=== PATIENT | male | born 1960 | race African-American/Black ===

== ENCOUNTER 2019-05-25 10:09 | Inpatient (IN) | payer OTHER ==
[2019-05-25 11:00] VITALS: BMI 27.5
--- NOTE | 2019-05-25 12:45 | HP ---
CIWA Score Nausea/Vomitin-No Nausea/No Vomiting Muscle Tremors: 3 Anxiety: 4-Mod. Anxious/Guarded Agitation: 4-Moderately Restless Paroxysmal Sweats: No Perspiration Orientation: 0-Oriented Tacttile Disturbances: 1-Very Mild Itch/Numbness (fingers) Auditory Disturbances: 0-None Visual Disturbances: 0-None Headache: 0-None Present CIWA-Ar Total Score: 12 - Admission Criteria OASAS Guidelines: Admission for Medically Managed Detox: Requires at least one of the followin. CIWA greater than 12 2. Seizures within the past 24 hours 3. Delirium tremens within the past 24 hours 4. Hallucinations within the past 24 hours 5. Acute intervention needed for co occurring medical disorder 6. Acute intervention needed for co occurring psychiatric disorder 7. Severe withdrawal that cannot be handled at a lower level of care (continued vomiting, continued diarrhea, abnormal vital signs) requiring intravenous medication and/or fluids 8. Admitting History and Physical - Admission Chief Complaint: alcohol detox History of Present Illness: Pt is a 58 y/o male with a hx of alcohol and cocaine dependence here for detox from alcohol. History Source: Patient Limitations to Obtaining History: No Limitations - Past Medical History [employer]: Yes: Peripheral Neuropathy Psych: Yes: Addictions, Depression Musculoskeletal: Yes: Chronic low back pain (and left shoulder blade sometimes) Endocrine: Yes: Diabetes Mellitus Dermatology: Yes: Other (dry,cracked base of left great toe. Thickened nails.) - Smoking History Smoking history: Current every day smoker Have you smoked in the past 12 months: Yes Aproximately how many cigarettes per day: 20 - Alcohol/Substance Use Hx Alcohol Use: Yes Number of Drinks Daily: 3 History of Substance Use: reports: Cocaine Date of Last Use: 05/25/19 - Social History Usual Living Arrangement: Yes: Other (Homeless) Do you think of yourself as: Straight/Heterosexual ADL: Independent History of Recent Travel: No Other Social History: Unemployed and on Disability Admission ROS [facility] - HPI Chief Complaint: "I came here because I don't want to go back to [facility] and I don't want to . I'm tired of living like this. I have more fun being clean" Allergies/Adverse Reactions: Allergies Allergy/AdvReac Type Severity Reaction Status Date / Time aspirin Allergy Swelling Verified 05/25/19 10:41 Pork/Porcine Containing Allergy Hives Verified 05/25/19 10:41 Products History of Present Illness: Pt is a 58 y/o male with a hx of alcohol and cocaine dependence seeking detox tx. Pt reports first comanche in this facility. Pt reports last previous treatment 10 yrs ago at [facility]. Pt reports PMHx of DM(on meds), Neuropathy(on med) . 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 Pt reports homelessness in [place], [place]. Exam Limitations: No Limitations - Ebola screening Have you traveled outside of the country in the last 21 days: No Have you had contact with anyone from an Ebola affected area: No Do you have a fever: No - Review of Systems Constitutional: Chills, Loss of Appetite, Changes in sleep EENT: reports: Cataracts ("i was told it's starting"), Blurred Vision (wears glasses-in place), Tearing, Nose Congestion, Dental Problems (three missing teeth at bottom jaw and all missing in upper jaw.) Respiratory: reports: Cough Cardiac: reports: Chest Pain ("when I'm using drugs- both alcohol and crack/ cocaine"), Lightheadedness GI: reports: Poor Appetite, Poor Fluid Intake : reports: No Symptoms Reported Musculoskeletal: reports: Other (Hx Neuropathy) Integumentary: reports: No Symptoms Reported Neuro: reports: Headache, Numbness, Paresthesia, Tremors, Dizziness Endocrine: reports: Intolerance to Cold, Unexplained Weight Loss Hematology: reports: No Symptoms Reported Psychiatric: reports: Orientated x3, Depressed Other Systems: Reviewed and Negative Patient History - Patient Medical History Hx Anemia: No Hx Asthma: No Hx Chronic Obstructive Pulmonary Disease (COPD): No Hx Cancer: No Hx Cardiac Disorders: No Hx Congestive Heart Failure: No Hx Hypertension: No Hx Hypercholesterolemia: No Hx Pacemaker: No HX Cerebrovascular Accident: No Hx Seizures: No Hx Dementia: No Hx Diabetes: Yes (on Metformin and Basaglar) Hx Gastrointestinal Disorders: No Hx Liver Disease: No Hx Genitourinary Disorders: No Hx Sexually Transmitted Disorders: No Hx Renal Disease (ESRD): No Hx Thyroid Disease: No Hx Human Immunodeficiency Virus (HIV): No (Negative Hx) Hx Hepatitis C: No Hx Depression: Yes (on meds) Hx Suicide Attempt: No (denies s/h/i) Hx Bipolar Disorder: No Hx Schizophrenia: No Other Medical History: Hx of Insomnia - Patient Surgical History Past Surgical History: No Anesthesia Reaction: No - PPD History Previous Implant?: Yes (10/2018 in [facility], [place], [place]) Documented Results: Negative w/o proof Implanted On Prior R Admission?: No PPD to be Administered?: Yes - Reproductive History Patient is a Female of Child Bearing Age (11 -55 yrs old): No (Male) - Smoking Cessation Smoking history: Current every day smoker Have you smoked in the past 12 months: Yes Aproximately how many cigarettes per day: 20 Hx Chewing Tobacco Use: No Initiated information on smoking cessation: Yes 'Breaking Loose' booklet given: 05/25/19 - Substance & Tx. History Hx Alcohol Use: Yes (Beer/Malt Liquor) Hx Substance Use: Yes (cocaine) Substance Use Type: Alcohol, Cocaine Hx Substance Use Treatment: Yes (Last was 10 yrs ago [facility]) - Substances abused Alcohol Substance route: Oral Frequency: Daily Amount used: 6 pack and haf of 24 ounce of beer. Age of first use: 7 Date of last use: 05/25/19 Cocaine Substance route: Smoking Frequency: Daily Amount used: 200 hundred Age of first use: 11 Date of last use: 05/25/19 Admission Physical Exam S - Vital Signs Vital Signs: Vital Signs - 24 hr 05/25/19 10:40 Temperature 97.7 F Pulse Rate 75 Respiratory 16 Rate Blood Pressure 109/63 - Physical General Appearance: Yes: Nourished, Mild Distress, Anxious HEENTM: Yes: EOMI, Normocephalic, BRISSA, Pharynx Normal Respiratory: Yes: Chest Non-Tender, Lungs Clear, Normal Breath Sounds, No Respiratory Distress Neck: Yes: Supple, Trachea in good position Breast: Yes: Breast Exam Deferred Cardiology: Yes: Regular Rhythm, Regular Rate, S1, S2 Abdominal: Yes: Normal Bowel Sounds, Non Tender, Soft, Protuberent Genitourinary: Yes: Other (N?C) Back: Yes: Within Normal Limits Musculoskeletal: Yes: full range of Motion, Gait Steady Extremities: Yes: Normal Range of Motion, Non-Tender Neurological: Yes: lead oxide mill tender II-XII NML intact, Fully Oriented, Alert, Motor Strength 5/5 Integumentary: Yes: Normal Color, Dry, Warm Lymphatic: Yes: Within Normal Limits - Diagnostic (1) Alcohol dependence with uncomplicated withdrawal Current Visit: Yes Status: Acute (2) Cocaine dependence, uncomplicated Current Visit: Yes Status: Acute (3) Type 2 diabetes mellitus Current Visit: Yes Status: Chronic (4) History of depression Current Visit: Yes Status: Chronic (5) Hx of peripheral neuropathy Current Visit: Yes Status: Chronic Cleared for Admission [facility] - Detox or Rehab [facility] Level of Care: Medically Managed Detox Regimen/Protocol: Librium Breathalyzer - Breathalyzer Breathalyzer: 0 Urine Drug Screen - Test Device Lot number: [id number] Expiration date: 01/19/21 - Control Is test valid?: Yes - Results Drug screen NEGATIVE: No Urine drug screen results: THC-Marijuana, PEREZ-Cocaine, BZO-Benzodiazepines Inpatient Rehab Admission - Rehab Decision to Admit Inpatient rehab admission?: No
[2019-05-25] MEDS ORDERED: MAG HYDROX/AL HYDROX/SIMETH 30 ML UNIT-DOSE CUP PO PRN (13:10)
[2019-05-25] MEDS ORDERED: BISMUTH SUBSALICYLATE 524 MG/30 ML UD PO PRN (13:10)
[2019-05-25] MEDS ORDERED: MAGNESIUM HYDROX 2400MG/30ML ORAL SUSPENSION 30 ML CUP PO PRN (13:10)
[2019-05-25] MEDS ORDERED: IBUPROFEN 400 MG TABLET (FP) PO PRN (13:10)
[2019-05-25] MEDS ORDERED: METHOCARBAMOL 500 MG TABLET PO PRN (13:10)
[2019-05-25] MEDS ORDERED: NICOTINE POLACRILEX 4 MG GUM BUC PRN (13:10)
[2019-05-25] MEDS ORDERED: hydrOXYzine PAMOATE 25 MG CAPSULE (FP) PO PRN (13:10)
[2019-05-25] MEDS ORDERED: MAGNESIUM CITRATE 300 ML BOTTLE PO PRN (13:10)
[2019-05-25] MEDS ORDERED: MENTHOL/PHENOL 1 EACH UD MM PRN (13:10)
[2019-05-25] MEDS ORDERED: ACETAMINOPHEN 325 MG TABLET (FP) PO PRN ×2 (13:10)
[2019-05-25] MEDS ORDERED: MELATONIN 5 MG TABLETS PO PRN (13:10)
[2019-05-25] MEDS ORDERED: chlordiazePOXIDE HCL 10 MG CAPSULE PO PRN (13:10)
[2019-05-25] MEDS: chlordiazePOXIDE HCL 25 MG CAPSULE PO SCH ×2 (15:04→21:01)
[2019-05-25 16:45] LABS: HEMATOCRIT 44.8 % (35.4-49); HEMOGLOBIN 14.9 GM/dL (11.7-16.9); MCH 29.3 pg (25.7-33.7); MCHC 33.2 g/dl (32.0-35.9); MEAN CELL VOLUME 88.4 fl (80-96); MEAN PLT VOLUME 7.5 fl (7.5-11.1); PLATELET COUNT 233 K/MM3 (134-434); RBC 5.07 M/mm3 (4.00-5.60); RDW 13.2 % (11.9-15.9); WHITE BLOOD COUNT 5.6 K/mm3 (4.0-10.0)
[2019-05-25 16:53] LABS: ALBUMIN 3.8 g/dl (3.4-5.0); BILIRUBIN,TOTAL 0.4 mg/dL (0.2-1); BLOOD UREA NITROGEN 15.4 mg/dL (7-18); CALCIUM 8.9 mg/dL (8.5-10.1); CREATININE 1.1 mg/dL (0.55-1.3); POTASSIUM 4.1 mmol/L (3.5-5.1); TOT PROT 6.8 g/dl (6.4-8.2)
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
[2019-05-25] MEDS: INSULIN SLIDING SCALE (NOVOLOG) 1 VIAL SQ SCH (17:16)
[2019-05-25] MEDS: metFORMIN HCL 500 MG TABLET (FP) PO SCH (17:21)
[2019-05-25] MEDS: INSULIN (LEVEMIR) 100 UNITS/ML UNITS SQ SCH (21:04)
[2019-05-25] MEDS: THIAMINE HCL 100 MG TABLET (FP) PO SCH (21:04)
[2019-05-25] MEDS ORDERED: metFORMIN HCL 500 MG TABLET (FP) PO SCH (22:00)
[2019-05-26] MEDS: chlordiazePOXIDE HCL 25 MG CAPSULE PO SCH ×3 (06:33→22:35)
[2019-05-26] MEDS: metFORMIN HCL 500 MG TABLET (FP) PO SCH ×2 (06:40→14:27)
[2019-05-26] MEDS: INSULIN SLIDING SCALE (NOVOLOG) 1 VIAL SQ SCH ×2 (06:41→16:11)
[2019-05-26] MEDS: PRENATAL VITAMINS W/ FOLIC ACID TABLET (FP) PO SCH (10:44)
--- NOTE | 2019-05-26 13:48 | PN ---
S CIWA - CIWA Score Nausea/Vomitin-No Nausea/No Vomiting Muscle Tremors: None Anxiety: 2 Agitation: 0-Normal Activity Paroxysmal Sweats: 2 Orientation: 0-Oriented Tacttile Disturbances: 0-None Auditory Disturbances: 0-None Visual Disturbances: 0-None Headache: 0-None Present CIWA-Ar Total Score: 4 BHS Progress Note (SOAP) Subjective: c/o mild anxiety and sweats. Objective: 05/26/19 13:45 Vital Signs 05/26/19 05/26/19 06:00 09:47 Temperature 98.1 F 97.9 F Pulse Rate 81 74 Respiratory 18 18 Rate Blood Pressure 128/64 137/67 Lab Results WBC 5.6 K/mm3 (4.0-10.0) 05/25/19 12:55 RBC 5.07 M/mm3 (4.00-5.60) 05/25/19 12:55 Hgb 14.9 GM/dL (11.7-16.9) 05/25/19 12:55 Hct 44.8 % (35.4-49) 05/25/19 12:55 MCV 88.4 fl (80-96) 05/25/19 12:55 MCHC 33.2 g/dl (32.0-35.9) 05/25/19 12:55 RDW 13.2 % (11.9-15.9) 05/25/19 12:55 Plt Count 233 K/MM3 (134-434) 05/25/19 12:55 Sodium 140 mmol/L (136-145) 05/25/19 12:55 Potassium 4.1 mmol/L (3.5-5.1) 05/25/19 12:55 Chloride 106 mmol/L (98-107) 05/25/19 12:55 Carbon Dioxide 30 mmol/L (21-32) 05/25/19 12:55 Anion Gap 5 MMOL/L (8-16) L 05/25/19 12:55 BUN 15.4 mg/dL (7-18) 05/25/19 12:55 Creatinine 1.1 mg/dL (0.55-1.3) 05/25/19 12:55 Random Glucose 207 mg/dL (74-106) H 05/25/19 12:55 Calcium 8.9 mg/dL (8.5-10.1) 05/25/19 12:55 Labs noted. Assessment: 05/26/19 13:45 AOX3, in no acute respiratory distress. Full ROM, ambulating in the unit. Pt expresses the interest to go to rehab. spoke to the counselor about pt's request, will be discharge to rehab when bed becomes available tomorrow. No bed availability today. pt with c/o mild withdrawal symptoms. Plan: continue detox.
[2019-05-26] MEDS: THIAMINE HCL 100 MG TABLET (FP) PO SCH (22:36)
[2019-05-26] MEDS: INSULIN (LEVEMIR) 100 UNITS/ML UNITS SQ SCH ×2 (22:38→23:02)
[2019-05-27] MEDS: chlordiazePOXIDE 5 MG CAPSULE PO SCH ×3 (05:56→21:17)
[2019-05-27] MEDS: metFORMIN HCL 500 MG TABLET (FP) PO SCH ×2 (06:00→15:40)
[2019-05-27] MEDS: PRENATAL VITAMINS W/ FOLIC ACID TABLET (FP) PO SCH (10:23)
[2019-05-27] MEDS: INSULIN SLIDING SCALE (NOVOLOG) 1 VIAL SQ SCH (16:58)
--- NOTE | 2019-05-27 17:03 | PN ---
[facility] CIWA - CIWA Score Nausea/Vomitin-No Nausea/No Vomiting Muscle Tremors: 2 Anxiety: 1-Mildly Anxious Agitation: 0-Normal Activity Paroxysmal Sweats: 2 Orientation: 0-Oriented Tacttile Disturbances: 0-None Auditory Disturbances: 0-None Visual Disturbances: 0-None Headache: 0-None Present CIWA-Ar Total Score: 5 BHS Progress Note (SOAP) Subjective: no complaint offered Objective: 05/27/19 17:02 a & ox 3 no distress noted Vital Signs Temperature 96 F L 05/27/19 16:42 Pulse Rate 79 05/27/19 16:42 Respiratory Rate 18 05/27/19 16:42 Blood Pressure 139/76 05/27/19 16:42 O2 Sat by Pulse Oximetry (%) Plan: continue detox
[2019-05-27] MEDS: INSULIN (LEVEMIR) 100 UNITS/ML UNITS SQ SCH (21:17)
[2019-05-27] MEDS: THIAMINE HCL 100 MG TABLET (FP) PO SCH (21:17)
[2019-05-28] MEDS ORDERED: chlordiazePOXIDE HCL 10 MG CAPSULE PO PRN
[2019-05-28] MEDS: chlordiazePOXIDE HCL 10 MG CAPSULE PO SCH ×2 (05:20→12:52)
[2019-05-28] MEDS: metFORMIN HCL 500 MG TABLET (FP) PO SCH ×2 (06:56→17:04)
[2019-05-28] MEDS: INSULIN SLIDING SCALE (NOVOLOG) 1 VIAL SQ SCH ×2 (08:11→23:10)
--- NOTE | 2019-05-28 09:56 | PN ---
S CIWA - CIWA Score Nausea/Vomitin-No Nausea/No Vomiting Muscle Tremors: None Anxiety: 1-Mildly Anxious Agitation: 1-Slight > Activity Paroxysmal Sweats: No Perspiration Orientation: 0-Oriented Tacttile Disturbances: 0-None Auditory Disturbances: 0-None Visual Disturbances: 0-None Headache: 0-None Present CIWA-Ar Total Score: 2 BHS Progress Note (SOAP) Subjective: feeling better mild shakes I need less librium Objective: 05/28/19 09:55 Vital Signs Temperature 98.4 F 05/28/19 09:13 Pulse Rate 81 05/28/19 09:13 Respiratory Rate 18 05/28/19 09:13 Blood Pressure 133/63 05/28/19 09:13 O2 Sat by Pulse Oximetry (%) aaox3 ambulating no acute distress Assessment: 05/28/19 09:56 mild withdrawals Plan: continue detox with reduced dose d/c in am
[2019-05-28] MEDS: PRENATAL VITAMINS W/ FOLIC ACID TABLET (FP) PO SCH (10:37)
[2019-05-28] MEDS: INSULIN (LEVEMIR) 100 UNITS/ML UNITS SQ SCH ×2 (22:51→23:16)
[2019-05-28] MEDS: THIAMINE HCL 100 MG TABLET (FP) PO SCH (23:10)
[2019-05-29] MEDS ORDERED: chlordiazePOXIDE HCL 10 MG CAPSULE PO ONE (05:00)
[2019-05-29] MEDS ORDERED: INSULIN (LEVEMIR) 100 UNITS/ML UNITS SQ ONE (06:21)
[2019-05-29] MEDS: INSULIN SLIDING SCALE (NOVOLOG) 1 VIAL SQ SCH (07:18)
[2019-05-29] MEDS: metFORMIN HCL 500 MG TABLET (FP) PO SCH (07:19)
--- NOTE | 2019-05-29 09:18 | DS ---
[facility] Detox Discharge Summary Admission Date: 05/25/19 Discharge Date: 05/29/19 - History Present History: Alcohol Dependence, Cocaine Dependence - Physical Exam Results Vital Signs: Vital Signs Temperature 98.1 F 05/29/19 08:59 Pulse Rate 84 05/29/19 08:59 Respiratory Rate 18 05/29/19 08:59 Blood Pressure 126/82 05/29/19 08:59 O2 Sat by Pulse Oximetry (%) Pertinent Admission Physical Exam Findings: pt arrived in withdrawals Laboratory Tests 05/25/19 05/25/19 05/25/19 12:55 12:55 12:55 WBC 5.6 RBC 5.07 Hgb 14.9 Hct 44.8 MCV 88.4 MCH 29.3 MCHC 33.2 RDW 13.2 Plt Count 233 MPV 7.5 Sickle Cell Screen Sodium 140 Potassium 4.1 Chloride 106 Carbon Dioxide 30 Anion Gap 5 L BUN 15.4 Creatinine 1.1 Est GFR (CKD-EPI)AfAm 84.12 Est GFR (CKD-EPI)NonAf 72.58 POC Glucometer Random Glucose 207 H Calcium 8.9 Total Bilirubin 0.4 AST 20 ALT 26 Alkaline Phosphatase 84 Total Protein 6.8 Albumin 3.8 RPR Titer Nonreactive HIV 1&2 Antibody Screen HIV P24 Antigen 05/25/19 05/25/19 05/25/19 12:55 13:24 16:44 WBC RBC Hgb Hct MCV MCH MCHC RDW Plt Count MPV Sickle Cell Screen Negative Sodium Potassium Chloride Carbon Dioxide Anion Gap BUN Creatinine Est GFR (CKD-EPI)AfAm Est GFR (CKD-EPI)NonAf POC Glucometer 212 235 Random Glucose Calcium Total Bilirubin AST ALT Alkaline Phosphatase Total Protein Albumin RPR Titer HIV 1&2 Antibody Screen HIV P24 Antigen 05/25/19 05/26/19 05/26/19 19:37 05:47 11:06 WBC RBC Hgb Hct MCV MCH MCHC RDW Plt Count MPV Sickle Cell Screen Sodium Potassium Chloride Carbon Dioxide Anion Gap BUN Creatinine Est GFR (CKD-EPI)AfAm Est GFR (CKD-EPI)NonAf POC Glucometer 259 207 Random Glucose Calcium Total Bilirubin AST ALT Alkaline Phosphatase Total Protein Albumin RPR Titer HIV 1&2 Antibody Screen Negative HIV P24 Antigen Negative 05/26/19 05/26/19 05/27/19 16:05 22:34 05:55 WBC RBC Hgb Hct MCV MCH MCHC RDW Plt Count MPV Sickle Cell Screen Sodium Potassium Chloride Carbon Dioxide Anion Gap BUN Creatinine Est GFR (CKD-EPI)AfAm Est GFR (CKD-EPI)NonAf POC Glucometer [phone] Random Glucose Calcium Total Bilirubin AST ALT Alkaline Phosphatase Total Protein Albumin RPR Titer HIV 1&2 Antibody Screen HIV P24 Antigen 05/27/19 05/27/19 05/28/19 16:38 21:14 05:18 WBC RBC Hgb Hct MCV MCH MCHC RDW Plt Count MPV Sickle Cell Screen Sodium Potassium Chloride Carbon Dioxide Anion Gap BUN Creatinine Est GFR (CKD-EPI)AfAm Est GFR (CKD-EPI)NonAf POC Glucometer [phone] Random Glucose Calcium Total Bilirubin AST ALT Alkaline Phosphatase Total Protein Albumin RPR Titer HIV 1&2 Antibody Screen HIV P24 Antigen 05/28/19 05/28/19 05/29/19 11:50 22:46 05:48 WBC RBC Hgb Hct MCV MCH MCHC RDW Plt Count MPV Sickle Cell Screen Sodium Potassium Chloride Carbon Dioxide Anion Gap BUN Creatinine Est GFR (CKD-EPI)AfAm Est GFR (CKD-EPI)NonAf POC Glucometer [phone] Random Glucose Calcium Total Bilirubin AST ALT Alkaline Phosphatase Total Protein Albumin RPR Titer HIV 1&2 Antibody Screen HIV P24 Antigen today pt is aaox3 ambulating no acute distress no s/s of withdrawals - Treatment Hospital Course: Detox Protocol Followed, Detoxed Safely, Responded well, Discharged Condition Good, Rehab Referral Accepted Patient has Accepted a Rehab Referral to: pt referred to [facility] inpatient rehab - Medication Discharge Medications: Ambulatory Orders Bupropion HCl [Wellbutrin Xl] 1 mg PO DAILY 05/25/19 Gabapentin 1 cap PO TID 05/25/19 Insulin Glargine,Hum.rec.anlog [Basaglar Kwikpen U-100] 20 units SCJ DAILY 05/25 Metformin HCl [Glucophage] 1 tablet PO BID 05/25/19 - Diagnosis (1) Alcohol dependence with uncomplicated withdrawal Current Visit: Yes Status: Chronic (2) Cocaine dependence, uncomplicated Current Visit: Yes Status: Chronic (3) History of depression Current Visit: Yes Status: Chronic (4) Hx of peripheral neuropathy Current Visit: Yes Status: Chronic (5) Type 2 diabetes mellitus Current Visit: Yes Status: Chronic Qualifiers: Diabetes mellitus fci insulin use: unspecified fci insulin use status Diabetes mellitus complication status: without complication Qualified Code(s): E11.9 - Type 2 diabetes mellitus without complications (6) Antisocial personality disorder Current Visit: No Status: Chronic - AMA Did Patient Leave Against Medical Advice: No
[2019-05-29] MEDS: PRENATAL VITAMINS W/ FOLIC ACID TABLET (FP) PO SCH (10:08)
[2019-05-29 13:38] VITALS: BP 138/77; PULSE 69; TEMP 97.2
== END 2019-05-29 14:55 | disposition other institution (70) | DRG 774 ==
LOC: YASAS 10:09 → Y6N 13:38
PROVIDERS: ADMIT Allergy & Immunology; ATTEND Allergy & Immunology
PROC: HZ2ZZZZ Detoxification Services for Substance Abuse Treatment (ICD-10-PCS; principal; 2019-05-25)
DX: F10.230 Alcohol dependence with withdrawal, uncomplicated (principal); F14.20 Cocaine dependence, uncomplicated; F17.210 Nicotine dependence, cigarettes, uncomplicated; F60.2 Antisocial personality disorder; F32.9 Major depressive disorder, single episode, unspecified; E11.9 Type 2 diabetes mellitus without complications; G62.9 Polyneuropathy, unspecified; M54.5 Low back pain; G89.29 Other chronic pain; Z79.84 Long term (current) use of oral hypoglycemic drugs; Z79.4 Long term (current) use of insulin; Z88.6 Allergy status to analgesic agent; Z91.018 Allergy to other foods; Z59.0 Homelessness
CPT/HCPCS: 36415; 80053; 82962; 85027; 85660; 86593; 87389

== ENCOUNTER 2019-05-29 15:03 | Inpatient (IN) | payer OTHER ==
--- NOTE | 2019-05-29 14:47 | HP ---
[facility] Rehab Assess/Revision - Admission History Ad[facility] to Rehab from[facility] - Findings Detox History & Physical reviewed: Yes Concur with findings: Yes Inpatient Rehab Admission - Rehab Decision to Admit Inpatient rehab admission?: Yes - Initial Determination Are CD services needed?: Yes Free of communicable disease: Yes Not in need of hospitalization: Yes - Rehab Admission Criteria Previous failed treatment: Yes Poor recovery environment: Yes Comorbidities: Yes Lacks judgement: Yes Patient is meeting Inpatient Rehab admission criteria:: Yes
[~2019-05-29 15:03] MED LIST: ACETAMINOPHEN 325 MG TABLET (FP) PO PRN; IBUPROFEN 400 MG TABLET (FP) PO PRN; LOPERAMIDE HCL 2 MG CAPSULE PO PRN; MAG HYDROX/AL HYDROX/SIMETH 30 ML UNIT-DOSE CUP PO PRN; MAGNESIUM CITRATE 300 ML BOTTLE PO PRN; MAGNESIUM HYDROX 2400MG/30ML ORAL SUSPENSION 30 ML CUP PO PRN; MENTHOL/PHENOL 1 EACH UD MM PRN; NICOTINE POLACRILEX 4 MG GUM BUC PRN; P-EPHED 60MG/TRIPROLIDI 2.5MG TABLET PO PRN; guaiFENesin 200 MG/10 ML 10 ML UNIT-DOSE CUPS PO PRN; hydrOXYzine PAMOATE 50 MG CAPSULE (FP) PO PRN
[2019-05-29] MEDS ORDERED: INSULIN (NOVOLOG) ASPART 100 UNITS/ML 10ML VIAL ONE (16:38)
[2019-05-29] MEDS: INSULIN SLIDING SCALE (NOVOLOG) 1 VIAL SQ SCH (16:39)
[2019-05-29] MEDS: metFORMIN HCL 500 MG TABLET (FP) PO SCH (16:39)
[2019-05-29] MEDS: THIAMINE HCL 100 MG TABLET (FP) PO SCH (21:06)
[2019-05-29] MEDS ORDERED: INSULIN (LEVEMIR) 100 UNITS/ML UNITS SQ SCH (22:00)
[2019-05-30] MEDS: metFORMIN HCL 500 MG TABLET (FP) PO SCH ×2 (08:22→17:17)
[2019-05-30] MEDS: INSULIN SLIDING SCALE (NOVOLOG) 1 VIAL SQ SCH ×2 (08:40→17:17)
[2019-05-30] MEDS: PRENATAL VITAMINS W/ FOLIC ACID TABLET (FP) PO SCH (10:20)
[2019-05-30] MEDS: NICOTINE 21 MG/24 HOURS TOPICAL PATCH TD SCH (10:21)
[2019-05-30] MEDS ORDERED: INSULIN (NOVOLOG) ASPART 100 UNITS/ML 10ML VIAL ONE (11:15)
[2019-05-30] MEDS: THIAMINE HCL 100 MG TABLET (FP) PO SCH (21:29)
[2019-05-30] MEDS: MELATONIN 5 MG TABLETS PO PRN (21:33)
[2019-05-31] MEDS ORDERED: PT OWN MED DRAWER 7, Y5N ONE (03:50)
[2019-05-31] MEDS: metFORMIN HCL 500 MG TABLET (FP) PO SCH ×2 (06:44→16:31)
[2019-05-31] MEDS: INSULIN (LEVEMIR) 100 UNITS/ML UNITS SQ SCH (06:47)
[2019-05-31] MEDS ORDERED: INSULIN (NOVOLOG) ASPART 100 UNITS/ML 10ML VIAL ONE ×2 (06:51→16:31)
[2019-05-31] MEDS: INSULIN SLIDING SCALE (NOVOLOG) 1 VIAL SQ SCH ×3 (07:48→16:35)
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
[2019-05-31] MEDS: NICOTINE 21 MG/24 HOURS TOPICAL PATCH TD SCH (09:38)
[2019-05-31] MEDS: PRENATAL VITAMINS W/ FOLIC ACID TABLET (FP) PO SCH (09:38)
[2019-05-31] MEDS: THIAMINE HCL 100 MG TABLET (FP) PO SCH (21:43)
[2019-06-01] MEDS: INSULIN (LEVEMIR) 100 UNITS/ML UNITS SQ SCH (06:38)
[2019-06-01] MEDS: metFORMIN HCL 500 MG TABLET (FP) PO SCH ×2 (07:35→16:37)
[2019-06-01] MEDS: INSULIN SLIDING SCALE (NOVOLOG) 1 VIAL SQ SCH ×4 (07:36→21:48)
[2019-06-01] MEDS ORDERED: INSULIN (NOVOLOG) ASPART 100 UNITS/ML 10ML VIAL ONE ×2 (07:36→11:55)
[2019-06-01] MEDS: NICOTINE 21 MG/24 HOURS TOPICAL PATCH TD SCH (10:16)
[2019-06-01] MEDS: PRENATAL VITAMINS W/ FOLIC ACID TABLET (FP) PO SCH (10:16)
[2019-06-01] MEDS ORDERED: BUPROPION HCL PO SCH (12:15)
[2019-06-01] MEDS: GABAPENTIN 400 MG CAPSULE (FP) PO SCH ×2 (13:32→21:45)
[2019-06-01] MEDS ORDERED: PT OWN MED DRAWER 7, Y5N ONE (15:34)
[2019-06-01] MEDS: THIAMINE HCL 100 MG TABLET (FP) PO SCH (21:45)
[2019-06-02] MEDS: GABAPENTIN 400 MG CAPSULE (FP) PO SCH ×3 (06:49→21:42)
[2019-06-02] MEDS: INSULIN (LEVEMIR) 100 UNITS/ML UNITS SQ SCH (08:10)
[2019-06-02] MEDS: metFORMIN HCL 500 MG TABLET (FP) PO SCH ×2 (08:10→17:01)
[2019-06-02] MEDS: INSULIN SLIDING SCALE (NOVOLOG) 1 VIAL SQ SCH ×4 (08:10→21:43)
[2019-06-02] MEDS: PRENATAL VITAMINS W/ FOLIC ACID TABLET (FP) PO SCH (10:35)
[2019-06-02] MEDS: NICOTINE 21 MG/24 HOURS TOPICAL PATCH TD SCH (10:35)
[2019-06-02] MEDS ORDERED: INSULIN (NOVOLOG) ASPART 100 UNITS/ML 10ML VIAL ONE ×3 (11:51→21:43)
[2019-06-02] MEDS: THIAMINE HCL 100 MG TABLET (FP) PO SCH (21:42)
[2019-06-03] MEDS: metFORMIN HCL 500 MG TABLET (FP) PO SCH ×2 (06:19→17:07)
[2019-06-03] MEDS: GABAPENTIN 400 MG CAPSULE (FP) PO SCH ×3 (06:19→21:45)
[2019-06-03] MEDS: INSULIN (LEVEMIR) 100 UNITS/ML UNITS SQ SCH (06:36)
[2019-06-03] MEDS: INSULIN SLIDING SCALE (NOVOLOG) 1 VIAL SQ SCH ×4 (06:36→21:46)
[2019-06-03] MEDS: NICOTINE 21 MG/24 HOURS TOPICAL PATCH TD SCH (09:40)
[2019-06-03] MEDS: PRENATAL VITAMINS W/ FOLIC ACID TABLET (FP) PO SCH (09:40)
[2019-06-03] MEDS ORDERED: INSULIN (NOVOLOG) ASPART 100 UNITS/ML 10ML VIAL ONE ×2 (11:52→17:16)
[2019-06-03] MEDS: MELATONIN 5 MG TABLETS PO PRN (21:45)
[2019-06-03] MEDS: THIAMINE HCL 100 MG TABLET (FP) PO SCH (21:45)
[2019-06-04] MEDS: GABAPENTIN 400 MG CAPSULE (FP) PO SCH (06:12)
[2019-06-04] MEDS: metFORMIN HCL 500 MG TABLET (FP) PO SCH (06:12)
[2019-06-04] MEDS: INSULIN (LEVEMIR) 100 UNITS/ML UNITS SQ SCH (06:14)
[2019-06-04] MEDS: INSULIN SLIDING SCALE (NOVOLOG) 1 VIAL SQ SCH (06:14)
[2019-06-04] MEDS ORDERED: INSULIN (NOVOLOG) ASPART 100 UNITS/ML 10ML VIAL ONE (06:41)
[2019-06-04 07:14] VITALS: BP 131/72; PULSE 81; TEMP 97.9
[2019-06-04] MEDS: PRENATAL VITAMINS W/ FOLIC ACID TABLET (FP) PO SCH (09:33)
[2019-06-04] MEDS: NICOTINE 21 MG/24 HOURS TOPICAL PATCH TD SCH (09:33)
[2019-06-04] MEDS ORDERED: PT OWN MED DRAWER 7, Y5N ONE (10:35)
--- NOTE | 2019-06-04 14:59 | DS ---
[facility] Rehab Discharge Summary - [facility] Rehab Discharge Summary Admission Date: 05/29/19 Discharge Date: 06/04/19 - History Present History: Alcohol dependence, Cocaine dependence - Discharge Physical Exam Vital Signs: Vital Signs Temperature 97.9 F 06/04/19 06:00 Pulse Rate 81 06/04/19 06:00 Respiratory Rate 18 06/04/19 06:00 Blood Pressure 131/72 06/04/19 06:00 O2 Sat by Pulse Oximetry (%) Pertinent Admission Physical Exam Findings: ROS: denies etoh cravings, chest pain, sob and dizziness. PE: alert and oriented x 3 skin warm and dry +perrla, eoms intact bl neck supple, no jvd car s1s2, no murmurs or gallops resp cta bl no rales, no wheezing ext no visible tremors, amb ad john - Treatment Discharge Condition: Discharge condition good Hospital Course: Patient completed rehab today and reports accomplishing rehab goals. Patient is motivated to maintain sobriety and aftercare arranged for [facility]. Patient is able to identify triggers and positive coping mechanisms. He is medically stable at time of discharge and denies SI/HI. [facility]. Encouraged by fiction and nonfiction prose writer to complete [facility] treatment to prevent relapse and maintain sobriety. - Medication Discharge Medications: Ambulatory Orders Bupropion HCl [Wellbutrin Xl] 1 mg PO DAILY 05/25/19 Gabapentin 1 cap PO TID 05/25/19 Insulin Glargine,Hum.rec.anlog [Basaglar Kwikpen U-100] 20 units SQ DAILY Metformin HCl [Glucophage] 1 tablet PO BID 05/25/19 - Medication-Assisted Treatment (MAT) Medication-Assisted Treatment (MAT): No - Discharge Instructions Diet, activity, other medical instructions: Diet: JULIANA, NCS as tolerated Activity: as tolerated Other medical instructions: follow up with pcp as recommended - Follow-up Referral Minutes to complete discharge: 30 - AMA Did Patient Leave Against Medical Advice: No
== END 2019-06-04 10:40 | disposition home or self-care (01) | DRG 772 ==
LOC: YASAS 15:03 → Y3W 15:04
PROVIDERS: ADMIT Neuromusculoskeletal Medicine & OMM; ATTEND Neuromusculoskeletal Medicine & OMM
PROC: HZ42ZZZ Group Counseling for Substance Abuse Treatment, Cognitive-Behavioral (ICD-10-PCS; principal; 2019-05-29)
DX: F10.20 Alcohol dependence, uncomplicated (principal); F14.20 Cocaine dependence, uncomplicated; F60.2 Antisocial personality disorder; F32.9 Major depressive disorder, single episode, unspecified; E11.9 Type 2 diabetes mellitus without complications; Z79.4 Long term (current) use of insulin; Z88.6 Allergy status to analgesic agent; Z91.018 Allergy to other foods; Z59.0 Homelessness
CPT/HCPCS: 82962

== ENCOUNTER 2019-09-19 11:32 | Inpatient (IN) | payer OTHER ==
[2019-09-19 12:41] VITALS: BMI 27.6
--- NOTE | 2019-09-19 13:03 | HP ---
COWS - Scale Resting Pulse: 1= CA 81-100 Sweatin=Flushed/Facial Moisture Restless Observation: 1= Difficult to Sit Still Pupil Size: 1= Pupils >than Normal Bone or Joint Aches: 1= Mild Discomfort Runny Nose/ Eye Tearin= Nasal Congestion GI Upset > 30mins: 1= Stomach Cramp Tremor Observation: 1= Tremor [place], Not Seen Yawning Observation: 0= None Anxiety or Irritability: 1=Feels Anxious/Irritable Goose Flesh Skin: 3=Piloerection COWS Score: 13 CIWA Score Nausea/Vomitin Muscle Tremors: 3 Anxiety: 2 Agitation: 2 Paroxysmal Sweats: 4-Forehead w/Sweat Beads Orientation: 2-Disoriented Date<2 days Tacttile Disturbances: 3-Moderate Itch/Numb/Burn Auditory Disturbances: 0-None Visual Disturbances: 0-None Headache: 5-Severe CIWA-Ar Total Score: 23 - Admission Criteria OASAS Guidelines: Admission for Medically Managed Detox: Requires at least one of the followin. CIWA greater than 12 2. Seizures within the past 24 hours 3. Delirium tremens within the past 24 hours 4. Hallucinations within the past 24 hours 5. Acute intervention needed for co occurring medical disorder 6. Acute intervention needed for co occurring psychiatric disorder 7. Severe withdrawal that cannot be handled at a lower level of care (continued vomiting, continued diarrhea, abnormal vital signs) requiring intravenous medication and/or fluids 8. Admitting History and Physical - Admission Chief Complaint: " I got out of care home in february and I started using. I want a better way of life and [facility] [place] History of Present Illness: 59 year old with history of alcohl depependenc with withdrawals and heroin dependence with some withdrawals. He is snorting 5-6 bags intranasally daily. He uses street suboxone as well. HE is drinking 3-6 packs of beer daily, last drank yesterday. HE started drinking at the age of 89 years old. He denies seizures or blackouts. He smokes 1/2-1ppd since the age of [age] years old Period of abstinence with his last admission here in 2018 was only one month. He attempted rehab at [facility] but did not complete it. 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 Thickened nails.) - Smoking History Smoking history: Current every day smoker Have you smoked in the past 12 months: Yes Aproximately how many cigarettes per day: 20 - Alcohol/Substance Use Hx Alcohol Use: Yes (Beer/Malt Liquor) Number of Drinks Daily: 3 History of Substance Use: reports: Cocaine Date of Last Use: 05/25/19 - Social History ADL: Independent History of Recent Travel: No Admission [facility] Allergies/Adverse Reactions: Allergies Allergy/AdvReac Type Severity Reaction Status Date / Time aspirin Allergy Swelling Verified 09/19/19 12:20 Pork/Porcine Containing Allergy Hives Verified 09/19/19 12:20 Products Exam Limitations: No Limitations - Ebola screening Have you traveled outside of the country in the last 21 days: No Have you had contact with anyone from an Ebola affected area: No Have you been sick,other than usual withdrawal symptoms: No Do you have a fever: No - Review of Systems Constitutional: Chills EENT: reports: No Symptoms Reported Respiratory: reports: No Symptoms reported Cardiac: reports: No Symptoms Reported GI: reports: Nausea, Abdominal cramping : reports: No Symptoms Reported Musculoskeletal: reports: No Symptoms Reported Integumentary: reports: No Symptoms Reported Neuro: reports: No Symptoms reported Endocrine: reports: No Symptoms Reported Hematology: reports: No Symptoms Reported Psychiatric: reports: Judgement Intact, Orientated x3, Agitated, Anxious Other Systems: Reviewed and Negative Patient History - Patient Medical History Hx Anemia: No Hx Asthma: No Hx Chronic Obstructive Pulmonary Disease (COPD): No Hx Cancer: No Hx Cardiac Disorders: No Hx Congestive Heart Failure: No Hx Hypertension: Yes Hx Hypercholesterolemia: No Hx Pacemaker: No HX Cerebrovascular Accident: No Hx Seizures: No Hx Dementia: No Hx Diabetes: Yes Hx Gastrointestinal Disorders: No Hx Liver Disease: No Hx Genitourinary Disorders: No Hx Sexually Transmitted Disorders: No Hx Renal Disease (ESRD): No Hx Thyroid Disease: No Hx Human Immunodeficiency Virus (HIV): No (Negative Hx) Hx Hepatitis C: No Hx Depression: Yes Hx Suicide Attempt: No Hx Bipolar Disorder: No Hx Schizophrenia: No - Patient Surgical History Past Surgical History: No Hx Neurologic Surgery: No Hx Cataract Extraction: No Hx Cardiac Surgery: No Hx Lung Surgery: No Hx Breast Surgery: No Hx Breast Biopsy: No Hx Abdominal Surgery: No Hx Appendectomy: No Hx Cholecystectomy: No Hx Genitourinary Surgery: No Hx Section: No Hx Orthopedic Surgery: No Anesthesia Reaction: No - PPD History Previous Implant?: Yes Documented Results: Negative w/proof [facility] Yes Date: 05/27/19 Results: negative - Smoking Cessation Smoking history: Current every day smoker Have you smoked in the past 12 months: Yes Aproximately how many cigarettes per day: 20 Hx Chewing Tobacco Use: No Initiated information on smoking cessation: Yes 'Breaking Loose' booklet given: 09/19/19 - Substances abused Alcohol Substance route: Oral Frequency: Daily Amount used: 12 CANS OF BEER (24 oz), 1 pint of rum Age of first use: 7 Date of last use: 09/18/19 Cocaine Substance route: Smoking Frequency: Daily Amount used: 5-6 grams Age of first use: 24 Date of last use: 09/18/19 Admission Physical Exam BHS - Vital Signs Vital Signs: Vital Signs - 24 hr 09/19/19 12:37 Temperature 97.1 F L Pulse Rate 73 Respiratory 19 Rate Blood Pressure 129/75 - Physical General Appearance: Yes: No Apparent Distress, Nourished, Appropriately Dressed HEENTM: Yes: EOMI, Hearing grossly Normal, Normal ENT Inspection, Normocephalic , Normal Voice, BRISSA, Pharynx Normal, Tm's normal, Other (edentulous upper jaw) Respiratory: Yes: Chest Non-Tender, Lungs Clear, Normal Breath Sounds, No Respiratory Distress, No Accessory Muscle Use Neck: Yes: No masses,lesions,Nodules, Supple, Trachea in good position Breast: Yes: Within Normal Limits Cardiology: Yes: Regular Rhythm, Regular Rate, S1, S2 Abdominal: Yes: Normal Bowel Sounds, Non Tender, Flat, Soft Genitourinary: Yes: Within Normal Limits Back: Yes: Normal Inspection Musculoskeletal: Yes: full range of Motion, Gait Steady, Pelvis Stable Extremities: Yes: Normal Capillary Refill, Normal Inspection, Normal Range of Motion, Non-Tender 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, Fully Oriented, Alert, Motor Strength 5/5, Normal Mood/Affect, Normal Response Integumentary: Yes: Normal Color, Warm Lymphatic: Yes: Within Normal Limits - Diagnostic (1) Opiate dependence, continuous Current Visit: Yes Status: Acute (2) Alcohol dependence with uncomplicated withdrawal Current Visit: Yes Status: Chronic (3) Cocaine dependence, uncomplicated Current Visit: Yes Status: Chronic (4) Hx of peripheral neuropathy Current Visit: Yes Status: Chronic (5) Type 2 diabetes mellitus Current Visit: Yes Status: Chronic Qualifiers: Diabetes mellitus supervisor intermediates insulin use: unspecified halfway insulin use status Diabetes mellitus complication status: without complication Qualified Code(s): E11.9 - Type 2 diabetes mellitus without complications Cleared for Admission S - Detox or Rehab [facility] Level of Care: Medically Managed Screened but not Admitted - Documentation of Visit Screened but not Admitted: No Breathalyzer - Breathalyzer Breathalyzer: 0 (drank one day ago) Urine Drug Screen - Test Device Lot number: [id number] Expiration date: 03/20/21 - Control Is test valid?: Yes - Results Drug screen NEGATIVE: No Urine drug screen results: PEREZ-Cocaine Inpatient Rehab Admission - Rehab Decision to Admit Inpatient rehab admission?: No
[2019-09-19] MEDS ORDERED: MENTHOL/PHENOL 1 EACH UD MM PRN (13:10)
[2019-09-19] MEDS ORDERED: METHOCARBAMOL 500 MG TABLET PO PRN (13:10)
[2019-09-19] MEDS ORDERED: MAGNESIUM HYDROX 2400MG/30ML ORAL SUSPENSION 30 ML CUP PO PRN (13:10)
[2019-09-19] MEDS ORDERED: MAGNESIUM CITRATE 300 ML BOTTLE PO PRN (13:10)
[2019-09-19] MEDS ORDERED: cloNIDine HCL 0.1 MG TABLET PO PRN (13:10)
[2019-09-19] MEDS ORDERED: IBUPROFEN 400 MG TABLET (FP) PO PRN (13:10)
[2019-09-19] MEDS ORDERED: ACETAMINOPHEN 325 MG TABLET (FP) PO PRN ×2 (13:10)
[2019-09-19] MEDS ORDERED: MELATONIN 5 MG TABLETS PO PRN (13:10)
[2019-09-19] MEDS ORDERED: MAG HYDROX/AL HYDROX/SIMETH 30 ML UNIT-DOSE CUP PO PRN (13:10)
[2019-09-19] MEDS ORDERED: hydrOXYzine PAMOATE 25 MG CAPSULE (FP) PO PRN (13:10)
[2019-09-19] MEDS ORDERED: METHADONE HCL 10 MG TABLET (FOR DETOX USE ONLY) PO ONE (14:00)
[2019-09-19] MEDS: chlordiazePOXIDE HCL 25 MG CAPSULE PO PRN (14:33)
[2019-09-19] MEDS: NICOTINE 7 MG/24 HOURS TOPICAL PATCH TD SCH (14:35)
[2019-09-19 16:46] LABS: HEMATOCRIT 40.4 % (35.4-49); HEMOGLOBIN 13.3 GM/dL (11.7-16.9); MCH 28.9 pg (25.7-33.7); MCHC 32.9 g/dl (32.0-35.9); MEAN CELL VOLUME 87.9 fl (80-96); MEAN PLT VOLUME 7.4 fl (7.5-11.1); PLATELET COUNT 245 K/MM3 (134-434); RDW 13.3 % (11.9-15.9); WHITE BLOOD COUNT 5.4 K/mm3 (4.0-10.0)
[2019-09-19] MEDS: metFORMIN HCL 500 MG TABLET (FP) PO SCH (17:04)
[2019-09-19] MEDS: chlordiazePOXIDE HCL 25 MG CAPSULE PO SCH ×2 (17:04→22:25)
[2019-09-19 17:06] LABS: ALBUMIN 3.9 g/dl (3.4-5.0); BILIRUBIN,TOTAL 0.3 mg/dL (0.2-1); BLOOD UREA NITROGEN 10.6 mg/dL (7-18); CALCIUM 8.9 mg/dL (8.5-10.1); CREATININE 1.1 mg/dL (0.55-1.3); TOT PROT 6.8 g/dl (6.4-8.2)
[2019-09-19] MEDS: THIAMINE HCL 100 MG TABLET (FP) PO SCH (22:24)
[2019-09-20] MEDS: metFORMIN HCL 500 MG TABLET (FP) PO SCH ×2 (06:21→17:44)
[2019-09-20] MEDS: chlordiazePOXIDE HCL 25 MG CAPSULE PO SCH ×2 (06:25→10:13)
[2019-09-20] MEDS ORDERED: INSULIN SLIDING SCALE (NOVOLOG) 1 VIAL SQ ONE ×2 (06:31→16:55)
[2019-09-20] MEDS: chlordiazePOXIDE HCL 25 MG CAPSULE PO PRN (06:43)
[2019-09-20] MEDS ORDERED: INSULIN (NOVOLOG) ASPART 100 UNITS/ML 10ML VIAL SQ SCH (07:00)
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
[2019-09-20] MEDS ORDERED: INSULIN (LEVEMIR) 100 UNITS/ML UNITS SQ SCH (10:00)
[2019-09-20] MEDS ORDERED: METHADONE HCL 5 MG TABLET (FOR DETOX USE ONLY) PO ONE (10:00)
[2019-09-20] MEDS: PRENATAL VITAMINS W/ FOLIC ACID TABLET (FP) PO SCH (10:12)
[2019-09-20] MEDS: NICOTINE 7 MG/24 HOURS TOPICAL PATCH TD SCH (10:14)
[2019-09-20] MEDS ORDERED: diazePAM 5 MG TABLET PO PRN (12:07)
--- NOTE | 2019-09-20 12:12 | PN ---
S CIWA - CIWA Score Nausea/Vomitin-No Nausea/No Vomiting Muscle Tremors: 3 Anxiety: 2 Agitation: 2 Paroxysmal Sweats: 2 Orientation: 0-Oriented Tacttile Disturbances: 0-None Auditory Disturbances: 0-None Visual Disturbances: 0-None Headache: 0-None Present CIWA-Ar Total Score: 9 BHS Progress Note (SOAP) Subjective: sweats shakes I dont want the librium i prefer the valium taper my insulin coverage time gonzalez is wrong. I prefer to use my own insulin pen Objective: 09/20/19 12:11 Vital Signs Temperature 98.4 F 09/20/19 09:27 Pulse Rate 78 09/20/19 09:27 Respiratory Rate 17 09/20/19 09:27 Blood Pressure 146/64 09/20/19 09:27 O2 Sat by Pulse Oximetry (%) Laboratory Tests 09/19/19 09/19/19 09/19/19 12:49 13:00 13:00 WBC 5.4 RBC 4.60 Hgb 13.3 Hct 40.4 MCV 87.9 MCH 28.9 MCHC 32.9 RDW 13.3 Plt Count 245 MPV 7.4 L Sodium Potassium Chloride Carbon Dioxide Anion Gap BUN Creatinine Est GFR (CKD-EPI)AfAm Est GFR (CKD-EPI)NonAf POC Glucometer 192 Random Glucose Calcium Total Bilirubin AST ALT Alkaline Phosphatase Total Protein Albumin RPR Titer HIV 1&2 Antibody Screen Negative HIV P24 Antigen Negative 09/19/19 09/19/19 09/19/19 13:00 13:00 16:27 WBC RBC Hgb Hct MCV MCH MCHC RDW Plt Count MPV Sodium 140 Potassium 4.0 Chloride 107 Carbon Dioxide 26 Anion Gap 6 L BUN 10.6 Creatinine 1.1 Est GFR (CKD-EPI)AfAm 83.53 Est GFR (CKD-EPI)NonAf 72.07 POC Glucometer 214 Random Glucose 209 H Calcium 8.9 Total Bilirubin 0.3 AST 13 L ALT 25 Alkaline Phosphatase 91 Total Protein 6.8 Albumin 3.9 RPR Titer Nonreactive HIV 1&2 Antibody Screen HIV P24 Antigen 09/20/19 09/20/19 06:19 09:38 WBC RBC Hgb Hct MCV MCH MCHC RDW Plt Count MPV Sodium Potassium Chloride Carbon Dioxide Anion Gap BUN Creatinine Est GFR (CKD-EPI)AfAm Est GFR (CKD-EPI)NonAf POC Glucometer 268 208 Random Glucose Calcium Total Bilirubin AST ALT Alkaline Phosphatase Total Protein Albumin RPR Titer HIV 1&2 Antibody Screen HIV P24 Antigen aaox3 ambulating no acute distress Assessment: 09/20/19 12:11 withdrawals Plan: continue detox with revised regimen increase fluids pt may use his own insulin pen if approved.
[2019-09-20] MEDS: diazePAM 5 MG TABLET PO SCH ×2 (14:05→22:26)
--- NOTE | 2019-09-20 14:40 | PN ---
S Progress Note Note: pt brought his insulin pens however, no label, no name, no box indication dose or his name. pt will be placed on his levemir sq q7am, BGM tidac, and on sliding scale for coverage.
[2019-09-20] MEDS: INSULIN (NOVOLOG) ASPART 100 UNITS/ML 10ML VIAL SQ SCH (17:51)
[2019-09-20] MEDS: THIAMINE HCL 100 MG TABLET (FP) PO SCH (22:26)
[2019-09-21] MEDS ORDERED: chlordiazePOXIDE HCL 25 MG CAPSULE PO SCH (05:00)
[2019-09-21] MEDS: diazePAM 5 MG TABLET PO SCH ×2 (05:57→13:59)
[2019-09-21] MEDS: metFORMIN HCL 500 MG TABLET (FP) PO SCH ×2 (06:18→17:27)
[2019-09-21] MEDS: INSULIN (LEVEMIR) 100 UNITS/ML UNITS SQ SCH (06:19)
[2019-09-21] MEDS: INSULIN (NOVOLOG) ASPART 100 UNITS/ML 10ML VIAL SQ SCH ×3 (07:07→17:56)
[2019-09-21] MEDS ORDERED: AMMONIUM LACTATE 12% LOTION 225 GM BOTTLE TP PRN (09:43)
[2019-09-21] MEDS ORDERED: METHADONE HCL 10 MG TABLET (FOR DETOX USE ONLY) PO ONE (10:00)
[2019-09-21] MEDS: PRENATAL VITAMINS W/ FOLIC ACID TABLET (FP) PO SCH (10:43)
[2019-09-21] MEDS: NICOTINE 7 MG/24 HOURS TOPICAL PATCH TD SCH (10:44)
--- NOTE | 2019-09-21 11:39 | PN ---
[facility] CIWA - CIWA Score Nausea/Vomitin-No Nausea/No Vomiting Muscle Tremors: 3 Anxiety: 2 Agitation: 2 Paroxysmal Sweats: 2 Orientation: 0-Oriented Tacttile Disturbances: 0-None Auditory Disturbances: 0-None Visual Disturbances: 0-None Headache: 0-None Present CIWA-Ar Total Score: 9 BHS Progress Note (SOAP) Subjective: restless agitation body aches Objective: 09/21/19 11:37 Vital Signs Temperature 97.7 F 09/21/19 09:52 Pulse Rate 74 09/21/19 09:52 Respiratory Rate 16 09/21/19 09:52 Blood Pressure 121/74 09/21/19 09:52 O2 Sat by Pulse Oximetry (%) Laboratory Tests 09/19/19 09/19/19 09/19/19 12:49 13:00 13:00 WBC 5.4 RBC 4.60 Hgb 13.3 Hct 40.4 MCV 87.9 MCH 28.9 MCHC 32.9 RDW 13.3 Plt Count 245 MPV 7.4 L Sodium Potassium Chloride Carbon Dioxide Anion Gap BUN Creatinine Est GFR (CKD-EPI)AfAm Est GFR (CKD-EPI)NonAf POC Glucometer 192 Random Glucose Calcium Total Bilirubin AST ALT Alkaline Phosphatase Total Protein Albumin RPR Titer HIV 1&2 Antibody Screen Negative HIV P24 Antigen Negative 09/19/19 09/19/19 09/19/19 13:00 13:00 16:27 WBC RBC Hgb Hct MCV MCH MCHC RDW Plt Count MPV Sodium 140 Potassium 4.0 Chloride 107 Carbon Dioxide 26 Anion Gap 6 L BUN 10.6 Creatinine 1.1 Est GFR (CKD-EPI)AfAm 83.53 Est GFR (CKD-EPI)NonAf 72.07 POC Glucometer 214 Random Glucose 209 H Calcium 8.9 Total Bilirubin 0.3 AST 13 L ALT 25 Alkaline Phosphatase 91 Total Protein 6.8 Albumin 3.9 RPR Titer Nonreactive HIV 1&2 Antibody Screen HIV P24 Antigen 09/20/19 09/20/19 09/20/19 06:19 09:38 16:41 WBC RBC Hgb Hct MCV MCH MCHC RDW Plt Count MPV Sodium Potassium Chloride Carbon Dioxide Anion Gap BUN Creatinine Est GFR (CKD-EPI)AfAm Est GFR (CKD-EPI)NonAf POC Glucometer 268 208 206 Random Glucose Calcium Total Bilirubin AST ALT Alkaline Phosphatase Total Protein Albumin RPR Titer HIV 1&2 Antibody Screen HIV P24 Antigen 09/21/19 05:55 WBC RBC Hgb Hct MCV MCH MCHC RDW Plt Count MPV Sodium Potassium Chloride Carbon Dioxide Anion Gap BUN Creatinine Est GFR (CKD-EPI)AfAm Est GFR (CKD-EPI)NonAf POC Glucometer 206 Random Glucose Calcium Total Bilirubin AST ALT Alkaline Phosphatase Total Protein Albumin RPR Titer HIV 1&2 Antibody Screen HIV P24 Antigen aaox3 ambulating no acute distress Assessment: 09/21/19 11:37 withdrawals Plan: continue detox increase fluids pt was encouraged to take his detox medication as ordered and be compliant with the regimen. pt in agreement. pt will also be d/c on Tuesday he has a p/u to go to care home rehab and a bed will be waiting for him on Tuesday. it has been confirmed by his counselor.
[2019-09-21] MEDS ORDERED: INSULIN SLIDING SCALE (NOVOLOG) 1 VIAL SQ ONE ×2 (11:52→16:57)
[2019-09-21] MEDS: THIAMINE HCL 100 MG TABLET (FP) PO SCH (22:34)
[2019-09-22] MEDS ORDERED: chlordiazePOXIDE HCL 10 MG CAPSULE PO PRN
[2019-09-22] MEDS ORDERED: chlordiazePOXIDE HCL 10 MG CAPSULE PO SCH (05:00)
[2019-09-22] MEDS: diazePAM 5 MG TABLET PO SCH ×2 (05:38→17:43)
[2019-09-22] MEDS ORDERED: METHADONE HCL 5 MG TABLET (FOR DETOX USE ONLY) PO ONE (06:00)
[2019-09-22] MEDS: metFORMIN HCL 500 MG TABLET (FP) PO SCH ×2 (06:10→16:56)
[2019-09-22] MEDS: INSULIN (LEVEMIR) 100 UNITS/ML UNITS SQ SCH (06:10)
[2019-09-22] MEDS: INSULIN (NOVOLOG) ASPART 100 UNITS/ML 10ML VIAL SQ SCH ×3 (08:02→16:50)
[2019-09-22] MEDS ORDERED: COLLOIDAL OATMEAL 1 BAR EACH TP PRN (11:08)
[2019-09-22] MEDS: NICOTINE 7 MG/24 HOURS TOPICAL PATCH TD SCH (11:08)
[2019-09-22] MEDS: PRENATAL VITAMINS W/ FOLIC ACID TABLET (FP) PO SCH (11:09)
[2019-09-22] MEDS ORDERED: INSULIN (NOVOLOG MIX 70/30) 100 UNITS/ML MDV SQ ONE (11:15)
--- NOTE | 2019-09-22 13:22 | PN ---
S CIWA - CIWA Score Nausea/Vomitin-No Nausea/No Vomiting Muscle Tremors: 2 Anxiety: 1-Mildly Anxious Agitation: 3 Paroxysmal Sweats: 1-Minimal Palms Moist Orientation: 0-Oriented Tacttile Disturbances: 0-None Auditory Disturbances: 0-None Visual Disturbances: 0-None Headache: 0-None Present CIWA-Ar Total Score: 7 BHS Progress Note (SOAP) Subjective: Pt reports detox proceeding well. Mild anxiety. decreased tremors.Reports dry skin but denies itching. Requesting Aveeno soap. On Am Lact lotion. Objective: 09/22/19 13:21 Vital Signs - 24 hr 09/21/19 09/21/19 09/21/19 14:01 17:37 21:34 Temperature 98.1 F 98.2 F 97.2 F L Pulse Rate 82 68 82 Respiratory 18 18 19 Rate Blood Pressure 133/73 135/97 133/74 09/22/19 09/22/19 09/22/19 00:30 03:21 07:03 Temperature 98.1 F Pulse Rate 85 Respiratory 18 18 18 Rate Blood Pressure 137/81 09/22/19 11:26 Temperature 97.1 F L Pulse Rate 82 Respiratory 18 Rate Blood Pressure 130/77 Laboratory Tests 09/19/19 09/19/19 09/19/19 12:49 13:00 13:00 WBC 5.4 RBC 4.60 Hgb 13.3 Hct 40.4 MCV 87.9 MCH 28.9 MCHC 32.9 RDW 13.3 Plt Count 245 MPV 7.4 L Sodium Potassium Chloride Carbon Dioxide Anion Gap BUN Creatinine Est GFR (CKD-EPI)AfAm Est GFR (CKD-EPI)NonAf POC Glucometer 192 Random Glucose Calcium Total Bilirubin AST ALT Alkaline Phosphatase Total Protein Albumin RPR Titer HIV 1&2 Antibody Screen Negative HIV P24 Antigen Negative 09/19/19 09/19/19 09/19/19 13:00 13:00 16:27 WBC RBC Hgb Hct MCV MCH MCHC RDW Plt Count MPV Sodium 140 Potassium 4.0 Chloride 107 Carbon Dioxide 26 Anion Gap 6 L BUN 10.6 Creatinine 1.1 Est GFR (CKD-EPI)AfAm 83.53 Est GFR (CKD-EPI)NonAf 72.07 POC Glucometer 214 Random Glucose 209 H Calcium 8.9 Total Bilirubin 0.3 AST 13 L ALT 25 Alkaline Phosphatase 91 Total Protein 6.8 Albumin 3.9 RPR Titer Nonreactive HIV 1&2 Antibody Screen HIV P24 Antigen 09/20/19 09/20/19 09/20/19 06:19 09:38 16:41 WBC RBC Hgb Hct MCV MCH MCHC RDW Plt Count MPV Sodium Potassium Chloride Carbon Dioxide Anion Gap BUN Creatinine Est GFR (CKD-EPI)AfAm Est GFR (CKD-EPI)NonAf POC Glucometer 268 208 206 Random Glucose Calcium Total Bilirubin AST ALT Alkaline Phosphatase Total Protein Albumin RPR Titer HIV 1&2 Antibody Screen HIV P24 Antigen 09/21/19 09/21/19 09/21/19 05:55 11:42 16:28 WBC RBC Hgb Hct MCV MCH MCHC RDW Plt Count MPV Sodium Potassium Chloride Carbon Dioxide Anion Gap BUN Creatinine Est GFR (CKD-EPI)AfAm Est GFR (CKD-EPI)NonAf POC Glucometer 206 263 187 Random Glucose Calcium Total Bilirubin AST ALT Alkaline Phosphatase Total Protein Albumin RPR Titer HIV 1&2 Antibody Screen HIV P24 Antigen 09/22/19 09/22/19 05:36 11:11 WBC RBC Hgb Hct MCV MCH MCHC RDW Plt Count MPV Sodium Potassium Chloride Carbon Dioxide Anion Gap BUN Creatinine Est GFR (CKD-EPI)AfAm Est GFR (CKD-EPI)NonAf POC Glucometer 279 204 Random Glucose Calcium Total Bilirubin AST ALT Alkaline Phosphatase Total Protein Albumin RPR Titer HIV 1&2 Antibody Screen HIV P24 Antigen Alert o x 3,denies s/h/i nad oob ambulating with steady gait. Assessment: 09/22/19 13:23 YASMEEN w/s Plan: cont detox encourage fluid intake as tolerated Aveeno Soap as directed.
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
[2019-09-22] MEDS: AMMONIUM LACTATE 12% LOTION 225 GM BOTTLE TP SCH (14:12)
[2019-09-22] MEDS ORDERED: INSULIN SLIDING SCALE (NOVOLOG) 1 VIAL SQ ONE (16:53)
[2019-09-22] MEDS: THIAMINE HCL 100 MG TABLET (FP) PO SCH (22:08)
[2019-09-23] MEDS ORDERED: chlordiazePOXIDE HCL 10 MG CAPSULE PO SCH (05:00)
[2019-09-23] MEDS ORDERED: diazePAM 5 MG TABLET PO ONE (06:00)
[2019-09-23] MEDS: INSULIN (LEVEMIR) 100 UNITS/ML UNITS SQ SCH (06:09)
[2019-09-23] MEDS: metFORMIN HCL 500 MG TABLET (FP) PO SCH ×2 (06:09→18:12)
[2019-09-23] MEDS: INSULIN (NOVOLOG) ASPART 100 UNITS/ML 10ML VIAL SQ SCH ×3 (07:53→18:12)
[2019-09-23] MEDS: NICOTINE 7 MG/24 HOURS TOPICAL PATCH TD SCH (11:29)
[2019-09-23] MEDS: PRENATAL VITAMINS W/ FOLIC ACID TABLET (FP) PO SCH (11:29)
[2019-09-23] MEDS: AMMONIUM LACTATE 12% LOTION 225 GM BOTTLE TP SCH (11:29)
[2019-09-23] MEDS ORDERED: INSULIN (NOVOLOG) ASPART 100 UNITS/ML 10ML VIAL ONE (11:48)
[2019-09-23] MEDS: GABAPENTIN 100 MG CAPSULE PO SCH (11:54)
--- NOTE | 2019-09-23 12:59 | PN ---
[facility] CIWA - CIWA Score Nausea/Vomitin-No Nausea/No Vomiting Muscle Tremors: 1-None Visible, but [place] Anxiety: 0-No Anxiety, at Ease Agitation: 1-Slight > Activity Paroxysmal Sweats: No Perspiration Orientation: 0-Oriented Tacttile Disturbances: 3-Moderate Itch/Numb/Burn Auditory Disturbances: 0-None Visual Disturbances: 0-None Headache: 0-None Present CIWA-Ar Total Score: 5 [facility] Progress Note (SOAP) Subjective: Patient admitted for detox for alcohol dependence. Due to transfer for [facility]hab to [facility] tomorrow morning. He is slightly active, pacing in hallway and c/o numbness/tingling to hands and feet. Has hx of DM. Objective: 09/23/19 12:59 Laboratory Tests 09/19/19 09/19/19 09/19/19 12:49 13:00 13:00 WBC 5.4 RBC 4.60 Hgb 13.3 Hct 40.4 MCV 87.9 MCH 28.9 MCHC 32.9 RDW 13.3 Plt Count 245 MPV 7.4 L Sodium Potassium Chloride Carbon Dioxide Anion Gap BUN Creatinine Est GFR (CKD-EPI)AfAm Est GFR (CKD-EPI)NonAf POC Glucometer 192 Random Glucose Calcium Total Bilirubin AST ALT Alkaline Phosphatase Total Protein Albumin RPR Titer HIV 1&2 Antibody Screen Negative HIV P24 Antigen Negative 09/19/19 09/19/19 09/19/19 13:00 13:00 16:27 WBC RBC Hgb Hct MCV MCH MCHC RDW Plt Count MPV Sodium 140 Potassium 4.0 Chloride 107 Carbon Dioxide 26 Anion Gap 6 L BUN 10.6 Creatinine 1.1 Est GFR (CKD-EPI)AfAm 83.53 Est GFR (CKD-EPI)NonAf 72.07 POC Glucometer 214 Random Glucose 209 H Calcium 8.9 Total Bilirubin 0.3 AST 13 L ALT 25 Alkaline Phosphatase 91 Total Protein 6.8 Albumin 3.9 RPR Titer Nonreactive HIV 1&2 Antibody Screen HIV P24 Antigen 09/20/19 09/20/19 09/20/19 06:19 09:38 16:41 WBC RBC Hgb Hct MCV MCH MCHC RDW Plt Count MPV Sodium Potassium Chloride Carbon Dioxide Anion Gap BUN Creatinine Est GFR (CKD-EPI)AfAm Est GFR (CKD-EPI)NonAf POC Glucometer 268 208 206 Random Glucose Calcium Total Bilirubin AST ALT Alkaline Phosphatase Total Protein Albumin RPR Titer HIV 1&2 Antibody Screen HIV P24 Antigen 09/21/19 09/21/19 09/21/19 05:55 11:42 16:28 WBC RBC Hgb Hct MCV MCH MCHC RDW Plt Count MPV Sodium Potassium Chloride Carbon Dioxide Anion Gap BUN Creatinine Est GFR (CKD-EPI)AfAm Est GFR (CKD-EPI)NonAf POC Glucometer 206 263 187 Random Glucose Calcium Total Bilirubin AST ALT Alkaline Phosphatase Total Protein Albumin RPR Titer HIV 1&2 Antibody Screen HIV P24 Antigen 09/22/19 09/22/19 09/22/19 05:36 11:11 16:40 WBC RBC Hgb Hct MCV MCH MCHC RDW Plt Count MPV Sodium Potassium Chloride Carbon Dioxide Anion Gap BUN Creatinine Est GFR (CKD-EPI)AfAm Est GFR (CKD-EPI)NonAf POC Glucometer 279 204 319 Random Glucose Calcium Total Bilirubin AST ALT Alkaline Phosphatase Total Protein Albumin RPR Titer HIV 1&2 Antibody Screen HIV P24 Antigen 09/23/19 09/23/19 05:43 11:32 WBC RBC Hgb Hct MCV MCH MCHC RDW Plt Count MPV Sodium Potassium Chloride Carbon Dioxide Anion Gap BUN Creatinine Est GFR (CKD-EPI)AfAm Est GFR (CKD-EPI)NonAf POC Glucometer 332 220 Random Glucose Calcium Total Bilirubin AST ALT Alkaline Phosphatase Total Protein Albumin RPR Titer HIV 1&2 Antibody Screen HIV P24 Antigen Vital Signs Period Temp Pulse Resp BP Sys/Farr Pulse Ox Last 24 Hr 90.9 F-98.9 F 76-90 14-18 126-151/65-90 PE alert and oriented x 3 skin warm and dry +perrla, eoms intact car s1s2 resp cta bl ext full rom, mild tremors amb ad john mildly restless Assessment: 09/23/19 13:02 ETOH dependence DM diabetic neuropathy Plan: Patient reports being treated with gabapetin by PCP. [facility] reported as preferred pharmacy and called by radio news writer. Pharmacy closed. Will order gabapentin 100mg daily. continue current medications as ordered oral fluids encouraged continue to monitor clinically
[2019-09-23] MEDS ORDERED: INSULIN SLIDING SCALE (NOVOLOG) 1 VIAL SQ ONE (17:38)
[2019-09-23] MEDS: THIAMINE HCL 100 MG TABLET (FP) PO SCH (22:28)
[2019-09-24] MEDS ORDERED: chlordiazePOXIDE HCL 10 MG CAPSULE PO ONE (05:00)
[2019-09-24] MEDS: INSULIN (LEVEMIR) 100 UNITS/ML UNITS SQ SCH (06:07)
[2019-09-24 06:27] VITALS: BP 128/66; PULSE 76; TEMP 96.1
[2019-09-24] MEDS: metFORMIN HCL 500 MG TABLET (FP) PO SCH (07:30)
[2019-09-24] MEDS: INSULIN (NOVOLOG) ASPART 100 UNITS/ML 10ML VIAL SQ SCH (08:02)
--- NOTE | 2019-09-24 08:49 | DS ---
[facility] Detox Discharge Summary Admission Date: 09/19/19 Discharge Date: 09/24/19 - History Present History: Alcohol Dependence, Opioid Dependence - Physical Exam Results Vital Signs: Vital Signs Temperature 96.1 F L 09/24/19 06:26 Pulse Rate 76 09/24/19 06:26 Respiratory Rate 18 09/24/19 06:26 Blood Pressure 128/66 09/24/19 06:26 O2 Sat by Pulse Oximetry (%) Pertinent Admission Physical Exam Findings: Vital Signs Temperature 96.1 F L 09/24/19 06:26 Pulse Rate 76 09/24/19 06:26 Respiratory Rate 18 09/24/19 06:26 Blood Pressure 128/66 09/24/19 06:26 O2 Sat by Pulse Oximetry (%) Laboratory Tests 09/19/19 09/19/19 09/19/19 12:49 13:00 13:00 WBC 5.4 RBC 4.60 Hgb 13.3 Hct 40.4 MCV 87.9 MCH 28.9 MCHC 32.9 RDW 13.3 Plt Count 245 MPV 7.4 L Sodium Potassium Chloride Carbon Dioxide Anion Gap BUN Creatinine Est GFR (CKD-EPI)AfAm Est GFR (CKD-EPI)NonAf POC Glucometer 192 Random Glucose Calcium Total Bilirubin AST ALT Alkaline Phosphatase Total Protein Albumin RPR Titer HIV 1&2 Antibody Screen Negative HIV P24 Antigen Negative 09/19/19 09/19/19 09/19/19 13:00 13:00 16:27 WBC RBC Hgb Hct MCV MCH MCHC RDW Plt Count MPV Sodium 140 Potassium 4.0 Chloride 107 Carbon Dioxide 26 Anion Gap 6 L BUN 10.6 Creatinine 1.1 Est GFR (CKD-EPI)AfAm 83.53 Est GFR (CKD-EPI)NonAf 72.07 POC Glucometer 214 Random Glucose 209 H Calcium 8.9 Total Bilirubin 0.3 AST 13 L ALT 25 Alkaline Phosphatase 91 Total Protein 6.8 Albumin 3.9 RPR Titer Nonreactive HIV 1&2 Antibody Screen HIV P24 Antigen 09/20/19 09/20/19 09/20/19 06:19 09:38 16:41 WBC RBC Hgb Hct MCV MCH MCHC RDW Plt Count MPV Sodium Potassium Chloride Carbon Dioxide Anion Gap BUN Creatinine Est GFR (CKD-EPI)AfAm Est GFR (CKD-EPI)NonAf POC Glucometer 268 208 206 Random Glucose Calcium Total Bilirubin AST ALT Alkaline Phosphatase Total Protein Albumin RPR Titer HIV 1&2 Antibody Screen HIV P24 Antigen 09/21/19 09/21/19 09/21/19 05:55 11:42 16:28 WBC RBC Hgb Hct MCV MCH MCHC RDW Plt Count MPV Sodium Potassium Chloride Carbon Dioxide Anion Gap BUN Creatinine Est GFR (CKD-EPI)AfAm Est GFR (CKD-EPI)NonAf POC Glucometer 206 263 187 Random Glucose Calcium Total Bilirubin AST ALT Alkaline Phosphatase Total Protein Albumin RPR Titer HIV 1&2 Antibody Screen HIV P24 Antigen 09/22/19 09/22/19 09/22/19 05:36 11:11 16:40 WBC RBC Hgb Hct MCV MCH MCHC RDW Plt Count MPV Sodium Potassium Chloride Carbon Dioxide Anion Gap BUN Creatinine Est GFR (CKD-EPI)AfAm Est GFR (CKD-EPI)NonAf POC Glucometer 279 204 319 Random Glucose Calcium Total Bilirubin AST ALT Alkaline Phosphatase Total Protein Albumin RPR Titer HIV 1&2 Antibody Screen HIV P24 Antigen 09/23/19 09/23/19 09/23/19 05:43 11:32 16:32 WBC RBC Hgb Hct MCV MCH MCHC RDW Plt Count MPV Sodium Potassium Chloride Carbon Dioxide Anion Gap BUN Creatinine Est GFR (CKD-EPI)AfAm Est GFR (CKD-EPI)NonAf POC Glucometer 332 220 267 Random Glucose Calcium Total Bilirubin AST ALT Alkaline Phosphatase Total Protein Albumin RPR Titer HIV 1&2 Antibody Screen HIV P24 Antigen 09/24/19 06:03 WBC RBC Hgb Hct MCV MCH MCHC RDW Plt Count MPV Sodium Potassium Chloride Carbon Dioxide Anion Gap BUN Creatinine Est GFR (CKD-EPI)AfAm Est GFR (CKD-EPI)NonAf POC Glucometer 210 Random Glucose Calcium Total Bilirubin AST ALT Alkaline Phosphatase Total Protein Albumin RPR Titer HIV 1&2 Antibody Screen HIV P24 Antigen aaox3 ambulating no acute distress - Treatment Hospital Course: Detox Protocol Followed, Detoxed Safely, Responded well, Discharged Condition Good, Rehab Referral Accepted Patient has Accepted a Rehab Referral to: [facility] inpatient rehab - Medication Discharge Medications: Ambulatory Orders Bupropion HCl [Wellbutrin Xl] 150 mg PO DAILY 05/25/19 Gabapentin 600 cap PO TID 05/25/19 Insulin Glargine,Hum.rec.anlog [Basaglar Kwikpen U-100] 28 units SQ DAILY Metformin HCl [Glucophage] 2 tablet PO BID 05/25/19 Insulin Lispro [Humalog] 0 unit SQ TID 09/19/19 Insulin Lispro [Humalog] 8 unit SQ AM 09/19/19 Lisinopril [Zestril] 2.5 mg PO DAILY 09/19/19 Prednisone 40 mg PO DAILY 09/19/19 - Diagnosis (1) Alcohol dependence with uncomplicated withdrawal Current Visit: Yes Status: Chronic (2) Opiate dependence, continuous Current Visit: Yes Status: Chronic (3) Cocaine dependence, uncomplicated Current Visit: Yes Status: Chronic (4) History of depression Current Visit: Yes Status: Chronic (5) Hx of peripheral neuropathy Current Visit: Yes Status: Chronic (6) Nicotine dependence Current Visit: Yes Status: Chronic Qualifiers: Nicotine product type: cigarettes Substance use status: uncomplicated Qualified Code(s): F17.210 - Nicotine dependence, cigarettes, uncomplicated (7) Type 2 diabetes mellitus Current Visit: Yes Status: Chronic Qualifiers: Diabetes mellitus rn long term care insulin use: unspecified fpc insulin use status Diabetes mellitus complication status: without complication Qualified Code(s): E11.9 - Type 2 diabetes mellitus without complications (8) Antisocial personality disorder Current Visit: No Status: Chronic - AMA Did Patient Leave Against Medical Advice: No
[2019-09-24] MEDS: GABAPENTIN 100 MG CAPSULE PO SCH (10:54)
[2019-09-24] MEDS: AMMONIUM LACTATE 12% LOTION 225 GM BOTTLE TP SCH (10:54)
[2019-09-24] MEDS: NICOTINE 7 MG/24 HOURS TOPICAL PATCH TD SCH (10:54)
[2019-09-24] MEDS: PRENATAL VITAMINS W/ FOLIC ACID TABLET (FP) PO SCH (10:55)
== END 2019-09-24 08:55 | disposition home or self-care (01) | DRG 773 ==
LOC: YASAS 11:32 → Y6N 12:59
PROVIDERS: ADMIT Allergy & Immunology; ATTEND Allergy & Immunology
PROC: HZ2ZZZZ Detoxification Services for Substance Abuse Treatment (ICD-10-PCS; principal; 2019-09-19)
DX: F10.230 Alcohol dependence with withdrawal, uncomplicated (principal); F11.23 Opioid dependence with withdrawal; F14.20 Cocaine dependence, uncomplicated; F17.210 Nicotine dependence, cigarettes, uncomplicated; F60.2 Antisocial personality disorder; F32.9 Major depressive disorder, single episode, unspecified; E11.42 Type 2 diabetes mellitus with diabetic polyneuropathy; Z79.4 Long term (current) use of insulin; I10 Essential (primary) hypertension; E78.5 Hyperlipidemia, unspecified; Z86.69 Personal history of other diseases of the nervous system and sense organs; Z62.810 Personal history of physical and sexual abuse in childhood; Z91.410 Personal history of adult physical and sexual abuse; Z91.018 Allergy to other foods; Z88.6 Allergy status to analgesic agent; Z59.0 Homelessness
CPT/HCPCS: 36415; 80053; 82962; 85027; 86593; 87389; J0735

== ENCOUNTER 2020-06-28 11:54 | Inpatient (IN) | payer OTHER ==
--- OUTSIDE RECORDS SUMMARY | 2020-06-28 12:04 | XMS ---
:1960 Author Organization [facility] Support Name Relationship Address Phone [facility] Unavailable NA """" [facility] Unavailable Unavailable Unavai lable AFFAIRS NA Unavailable Unavailable Unavailable PASTOR [place] [address] NNEKA NAYLOR ORTHOTICS PROSTHETICS ASSISTANT-R OTHER RELATIONSHIP [address] [facility] [phone] [employer] [address] [place] [address] DIS Unavailable Unavailable Unavailable ANSA OTH [address] [facility] [place] [address] ALESSANDRA OTH [address] [facility] [place] [address] REFUSED OTHER RELATIONSHIP [address] [facility] [phone] ATT[place] [address] UE Unavailable Unavailable Unavailable ANYAR OTHER RELATIONSHIP [address] [facility] [place] [address] UNEM Unavailable Unavailable Unavailable UNKN UNKNOWN [address] [facility] [phone] [place] [address] CRYSTAL Unavailable Unavailable x Unavailable [address] [facility] [place] [address] NAYLOR Other [address] [place] [address] Care Team Providers Name Role Phone Jose D Unavailable Unavailable Jose D Unavailable Unavailable FLOYD MONGE MD Unavailable Unavailable Michelle OCEAN EXPORT COORDINATOR Unavailable Unavailable [facility] Unavailable Unavailable MD DENNIS Unavailable Unavailable Pao NINA Unavailable Unavailable Pao NINA Unavailable Unavailable Pao NINA Unavailable Unavailable Pao NINA Unavailable Unavailable Pao NINA Unavailable Unavailable Pao NINA Unavailable Unavailable Pao NINA Unavailable Unavailable Pao NINA Unavailable Unavailable NINA, J PA Unavailable Unavailable NINA, J PA Unavailable Unavailable DOCTOR Unavailable Unavailable Lamont Unavailable [phone] Lamont Unavailable [phone] [place] Unavailable Unavailable Ringstad Unavailable Unavailable Ringstad Unavailable Unavailable Ringstad Unavailable Unavailable Ringstad Unavailable Unavailable Ringstad Unavailable Unavailable Ringstad Unavailable Unavailable Ringstad Unavailable Unavailable Ringstad Unavailable Unavailable Ringstad Unavailable Unavailable [place] Unavailable Unavailable ED STAFF PHYSICIAN Unavailable Unavailable Aisf GRIFFITH MD, MD Unavailable Unavailable Specialist/PCP, no Unavailable Unavailable OSORIO BENZ Unavailable Unavailable JOSHUA MONGE MD Unavailable Unavailable Amarga Unavailable Unavailable Amarga Unavailable Unavailable MARY ANASTACIA Unavailable Unavailable STROUD ESCOBAR-DIVINE R Unavailable Unavailable Aszalos, Yodit Unavailable Unavailable Aszalos, Yodit Unavailable Unavailable Aszalos, Yodit Unavailable Unavailable Aszalos, Yodit Unavailable Unavailable Aszalos, Yodit Unavailable Unavailable Aszalos, Yodit Unavailable Unavailable Aszalos, Yodit Unavailable Unavailable Aszalos, Yodit Unavailable Unavailable Aszalos, Yodit Unavailable Unavailable [place] Unavailable [phone] [place] Unavailable [phone] Nlam Unavailable [phone] Nlam Unavailable [phone] ELEUTERIO MONGE MD Unavailable Unavailable ED STAFF PHYSICIAN Unavailable Unavailable Cathy Unavailable [phone] [place] Unavailable [phone] [place] Unavailable [phone] ONIEL MONGE MD Unavailable Unavailable MEMBOUP PA, PA Unavailable Unavailable Haroldo Unavailable [phone] Landers Unavailable Unavailable Landers Unavailable Unavailable Landers Unavailable Unavailable Landers Unavailable Unavailable Landers Unavailable Unavailable Landers Unavailable Unavailable Landers Unavailable Unavailable Landers Unavailable Unavailable Landers Unavailable Unavailable Landers Unavailable Unavailable Porfirio Unavailable [phone] ER Unavailable Unavailable ABUBAKER Unavailable Unavailable ABUBAKER Unavailable Unavailable ABUBAKER Unavailable Unavailable ABUBAKER Unavailable Unavailable ABUBAKER Unavailable Unavailable ABUBAKER Unavailable Unavailable ABUBAKER Unavailable Unavailable ABUBAKER Unavailable Unavailable ED STAFF PHYSICIAN Unavailable Unavailable Lyla MONGE, O. Unavailable Unavailable MD Irasema, MPH Unavailable Unavailable MD Irasema, MPH Unavailable Unavailable MD Irasema, MPH Unavailable Unavailable MD Irasema, MPH Unavailable Unavailable MD Irasema, MPH Unavailable Unavailable Aszalos, Yodit Unavailable Unavailable Aszalos, Yodit Unavailable Unavailable Aszalos, Yodit Unavailable Unavailable Aszalos, Yodit Unavailable Unavailable Aszalos, Yodit Unavailable Unavailable Aszalos, Yodit Unavailable Unavailable Aszalos, Yodit Unavailable Unavailable Aszalos, Yodit Unavailable Unavailable Aszalos, Yodit Unavailable Unavailable Kareem OLIVAREZ MD, MD Unavailable Unavailable BIRGIT, Unavailable Unavailable MD LAURA Unavailable Unavailable STEPHANIE JUNE Unavailable Unavailable Hill Unavailable [phone] [place] Unavailable [phone] Podziewski, A SUPERVISING APPRAISER Unavailable Unavailable Podziewski, A SUPERVISING APPRAISER Unavailable Unavailable Podziewski, A SUPERVISING APPRAISER Unavailable Unavailable Podziewski, A SUPERVISING APPRAISER Unavailable Unavailable Podziewski, A SUPERVISING APPRAISER Unavailable Unavailable Podziewski, A SUPERVISING APPRAISER Unavailable Unavailable Podziewski, A SUPERVISING APPRAISER Unavailable Unavailable Podziewski, A SUPERVISING APPRAISER Unavailable Unavailable Podziewski, A SUPERVISING APPRAISER Unavailable Unavailable Podziewski, A SUPERVISING APPRAISER Unavailable Unavailable Podziewski, A SUPERVISING APPRAISER Unavailable Unavailable Podziewski, A SUPERVISING APPRAISER Unavailable Unavailable Podziewski, A SUPERVISING APPRAISER Unavailable Unavailable [facility] Unavailable Unavailable Gerard, J MD Unavailable Unavailable Gerard, J MD Unavailable Unavailable Gerard, Pao MD Unavailable Unavailable Gerard, Pao MD Unavailable Unavailable Gerard, Pao MD Unavailable Unavailable GerardPao MD Unavailable Unavailable Gerard, J MD Unavailable Unavailable Gerard, J MD Unavailable Unavailable Gerard, Pao MD Unavailable Unavailable Gerard, J MD Unavailable Unavailable Gerard, J MD Unavailable Unavailable GerardPao MD Unavailable Unavailable Gerard, Pao MD Unavailable Unavailable Gerard, J MD Unavailable Unavailable Gerard, J MD Unavailable Unavailable Gerard, J MD Unavailable Unavailable Gerard, J MD Unavailable Unavailable Gerard J MD Unavailable Unavailable Gerard, J MD Unavailable Unavailable Gerard, J MD Unavailable Unavailable Gerard, Pao MD Unavailable Unavailable GerardPao MD Unavailable Unavailable [facility] Unavailable Unavailable [facility] Unavailable [phone] [facility] Unavailable + ED STAFF PHYSICIAN Unavailable Unavailable MD KIMBERLY Unavailable Unavailable MD JUSTIN Unavailable Unavailable Re-disclosure Warning The records that you are about to access may contain information from federally- assisted alcohol or drug abuse programs. If such information is present, then the following federally mandated warning applies: This information has been disclosed to you from records protected by federal confidentiality rules (42 CFR part 2). The federal rules prohibit you from making any further disclosure of this information unless further disclosure is expressly permitted by the written consent of the person to whom it pertains or as otherwise permitted by 42 CFR part 2. A general authorization for the release of medical or other information is NOT sufficient for this purpose. The Federal rules restrict any use of the information to criminally investigate or prosecute any alcohol or drug abuse patient.The records that you are about to access may contain highly sensitive health information, the redisclosure of which is protected by Article 27-F of the [facility] Public Health law. If you continue you may haveaccess to information: Regarding HIV / AIDS; Provided by facilities licensed or operated by the [facility] Office of Mental Health; or Provided by the [facility] Office for People With Developmental Disabilities. If such information is present, then the following [facility] mandated warning applies: This information has been disclosed to you from confidential records which are protected by state law. State law prohibits you from making any further disclosure of this information without the specific written consent of the person to whom it pertains, or as otherwise permitted by law. Any unauthorized further disclosure in violation of state law may result in a fine or intermediate sentence or both. A general authorization for the release of medical or other information is NOT sufficient authorization for further disclosure. Allergies and Adverse Reactions Type Description Substance Reaction Status Data Source(s ) SYSTEMIC NO ALLERGIES ON NO ALLERGIES ON [facility] FILE FILE [facility] Drug allergy aspirin Aspirin Active NEXTGEN ([facility]) Drug allergy Moderate ASA Vomiting Active [facility]ricity Moderate ([facility]) Moderate Drug allergy aspirin aspirin VOMITING U [facility] Drug allergy No Known Drug No Known Drug [facility] Allergies Allergies [facility] Drug allergy No Known Allergies No Known Allergies [facility] Drug allergy aspirin aspirin [facility] Drug allergy aspirin aspirin Hives U [facility] Encounters Encounter Providers Location Date Indications Data Source(s ) Attender: [facility] 04/02/2020 NEXTGEN ([facility] 09:51:00 AM Melissa Medic al EDT - Center) 04/02/2020 09:51:00 AM EDT Attender: [facility] 02/21/2020 NEXTGE N ([facility] 10:59:00 AM Melissa Medic al EDT - Center) 02/21/2020 10:59:00 AM EDT Attender: [facility] 01/18/2020 NEXTG EN ([facility] 08:53:00 AM Melissa Medic al EDT - Center) 01/18/2020 08:53:00 AM EDT Outpatient Attender: [id number] 01/16/2020 Centricity [facility] 02:43:01 PM ([facility]) Attender: [facility] 01/07/2020 NEXTGE N ([facility] 04:22:00 PM Melissa Medic al EDT - Center) 01/07/2020 04:22:00 PM EDT Attender: [facility] 01/01/2020 NEX TGEN ([facility] 09:56:00 AM Melissa Medic al EDT - Center) 01/01/2020 09:56:00 AM EDT Attender: [facility] 12/31/2019 NEX TGEN ([facility] 11:46:00 AM Melissa Medic al EDT - Center) 12/31/2019 11:46:00 AM EDT Attender: [facility] 12/28/2019 NEX TGEN ([facility] 08:56:00 AM Melissa Medic al EDT - Center) 12/28/2019 08:56:00 AM EDT Attender: [facility] 12/21/2019 NEXTGE N ([facility] 10:24:00 AM Melissa Medi francisco EDT - Center) 12/21/2019 10:24:00 AM EDT Inpatient Attender: H-HAL2 12/15/2019 Satinkareem STROUD 05:20:00 AM [facility] NANCY EDT - RAttender: TUYET 12/26/2019 OSORIO 01:25:00 PM TUYETAttender: EDT STAFF ED STAFF PHYSICIANAdmitter: NANCY CRUZ RReferrer: NANCY CRUZ R Patient discharged. Outpatient Attender: Nona Gaspar 12/10/2019 [facility] VelezAdmitter: Nona 10:51:00 AM EDT [facility] VelezReferrer: Nona Landers OutpatientOFFICE/ [facility] 10:51:00 AM EDT [facility] 12/10/2019 [place]) 10:51:00 AM EDT Outpatient 12/10/2019 [facility] 10:47:00 AM EDT Medical C enter Outpatient 12/10/2019 [facility] 12:00:00 AM EDT Medical C enter Outpatient Attender: Nona Gaspar 12/07/2019 [facility] VelezAdmitter: Nona 10:22:00 AM EDT [facility] VelezReferrer: Nona Landers Attender: [facility] 12/07/2019 NEXTGE N ([facility] 10:22:00 AM EDT [facility] 12/07/2019 [place]) 10:22:00 AM EDT Outpatient 12/07/2019 [facility] 10:19:00 AM EDT Medical C enter Outpatient 12/07/2019 [facility] 12:00:00 AM EDT Medical C enter Attender: [facility] 12/06/2019 NEX TGEN ([facility] 04:48:00 PM EDT [facility] 12/06/2019 [place]) 04:48:00 PM EDT [facility] 12/06/[facility] NEXTG EN ([facility] 09:12:00 AM EDT [facility] 12/06/2019 [place]) 09:12:00 AM EDT [facility] 12/[facility]EX TGEN ([facility] 11:06:00 AM EDT [facility] 12/05/2019 [place]) 11:06:00 AM EDT Inpatient Attender: ALFREDO MOMIN-1D 11/29/2019 [facility] MARKANDRAdmitter: 04:48:00 PM EDT - [facility] 12/07/2019 10:40:00 PM EDT Patient discharged. Outpatient STV 11/29/2019 03:11:00 PM EDT - [address] [place] [id number] 05:13:00 PM EDT Patient discharged. Outpatient Attender: Nneka Gaspar 11/28/2019 [facility] MarazaSudhirdmitter: Nneka 11:25:00 AM EDT Medical AszalosReferrer: Nneka Babin OutpatientOFFICE/O Attender: [facility] 11/28/2019 NEXTGEN UTPATIENT VISIT, Center 11:25:00 AM EDT ( int EST - 11/28/2019 [facility] 11:25:00 AM EDT Medical Center) Outpatient Attender: Nneka Gaspar 11/27/2019 [facility] MarazaSudhirdmitter: Nneka 03:41:00 PM EDT Medical AszalosReferrer: Nneka Babin OutpatientOFFICE/O Attender: [facility] 11/27/2019 NEXTGEN UTPATIENT VISIT, Center 03:41:00 PM EDT ( int EST - 11/27/2019 [facility] 03:41:00 PM EDT Medical Center) Attender: [facility] 02:45[facility]00 PM EDT ([facility] 11/27/2019 [facility] 02:45:00 PM EDT Medical Center) Psychiatric Attender: [facility] 11/27/2019 [facility] GEN Diagnostic [facility] 02:12:00 PM EDT ([facility] (45+ - 11/27/2019 [facility] Min) 02:12:00 PM EDT Medical Center) Outpatient Attender: Nona Gaspar 11/27/2019 [facility] VelezAdmitter: Nona 02:12:00 PM EDT Medical VelezReferrer: Nona Landers Attender: [facility] 11/27/2019 NEXTG EN [facility] 02:04:00 PM EDT ([facility] 11/27/2019 [facility] 02:04:00 PM EDT Medical Center) Outpatient 11/27/2019 [facility] 01:54:00 PM EDT Medical Center Outpatient 11/27/2019 [facility] 12:00:00 AM EDT Medical Center Outpatient Attender: Nona Gaspar 11/26/2019 [facility] VelezAdmitter: Nona 03:17:00 PM EDT Medical VelezReferrer: Nona Landers OutpatientOFFICE/O Attender: Noe [facility] 11/26/2019 [facility] UTPATIENT VISIT, , MPH [place] 03:17:00 PM EDT ([facility] EST - 11/26/2019 [facility] 03:17:00 PM EDT Medical Center) Outpatient 11/26/2019 [facility] 03:12:00 PM EDT Medical Center Outpatient 11/26/2019 [facility] 12:00:00 AM EDT Medical Center Emergency Attender: ED STAFF H 11/24/2019 [facility] PHYSICIANAttender: ED 08:50:00 AM EDT Medical STAFF - 11/24/2019 [place] PHYSICIANAttender: 11:45:00 AM EDT STAFF ED STAFF PHYSICIANAdmitter: ED STAFF PHYSICIANReferrer: STAFF ED STAFF PHYSICIAN Patient discharged. Outpatient Attender: Nona Gaspar 11/19/2019 [facility] VelezAdmitter: Nona 10:22:00 AM EDT Medical Center VelezReferrer: Nona Landers OutpatientOFFICE/ Attender: [facility] 11/19/2019 [facility] 10:22:00 AM EDT - [facility] 11/19/2019 [place]) 10:22:00 AM EDT Outpatient 11/19/2019 [facility] 10:17:00 AM EDT Medical C enter Outpatient 11/19/2019 [facility] 09:51:00 AM EDT Medical C enter Outpatient 11/19/2019 [facility] 12:00:00 AM EDT Medical C enter Inpatient Attender: ALFREDO MOMIN-1D 11/13/2019 [facility] SURBNSHANYANAdmitter: 07:40:00 PM EDT - [facility] 11/17/2019 10:58:00 PM EDT Patient discharged. Outpatient [facility] 11/13/2019 03:30:00 PM EDT - [address] [place] [address] 10:58:00 PM EDT Patient discharged. Attender: [facility] 11/12/2019 07:38:00 NEXTGEN ([facility] EDT - 11/12/2019 [facility] 07:38:00 PM EDT Center) Emergency Attender: MELITON ED H 11/09/2019 08:40:00 [facility] STAFF AM EDT - 11/09/2019 Medic al Center PHYSICIANAttender: 06:09:00 PM EDT STAFF ED STAFF PHYSICIANAdmitter: MELITON ED STAFF PHYSICIAN Patient discharged. Outpatient Attender: Nona Gaspar 11/08/2019 [facility] VelezAdmitter: Nona 05:12:00 PM EDT Medical [place] VelezReferrer: Nona Landers OutpatientOFFICE/ Attender: [facility] 11/08/2019 [facility] OUTPATIENT VISIT, [facility] 05:12:00 PM EDT [facility] Medical EST - 11/08/2019 Center) 05:12:00 PM EDT Outpatient 11/08/2019 [facility] 03:50:00 PM EDT Medical C enter Outpatient 11/08/2019 [facility] 03:25:00 PM EDT Medical C enter Attender: [facility] 11/08/2019 NEX TGEN ([facility] 03:21:00 PM EDT [facility] edical - 11/08/2019 Center) 03:21:00 PM EDT Outpatient 11/08/2019 [facility] 12:00:00 AM EDT Medical C enter Outpatient Attender: Nona Gaspar 11/06/2019 [facility] VelezAdmitter: Nona 05:42:00 PM EDT [facility] VelezReferrer: Nona Landers OutpatientOFFICE/ Attender: [facility] 11/06/2019 [facility] ([facility] OUTPATIENT VISIT, [facility] 05:42:00 PM EDT [facility] Medical EST - 11/06/2019 Center) 05:42:00 PM EDT Outpatient 11/06/2019 [facility] 05:39:00 PM EDT Medical C enter Outpatient 11/06/2019 [facility] 12:00:00 AM EDT Medical C enter Outpatient Attender: ANASTACIA 11/03/2019 [facility] MARY MINTIBURCIOdmitter: 09:04:00 AM EDT Medical Center ANASTACIA HERNANDEZ MINALReferrer: ANASTACIA GALAVIZ OutpatientOFFICE/ Attender: [facility] 11/03/2019 [facility] OUTPATIENT VISIT, [place] [facility] 09:04:00 AM EDT [facility] EST - 11/03/2019 Center) 09:04:00 AM EDT Outpatient 11/03/2019 [facility] 09:02:00 AM EDT Medical C enter Outpatient 11/03/2019 [facility] 12:00:00 AM EDT Medical C enter Outpatient Attender: KARMEN [id number] 11/02/2019 [facility] 08:01:59 PM EDT ([facility]) Outpatient Attender: Andi Gaspar 10/31/2019 [facility] Gerard MDAdmitter: 12:46:00 PM EDT Med ical Center Hirendra Gee MDReferrer: Andi Gee MD OutpatientOFFICE/ Attender[facility] 10/31/2019 [facility] ([facility] V[facility]IT, Center 12:46:00 PM EDT [facility] NEW - 10/31/2019 Center) 12:46:00 PM EDT Outpatient 10/31/2019 [facility] 12:17:00 PM EDT Medical C enter Outpatient 10/31/2019 [facility] 12:00:00 AM EDT Medical C enter Outpatient Attender: ANASTACIA H 10/30/2019 [facility] MARY MINALAdmitter: 04:37:00 PM EDT Medical Center ANASTACIA HERNANDEZ MINALReferrer: ANASTACIA GALAVIZ Attender: [facility] 10/30/2019 NEX TGEN ([facility] 04:37:00 PM EDT [facility] edical - 10/30/2019 Center) 04:37:00 PM EDT Outpatient 10/30/2019 [facility] 04:32:00 PM EDT Medical C enter Outpatient 10/30/2019 [facility] 04:07:00 PM EDT Medical C enter Outpatient 10/30/2019 [facility] 12:00:00 AM EDT Medical C enter Outpatient Attender: MHAD9 10/09/2019 [facility] ([place] [facility] 01:24:34 PM EST [facility]) Patient admitted. Outpatient Attender: KARMEN [id number] 09/28/2019 08:01:39 [facility] PM EST ([facility]) Emergency Attender: STAFF ED H 09/26/2019 12:43:00 [facility] Medical STAFF PHYSICIAN AM EST - 09/26/2019 Center 08:39:00 AM EST Patient discharged. Outpatient Attender: 09/21/2019 Gilma PERAZA [facility] 08:11:38 PM EST [facility] Outpatient 09/21/2019 NEXTGEN ([facility] 09:42:00 AM EST [facility] Outpatient 09/20/2019 NEXTGEN ([facility] 09:50:00 AM EST [facility]) Outpatient Attender: 09/17/2019 Иванty KARMEN [facility] 10:47:01 AM EST [facility] Out[facility] Attender: 09/13/2019 Иванty KARMEN [facility] 03:17:00 PM EST ([facility] Outpatient Attender: 09/11/2019 Gilma PERAZA [facility] 03:02:00 PM EST [facility] Outpatient Attender: 09/11/2019 Иванty KARMEN [facility] 03:01:05 PM EST ([facility] Outpatient Attender: 09/07/2019 [facility] KARMNE [facility] 10:57:01 AM EST ([facility] Outpatient Attender: 2019 Иванty KARMEN [facility] 11:20:01 AM EST ([facility]) Outpatient Attender: 09/03/2019 [employer] KARMEN [facility] 05:41:00 PM EST ([facility] Outpatient Attender: 09/03/2019 Иванty KARMEN [facility] 10:18:01 AM EST ([facility]) Outpatient Attender: 08/30/2019 [employer] KARMEN [facility] 09:32:01 AM EST ([facility] Outpatient Attender: 08/29/2019 Иванty AKRMEN [facility] 11:30:00 AM EST ([facility]) Outpatient Attender: [facility] 08/29/2019 [facility] KARMEN [facility] 11:09:01 AM EST ([facility]) Med Spec: Reva 08/29/2019 [employer] clarissa Reid SUPERVISING APPRAISER 10:03:31 AM EST - ([facility] 08/29/2019 [facility]) 10:03:31 AM EST Outpatient Attender: [facility] 08/29/2019 [facility] KARMEN [facility] 09:41:02 AM EST ([facility]) Outpatient Attender: [facility] 08/29/2019 [employer] KARMEN [facility] 09:39:00 AM EST ([facility]) Outpatient Attender: [facility] 08/29/2019 [facility] KARMEN [facility] 12:05:01 AM EST ([facility]) Outpatient Attender: [facility] 08/27/2019 [employer] KARMEN [facility] 09:01:52 PM EST ([facility]) Outpatient Attender: [facility] 08/27/2019 [facility] KARMNE [facility] 05:34:00 PM EST ([facility]) Outpatient Attender: [facility] 08/27/2019 [facility] KARMEN [facility] 12:24:00 PM EST ([facility]) Outpatient 290[facility] 08/27/2019 [facility] 12:22:01 PM EST ([facility]) Outpatient [id number] 08/27/2019 [facility] 12:21:02 PM EST ([facility]) Emergency Attender: MARV 08/25/[address] [facility] BIRGIT THOMASeferrer: 01:58:00 AM EST - [facility] Patient- 08/25/2019 Specialist/PCPConsu 07:55:00 AM EST ltant: [facility] CHEST PAIN Patient discharged. P 08/25/2019 01:44:00 AM EST CHEST [place] [facility] [place] CHEST PAIN P 08/25/2019 01:44:00 AM EST CHEST [place] [facility] [place] CHEST PAIN P 08/25/2019 01:43:00 AM EST CHEST [place] [facility] [place] CHEST PAIN P 08/25/2019 01:28:00 AM EST CHEST [place] [facility] [place] CHEST PAIN P 08/25/2019 01:27:00 AM EST CHEST [place] [facility] [place] CHEST PAIN Emergency Attender: MICHAEL MCCLELLAN 08/07/2019 03:31:00 AM DE TOX [facility] Regional MDConsultant: ELDENE EST - 08/07/2019 [facility] JOSHUA MONGE 09:00:00 AM EST DETOX Patient discharged. Inpatient Attender: CORRIE 08/04/2019 CHEST PAIN PEREZ SONY [facility] KELLE PAAttender: 04:31:00 AM EST ABUSE,ALCOHOL IC, IDDM [facility] MDAdmitter: - 08/05/2019 [facility] MDReferrer: 05:12:00 PM EST Gary NO DOCTORConsultant: Patient- Specialist/PCP CHEST PAIN COCAINE ABUSE,ALCOHOLIC, IDDM Patient discharged. Emergency Attender: JONATHAN 08/04/2019 CHEST [facility] HERACLIOKERReferrer: NO 12:30:00 AM PAIN/LIGHTHEAD ED/DIABETIC Rayne DOCTORConsultant: [facility]P CHEST PAIN/LIGHTHEADED/DIABETIC P 08/04/2019 12:24:00 AM CHEST PAIN/LI GHTHEADED/DIABETIC [facility] CHEST PAIN/LIGHTHEADED/DIABETIC P 08/04/2019 12:24:00 AM CHEST PAIN/LI GHTHEADED/DIABETIC [facility] CHEST PAIN/LIGHTHEADED/DIABETIC P 08/03/2019 11:27:00 PM CHEST PAIN/LI GHTHEADED/DIABETIC [facility] CHEST PAIN/LIGHTHEADED/DIABETIC P 08/03/2019 11:27:00 PM CHEST PAIN/LI GHTHEADED/DIABETIC [facility] CHEST PAIN/LIGHTHEADED/DIABETIC P 08/03/2019 11:26:00 PM CHEST PAIN/LI GHTHEADED/DIABETIC [facility] CHEST PAIN/LIGHTHEADED/DIABETIC P 08/03/2019 11:26:00 PM CHEST PAIN/LI GHTHEADED/DIABETIC [facility] CHEST PAIN/LIGHTHEADED/DIABETIC P 08/03/2019 11:07:00 PM CHEST PAIN/LI GHTHEADED/DIABETIC [facility] CHEST PAIN/LIGHTHEADED/DIABETIC P 08/03/2019 11:05:00 PM CHEST PAIN/LI GHTHEADED/DIABETIC [facility] CHEST PAIN/LIGHTHEADED/DIABETIC [facility] 07/31/2019 eCW3 ([facility] A28 12:00:00 AM [facility] 07/31/2019 Care) 12:00:00 AM EST [facility] 07/17/2019 eCW 3 ([facility] A28 12:00:00 AM [facility] 07/17/2019 Care) 12:00:00 AM EST [facility] 07/16/2019 eCW3 ([facility] A28 12:00:00 AM [facility] 07/16/2019 Care) 12:00:00 AM EST Emergency Attender: Priyank 06/24/2019 [facility] 01:21:00 AM EST - - Denise bassett MDAjorgeender: 06/24/2019 [facility] ERAdmitter: 07:07:00 AM [facility] Center Priyank Arita MD Patient discharged. Inpatient Attender: NIC 06/21/2019 ALCOHOL DEPENDENCE, Damon LEWIS MDAdmitter: 12:55:00 PM EDT - UNCOMPLICAT ED Counts Include [facility] NIC LEWIS MD 06/21/2019 [facility] 04:00:00 PM EDT ALCOHOL DEPENDENCE, UNCOMPLICATED Patient discharged. Inpatient Attender: NIC 06/19/2019 ALCOHOL DEPENDENCEDamon MDAttender: 12:03:00 PM EDT - UNCOMPLICAT ED Counts Include [facility] JOSE [facility] 06/21/2019 [facility] MDAttender: DELORES 12:30:00 PM EDT GLADIS MDAdmitter: NIC LEWIS MDConsultant: JULIANN NORRIS PAConsultant: JEFFERY BROWN ALCOHOL DEPENDENCE, UNCOMPLICATED Patient discharged. [facility] 06/18/2019 12:00:00 e CW3 ([facility] A28 AM EDT - 06/18/2019 Health Care) 12:00:00 AM EDT S Attender: Adelia 06/13/2019 11:06:00 [facility] Michelle NPAdmitter: AM EDT Marcelle Mak Adelia Martinez OCEAN EXPORT COORDINATOR Medical Ce nter Outpatient Attender: [id number] 06/13/2019 09:45:02 [facility] ([facility] EDT Care [facility] ) Patient admitted. [facility] 06/13/2019 eCW3 ([facility] A28 12:00:00 AM EDT - [facility] 06/13/2019 Care) 12:00:00 AM EDT Emergency Attender: 05/25/2019 DETOX [facility] NHI BARRIENTOS 12:37:00 AM EDT - [facility] 05/25/2019 of [facility] 05:50:00 AM EDT DETOX Patient discharged. Outpatient 05/09/2019 01:26:20 PM EDT GSI ([facility]) Patient admitted. Emergency Attender: LEXII 05/05/2019 12:41:00 NEEDS MEDS F OR [facility] Thalia ENGLE MD PM EDT - 05/05/2019 DIABETES [facility] of [facility] 02:05:00 PM EDT NEEDS MEDS FOR DIABETES Patient discharged. Outpatient [facility] 05/05/2019 12:00:00 AM eCW3 ([facility] A28 EDT - 05/05/2019 12:00:00 Health Care) AM EDT Immunizations Vaccine Date Status Description Data Source(s) pneumococcal 06/14/2019 completed eCW3 (Antunez Ri jason polysaccharide PPV23 11:19:00 AM EDT [facility]) pneumococcal 06/14/2019 completed eCW3 (Antunez Ri jason polysaccharide PPV23 11:19:00 AM EDT [facility]) pneumococcal 06/14/2019 completed eCW3 (Antunez Ri jason polysaccharide PPV23 11:19:00 AM EDT [facility]) pneumococcal 06/14/2019 completed eCW3 (Antunez Ri jason polysaccharide PPV23 11:19:00 AM EDT [facility]) pneumococcal 06/14/2019 completed eCW3 (Tulio Gracia jason polysaccharide PPV23 [facility]19[facility] Medications Medication Brand Start Product Dose Route Administrative [facility] Indications Reaction Description Data Name Date Form Instructions Instructions Source(s) 3 ML Humalo 12/31/ SUBCUT active 3 ML insulin NEXTGEN Insulin 2019 ANEOUS lispro 200 (Carlo nt Lispro 200 KwikPe 12:00: UNT/ML Pen Melissa UNT/ML Pen n 00 AM Injector Medi francisco Injector U-200 EDT [Humalog] Cente r) [Humalog] Insuli Humalog n 200 KwikPen unit/m U-200 L (3 Insulin 200 mL) unit/mL (3 subcut mL) aneous subcutaneou s Accu-Chek blood active use as NEX TGEN Birgit Plus sugar 2020 directed (Carlo nt test strips diagno 12:00: [address] EDT [place]) Lancets,Ult lancet active as dire cted NEXTGEN ra Thin 26 s 2020 BID ([facility] gauge 12:00: [address] EDT [place]) Accu-Chek blood use as NE XTGEN Birgit Plus sugar 2020 ed directed (Carlo nt test strips diagno 12:00: [address] EDT [place]) Medication administered onsite Lancets,Ultra lancets 01/01/2020 completed as directed NEXTGEN Thin 26 gauge 12:00:00 AM BID ([facility]) Medication administered onsite Basaglar 3 ML 01/01/2020 completed 3 ML Insulin NEXTGEN KwikPen U-100 Insulin 12:00:00 AM G largine 100 ([facility] Insulin 100 Glargine EDT UNT/ML Pe n Melissa unit/mL (3 mL) 100 UNT/ML Inje ctor Medical subcutaneous Pen [Basaglar] C enter) Injector Medication administered onsite Basaglar 3 ML 01/01/2020 active 3 ML NEX TGEN KwikPen U-100 Insulin 12:00:00 AM i nsulin ([facility] Insulin 100 Glargine EDT glargine Melissa unit/mL (3 mL) 100 UNT/ML 100 UNT/ML Medical subcutaneous Pen Pen Center) Injector Injector [Basaglar] Basaglar 3 ML 01/01/2020 SUBCUTANEOUS completed 3 ML NEXTGEN KwikPen U-100 Insulin 12:00:00 AM I nsulin ([facility] Insulin 100 Glargine EDT Glargine Melissa unit/mL (3 mL) 100 UNT/ML 100 UNT/ML Medical subcutaneous Pen Pen Center) Injector Injector [Basaglar] Medication administered onsite gabapentin gabapentin 01/01/2020 3 {capsule} ORAL active take 3 NEXTGEN 300 mg 300 MG Oral 12:00:00 AM caps ule ([facility] capsule Capsule EDT by oral Jose s route 3 Medical times Center) every day gabapentin gabapentin 01/01/2020 3 {capsule} ORAL completed take 3 NEXTGEN 300 MG Oral 300 mg 12:00:00 AM caps ule ([facility] Capsule capsule EDT by oral Jose s gabapentin route 3 Medica l 300 mg times Center) capsule every day Medication administered onsite Basaglar 3 ML 12/31/2019 SUBCUTANEOUS completed 3 ML Insulin NEXTGEN KwikPen U-100 Insulin 12:00:00 AM G largine 100 ([facility] Insulin 100 Glargine EDT UNT/ML Pe n Melissa unit/mL (3 mL) 100 UNT/ML Inje ctor Medical subcutaneous Pen [Basaglar] C enter) Injector 3 ML Insulin Humalog 12/31/2019 SUBCUTANEOUS completed 3 ML Insulin NEXTGEN Lispro 200 KwikPen 12:00:00 AM Lisp ro 200 (Saint UNT/ML Pen U-200 EDT UNT/ML Pen Carley sephs Injector Insulin Injector Medi francisco [Humalog] 200 [Humalog] Cente r) Humalog unit/mL (3 KwikPen U-200 mL) Insulin 200 subcutaneo unit/mL (3 mL) us subcutaneous gabapentin 600 Gabapentin 12/07/2019 1 ORAL completed Gabapentin - Saint MG Oral Tablet - 600 MG 12:00:00 AM Ta 600 MG ORAL [facility] OR[facility] EDT bl Tablet Hospital Tablet et Insulin Lantus - 12/07/2019 20 SUBCUTANEOUS completed Lantus - 100 [facility] Glargine 100 100 12:00:00 AM Un UNITS /1 ML [facility] UNT/ML UNITS/1 ML EDT it SUBCUTANEOUS Hospital Injectable SUBCUTANEO Solution Solution US [Lantus] Solution Metformin metFORMIN 12/07/2019 1 ORAL completed metFORMIN [facility] hydrochloride HCl - 500 12:00:00 AM Ta HCl - 500 MG [facility] 500 MG Oral MG ORAL EDT bl ORAL Table t Hospital Tablet Tablet et Lisinopril 2.5 Lisinopril 12/07/2019 1 ORAL completed Lisinopril - Saint MG Oral Tablet - 2.5 MG 12:00:00 AM Ta 2.5 MG ORAL [facility] ORAL EDT bl Tablet Hospital Tablet et meloxicam 15 Meloxicam 12/07/2019 1 ORAL completed Meloxicam - Saint MG Oral Tablet - 15 MG 12:00:00 AM Ta 15 MG ORAL [facility] ORAL EDT bl Tablet Hospital Tablet et Insulin Lantus - 12/06/2019 20 SUBCUTANEOUS completed Lantus - 100 [facility] Glargine 100 100 12:00:00 AM Un UNITS /1 ML [facility] UNT/ML UNITS/1 ML EDT it SUBCUTANEOUS Hospital Injectable SUBCUTANEO Solution Solution US [Lantus] Solution Lisinopril 2.5 Lisinopril 12/06/2019 1 ORAL completed Lisinopril - [facility] MG Oral Tablet - 2.5 MG 12:00:00 AM Ta 2.5 MG ORAL [facility] ORAL EDT bl Tablet Hospital Tablet et gabapentin 600 Gabapentin 12/06/2019 1 ORAL completed Gabapentin - [facility] MG Oral Tablet - 600 MG 12:00:00 AM Ta 600 MG ORAL [facility] ORAL EDT bl Tablet Hospital Tablet et meloxicam 15 Meloxicam 12/06/2019 1 ORAL completed Meloxicam - Saint MG Oral Tablet - 15 MG 12:00:00 AM Ta 15 MG ORAL [facility] ORAL EDT bl Tablet Hospital Tablet et 24 HR Wellbutrin 12/06/2019 1 ORAL completed We llbutrin [facility] Bupropion XL - 300 12:00:00 AM Ta XL - 300 MG [facility] Hydrochloride MG ORAL EDT bl ORAL Tab let, Hospital 300 MG Tablet, et Extended Extended Extended Release, 24 Release Oral Release, HR Tablet 24 HR [Wellbutrin] Metformin metFORMIN 12/06/2019 1 ORAL completed metFORMIN [facility] hydrochloride HCl - 500 12:00:00 AM Ta HCl - 500 MG [facility] 500 MG Oral MG ORAL EDT bl ORAL Table t Hospital Tablet Tablet et Buprenorphine buprenorph 11/27/[address] 1 NEXTGEN 8 MG / ine 8 12:00:00 AM {t tablet by ([facility] Naloxone 2 MG mg-naloxon EDT ab Subli ngual Melissa Sublingual e 2 mg le route every Medical Tablet sublingual t} day allow to Center) buprenorphine tablet dissolve 8 mg-naloxone slowly in 2 mg mouth sublingual without tablet chewing or swallowing Etodolac 400 etodolac 11/27/2019 1. ORAL active take 1 NEXTGEN MG Oral Tablet 400 mg 12:00:00 AM 00 t ablet by ([facility] etodolac 400 tablet EDT {t oral route 2 Melissa mg tablet ab times every Med ical le day with [place]) t} food Accu-Chek blood 11/27/2019 completed use as NEXTGEN Birgit Plus sugar 12:00:00 AM direct ed ([facility] test strips diagnostic EDT [facility]) blood-glucose blood-gluc 11/27/2019 active take blood NEXTGEN meter kit ose meter 12:00:00 AM glu cose ([facility] three times [facility]) Diazepam 10 MG diazepam 11/27/2019 1. ORAL active take 1 NEXTGEN Oral Tablet 10 mg 12:00:00 AM 00 table t by ([facility] diazepam 10 mg tablet EDT {t oral rou te 3 Melissa tablet ab times every Medica l le day Center) t} blood-glucose blood-gluc 11/26/2019 completed take blood NEXTGEN meter kit ose meter 12:00:00 AM glu cose ([facility] three times [facility]) Accu-Chek blood 11/26/2019 completed use as NEXTGEN Birgit Plus sugar 12:00:00 AM direct ed ([facility] test strips diagnostic EDT [facility]) Etodolac 400 etodolac 11/26/2019 1. ORAL completed take 1 NEXTGEN MG Oral Tablet 400 mg 12:00:00 AM 00 t ablet by ([facility] etodolac 400 tablet EDT {t oral route 2 Melissa mg tablet bl times every Med ical } day with Center) food gabapentin 300 gabapentin 11/19/2019 3 ORAL completed take 3 NEXTGEN MG Oral 300 mg 12:00:00 AM {c capsule by ([facility] Capsule capsule EDT ap oral route 3 J osephs gabapentin 300 [place] times ever y Medical mg capsule le day Center) } meloxicam 7.5 meloxicam 11/19/2019 1. ORAL active take 1 NEXTGEN MG Oral Tablet 7.5 mg 12:00:00 AM 00 t ablet by ([facility] meloxicam 7.5 tablet EDT {t oral rout e Melissa mg tablet ab every day Medic al le Center) t} Acetaminophen acetaminop 11/19/2019 1 ORAL active take 1 NEXTGEN 500 MG Oral hen 500 mg 12:00:00 AM {t tablet by ([facility] Tablet tablet EDT ab oral route Michael hs acetaminophen le every 4 - 6 Medical 500 mg tablet t} hours as Ce nter) needed not to exceed 8 tablets per 24hrs Lidocaine Aspercreme 11/19/2019 active a pply to NEXTGEN Hydrochloride (lidocaine 12:00:00 AM knee once a ([facility] 40 MG/ML ) 4 % EDT day Melissa Topical Cream [facility] (l[facility]aine) 4 % topical Nicotine 2 MG Nicorette 11/19/2019 1. ORAL active nicotine 2 NEXTGEN Chewing Gum 2 mg gum 12:00:00 AM 00 MG Chewing (Saint [Nicorette] EDT {p Gum Melissa Nicorette 2 mg ie [Nicorette ] Medical gum [facility]) 'o f' gu m} Acetaminophen Tylophen 11/08/2019 2. ORAL completed take 2 NEXTGEN 500 MG Oral 500 mg 12:00:00 AM 00 caps ule by ([facility] Capsule capsule EDT {c oral route Alex ephs Tylophen 500 ap every 6 Medi francisco mg capsule [place] hours as Cente r) le needed } Diclofenac diclofenac 11/06/2019 active apply (2G) NEXTGEN Sodium 0.01 1 % 12:00:00 AM by top ical ([facility] MG/MG Topical topical EDT route 4 Melissa Gel diclofenac gel times ever y Medical 1 % topical day to the Ce nter) gel affected area(s) Diclofenac diclofenac 11/06/2019 2 TOPICAL completed apply (2G) NEXTGEN Sodium 0.01 1 % 12:00:00 AM G by top ical ([facility] MG/MG Topical topical EDT route 4 Melissa Gel diclofenac gel times ever y Medical 1 % topical day to the Ce nter) gel affected area(s) Medication administered onsite gabapentin gabapentin 11/06/2019 3 {capsule} ORAL completed take 3 NEXTGEN 300 MG Oral 300 mg 12:00:00 AM caps ule ([facility] Capsule capsule EDT by oral Jose s gabapentin route 3 Medica l 300 mg times [place]) capsule every day gabapentin gabapentin 11/06/2019 3 {capsule} ORAL completed take 3 NEXTGEN 300 MG Oral 300 mg 12:00:00 AM caps ule ( Capsule capsule EDT by oral [facility] gabapentin route 3 Medica l 300 mg times [place]) capsule every day Medication administered onsite Lidocaine Aspercreme 11/03/2019 completed apply twice NEXTGEN Hydrochloride 40 (lidocaine) 4 12:00:00 AM daily for ([facility] MG/ML Topical % topical EDT pain J osephs Cream Aspercreme Med ical (lidocaine) 4 % Cent er) topical Glucerna oral nut.tx.gluc.i 11/03/2019 active drink 1 NEXTGEN liquid ntoler,lac-fr 12:00:00 AM niels ttle/can ([facility] ,soy EDT (240 ml) [facility] twice a day Medical with [place]) breakfast and lunch ICD 10: E56.9 & E13.4 24 HR Wellbutrin 10/31/2019 1.00 ORAL active 24 HR NEXTGEN Bupropion XL 300 mg 24 12:00:00 AM {tablet} bupropion ( Hydrochloride hr tablet, EDT hydro chloride [facility] 300 MG extended 300 MG Medical Extended release Extended Cent er) Release Oral Release Oral Tablet Tablet [Wellbutrin] [Wellbutrin] Wellbutrin XL 300 mg 24 hr tablet, extended release Accu-Chek blood sugar 10/31/2019 complet use as NEXTGEN Birgit Plus diagnostic 12:00:00 AM ed d irected ([facility] test strips [facility]) 3 ML Insulin Humalog 10/31/2019 SUBCU complet 3 ML Insulin NEXTGEN Lispro 200 KwikPen 12:00:00 AM TANEO ed Lis pro 200 ([facility] UNT/ML Pen U-200 EDT US UNT/ML Pen Carley seph Injector Insulin 200 Injector Medical [Humalog] unit/mL (3 [Humalog] Center) Humalog mL) KwikPen U-200 subcutaneous Insulin 200 unit/mL (3 mL) subcutaneous gabapentin 300 gabapentin 10/31/2019 3 ORAL complet take 3 capsule NEXTGEN MG Oral 300 mg 12:00:00 AM {capsule} ed by oral route ( Capsule capsule EDT 3 times every [facility] gabapentin 300 day Medic al mg capsule [place]) Glucerna oral nut.tx.gluc. 10/31/2019 complet drink 1 NEXTGEN liquid intoler,lac- 12:00:00 AM ed bot tle/can (Saint fr,soy EDT (240 ml) Melissa twice a day Medical with breakfast Cente r) and lunch ICD 10: E56.9 & E13.4 Metformin METFORMIN 08/29/2019 Tablets 2 ORAL completed METFORMIN Centricity hydrochloride HCL 12:00:00 AM {Tablet} HCL 500 MG ([facility] 500 MG Oral EST TABS [facility]) METFORMIN HCL Lisinopril 2.5 LISINOPRIL 08/29/2019 Tablets 1 ORAL completed LISINOPRIL [facility] MG Oral Tablet 12:00:00 AM {Tablet} 2.5 MG ([facility] LISINOPRIL EST TABS [facility]) Insulin Lispro INSULIN 08/29/2019 Pre-fill SC completed HUMALOG [facility] INSULIN LISPRO LISPRO 12:00:00 AM ed Pen VINCENZO ([facility] EST Syringe KWIKPEN [address]) UNIT/ML SOPN gabapentin 600 GABAPENTIN 08/29/2019 Tablets 1 ORAL completed GABAPENTIN [facility] MG Oral Tablet 12:00:00 AM {Tablet} 600 MG ([facility] GABAPENTIN EST TABS [facility]) GLUCOSE BLOOD [id number] 08/29/2019 Strip INVIT completed BLOOD [facility] 6100 12:00:00 AM R GLUCOSE ([place] [facility] EST TEST STRP [facility]) BLOOD GLUCOSE [id number] 08/29/2019 Kit completed BLOOD [facility] MONITORING 6410 12:00:00 AM GLUCOSE ([facility] SUPPL EST MONITOR [facility]) w/Device KIT ALCOHOL SWABS [id number] 08/29/2019 Pad completed ALCOHOL [facility] 4300 12:00:00 AM PREP 70 % ([facility] EST PADS [facility]) 24 HR BUPROPION 08/29/2019 Sustaine ORAL completed WELLBUTRIN [facility] Bupropion HCL 12:00:00 AM d 24 XL 150 M G ([facility] Hydrochloride EST Hour [id number] F amily 150 MG Release Healthcare ) Extended Tablet Release Oral Tablet [Wellbutrin] BUPROPION HCL Insulin INSULIN 08/29/2019 Pre-fill SC completed BASAGLAR [facility] Glargine GLARGINE 12:00:00 AM ed Pen KWI KPEN ([facility] INSULIN EST Syringe 100 Family GLARGINE UNIT/ML [facility]) SOPN Azithromycin AZITHROMYC 08/25/2019 TABLET [address] [facility] 250 MG Oral IN 12:00:00 AM for C [facility] Tablet (ZITHROMAX EST Bron[facility]itis [facility]ital - [Zithromax] ) 250 MG [facility] AZITHROMYCIN TABLET (ZITHROMAX) 250 MG TABLET Prednisone 20 Prednisone 08/25/2019 TABLET [address] [facility] MG Oral Tablet 20 Mg 12:00:00 AM Reji Prednisone 20 Tablet EST Hosp ital - Mg Tablet Tablet, 40 [facility] Tablet, 40 Mg Mg Oral Oral Azithromycin Azithromyc 08/25/2019 TABLET [address] [facility] 250 MG Oral in 12:00:00 AM for C [facility] Tablet (Zithromax EST Bronchitis [facility]sp[facility] - [Zithromax] ) 250 Mg [facility] Azithromycin Tablet (Zithromax) Tablet, 250 Mg Tablet 250 Mg Tablet, 250 Mg Oral Oral 200 ACTUAT Albuterol 08/25/2019 2 completed EVERY [address] [facility] Albuterol 0.09 Sulfate 12:00:00 AM as needed Rayne MG/ACTUAT (Proventil EST for SOB H ospital - Metered Dose Hfa) 6.7 [place] Inhaler Gm [Proventil] Hfa.aer.ad Albuterol Hfa.aer.ad Sulfate , 2 Puff (Proventil Inhalation Hfa) 6.7 Gm Hfa.aer.ad Hfa.aer.ad, 2 Puff Inhalation 200 ACTUAT Albuterol 08/25/2019 2 completed EVERY [address] [facility] Albuterol 0.09 Sulfate 12:00:00 AM as needed Rayne MG/ACTUAT (Proventil EST for SOB H ospital - Metered Dose Hfa) 6.7 [place] Inhaler GM [Proventil] HFA.AER.AD Albuterol Sulfate (Proventil Hfa) 6.7 GM HFA.AER.AD Prednisone 20 Prednisone 08/25/2019 TABLET [address] [facility] MG Oral Tablet 20 MG 12:00:00 AM Reji Prednisone 20 TABLET EST Hosp ital - MG TABLET Gary Folic Acid 1 FOLIC ACID 08/05/2019 TABLET [address] [facility] MG Oral Tablet 1 MG 12:00:00 AM Rayne FOLIC ACID 1 TABLET EST [facility]pi [facility] - MG TABLET Gary Folic Acid 1 FOLIC ACID 08/05/2019 TABLET [address] [facility] MG Oral Tablet 1 MG 12:00:00 AM Reji FOLIC ACID 1 TABLET EST [facility]pi [facility] - MG TABLET Gary Thiamine 100 THIAMINE 08/05/2019 TABLET [address] [facility] MG Oral Tablet MONONITRAT 12:00:00 AM Reji THIAMINE E (VIT B1) EST [facility]pi [facility] - MONONITRATE (VITAMIN [facility] (VIT B1) B-1) 100 (VITAMIN B-1) MG TABLET 100 MG TABLET MULTIVITAMIN 08/05/2019 TABLET [address] [facility] (MULTI-VITAMIN 12:00:00 AM Rayne DAILY) 1 EACH EST Hospit al - TABLET Gary Thiamine 100 THIAMINE 08/05/2019 TABLET [address] [facility] MG Oral Tablet MONONITRAT 12:00:00 AM Rayne THIAMINE E (VIT B1) EST [facility]pi [facility] - MONONITRATE (VITAMIN [facility] (VIT B1) B-1) 100 (VITAMIN B-1) MG TABLET 100 MG TABLET MULTIVITAMIN 08/05/2019 TABLET [address] [facility] (MULTI-VITAMIN 12:00:00 AM Reji DAILY) 1 EACH EST Hospit al - TABLET Gary Nicotine 2 MG Nicorette 07/31/2019 active Nicorette eCW3 (Antunez Chewing Gum Starter 12:00:[address] [facility] [Nicorette] Kit 2 MG EST Kit 2 MG Care) Nicorette Starter Kit 2 MG Nicotine 2 MG Nicorette 07/31/2019 active Nicorette eCW3 (Antunez Chewing Gum Starter 12:00:[address] [facility] [Nicorette] Kit 2 MG EST Kit 2 MG Care) Nicorette Starter Kit 2 MG Nicotine 2 MG Nicorette 07/31/2019 active Nicorette eCW3 (Antunez Chewing Gum Starter 12:00:[address] [facility] [Nicorette] Kit 2 MG EST Kit 2 MG Care) Nicorette Starter Kit 2 MG Nicotine 2 MG Nicorette 07/31/2019 active Nicorette eCW3 (Antunez Chewing Gum Starter 12:00:[address] [facility] [Nicorette] Kit 2 MG EST Kit 2 MG Care) Nicorette Starter Kit 2 MG Nicotine 2 MG Nicorette 07/31/2019 active Nicorette eCW3 (Antunez Chewing Gum Starter 12:00:[address] [facility] [Nicorette] Kit 2 MG EST Kit 2 MG Care) Nicorette Starter Kit 2 MG Nicotine 2 MG Nicorette 07/31/2019 active Nicorette eCW3 (Antunez Chewing Gum Starter 12:00:[address] [facility] [Nicorette] Kit 2 MG EST Kit 2 MG Care) Nicorette Starter Kit 2 MG Nicotine 2 MG Nicorette 07/31/2019 active Nicorette eCW3 (Antunez Chewing Gum Starter 12:00:[address] [facility] [Nicorette] Kit 2 MG EST Kit 2 MG Care) Nicorette Starter Kit 2 MG Lisinopril 2.5 Lisinopril 07/16/2019 1.0 active Lisinopril eCW3 ([facility] MG Oral Tablet 2.5 MG 12:00:00 AM {tablet} 2.5 MG [facility] EST Care) Lisinopril 2.5 Lisinopril 07/16/2019 1.0 active Lisinopril eCW3 ([facility] MG Oral Tablet 2.5 MG 12:00:00 AM {tablet} 2.5 MG [facility] EST Care) Lisinopril 2.5 Lisinopril 07/16/2019 1.0 active Lisinopril eCW3 ([facility] MG Oral Tablet 2.5 MG 12:00:00 AM {tablet} 2.5 MG [facility] EST Care) Lisinopril 2.5 Lisinopril 07/16/2019 1.0 active Lisinopril eCW3 (Ant[facility] MG Oral Tablet 2.5 MG 12:00:00 AM {tablet} 2.5 MG [facility] EST Care) Lisinopril 2.5 Lisinopril 07/16/2019 1.0 active Lisinopril eCW3 ([facility]z MG Oral Tablet 2.5 MG 12:00:00 AM {tablet} 2.5 MG [facility] EST Care) Lisinopril 2.5 Lisinopril 07/16/2019 1.0 active Lisinopril eCW3 (Antunez MG Oral Tablet 2.5 MG 12:00:00 AM {tablet} 2.5 MG [facility] EST Care) Lisinopril 2.5 Lisinopril 07/16/2019 1.0 active Lisinopril eCW3 (Antunez MG Oral Tablet 2.5 MG 12:00:00 AM {tablet} 2.5 MG [facility] EST Care) 24 HR Nicotine Nicoderm 06/26/2019 1.0 active Nicoderm eCW3 (Antunez 0.875 MG/HR CQ 21 12:00:00 AM {patch_to CQ 21 [facility] Transdermal MG/24HR EST _skin} MG/24HR Care) Patch [Nicoderm C-Q] Nicoderm CQ 21 MG/24HR 24 HR Nicotine Nicoderm 06/26/2019 1.0 active Nicoderm eCW3 (Antunez 0.875 MG/HR CQ 21 12:00:00 AM {patch_to CQ 21 [facility] Trans[facility] MG/24HR EST _skin} MG/24HR Care) Patch [Nicoderm C-Q] Nicoderm CQ 21 MG/24HR 24 HR Nicotine Nicoderm 06/26/2019 1.0 active Nicoderm eCW3 ([place] 0.875 MG/HR CQ 21 12:00:00 AM {patch_to CQ 21 [facility] Trans[facility] MG/24HR EST _skin} MG/24HR Care) Patch [Nicoderm C-Q] Nicoderm CQ 21 MG/24HR 24 HR Nicotine Nicoderm 06/26/2019 1.0 active Nicoderm eCW3 ([place] 0.875 MG/HR CQ 21 12:00:00 AM {patch_to CQ 21 [facility] MG/24HR EST _skin} MG/24HR Care) Patch [Nicoderm C-Q] Nicoderm CQ 21 MG/24HR 24 HR Nicotine Nicoderm 06/26/2019 1.0 active Nicoderm eCW3 ([place] 0.875 MG/HR CQ 21 12:00:00 AM {patch_to CQ 21 [facility] MG/24HR EST _skin} MG/24HR Care) Patch [Nicoderm C-Q] Nicoderm CQ 21 MG/24HR 24 HR Nicotine Nicoderm 06/26/2019 1.0 active Nicoderm eCW3 ([place] 0.875 MG/HR CQ 21 12:00:00 AM {patch_to CQ 21 [facility] Trans[facility] MG/24HR EST _skin} MG/24HR Care) Patch [Nicoderm C-Q] Nicoderm CQ 21 MG/24HR 24 HR Nicotine Nicoderm 06/26/2019 1.0 active Nicoderm eCW3 ([place] 0.875 MG/HR CQ 21 12:00:00 AM {patch_to CQ 21 [facility] MG/24HR EST _skin} MG/24HR Care) Patch [Nicoderm C-Q] Nicoderm CQ 21 MG/24HR Pen [place] Pen 06/18/2019 active Pen eCW3 ([place] 5/16" 31G X 8 [place] 12:00:00 AM N [facility] MM 5/16" 31G EDT 5/16" 31G Care) X 8 MM X 8 MM Pen [place] Pen 06/18/2019 active Pen eCW3 ([place] 5/16" 31G X 8 [place] 12:00:00 AM N [facility] MM 5/16" 31G EDT 5/16" 31G Care) X 8 MM X 8 MM Pen [place] Pen 06/18/2019 active Pen eCW3 ([place] 5/16" 31G X 8 [place] 12:00:00 AM N [facility] MM 5/16" 31G EDT 5/16" 31G Care) X 8 MM X 8 MM Pen [place] Pen 06/18/2019 active Pen eCW3 ([place] 5/16" 31G X 8 [place] 12:00:00 AM N [facility] MM 5/16" 31G EDT 5/16" 31G Care) X 8 MM X 8 MM Pen [place] Pen 06/18/2019 active Pen eCW3 ([place] 5/16" 31G X 8 [place] 12:00:00 AM N [facility] MM 5/16" 31G EDT 5/16" 31G Care) X 8 MM X 8 MM Pen [place] Pen 06/18/2019 active Pen eCW3 ([place] 5/16" 31G X 8 [place] 12:00:00 AM N [facility] MM 5/16" 31G EDT 5/16" 31G Care) X 8 MM X 8 MM Pen [place] Pen 06/18/2019 active Pen eCW3 ([place] 5/16" 31G X 8 [place] 12:00:00 AM N [facility] MM 5/16" 31G EDT 01/04" 31G Care) X 8 MM X 8 MM atorvastatin Atorvastat 06/13/2019 1.0 active Atorvastat eCW3 ([place] 20 MG Oral in Calcium 12:00:00 AM {tablet} in Calcium [facility] Tablet 20 MG EDT 20 MG Care) Atorvastatin Calcium 20 MG atorvastatin Atorvastat 06/13/2019 1.0 active Atorvastat eCW3 ([place]z 20 MG Oral in Calcium 12:00:00 AM {tablet} in Calcium [facility] Tablet 20 MG EDT 20 MG Care) Atorvastatin Calcium 20 MG atorvastatin Atorvastat 06/13/2019 1.0 active Atorvastat eCW3 ([place] 20 MG Oral in Calcium 12:00:00 AM {tablet} in Calcium [facility] Tablet 20 MG EDT 20 MG Care) Atorvastatin Calcium 20 MG atorvastatin Atorvastat 06/13/2019 1.0 active Atorvastat eCW3 ([place] 20 MG Oral in Calcium 12:00:00 AM {tablet} in Calcium [facility] Tablet 20 MG EDT 20 MG Care) Atorvastatin Calcium 20 MG atorvastatin Atorvastat 06/13/2019 1.0 active Atorvastat eCW3 ([place] 20 MG Oral in Calcium 12:00:00 AM {tablet} in Calcium [facility] Tablet 20 MG EDT 20 MG Care) Atorvastatin Calcium 20 MG atorvastatin Atorvastat 06/13/2019 1.0 active Atorvastat eCW3 ([place] 20 MG Oral in Calcium 12:00:00 AM {tablet} in Calcium [facility] Tablet 20 MG EDT 20 MG Care) Atorvastatin Calcium 20 MG atorvastatin Atorvastat 06/13/2019 1.0 active Atorvastat eCW3 ([place] 20 MG Oral in Calcium 12:00:00 AM {tablet} in Calcium [facility] Tablet 20 MG EDT 20 MG Care) Atorvastatin Calcium 20 MG 24 HR Bupropion 05/05/2019 TABLET, 300 MG BY active [facility] Bupropion Hcl 01:20:00 PM EXTENDED MOUTH [facility] 300 MG [facility] Extended Release Oral Tablet Bupropion Hcl 24 HR Bupropion 05/05/2019 TABLET, 300 MG BY active [facility] Bupropion Hcl 01:20:00 PM EXTENDED MOUTH [facility] Hydro[facility]ide EDT RE[facility] 300 MG [facility] Extended Release Oral Tablet Bupropion Hcl 24 HR Bupropion 05/05/2019 TABLET, 300 MG BY active [facility] Bupropion Hcl 01:20:00 PM EXTENDED MOUTH [facility] Hydrochloride EDT RELEASE [facility] 300 MG [facility] Extended Release Oral Tablet Bupropion Hcl 24 HR Bupropion 05/05/2019 TABLET, 300 MG BY active [facility] Bupropion Hcl 01:20:00 PM EXTENDED MOUTH [facility] Hydrochloride EDT RELEASE [facility] 300 MG [facility] Extended Release Oral Tablet Bupropion Hcl 24 HR Bupropion 05/05/2019 TABLET, 300 MG BY active [facility] Bupropion Hcl 01:20:00 PM EXTENDED MOUTH [facility] Hydrochloride EDT RE[facility] 300 MG [facility] Extended Release Oral Tablet Bupropion Hcl 24 HR Bupropion 05/05/2019 TABLET, 300 MG BY active [facility] Bupropion Hcl 01:20:00 PM EXTENDED MOUTH [facility] Hydrochloride EDT RE[facility] 300 MG [facility] Extended Release Oral Tablet Bupropion Hcl 24 HR Bupropion 05/05/2019 TABLET, 300 MG BY active [facility] Bupropion Hcl 01:20:00 PM EXTENDED MOUTH [facility] Hydrochloride EDT RELEASE [facility] 300 MG [facility] Extended Release Oral Tablet Bupropion Hcl 24 HR Bupropion 05/05/2019 TABLET, 300 MG BY active [facility] Bupropion Hcl 01:20:00 PM EXTENDED MOUTH [facility] Hydrochloride EDT RELEASE [facility] 300 MG [facility] Extended Release Oral Tablet Bupropion Hcl 24 HR Bupropion 05/05/2019 TABLET, 300 MG BY active [facility] Bupropion Hcl 01:20:00 PM EXTENDED MOUTH [facility] Hydrochloride EDT RE[facility] 300 MG [facility] Extended Release Oral Tablet Bupropion Hcl 24 HR Bupropion 05/05/2019 TABLET, 300 MG BY active [facility] Bupropion Hcl 01:20:00 PM EXTENDED MOUTH [facility] Hydro[facility]ide EDT RE[facility] 300 MG [facility] Extended Release Oral Tablet Bupropion Hcl 24 HR Bupropion 05/05/2019 TABLET, 300 MG BY active [facility] Bupropion Hcl 01:20:00 PM EXTENDED MOUTH [facility] Hydro[facility]ide EDT RE[facility] MG [facility] Extended Release Oral Tablet Bupropion Hcl 24 HR Bupropion 05/05/2019 TABLET, 300 MG BY active [facility] Bupropion Hcl 01:20:00 PM EXTENDED MOUTH [facility] Hydro[facility] EDT RE[facility] 300 MG [facility] Extended Release Oral Tablet Bupropion Hcl Metformin Metformin 05/05/2019 TABLET 500 MG BY active [facility] hydrochloride Hcl 01:18:00 PM MOUTH [facility] 500 MG Oral EDT [facility] Tablet [facility] Metformin Hcl gabapentin 400 Gabapentin 05/05/2019 CAPSULE 400 MG BY active [facility] MG Oral 01:18:00 PM MOUTH [facility] onal Capsule EDT [facility] gabapentin 400 Gabapentin 05/05/2019 CAPSULE 400 MG BY active [facility] MG Oral 01:18:00 PM MOUTH [facility] onal Capsule EDT [facility] gabapentin 400 Gabapentin 05/05/2019 CAPSULE 400 MG BY active [facility] MG Oral 01:18:00 PM MOUTH [facility] onal Capsule EDT [facility] Metformin Metformin 05/05/2019 TABLET 500 MG BY active [facility] hydrochloride Hcl 01:18:00 PM MOUTH [facility] 500 MG Oral EDT [facility] Metformin Hcl gabapentin 400 Gabapentin 05/05/2019 CAPSULE 400 MG BY active [facility] MG Oral 01:18:00 PM MOUTH [facility] onal Capsule EDT [facility] Metformin Metformin 05/05/2019 TABLET 500 MG BY active [facility] hydrochloride Hcl 01:18:00 PM MOUTH [facility] 500 MG Oral EDT [facility] Metformin Hcl gabapentin 400 Gabapentin 05/05/2019 CAPSULE 400 MG BY active [facility] MG Oral 01:18:00 PM MOUTH [facility] onal Capsule EDT [facility] gabapentin 400 Gabapentin 05/05/2019 CAPSULE 400 MG BY active [facility] MG Oral 01:18:00 PM MOUTH [facility] onal Capsule EDT [facility] Metformin Metformin 05/05/2019 TABLET 500 MG BY active [facility] hydrochloride Hcl 01:18:00 PM MOUTH [facility] 500 MG Oral EDT [facility] Metformin Hcl Metformin Metformin 05/05/2019 TABLET 500 MG BY active [facility] hydrochloride Hcl 01:18:00 PM MOUTH [facility] 500 MG Oral EDT [facility] Metformin Hcl Metformin Metformin 05/05/2019 TABLET 500 MG BY active [facility] hydrochloride Hcl 01:18:00 PM MOUTH [facility] 500 MG Oral EDT [facility] Metformin Hcl Metformin Metformin 05/05/2019 TABLET 500 MG BY active [facility] hydrochloride Hcl 01:18:00 PM MOUTH [facility] 500 MG Oral EDT [facility] Metformin Hcl gabapentin 400 Gabapentin 05/05/2019 CAPSULE 400 MG BY active [facility] MG Oral 01:18:00 PM MOUTH [facility]is onal Capsule EDT [facility] Metformin Metformin 05/05/2019 TABLET 500 MG BY active [facility] hydrochloride Hcl 01:18:00 PM MOUTH [facility] 500 MG Oral EDT [facility] Metformin Hcl gabapentin 400 Gabapentin 05/05/2019 CAPSULE 400 MG BY active [facility] MG Oral 01:18:00 PM MOUTH [facility]is onal Capsule EDT [facility] gabapentin 400 Gabapentin 05/05/2019 CAPSULE 400 MG BY active [facility] MG Oral 01:18:00 PM MOUTH [facility] onal Capsule EDT [facility] Metformin Metformin 05/05/2019 TABLET 500 MG BY active [facility] hydrochloride Hcl 01:18:00 PM MOUTH [facility] 500 MG Oral EDT [facility] Metformin Hcl gabapentin 400 Gabapentin 05/05/2019 CAPSULE 400 MG BY active [facility] MG Oral 01:18:00 PM MOUTH Alanis onal Capsule EDT [facility] gabapentin 400 Gabapentin 05/05/2019 CAPSULE 400 MG BY active [facility] MG Oral 01:18:00 PM MOUTH [facility] onal Capsule EDT [facility] Metformin Metformin 05/05/2019 TABLET 500 MG BY active [facility] hydrochloride Hcl 01:18:00 PM MOUTH [facility] 500 MG Oral EDT [facility] Metformin Hcl Metformin Metformin 05/05/2019 TABLET 500 MG BY active [facility] hydrochloride Hcl 01:18:00 PM MOUTH [facility] 500 MG Oral EDT [facility] Metformin Hcl gabapentin 400 Gabapentin 05/05/2019 CAPSULE 400 MG BY active [facility] MG Oral 01:18:00 PM MOUTH Alanis onal Capsule EDT [facility] Metformin Metformin 05/05/2019 TABLET 500 MG BY active [facility] hydrochloride Hcl 01:18:00 PM MOUTH [facility] 500 MG Oral EDT [facility] Metformin Hcl BECKYAGLNBA DUNN 05/01/2019 active JOSÉ ANTONIO GLAR eCW3 ([place] KWIKPEN 100 KWIKPEN 12:00:00 AM [facility] unit/ml 100 EDT 100 Care) unit/ml unit/ml SHAUN DUNN 05/01/2019 active BASA GLAR eCW3 ([place] KWIKPEN 100 KWIKPEN 12:00:00 AM [facility] unit/ml 100 EDT 100 Care) unit/ml unit/ml SHAUN DUNN 05/01/2019 active BASA GLAR eCW3 ([place] KWIKPEN 100 KWIKPEN 12:00:00 AM [facility] unit/ml 100 EDT 100 Care) unit/ml unit/ml SHAUN DUNN 05/01/2019 active BASA GLAR eCW3 ([place] KWIKPEN 100 KWIKPEN 12:00:00 AM [facility] unit/ml 100 EDT 100 Care) unit/ml unit/ml SHAUN DUNN 05/01/2019 active BASA GLAR eCW3 ([place] KWIKPEN 100 KWIKPEN 12:00:00 AM [facility] unit/ml 100 EDT 100 Care) unit/ml unit/ml SHAUN DUNN 05/01/2019 active BASA GLAR eCW3 ([place] KWIKPEN 100 KWIKPEN 12:00:00 AM I [facility] unit/ml 100 EDT 100 Care) unit/ml unit/ml SHAUN DUNN 05/01/2019 active BASA GLAR eCW3 ([place] KWIKPEN 100 KWIKPEN 12:00:00 AM I [facility] unit/ml 100 EDT 100 Care) unit/ml unit/ml Bisacodyl 5 MG bisacodyl 2.00 ORAL completed take 2 NEXTGEN Delayed 5 mg {tbl} tablet by ([facility] Release Oral tablet,del oral r oute Melissa Tablet ayed every day Medical bisacodyl 5 mg release Ce nter) tablet,delayed release Acetaminophen acetaminop 2.00 ORAL completed take 2 NEXTGEN 500 MG Oral hen 500 mg {tbl} tablet by ([facility] Tablet tablet oral route Michael hs acetaminophen every 4 - Medical 500 mg tablet 6 hours as Center) needed not to exceed 8 tablets per 24hrs Cephalexin 500 Cephalexin CAPSULE [address] [facility] MG Oral (Keflex) HOURS Corn[facility] l Capsule 500 Mg Hospital - [Keflex] Capsule Gary Cephalexin Capsule, (Keflex) 500 500 Mg Mg Capsule Oral Capsule, 500 Mg Oral Insulin completed [facility],Hum.r Cornw all [facility] - (Basaglar Gary Kwikpen U-100) 100 Unit/1 Ml Insuln.pen Insuln.pen, Insulin completed [facility] Gl[facility],Hum.r Cornw all ec[facility] - (Basaglar Gary Kwikpen U-100) 100 Unit/1 Ml Insuln.pen Insuln.pen, Basaglar 3 ML SUBCU completed 3 ML NEXTG EN KwikPen U-100 Insulin TANEO Insulin ([facility] Insulin 100 Glargine US Glargine Melissa unit/mL (3 mL) 100 UNT/ML 100 UNT/ML Medical subcutaneous [facility]) Injector Injector [Basaglar] Cephalexin 500 Cephalexin CAPSULE [address] [facility] MG Oral (Keflex) HOURS Corn[facility] l Capsule 500 Mg Hospital - [Keflex] Capsule Gary Cephalexin Capsule, (Keflex) 500 500 Mg Mg Capsule Oral Capsule, 500 Mg Oral Insurance Providers Payer name Policy type Policy ID Covered Covered republican's Policy P donovan / Coverage republican ID relationship to Desir Inf ormation type desir MEDICAID [id number] SP [id number] [facility] MEDICAID [id number] SP [id number] [facility] MEDICAID [id number] SP [id number] [facility] [id number] self [id number] MEDICAID [id number] SP [id number] 01 [id number] [facility] PSYCH IP O [id number] O [facility] O [id number] SELF PAY 000 Self 000 MEDICAID INP [id number] Self [id number] [facility] [id number] Self [id number] HEALTHPLAN SELF PAY 0000 Self 0000 MEDICAID INP [id number] Self [id number] [facility] [id number] Self [id number] HEALTHPLAN W [id number] MEDICAID [id number] SP [id number] MEDICAID [id number] SP [id number] MEDICAID [id number] SP [id number] MEDICAID [id number] SP [id number] MEDICAID [id number] SP [id number] OLAF [id number] MEDICAID [id number] Patient [id number] SELF PAY UNAVAILABLE Patient UNAVAILA BLE MEDICAID HEA [id number] S [id number] Problems, Conditions, and Diagnoses Code Display Name Description Problem Type Effective Data Dates Source(s) 650024788 Heroin dependence Heroin dependence Complaint 11/29/2019 [facility] (disorder) 12:00:00 PM [facility] [id number] Cocaine dependence Cocaine dependence Complaint 0 [facility] with current use with current use 12:00:00 PM [facility] [id number] Alcohol dependence Alcohol dependence Complaint 0 [facility] (disorder) 12:00:00 PM [facility] [id number] Heroin dependence Heroin dependence Complaint 11/29/2019 [facility] (disorder) 12:00:00 PM [facility] [id number] Cocaine dependence Cocaine dependence Complaint 0 [facility] with current use with current use 12:00:00 PM [facility] [id number] Alcohol dependence Alcohol dependence Complaint 0 [facility] (disorder) 12:00:00 [facility] [id number] Anxiety disorder Anxiety disorder Complaint 11/13/2019 [facility] (disorder) 12:00:00 [facility] [id number] Depressive disorder Depressive disorder Complaint 020 [facility] (disorder) 12:00:00 [facility] [id number] Tobacco user Tobacco user Complaint 11/13/2019 [facility] (finding) 12:00:00 PM [facility] [id number] Cannabis abuse Cannabis abuse Complaint 11/13/2019 [facility] (disorder) 12:00:00 PM [facility] [id number] Cocaine abuse Cocaine abuse Complaint 11/13/2019 [facility] (disorder) 12:00:00 PM [facility] [id number] Severe alcohol Severe alcohol Complaint 11/13/2019 [facility] dependence dependence 12:00:00 PM [facility] (disorder) [facility] [id number] Anxiety disorder Anxiety disorder Complaint 11/13/2019 [facility] (disorder) 12:00:00 PM [facility] [id number] Depressive disorder Depressive disorder Complaint 020 [facility] (disorder) 12:00:00 PM [facility] [id number] Tobacco user Tobacco user Complaint 11/13/2019 [facility] (finding) 12:00:00 PM [facility] [id number] Cannabis abuse Cannabis abuse Complaint 11/13/2019 [facility] (disorder) 12:00:00 PM [facility] [id number] Cocaine abuse Cocaine abuse Complaint 11/13/2019 [facility] (disorder) 12:00:00 PM [facility] [id number] Severe alcohol Severe alcohol Complaint 11/13/2019 [facility] dependence dependence 12:00:00 PM [facility] (disorder) [facility] [id number] Anxiety disorder Anxiety disorder Complaint 11/13/2019 [facility] (disorder) 12:00:00 PM [facility] [id number] Depressive disorder Depressive disorder Complaint 020 [facility] (disorder) 12:00:00 [facility] [id number] Tobacco user Tobacco user Complaint 11/13/2019 [facility] (finding) 12:00:00 [facility] [id number] Cannabis abuse Cannabis abuse Complaint 11/13/2019 [facility] (disorder) 12:00:00 [facility] [id number] Cocaine abuse Cocaine abuse Complaint 11/13/2019 [facility] (disorder) 12:00:00 [facility] [id number] Severe alcohol Severe alcohol Complaint 11/13/2019 [facility] dependence dependence 12:00:00 [facility] (disorder) [facility] [id number] Anxiety disorder Anxiety disorder Complaint 11/13/2019 [facility] (disorder) 12:00:00 [facility] [id number] Depressive disorder Depressive disorder Complaint 020 [facility] (disorder) 12:00:00 [facility] [id number] Tobacco user Tobacco user Complaint 11/13/2019 [facility] (finding) 12:00:00 PM [facility] [id number] Cannabis abuse Cannabis abuse Complaint 11/13/2019 [facility] (disorder) 12:00:00 PM [facility] [id number] Cocaine abuse Cocaine abuse Complaint 11/13/2019 [facility] (disorder) 12:00:00 PM [facility] [id number] Severe alcohol Severe alcohol Complaint 11/13/2019 [facility] dependence dependence 12:00:00 [facility] (disorder) [facility] [id number] Anxiety disorder Anxiety disorder Complaint 11/13/2019 [facility] (disorder) 12:00:00 PM [facility] [id number] Depressive disorder Depressive disorder Complaint 020 [facility] (disorder) 12:00:00 PM [facility] [id number] Tobacco user Tobacco user Complaint 11/13/2019 [facility] (finding) 12:00:00 PM [facility] [id number] Cannabis abuse Cannabis abuse Complaint 11/13/2019 [facility] (disorder) 12:00:00 PM [facility] [id number] Cocaine abuse Cocaine abuse Complaint 11/13/2019 [facility] (disorder) 12:00:00 PM [facility] [id number] Severe alcohol Severe alcohol Complaint 11/13/2019 [facility] dependence dependence 12:00:00 PM [facility] (disorder) [facility] Z68.28 Body mass index Body mass index Diagnosis 08/30/2019 [facility] (BMI) 28.0-28.9 (BMI) 28.0-28.9 12:00:00 AM ([facility] 08/31/2019 Healthcare) 12:00:00 AM EST F17.210 Nicotine Nicotine Diagnosis 08/30/2019 [facility] dependence, dependence, 12:00:00 AM ([facility] e cigarettes, cigarettes, [facility] uncomplicated uncomplicated [facility]) Z71.6 Tobacco abuse Tobacco abuse Diagnosis 08/30/2019 [facility] ty counseling counseling 12:00:00 AM ([facility]) Z68.28 Body mass index Body mass index Diagnosis 08/29/2019 [facility] r[facility] (BMI) 28.0-28.9 (BMI) 28.0-28.9 12:00:00 [facility] 12:00:00 AM EST F34.1 Chronic depression Chronic depression Diagnosis 0 [facility] 12:00:00 AM ([facility]) E50.8 Xeroderma Xeroderma Diagnosis 08/29/2019 [facility] 12:00:00 AM ([facility]) B35.1 Onychomycosis Onychomycosis Diagnosis 08/29/2019 [facility] ty 12:00:00 AM ([facility]) L84 Hard corn Hard corn Diagnosis 08/29/2019 [facility] 12:00:00 AM ([facility]) E11.21 Type 2 diabetes Type 2 diabetes Diagnosis 08/29/2019 Cent ricity mellitus with mellitus with 12:00:00 AM ([facility] stone diabetic diabetic EST Family nephropathy nephropathy Healthcare) E78.5 Hyperlipidemia, Hyperlipidemia, Diagnosis 08/29/2019 Cent ricity unspecified unspecified 12:00:00 AM ([facility]) F14.10 Cocaine abuse, Cocaine abuse, Diagnosis 08/29/2019 [facility] uncomplicated uncomplicated 12:00:00 AM ([facility]) Z87.891 Personal history of Personal history of Diagnosis 020 [facility] nicotine dependence nicotine dependence 12:00:0 0 AM ([facility]) Z11.1 Tuberculosis Tuberculosis Diagnosis 08/29/2019 [facility] screening screening 12:00:00 AM ([facility]) E55.9 Vitamin D Vitamin D Diagnosis [facility], 12:00[facility]00 AM ([facility] unspecified unspecified [facility]) Z59.0 Homeless single Homeless single Diagnosis 08/29/2019 Cent ricity person person 12:00:00 AM ([facility]) 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 Diagnosis 08/29/2019 [facility] 12:00:00 AM ([facility]) F10.10 Alcohol abuse, Alcohol abuse, Diagnosis 08/29/2019 [facility] uncomplicated uncomplicated 12:00:00 AM ([facility]) H53.002 Amblyopia ex Amblyopia ex Problem 07/17/2019 eCW3 ([place] anopsia of left eye anopsia of left eye 12:00:0 0 AM [facility] EST Care) H52.13 Myopia, bilateral Myopia, bilateral Problem 07/17/2019 eCW3 ([place] 12:00:00 AM [facility] EST Care) H52.4 Presbyopia Presbyopia Problem 07/17/2019 eCW3 ([place] 12:00:00 AM [facility] EST Care) G56.02 Carpal tunnel Carpal tunnel Problem 07/16/2019 eCW3 (Hu dson syndrome, left syndrome, left 12:00:00 AM [facility] EST Care) F10.10 ETOH abuse ETOH abuse Problem 06/22/2019 eCW3 ([facility] 12:00:00 AM [facility] EDT Care) E11.69 Type 2 diabetes Type 2 diabetes Problem 06/19/2019 eCW3 ([place] mellitus with other mellitus with other 12:00:0 0 AM [facility] specified specified EDT Care) complication, complication, unspecified whether unspecified whether halfway insulin halfway insulin use use E11.65 Uncontrolled type 2 Uncontrolled type 2 Problem 019 eCW3 (Tulio diabetes mellitus diabetes mellitus 12:00:00 AM [facility] with hyperglycemia with hyperglycemia EDT Care) F14.10 Cocaine abuse Cocaine abuse Problem 05/31/2019 eCW3 (Alvin dson 12:00:00 AM [facility] EDT Care) F11.10 Opioid abuse, OPIOID ABUSE, Diagnosis 12/26/2019 [facility] Carley connelly uncomplicated UNCOMPLICATED 01:25:00 PM Medical EDT Center F14.10 Cocaine abuse, COCAINE ABUSE, Diagnosis 12/26/2019 [facility] uncomplicated UNCOMPLICATED 01:25:00 PM Medical EDT Center E11.40 Type 2 diabetes TYPE 2 DIABETES Diagnosis 12/26/2019 Carl Torres mellitus with MELLITUS WITH 01:25:00 PM Medical diabetic DIABETIC EDT Center neuropathy, NEUROPATHY, UNSP unspecified F17.200 Nicotine NICOTINE Diagnosis 12/26/2019 [facility] dependence, DEPENDENCE, 01:25:00 PM Medical unspecified, UNSPECIFIED, EDT Center uncomplicated UNCOMPLICATED 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 12/26/2019 [facility] stress disorder, STRESS DISORDER, 01:25:00 PM M edical unspecified UNSPECIFIED EDT Center Z59.0 Homelessness HOMELESSNESS Diagnosis 12/26/2019 [facility] Mondragon phs 01:25:00 PM Medical EDT Center F32.9 Major depressive MAJOR DEPRESSIVE Diagnosis 12/15/2019 Sa ervin Torres disorder, single DISORDER, SINGLE 05:20:00 AM M edical episode, EPISODE, EDT Center unspecified UNSPECIFIED R76.11 Nonspecific NONSPECIFIC Diagnosis 12/10/2019 [facility] Jose serna reaction to REACTION TO SKIN 10:51:00 AM Medica l tuberculin skin TEST W/O ACTIVE EDT Cent er test without active TUBERCULOSIS tuberculosis Z71.41 Alcohol abuse ALCOHOL ABUSE Diagnosis 11/28/2019 Carley morenos counseling and COUNSELING AND 11:25:00 AM Medic al surveillance of SURVEILLANCE OF EDT Cent er alcoholic ALCOHOLIC Z71.9 Counseling, COUNSELING, Diagnosis 11/28/2019 [facility] serna unspecified UNSPECIFIED 11:25:00 AM Medical EDT Center Z71.6 Tobacco abuse TOBACCO ABUSE Diagnosis 11/28/2019 Carley morenos counseling COUNSELING 11:25:00 AM Medical EDT Center E11.9 Type 2 diabetes TYPE 2 DIABETES Diagnosis 11/28/2019 Carl kim Melissa mellitus without MELLITUS WITHOUT 11:25:00 AM M edical complications COMPLICATIONS EDT Center F10.20 Alcohol dependence, ALCOHOL DEPENDENCE, Diagnosis 020 [facility] uncomplicated UNCOMPLICATED 11:25:00 AM Medical EDT Center F11.20 Opioid dependence, OPIOID DEPENDENCE, Diagnosis 0 [facility] uncomplicated UNCOMPLICATED 11:25:00 AM Medical EDT Center F14.20 Cocaine dependence, COCAINE DEPENDENCE, Diagnosis 020 [facility] Garcias uncomplicated UNCOMPLICATED 11:25:00 AM Medical EDT Center Z71.51 Drug abuse DRUG ABUSE Diagnosis 11/27/2019 [facility] counseling and COUNSELING AND 03:41:00 PM Medic al surveillance of SURVEILLANCE OF EDT Cent er drug abuser DRUG ABUSER F10.230 Alcohol dependence ALCOHOL DEPENDENCE Diagnosis 0 [facility] with withdrawal, WITH WITHDRAWAL, 03:41:00 PM M edical uncomplicated UNCOMPLICATED EDT Center M25.562 Pain in left knee PAIN IN LEFT KNEE Diagnosis 11/26/2019 [facility] 03:17:00 PM Medical EDT Center F17.210 Nicotine NICOTINE Diagnosis 11/24/2019 [facility] dependence, DEPENDENCE, 08:50:00 AM Medical cigarettes, CIGARETTES, EDT Center uncomplicated UNCOMPLICATED I10 Essential (primary) ESSENTIAL (PRIMARY) Diagnosis 020 [facility] hypertension HYPERTENSION 08:50:00 AM Medical EDT Center Z76.5 Malingerer MALINGERER Diagnosis 11/24/2019 [facility] [conscious (CONSCIOUS 08:50:00 AM Medical simulation] SIMULATION) EDT Center M17.12 Unilateral primary UNILATERAL PRIMARY Diagnosis 0 [facility] osteoarthritis, OSTEOARTHRITIS, 08:50:00 AM Med ical left knee LEFT KNEE EDT Center Z71.89 Other specified OTHER SPECIFIED Diagnosis 11/19/2019 Carl Torres counseling COUNSELING 10:22:00 AM Medical EDT Center Z72.0 Tobacco use TOBACCO USE Diagnosis 11/19/2019 [facility] Garcia s 10:22:00 AM Medical EDT Center Z12.11 Encounter for ENCOUNTER FOR Diagnosis 11/19/2019 [facility] godwin screening for SCREENING FOR 10:22:00 AM Medical malignant neoplasm MALIGNANT NEOPLASM EDT Center of colon OF COLON M25.569 Pain in unspecified PAIN IN UNSPECIFIED Diagnosis [facility] knee KNEE 08:40:00 AM Medical EDT Center Z68.27 Body mass index BODY MASS INDEX Diagnosis 11/06/2019 Carl Torres (BMI) 27.0-27.9, (BMI) 27.0-27.9, 05:42:[address] 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 (current) drug (CURRENT) DRUG 01:58:00 AM Cornw all therapy THERAPY [facility] E11.9 Type 2 diabetes TYPE 2 DIABETES Diagnosis 08/25/2019 [facility] mellitus without MELLITUS WITHOUT 01:58:00 AM C ornwall complications COMPLICATIONS [facility] R06.2 Wheezing WHEEZING Diagnosis 08/25/2019 [facility] 01:58:00 AM [facility] R07.9 Chest pain, CHEST PAIN, Diagnosis 08/25/2019 [facility] unspecified UNSPECIFIED 01:58:00 AM [facility] R05 Cough COUGH Diagnosis 08/25/2019 [facility] 01:58:00 AM [facility] J40 Bronchitis, not BRONCHITIS, NOT Diagnosis 08/25/2019 [facility] specified as acute SPECIFIED ACUTE 01:58:00 AM Rayne or chronic OR CHRONIC [facility] Y90.2 Blood alcohol level BLOOD ALCOHOL LEVEL Diagnosis [place] of 40-59 mg/100 ml OF 40-59 MG/100 ML 03:31:00 AM [facility] F10.10 Alcohol abuse, ALCOHOL ABUSE, Diagnosis 08/07/2019 [place] uncomplicated UNCOMPLICATED 03:31:00 AM [facility] Z79.4 prison (current) [facility] (CURRENT) Diagnosis [facility] use of insulin USE OF INSULIN 04:31:00 AM [facility] Z87.891 Personal history of PERSONAL HISTORY OF Diagnosis [facility] nicotine dependence NICOTINE DEPENDENCE 04:31:0 0 AM [facility] F14.10 Cocaine abuse, COCAINE ABUSE, Diagnosis 08/04/2019 [facility] es uncomplicated UNCOMPLICATED 04:31:00 AM [facility] F10.20 Alcohol dependence, ALCOHOL DEPENDENCE, Diagnosis [facility] uncomplicated UNCOMPLICATED 04:31:00 AM [facility] E78.5 Hyperlipidemia, HYPERLIPIDEMIA, Diagnosis 08/04/2019 [facility] unspecified UNSPECIFIED 04:31:00 AM [facility] I10 Essential (primary) ESSENTIAL (PRIMARY) Diagnosis [facility] hypertension HYPERTENSION 04:31:00 AM [facility] T40.5X1A Poisoning by POISONING BY Diagnosis 08/04/2019 [facility] cocaine, accidental COCAINE, ACCIDENTAL 04:31:0 0 AM Rayne (unintentional), (UNINTENTIONAL), EST Ho spital - initial encounter [place] [facility] Y90.9 Presence of alcohol PRESENCE OF ALCOHOL Diagnosis [place] in blood, level not IN BLOOD, LEVEL NOT 12:55:0 0 PM Regional specified SPECIFIED EDT Hospital [facility] Z59.0 Homelessness HOMELESSNESS Diagnosis 06/21/2019 [place] 12:55:00 PM Counts Include [facility] EDT [facility] F32.89 Other specified OTHER SPECIFIED Diagnosis 06/21/2019 [facility] depressive episodes DEPRESSIVE EPISODES 12:55:0 0 PM Counts Include [facility] EDT [facility] E11.9 Type 2 diabetes TYPE 2 DIABETES Diagnosis 06/21/2019 [facility] mellitus without MELLITUS WITHOUT 12:55:00 PM R egional complications COMPLICATIONS EDT [facility] G62.89 Other specified OTHER SPECIFIED Diagnosis 06/21/2019 [facility] polyneuropathies [facility]YNEUROPATHIES [facility]:55[facility] K21.9 Gastro-esophageal GASTRO-ESOPHAGEAL [facility] REFLUX DISEASE 12:55:00 PM Regio nal without esophagitis WITHOUT ESOPHAGITIS EDT [facility] E78.49 OTHER OTHER Diagnosis 06/21/2019 [facility] HYPERLIPIDEMIA HYPERLIPIDEMIA 12:55:00 PM Regio nal EDT [facility] I10 Essential (primary) ESSENTIAL (PRIMARY) Diagnosis [facility] hypertension HYPERTENSION 12:55:00 [facility] EDT [facility] F10.288 Alcohol dependence ALCOHOL DEPENDENCE Diagnosis [place] with other WITH OTHER 12:55:00 PM Counts Include [facility] alcohol-induced ALCOHOL-INDUCED EDT Hosp ital of disorder DISORDER [facility] F10.20 Alcohol dependence, ALCOHOL DEPENDENCE, Diagnosis [place] uncomplicated UNCOMPLICATED 12:55:[facility] Z79.899 Other halfway OTHER [facility] Diagnosis 06/19/2019 [facility] (current) drug (CURRENT) DRUG 02:22:00 PM Regio nal therapy THERAPY EDT [facility] Z79.84 buttermaker continuous churn (current) [facility] (CURRENT) Diagnosis [facility] use of oral USE OF ORAL 02:22:00 [facility] hypoglycemic drugs HYPOGLYCEMIC DRUGS EDT [facility] Z88.6 Allergy status to ALLERGY STATUS TO Diagnosis 06/19/2019 [place] analgesic agent ANALGESIC AGENT 02:22:00 PM Reg ional status STATUS EDT Hospital of [facility] F13.10 Sedative, hypnotic SEDATIVE, HYPNOTIC Diagnosis 9 [place] or anxiolytic OR ANXIOLYTIC 02:22:00 [facility], ED[facility] Hospital of uncomplicated UNCOMPLICATED [facility] F17.210 Nicotine NICOTINE Diagnosis 06/19/2019 [place] dependence, DEPENDENCE, 02:22:00 PM Counts Include [facility] cigarettes, CIGARETTES, EDT Hospital of uncomplicated UNCOMPLICATED [facility] F14.288 Cocaine dependence COCAINE DEPENDENCE Diagnosis 9 [place] with other WITH OTHER 02:22:00 PM Counts Include [facility] cocaine-induced COCAINE-INDUCED EDT Hosp ital of disorder DISORDER [facility] Y90.0 Blood alcohol level BLOOD ALCOHOL LEVEL Diagnosis 019 [place] of less than 20 OF LESS THAN 20 02:22:00 PM Reg ional mg/100 ml MG/100 ML EDT Hospital of [facility] F10.239 Alcohol dependence ALCOHOL DEPENDENCE Diagnosis 9 [place] with withdrawal, WITH WITHDRAWAL, 02:22:00 PM R egional unspecified UNSPECIFIED EDT Hospital of [facility] Z79.4 prison (current) [facility] (CURRENT) Diagnosis [place] use of insulin USE OF INSULIN 12:37:00 AM Regio nal EDT Hospital of [facility] F17.200 Nicotine NICOTINE Diagnosis 05/25/2019 [place] dependence, DEPENDENCE, 12:37:00 AM Counts Include [facility] unspecified, UNSPECIFIED, EDT Hospital o f uncomplicated UNCOMPLICATED [facility] R07.89 Other chest pain OTHER CHEST PAIN Diagnosis 05/25/2019 [place] 12:37:00 AM Counts Include [facility] EDT Hospital of [facility] F14.10 Cocaine abuse, COCAINE ABUSE, Diagnosis 05/25/2019 [place] uncomplicated UNCOMPLICATED 12:37:00 [facility] E78.5 Hyperlipidemia, HYPERLIPIDEMIA, Diagnosis 05/05/2019 [place] unspecified UNSPECIFIED 12:41:00 PM Counts Include [facility] EDT [facility] Z76.0 Encounter for issue ENCOUNTER FOR ISSUE Diagnosis [place] of repeat OF REPEAT 12:41:00 PM Counts Include [facility] prescription PRESCRIPTION EDT Hospital o f [facility] Surgeries/Procedures Procedure Description Date Indications Data Source(s) OFFICE/OUTPATIENT VISIT, EST 12/10/2019 [facility] [facility] 12/10/2019 12:00:00 AM EDT OFFICE/OUTPATIENT VISIT, EST 11/28/2019 NEXTGEN ([facility] 12:00:00 AM [facility]) 11/28/2019 12:00:00 AM EDT Psychiatric Diagnostic 11/27/2019 NEXTG EN ([facility] Interview (45+ Min) 12:00:00 AM [facility]) 11/27/2019 12:00:00 AM EDT OFFICE/OUTPATIENT VISIT, EST 11/27/2019 NEXTGEN ([facility] 12:00:00 AM [facility]) 11/27/2019 12:00:00 AM EDT OFFICE/OUTPATIENT VISIT, EST 11/26/2019 NEXTGEN ([facility] 12:00:00 AM [facility]) 11/26/2019 12:00:00 AM EDT OFFICE/OUTPATIENT VISIT, EST 11/26/2019 NEXTGEN ([facility] 11/26/2019 12:00:00 AM EDT OFFICE/OUTPATIENT VISIT, EST 11/19/2019 NEXTGEN ([facility] 12:00:00 AM [facility]) 11/19/2019 12:00:00 AM EDT OFFICE/OUTPATIENT VISIT, EST 11/08/2019 NEXTGEN ([facility] 12:00:00 AM [facility]) 11/08/2019 12:00:00 AM EDT OFFICE/OUTPATIENT VISIT, EST 11/06/2019 NEXTGEN ([facility] 11/06/2019 12:00:00 AM EDT OFFICE/OUTPATIENT VISIT, EST 11/03/2019 NEXTGEN ([facility] [facility] 11/03/2019 12:00:00 AM EDT OFFICE/OUTPATIENT VISIT, NEW 10/31/2019 NEXTGEN ([facility] [facility]) 10/31/2019 12:00:00 AM EDT Oral medication 06/13/2019 [email or web address] ([facility], direct 12:00:00 AM [facility] observation EDT Electrocardiographic procedure 05/25/2019 [facility] (procedure) 12:00:00 AM Hospital [facility] EDT Electrocardiographic procedure 05/25/2019 [facility] (procedure) 12:00:00 AM Hospital [facility] EDT Electrocardiographic procedure 05/25/2019 [facility] (procedure) 12:00:00 AM Hospital [facility] EDT Electrocardiographic procedure 05/25/2019 [facility] (procedure) 12:00:00 AM Hospital [facility] EDT Electrocardiographic procedure 05/25/2019 [facility] (procedure) 12:00:00 AM Hospital [facility] EDT Results ID Date Data Source [id number] 01/04/2020 05:45:00 PM EDT [facility] Name Value Range Interpretation Description Data Sup porting Code Source(s) Document(s ) SARS [facility] CORONAVIRUS 2 RNA This lab was ordered by [facility] Ac ct Bill Inter and reported by [facility]. ID Date Data Source CHMROUTINECCDA.[id number] 12/25/2019 07:35:00 AM EDT [facility] -0400 Name Value Range Interpretation Code Description Data Madalyn rce(s) Supporting Document(s ) UNK 4.2-5.8 Above high normal <content Satin s styleCode="Bold" Medical Cente r >Hemoglobin A1C </content>7.7 % H<content styleCode="Itali cs"> (4.2-5.8 %)</content> UNK 74-106 Above high normal <content Satin s styleCode="Bold" Medical Cente r >Glucose, Plasma </content>173 MG/DL H<content styleCode="Itali cs"> (74-106 MG/DL)</content> ID Date Data Source Hormones.[id number] 12/17/2019 06:20:00 AM EDT [facility] Name Value Range Interpretation Description Data Sup porting Code Source(s) Document(s ) Thyrotropin 0.465-4. <content Saint [Units/volume] 68 styleCode="Tosin Melissa in Serum or d">Thyroid Medical Plasma by Stimulating Center Detection Hormone limit <= 0.05 </content>0.97 mIU/L 2 MIU/L<content styleCode="Alyssa lics"> (0.465-4.68 MIU/L)</conten t> ID Date Data Source CHMROUTINECCDA.[id number] 12/17/2019 06:20:00 AM EDT [facility] -0400 Name Value Range Interpretation Code Description Data Madalyn rce(s) Supporting Document(s ) UNK 4.2-5.8 Above high normal <content [facility] styleCode="Bold" Medical Cente r >Hemoglobin A1C </content>7.4 % H<content styleCode="Itali cs"> (4.2-5.8 %)</content> ID Date Data Source Urinalysis.[id number] 12/15/2019 05:46:00 AM EDT [facility] 0 Name Value Range Interpretation Description Data Sup porting Code Source(s) Document(s ) UNK CLEAR <content Saint styleCode="Tosin Melissa d">Urine Medical Clarity Center </content>FREDY R <content styleCode="Alyssa lics"> (CLEAR )</content> Glucose NEGATIVE <content [facility] [Mass/volume] styleCode="Tosin Torres in Urine by d">Urine Medical Test strip Glucose Center </content>NEGA TIVE MG/DL<content styleCode="Alyssa lics"> (NEGATIVE MG/DL)</conten t> Color of Urine YELLOW <content Saint styleCode="Tosin Melissa d">Color, Medical Urine Center </content>YELL OW <content styleCode="Alyssa lics"> (YELLOW )</content> pH of Urine by 4.5-8.0 <content Saint Test strip styleCode="Tosin Melissa d">Urine pH Medical </content>6.0 Center <content styleCode="Alyssa lics"> (4.5-8.0 )</content> Hemoglobin NEGATIVE <content Saint [Presence] in styleCode="Tosin Garcias Urine by Test d">Urine Blood Medical strip </content>NEGA Center TIVE <content styleCode="Alyssa lics"> (NEGATIVE )</content> UNK NEGATIVE <content Saint styleCode="Tosin Melissa d">Urine Medical Bilirubin Center </content>NEGA TIVE <content styleCode="Alyssa lics"> (NEGATIVE )</content> Ketones NEGATIVE <content Saint [Mass/volume] styleCode="Tosin Melissa in Urine by d">Urine Medical Test strip Ketone Center </content>NEGA TIVE MG/DL<content styleCode="Alyssa lics"> (NEGATIVE MG/DL)</conten t> Specific 1.015-1.02 Above high <content Saint gravity of 5 normal styleCode="Tosin Melissa Urine by Test d">Urine Medical strip Specific Center [place] </content>>= 1.030 H<content styleCode="Alyssa lics"> (1.015-1.025 )</content> Protein NEGATIVE <content Saint [Mass/volume] styleCode="Tosin Melissa in Urine by d">Urine Medical Test strip Protein Center </content>NEGA TIVE MG/DL<content styleCode="Alyssa lics"> (NEGATIVE MG/DL)</conten t> Leukocyte NEGATIVE <content [facility] esterase styleCode="Tosin Melissa [Presence] in d">Urine Medical Urine by Test Leukocyte Center strip </content>NEGA TIVE <content styleCode="Alyssa lics"> (NEGATIVE )</content> Urobilinogen 0.2-1.0 <content [facility] [Units/volume] styleCode="Tosin Melissa in Urine by d">Urine Medical Test strip Urobilinogen Center </content>0.2 MG/DL<content styleCode="Alyssa lics"> (0.2-1.0 MG/DL)</conten t> Nitrite NEGATIVE <content [facility] [Presence] in styleCode="Tosin Melissa Urine by Test d">Urine Medical strip Nitrite Center </content>NEGA TIVE <content styleCode="Alyssa lics"> (NEGATIVE )</content> ID Date Data Source Liver 12/15/2019 05:46:00 AM EDT [facility] Profile.[id number] Name Value Range Interpretation Description Data Sup porting Code Source(s) Document(s ) Alkaline 38-126 <content [facility] phosphatase styleCode="Bold"> Melissa [Enzymatic Alkaline Medical activity/volume] Phosphatase (ALP) Cente r in Serum or Plasma </content>68 IU/L<content styleCode="Italic s"> (38-126 IU/L)</content> Bilirubin.total 0.2-1.3 <content Saint [Mass/volume] in styleCode="Bold"> Michael hs Serum or Plasma Bilirubin Total Medical </content>0.3 Center MG/DL<content styleCode="Italic s"> (0.2-1.3 MG/DL)</content> Aspartate 17-59 <content Saint aminotransferase styleCode="Bold"> Michael hs [Enzymatic Aspartate Medical activity/volume] Aminotransferase Center in Serum or Plasma (AST) </content>25 IU/L<content styleCode="Italic s"> (17-59 IU/L)</content> Alanine 7-50 <content [facility] aminotransferase styleCode="Bold"> Michael hs [Enzymatic Alanine Medical activity/volume] Aminotransferase Center in Serum or Plasma (ALT) </content>18 IU/L<content styleCode="Italic s"> (7-50 IU/L)</content> UNK 0.0-0.3 <content Saint styleCode="Bold"> Melissa Bilirubin, Direct Medical </content>< 0.2 Center MG/DL<content styleCode="Italic s"> (0.0-0.3 MG/DL)</content> Albumin 3.5-5.0 <content Saint [Mass/volume] in styleCode="Bold"> Michael hs Serum or Plasma Albumin Medical </content>4.7 Center G/DL<content styleCode="Italic s"> (3.5-5.0 G/DL)</content> ID Date Data Source LIPID.[id number] 12/15/2019 05:46:00 AM EDT [facility] Name Value Range Interpretation Description Data Sup porting Code Source(s) Document(s ) UNK > 60 Below low normal <content Saint styleCode="Tosin Melissa d">HDL- Medical Cholesterol Center </content>60 MG/DL L<content styleCode="Alyssa lics"> (> 60 MG/DL)</conten t> UNK < 100 Above high normal <content Saint styleCode="[facility] d">LDL-Cholest Medical fab Center </content>141 MG/DL H<content styleCode="Alyssa lics"> (< 100 MG/DL)</conten t> Cholesterol -<200 Above high normal <content Saint [Mass/volume] in styleCode="[facility] Serum or Plasma d">Cholesterol Medical </content>215 Center MG/DL H<content styleCode="Alyssa lics"> (-<200 MG/DL)</conten t> Triglyceride < 150 <content Saint [Mass/volume] in styleCode="[facility] Serum or Plasma d">Triglycerid [facility] Center </content>68 MG/DL<content styleCode="Alyssa lics"> (< 150 MG/DL)</conten t> ID Date Data Source HematologyRou.[id number] 12/15/2019 05:46:00 AM EDT [facility] 0400 Name Value Range Interpretation Description Data Sup porting Code Source(s) Document(s ) Erythrocytes 4.4-5.9 <content Saint [#/volume] in styleCode="Bold Melissa Blood by ">Red Blood Medical Automated count Cell Count Center </content>5.02 MCUMM<content styleCode="Ital ics"> (4.4-5.9 MCUMM)</content > Hematocrit 41.0-53. <content Saint [Volume 0 styleCode="Bold Melissa Fraction] of ">Hematocrit Medical Blood by </content>44.0 Center Automated count %<content styleCode="Ital ics"> (41.0-53.0 %)</content> Hemoglobin 13.5-17. <content Saint [Mass/volume] in 5 styleCode="Bold Melissa Blood ">Hemoglobin Medical </content>14.4 Center G/DL<content styleCode="Ital ics"> (13.5-17.5 G/DL)</content> Leukocytes 4.4-11.0 <content Saint [#/volume] in styleCode="Bold Melissa Blood by ">White Blood Medical Automated count Cell Count Center </content>6.76 KCUMM<content styleCode="Ital ics"> (4.4-11.0 KCUMM)</content > Erythrocyte 11.5-14. <content Saint distribution 5 styleCode="Bold Melissa width [Ratio] by ">Red Cell Medical Automated count Distribution Center Width </content>12.8 %<content styleCode="Ital ics"> (11.5-14.5 %)</content> Erythrocyte mean 32.0-37. <content Saint corpuscular 0 styleCode="Bold Melissa hemoglobin ">Mean Corpus. Medical concentration Hgb Center [Mass/volume] by Concentration Automated count (MCHC) </content>32.7 G/DL<content styleCode="Ital ics"> (32.0-37.0 G/DL)</content> Erythrocyte mean 80.0-100 <content Saint corpuscular .0 styleCode="Bold Melissa volume [Entitic ">Mean Medical volume] by Corpuscular Center Automated count Volume </content>87.6 FL<content styleCode="Ital ics"> (80.0-100.0 FL)</content> Platelets 130-400 <content Saint [#/volume] in styleCode="Bold Melissa Blood by ">Platelet Medical Automated count Count Center </content>275 KCUMM<content styleCode="Ital ics"> (130-400 KCUMM)</content > Erythrocyte mean 26.0-34. <content Saint corpuscular 0 styleCode="Bold Melissa hemoglobin ">Mean Medical [Entitic mass] Corposcular Center by Automated Hemoglobin count </content>28.7 PG<content styleCode="Ital ics"> (26.0-34.0 PG)</content> UNK 0.0 <content Saint styleCode="Bold Melissa ">Nucleated Red Medical Blood Cell Center Count </content>0.00 KCUMM<content styleCode="Ital ics"> (0.0 KCUMM)</content > UNK 0 <content Saint styleCode="Bold Melissa ">Nucleated Red Medical Blood Cell Center </content>0.0 /100<content styleCode="Ital ics"> (0 /100)</content> Platelet mean 8.0-11.0 <content Saint volume [Entitic styleCode="Bold Melissa volume] in Blood ">Mean Platelet Medical by Automated Volume Center count </content>9.0 FL<content styleCode="Ital ics"> (8.0-11.0 FL)</content> ID Date Data Source GFR(Creatinine).[id number] 12/15/2019 05:46:00 AM EDT [facility] 0-0400 Name Value Range Interpretation Code Description Data Madalyn rce(s) Supporting Document(s ) UNK > 60 <content [facility] styleCode="Bold"> Medical Cent er EGFR </content>98 GFR<content styleCode="Italic s"> (> 60 GFR)</content> ID Date Data Source MROUTINECCDA.[id number] 12/15/2019 05:46:00 AM EDT [facility] -0400 Name Value Range Interpretation Description Data Sup porting Code Source(s) Document(s ) Cannabinoids <content Saint [Presence] in styleCode="Tosin [facility] Urine by Screen d">Cannabinoid Medical method >50 ng/mL s Center </content>NEGA TIVE NG/ML (Reference Range: not available)<br/ > ID Date Data Source [facility].[id number] 12/15/2019 05:46:00 AM EDT [facility] Name Value Range Interpretation Description Data Sup porting Code Source(s) Document(s ) Chloride 98-107 <content [facility] [Moles/volume] in styleCode="Bold"> Giancarlo phs Serum or Plasma Chloride Medical </content>103 Center MEQ/L<content styleCode="Italic s"> (98-107 MEQ/L)</content> Potassium 3.5-5.3 <content [facility] [Moles/volume] in styleCode="Bold"> Giancarlo phs Serum or Plasma Potassium Medical </content>4.4 Center MEQ/L<content styleCode="Italic s"> (3.5-5.3 MEQ/L)</content> UNK 9-20 <content Saint styleCode="Bold"> Melissa BUN </content>18 Medical MG/DL<content Center styleCode="Italic s"> (9-20 MG/DL)</content> Sodium 137-145 <content [facility] [Moles/volume] in styleCode="Bold"> Giancarlo phs Serum or Plasma Sodium Medical </content>141 Center MEQ/L<content styleCode="Italic s"> (137-145 MEQ/L)</content> Carbon dioxide, 22-30 <content Saint total styleCode="Bold"> Melissa [Moles/volume] in Carbon Dioxide Medical Serum or Plasma </content>29 Center MEQ/L<content styleCode="Italic s"> (22-30 MEQ/L)</content> Glucose 74-106 Above high <content Saint [Mass/volume] in normal styleCode="Bold"> Michael hs Serum or Plasma Glucose Medical </content>126 Center MG/DL H<content styleCode="Italic s"> (74-106 MG/DL)</content> UNK > 60 <content Saint styleCode="Bold"> Melissa EGFR </content>98 Medical GFR<content Center styleCode="Italic s"> (> 60 GFR)</content> Creatinine 0.5-1.3 <content Saint [Mass/volume] in styleCode="Bold"> Michael hs Serum or Plasma Creatinine Medical </content>1.0 Center MG/DL<content styleCode="Italic s"> (0.5-1.3 MG/DL)</content> Aspartate 17-59 <content [facility] aminotransferase styleCode="Bold"> Michael hs [Enzymatic Aspartate Medical activity/volume] Aminotransferase Center in Serum or Plasma (AST) </content>25 IU/L<content styleCode="Italic s"> (17-59 IU/L)</content> Calcium 8.4-10. <content Saint [Mass/volume] in 2 styleCode="Bold"> Michael hs Serum or Plasma Calcium Medical </content>9.6 Center MG/DL<content styleCode="Italic s"> (8.4-10.2 MG/DL)</content> Albumin 3.5-5.0 <content [facility] [Mass/volume] in styleCode="Bold"> Michael hs Serum or Plasma Albumin Medical </content>4.7 Center G/DL<content styleCode="Italic s"> (3.5-5.0 G/DL)</content> Bilirubin.total 0.2-1.3 <content [facility] [Mass/volume] in styleCode="Bold"> Michael hs Serum or Plasma Bilirubin Total Medical </content>0.3 Center MG/DL<content styleCode="Italic s"> (0.2-1.3 MG/DL)</content> Alkaline 38-126 <content [facility] phosphatase styleCode="Bold"> Melissa [Enzymatic Alkaline Medical activity/volume] Phosphatase (ALP) Cente r in Serum or Plasma </content>68 IU/L<content styleCode="Italic s"> (38-126 IU/L)</content> Alanine 7-50 <content [facility] aminotransferase styleCode="Bold"> Michael hs [Enzymatic Alanine Medical activity/volume] Aminotransferase Center in Serum or Plasma (ALT) </content>18 IU/L<content styleCode="Italic s"> (7-50 IU/L)</content> ID Date Data Source [id number] 12/15/2019 12:00:00 AM EDT [facility] Name Value Range Interpretation Code Description Data [facility] rce(s) Supporting Document(s ) 2018-nCoV [facility] RNA XXX BUTCH+probe- Imp This lab was ordered by [facility] and reported by [email or web address] ID Date Data Source CHMROUTINECCDA.[id number] 12/10/2019 12:45:00 PM EDT [facility] -0400 Name Value Range Interpretation Description Data Sup porting Code Source(s) Document(s ) Cannabinoids <content Saint [Presence] in styleCode="[facility] Urine by Screen d">Cannabinoid Medical method >50 ng/mL s Center </content>PRES UMPTIVE POSITIVE NG/ML (Reference Range: not available)<br/ > ID Date Data Source HematologyRou.[id number] 11/28/2019 12:22:00 PM EDT [facility] 0400 Name Value Range Interpretation Description Data Sup porting Code Source(s) Document(s ) Erythrocytes 4.4-5.9 <content Saint [#/volume] in styleCode="Bold Melissa Blood by ">Red Blood Medical Automated count Cell Count Center </content>4.85 MCUMM<content styleCode="Ital ics"> (4.4-5.9 MCUMM)</content > Leukocytes 4.4-11.0 <content Saint [#/volume] in styleCode="Bold [facility] Blood by ">White Blood Medical Automated count Cell Count Center </content>4.99 KCUMM<content styleCode="Ital ics"> (4.4-11.0 KCUMM)</content > Hemoglobin 13.5-17. <content Saint [Mass/volume] in 5 styleCode="Bold Melissa Blood ">Hemoglobin Medical </content>13.8 Center G/DL<content styleCode="Ital ics"> (13.5-17.5 G/DL)</content> Hematocrit 41.0-53. <content Saint [Volume 0 styleCode="Bold [facility] Fraction] of ">Hematocrit Medical Blood by </content>43.5 Center Automated count %<content styleCode="Ital ics"> (41.0-53.0 %)</content> Erythrocyte mean 26.0-34. <content Saint corpuscular 0 styleCode="Bold Melissa hemoglobin ">Mean Medical [Entitic mass] Corposcular Center by Automated Hemoglobin count </content>28.5 PG<content styleCode="Ital ics"> (26.0-34.0 PG)</content> Erythrocyte mean 32.0-37. Below low normal <content Saint corpuscular 0 styleCode="Bold Melissa hemoglobin ">Mean Corpus. Medical concentration Hgb Center [Mass/volume] by Concentration Automated count (MCHC) </content>31.7 G/DL L<content styleCode="Ital ics"> (32.0-37.0 G/DL)</content> Erythrocyte mean 80.0-100 <content Saint corpuscular .0 styleCode="Bold Melissa volume [Entitic ">Mean Medical volume] by Corpuscular Center Automated count Volume </content>89.7 FL<content styleCode="Ital ics"> (80.0-100.0 FL)</content> Platelets 130-400 <content Saint [#/volume] in styleCode="Bold Melissa Blood by ">Platelet Medical Automated count Count Center </content>281 KCUMM<content styleCode="Ital ics"> (130-400 KCUMM)</content > Neutrophils 36-66 <content Saint [#/volume] in styleCode="Bold Melissa Blood by ">Neutrophil Medical Automated count </content>44.9 Center %<content styleCode="Ital ics"> (36-66 %)</content> Platelet mean 8.0-11.0 <content Saint volume [Entitic styleCode="Bold Melissa volume] in Blood ">Mean Platelet Medical by Automated Volume Center count </content>9.1 FL<content styleCode="Ital ics"> (8.0-11.0 FL)</content> UNK 1.6-7.3 <content Saint styleCode="Bold Melissa ">Neutrophil Medical Count Center </content>2.24 KCUMM<content styleCode="Ital ics"> (1.6-7.3 KCUMM)</content > Erythrocyte 11.5-14. <content Saint distribution 5 styleCode="Bold Melissa width [Ratio] by ">Red Cell Medical Automated count Distribution Center Width </content>12.8 %<content styleCode="Ital ics"> (11.5-14.5 %)</content> UNK 0.2-0.9 <content Saint styleCode="Bold Melissa ">Monocyte Medical Count Center </content>0.51 KCUMM<content styleCode="Ital ics"> (0.2-0.9 KCUMM)</content > UNK 1.0-4.8 <content Saint styleCode="Bold Melissa ">Lymphocyte Medical Count Center </content>2.04 KCUMM<content styleCode="Ital ics"> (1.0-4.8 KCUMM)</content > Monocytes 3.0-10.0 Above high <content Saint [#/volume] in normal styleCode="Bold Melissa Blood by ">Monocyte Medical Automated count </content>10.2 Center % H<content styleCode="Ital ics"> (3.0-10.0 %)</content> Lymphocytes 24.0-44. <content Saint [#/volume] in 0 styleCode="Bold Melissa Blood by ">Lymphocyte Medical Automated count </content>40.9 Center %<content styleCode="Ital ics"> (24.0-44.0 %)</content> Eosinophils 0-5.0 <content Saint [#/volume] in styleCode="Bold Melissa Blood by ">Eosinophil Medical Automated count </content>3.0 Center %<content styleCode="Ital ics"> (0-5.0 %)</content> Basophils 0.0-1.0 <content Saint [#/volume] in styleCode="Bold Melissa Blood by ">Basophil Medical Automated count </content>0.8 Center %<content styleCode="Ital ics"> (0.0-1.0 %)</content> UNK 0.0-0.6 <content Saint styleCode="Bold Melissa ">Eosinophil Medical Count Center </content>0.15 KCUMM<content styleCode="Ital ics"> (0.0-0.6 KCUMM)</content > UNK 0 <content Saint styleCode="Bold Melissa ">Nucleated Red Medical Blood Cell Center </content>0.0 /100<content styleCode="Ital ics"> (0 /100)</content> UNK 0.0-0.3 <content Saint styleCode="Bold Melissa ">Basophil Medical Count Center </content>0.04 KCUMM<content styleCode="Ital ics"> (0.0-0.3 KCUMM)</content > UNK 0.0 <content Saint styleCode="Bold Melissa ">Nucleated Red Medical Blood Cell Center Count </content>0.00 KCUMM<content styleCode="Ital ics"> (0.0 KCUMM)</content > UNK 0-0.1 <content Saint styleCode="Bold Melissa ">Immature Medical Granulocyte Center Count </content>0.01 KCUMM<content styleCode="Ital ics"> (0-0.1 KCUMM)</content > UNK < 1 <content Saint styleCode="Bold Melissa ">Immature Medical Granulocyte Center Ratio </content>0.2 %<content styleCode="Ital ics"> (< 1 %)</content> ID Date Data Source MROUTINECCDA.[id number] 11/28/2019 12:22:00 PM EDT [facility] -0400 Name Value Range Interpretation Description Data Sup porting Code Source(s) Document(s ) Cannabinoids <content Saint [Presence] in styleCode="[facility] Urine by Screen d">Cannabinoid Medical method >50 ng/mL s Center </content>NEGA TIVE NG/ML (Reference Range: not available)<br/ > ID Date Data Source Liver 11/27/2019 04:45:00 PM EDT [facility] Fibrosis.[id number] Name Value Range Interpretation Description Data Sup porting Code Source(s) Document(s ) Gamma glutamyl 15-73 <content Saint transferase styleCode="Tosin [facility] [Enzymatic d">GGT Medical activity/volume </content>29 Center ] in Serum or IU/L<content Plasma styleCode="Alyssa lics"> (15-73 IU/L)</content > ID Date Data Source Liver 11/27/2019 04:45:00 PM EDT [facility] Profile.[id number] Name Value Range Interpretation Description Data Sup porting Code Source(s) Document(s ) Aspartate 17-59 <content Saint aminotransferase styleCode="Bold"> Michael hs [Enzymatic Aspartate Medical activity/volume] Aminotransferase Center in Serum or Plasma (AST) </content>33 IU/L<content styleCode="Italic s"> (17-59 IU/L)</content> Alkaline 38-126 <content Saint phosphatase styleCode="Bold"> Melissa [Enzymatic Alkaline Medical activity/volume] Phosphatase (ALP) Cente r in Serum or Plasma </content>71 IU/L<content styleCode="Italic s"> (38-126 IU/L)</content> Alanine 7-50 <content [facility] aminotransferase styleCode="Bold"> Michael hs [Enzymatic Alanine Medical activity/volume] Aminotransferase Center in Serum or Plasma (ALT) </content>20 IU/L<content styleCode="Italic s"> (7-50 IU/L)</content> Albumin 3.5-5.0 <content Saint [Mass/volume] in styleCode="Bold"> Michael hs Serum or Plasma Albumin Medical </content>4.6 Center G/DL<content styleCode="Italic s"> (3.5-5.0 G/DL)</content> Bilirubin.total 0.2-1.3 <content Saint [Mass/volume] in styleCode="Bold"> Michael hs Serum or Plasma Bilirubin Total Medical </content>0.7 Center MG/DL<content styleCode="Italic s"> (0.2-1.3 MG/DL)</content> ID Date Data Source GFR(Creatinine).[id number] 11/27/2019 04:45:00 PM EDT [facility] 0-0400 Name Value Range Interpretation Code Description Data Madalyn rce(s) Supporting Document(s ) UNK > 60 <content Melissa styleCode="Bold"> Medical Cent er EGFR </content>88 GFR<content styleCode="Italic s"> (> 60 GFR)</content> ID Date Data Source CHMROUTINECCDA.[id number] 11/27/2019 04:45:00 PM EDT [facility] -0400 Name Value Range Interpretation Description Data Sup porting Code Source(s) Document(s ) UNK >= 1.0 <content Saint styleCode="Tosin Melissa d">AG Ratio Medical </content>1.6 Center <content styleCode="Alyssa lics"> (>= 1.0 )</content> Cannabinoids <content Saint [Presence] in styleCode="Tosin Torres Urine by Screen d">Cannabinoid Medical method >50 s Center ng/mL </content>NEGA TIVE NG/ML (Reference Range: not available)<br/ > UNK 2.3-3.5 <content Saint styleCode="Tosin Torres d">Globulin Medical </content>2.9 Center G/DL<content styleCode="Alyssa lics"> (2.3-3.5 G/DL)</content > Protein 6.3-8.2 <content Saint [Mass/volume] styleCode="Tosin Torres in Serum or d">Total Medical Plasma Protein Center </content>7.5 G/DL<content styleCode="Alyssa lics"> (6.3-8.2 G/DL)</content > Gamma glutamyl 15-73 <content Saint transferase styleCode="Tosin Torres [Enzymatic d">GGT Medical activity/volume </content>29 Center ] in Serum or IU/L<content Plasma styleCode="Alyssa lics"> (15-73 IU/L)</content > ID Date Data Source BMP.[id number] 11/27/2019 04:45:00 PM EDT [facility] Name Value Range Interpretation Description Data Sup porting Code Source(s) Document(s ) Sodium 137-145 <content Saint [Moles/volume] in styleCode="Bold"> [facility] Serum or Plasma Sodium Medical </content>142 Center MEQ/L<content styleCode="Italic s"> (137-145 MEQ/L)</content> Potassium 3.5-5.3 <content Saint [Moles/volume] in styleCode="Bold"> Giancarlo phs Serum or Plasma Potassium Medical </content>4.2 Center MEQ/L<content styleCode="Italic s"> (3.5-5.3 MEQ/L)</content> Glucose 74-106 <content Saint [Mass/volume] in styleCode="Bold"> Michael hs Serum or Plasma Glucose Medical </content>100 Center MG/DL<content styleCode="Italic s"> (74-106 MG/DL)</content> Carbon dioxide, 22-30 <content Saint total styleCode="Bold"> Melissa [Moles/volume] in Carbon Dioxide Medical Serum or Plasma </content>30 Center MEQ/L<content styleCode="Italic s"> (22-30 MEQ/L)</content> Chloride 98-107 <content Saint [Moles/volume] in styleCode="Bold"> Giancarlo phs Serum or Plasma Chloride Medical </content>104 Center MEQ/L<content styleCode="Italic s"> (98-107 MEQ/L)</content> Creatinine 0.5-1.3 <content Saint [Mass/volume] in styleCode="Bold"> Michael hs Serum or Plasma Creatinine Medical </content>1.1 Center MG/DL<content styleCode="Italic s"> (0.5-1.3 MG/DL)</content> UNK 9-20 <content Saint styleCode="Bold"> Melissa BUN </content>16 Medical MG/DL<content Center styleCode="Italic s"> (9-20 MG/DL)</content> Calcium 8.4-10. <content Saint [Mass/volume] in 2 styleCode="Bold"> Michael hs Serum or Plasma Calcium Medical </content>10.0 Center MG/DL<content styleCode="Italic s"> (8.4-10.2 MG/DL)</content> Aspartate 17-59 <content Saint aminotransferase styleCode="Bold"> Michael hs [Enzymatic Aspartate Medical activity/volume] Aminotransferase Center in Serum or Plasma (AST) </content>33 IU/L<content styleCode="Italic s"> (17-59 IU/L)</content> Alanine 7-50 <content Saint aminotransferase styleCode="Bold"> Michael hs [Enzymatic Alanine Medical activity/volume] Aminotransferase Center in Serum or Plasma (ALT) </content>20 IU/L<content styleCode="Italic s"> (7-50 IU/L)</content> UNK > 60 <content Saint styleCode="Bold"> Melissa EGFR </content>88 Medical GFR<content Center styleCode="Italic s"> (> 60 GFR)</content> Albumin 3.5-5.0 <content Saint [Mass/volume] in styleCode="Bold"> Michael hs Serum or Plasma Albumin Medical </content>4.6 Center G/DL<content styleCode="Italic s"> (3.5-5.0 G/DL)</content> Alkaline 38-126 <content Saint phosphatase styleCode="Bold"> Melissa [Enzymatic Alkaline Medical activity/volume] Phosphatase (ALP) Cente r in Serum or Plasma </content>71 IU/L<content styleCode="Italic s"> (38-126 IU/L)</content> Bilirubin.total 0.2-1.3 <content Saint [Mass/volume] in styleCode="Bold"> Michael hs Serum or Plasma Bilirubin Total Medical </content>0.7 Center MG/DL<content styleCode="Italic s"> (0.2-1.3 MG/DL)</content> ID Date Data Source CHMROUTINECCDA.[id number] 11/06/2019 07:21:00 PM EDT [facility] -0400 Name Value Range Interpretation Code Description Data Madalyn rce(s) Supporting Document(s ) UNK 4.2-5.8 Above high normal <content Satin s styleCode="Bold" Medical Cente r >Hemoglobin A1C </content>7.7 % H<content styleCode="Itali cs"> (4.2-5.8 %)</content> ID Date Data Source Urinalysis.[id number] 09/26/2019 01:44:00 AM EST [facility] 0 Name Value Range Interpretation Description Data Sup porting Code Source(s) Document(s ) UNK CLEAR <content Saint styleCode="Tosin Melissa d">Urine Medical Clarity Center </content>Sl CLOUDY <content styleCode="Alyssa lics"> (CLEAR )</content> UNK NEGATIVE <content Saint styleCode="Tosin Melissa d">Urine Medical Bilirubin Center </content>NEGA TIVE <content styleCode="Alyssa lics"> (NEGATIVE )</content> Glucose NEGATIVE <content Saint [Mass/volume] styleCode="Tosin Garcias in Urine by d">Urine Medical Test strip Glucose Center </content>NEGA TIVE MG/DL<content styleCode="Alyssa lics"> (NEGATIVE MG/DL)</conten t> Color of Urine YELLOW <content Saint styleCode="Tosin Melissa d">Color, Medical Urine Center </content>YELL OW <content styleCode="Alyssa lics"> (YELLOW )</content> Hemoglobin NEGATIVE <content Saint [Presence] in styleCode="Tosin Garcias Urine by Test d">Urine Blood Medical strip </content>NEGA Center TIVE <content styleCode="Alyssa lics"> (NEGATIVE )</content> pH of Urine by 4.5-8.0 <content Saint Test strip styleCode="Tosin Melissa d">Urine pH Medical </content>6.0 Center <content styleCode="Alyssa lics"> (4.5-8.0 )</content> Specific 1.015-1.02 Above high <content Saint gravity of 5 normal styleCode="Tosin Garcias Urine by Test d">Urine Medical strip Specific Center [place] </content>>= 1.030 H<content styleCode="Alyssa lics"> (1.015-1.025 )</content> Ketones NEGATIVE <content Saint [Mass/volume] styleCode="Tosin Garcias in Urine by d">Urine Medical Test strip Ketone Center </content>NEGA TIVE MG/DL<content styleCode="Alyssa lics"> (NEGATIVE MG/DL)</conten t> UNK 0-3 <content Saint styleCode="Tosin Melissa d">Urine Red Medical Blood Cell Center </content>0-3 HPF<content styleCode="Alyssa lics"> (0-3 HPF)</content> Protein NEGATIVE <content Saint [Mass/volume] styleCode="Tosin Melissa in Urine by d">Urine Medical Test strip Protein Center </content>NEGA TIVE MG/DL<content styleCode="Alyssa lics"> (NEGATIVE MG/DL)</conten t> Leukocyte NEGATIVE <content Saint esterase styleCode="Tosin Torres [Presence] in d">Urine Medical Urine by Test Leukocyte Center strip </content>NEGA TIVE <content styleCode="Alyssa lics"> (NEGATIVE )</content> Urobilinogen 0.2-1.0 <content Saint [Units/volume] styleCode="Tosin Garcias in Urine by d">Urine Medical Test strip Urobilinogen Center </content>0.2 MG/DL<content styleCode="Alyssa lics"> (0.2-1.0 MG/DL)</conten t> Nitrite NEGATIVE <content Saint [Presence] in styleCode="Tosin Torres Urine by Test d">Urine Medical strip Nitrite Center </content>NEGA TIVE <content styleCode="Alyssa lics"> (NEGATIVE )</content> UNK 0-3 <content Saint styleCode="Tosin Melissa d">Urine White Medical Blood Cell Center </content>0-3 HPF<content styleCode="Alyssa lics"> (0-3 HPF)</content> UNK NONE SEEN <content Saint styleCode="Tosin Garcias d">Urine Mucus Medical </content>MODE Center RATE HPF<content styleCode="Alyssa lics"> (NONE SEEN HPF)</content> UNK NONE SEEN <content Saint styleCode="Tosin Melissa d">Epithelial Medical Cell Center </content>0-2 HPF<content styleCode="Alyssa lics"> (NONE SEEN HPF)</content> ID Date Data Source HematologyRou.[id number] 09/26/2019 01:42:00 AM [facility] 0500 Name Value Range Interpretation Description Data Sup porting Code Source(s) Document(s ) Leukocytes 4.4-11.0 <content Saint [#/volume] in styleCode="Bold Melissa Blood by ">White Blood Medical Automated count Cell Count Center </content>6.66 KCUMM<content styleCode="Ital ics"> (4.4-11.0 KCUMM)</content > Erythrocytes 4.4-5.9 <content Saint [#/volume] in styleCode="Bold Melissa Blood by ">Red Blood Medical Automated count Cell Count Center </content>4.55 MCUMM<content styleCode="Ital ics"> (4.4-5.9 MCUMM)</content > Hemoglobin 13.5-17. Below low normal <content Saint [Mass/volume] in 5 styleCode="Bold Melissa Blood ">Hemoglobin Medical </content>13.1 Center G/DL L<content styleCode="Ital ics"> (13.5-17.5 G/DL)</content> Hematocrit 41.0-53. Below low normal <content Saint [Volume 0 styleCode="Bold Melissa Fraction] of ">Hematocrit Medical Blood by </content>39.8 Center Automated count % L<content styleCode="Ital ics"> (41.0-53.0 %)</content> Erythrocyte mean 80.0-100 <content Saint corpuscular .0 styleCode="Bold Melissa volume [Entitic ">Mean Medical volume] by Corpuscular Center Automated count Volume </content>87.5 FL<content styleCode="Ital ics"> (80.0-100.0 FL)</content> Erythrocyte 11.5-14. <content Saint distribution 5 styleCode="Bold Melissa width [Ratio] by ">Red Cell Medical Automated count Distribution Center Width </content>13.0 %<content styleCode="Ital ics"> (11.5-14.5 %)</content> Erythrocyte mean 32.0-37. <content Saint corpuscular 0 styleCode="Bold Melissa hemoglobin ">Mean Corpus. Medical concentration Hgb Center [Mass/volume] by Concentration Automated count (MCHC) </content>32.9 G/DL<content styleCode="Ital ics"> (32.0-37.0 G/DL)</content> Erythrocyte mean 26.0-34. <content Saint corpuscular 0 styleCode="Bold Melissa hemoglobin ">Mean Medical [Entitic mass] Corposcular Center by Automated Hemoglobin count </content>28.8 PG<content styleCode="Ital ics"> (26.0-34.0 PG)</content> Platelets 130-400 <content Saint [#/volume] in styleCode="Bold Melissa Blood by ">Platelet Medical Automated count Count Center </content>184 KCUMM<content styleCode="Ital ics"> (130-400 KCUMM)</content > Platelet mean 8.0-11.0 <content Saint volume [Entitic styleCode="Bold Melissa volume] in Blood ">Mean Platelet Medical by Automated Volume Center count </content>8.8 FL<content styleCode="Ital ics"> (8.0-11.0 FL)</content> UNK 0 <content Saint styleCode="Bold Melissa ">Nucleated Red Medical Blood Cell Center </content>0.0 /100<content styleCode="Ital ics"> (0 /100)</content> UNK 0.0 <content Saint styleCode="Bold Melissa ">Nucleated Red Medical Blood Cell Center Count </content>0.00 KCUMM<content styleCode="Ital ics"> (0.0 KCUMM)</content > ID Date Data Source GFR(Creatinine).[id number] 09/26/2019 01:42:00 AM [facility] 0-0500 Name Value Range Interpretation Code Description Data Madalyn rce(s) Supporting Document(s ) UNK > 60 <content [facility] Melissa styleCode="Bold"> Medical Cent er EGFR </content>98 GFR<content styleCode="Italic s"> (> 60 GFR)</content> ID Date Data Source [employer].[id number] 09/26/2019 01:42:00 AM [facility] -0500 Name Value Range Interpretation Description Data Sup porting Code Source(s) Document(s ) Troponin < 0.034 <content Saint I.cardiac styleCode="Bold Melissa [Mass/volume ">Troponin I Medical ] in Serum </content>< Center or Plasma 0.012 NG/ML<content styleCode="Ital ics"> (< 0.034 NG/ML)</content > ID Date Data Source BMP.[id number] 09/26/2019 01:42:00 AM EST [facility] Name Value Range Interpretation Description Data Sup porting Code Source(s) Document(s ) Chloride 98-107 <content Saint [Moles/volume] styleCode="Tosin Melissa in Serum or d">Chloride Medical Plasma </content>106 Center MEQ/L<content styleCode="Alyssa lics"> (98-107 MEQ/L)</conten t> Sodium 137-145 <content Saint [Moles/volume] styleCode="Tosin Melissa in Serum or d">Sodium Medical Plasma </content>141 Center MEQ/L<content styleCode="Alyssa lics"> (137-145 MEQ/L)</conten t> Carbon 22-30 <content Saint dioxide, total styleCode="Tosin Melissa [Moles/volume] d">Carbon Medical in Serum or Dioxide Center Plasma </content>27 MEQ/L<content styleCode="Alyssa lics"> (22-30 MEQ/L)</conten t> Potassium 3.5-5.3 <content Saint [Moles/volume] styleCode="Tosin Melissa in Serum or d">Potassium Medical Plasma </content>3.7 Center MEQ/L<content styleCode="Alyssa lics"> (3.5-5.3 MEQ/L)</conten t> Calcium 8.4-10.2 <content Saint [Mass/volume] styleCode="Tosin Melissa in Serum or d">Calcium Medical Plasma </content>9.1 Center MG/DL<content styleCode="Alyssa lics"> (8.4-10.2 MG/DL)</conten t> UNK 9-20 <content Saint styleCode="Tosin Melissa d">BUN Medical </content>20 Center MG/DL<content styleCode="Alyssa lics"> (9-20 MG/DL)</conten t> Glucose 74-106 Above high normal <content Saint [Mass/volume] styleCode="Tosin Melissa in Serum or d">Glucose Medical Plasma </content>188 Center MG/DL H<content styleCode="Alyssa lics"> (74-106 MG/DL)</conten t> UNK > 60 <content Saint styleCode="Tosin Melissa d">EGFR Medical </content>98 Center GFR<content styleCode="Alyssa lics"> (> 60 GFR)</content> Creatinine 0.5-1.3 <content Saint [Mass/volume] styleCode="Tosin Melissa in Serum or d">Creatinine Medical Plasma </content>1.0 Center MG/DL<content styleCode="Alyssa lics"> (0.5-1.3 MG/DL)</conten t> ID Date Data Source [id number] 08/29/2019 10:03:31 AM EST Centric ity ([facility] [id number]) Name Value Range Interpretation Description Data Sup porting Code Source(s) Document(s ) Adult 7 PHQ-9 SCORE Centricity depression ([facility] screening Family assessment [facility]) hepatitis C Hepatitis C HEPCSCRN Centricity screening done Test ([facility] offered, Family Patient [facility]) declined Tobacco smoking Current SMOK STATUS Centricity status NHIS every day ([facility] smoker Family [facility]) Documentation Done MEDS REVIEW Centricity of current ([facility] medications Family (procedure) Healthcare) ID Date Data Source [id number] 08/25/2019 12:25:00 PM EST [facility] DEPART MENT OF DIAGNOSTIC IMAGING Patient Name: ANNY HEBERT : 1960 Patient Addr.: [address] [facility], MR#: [id number] [place] [address] Patient Phone #: Dictate Date: 08/26/19 1710 Ordering M.Marco: KELLE MONGE,CORRIE MONGE ID: CHJON Trans Date: Copies to: ; CC ID: ; Patient Loc: Rhonda Healy413-02 Report #: [id number] Order Number(s): [id number] Site: [facility] Exam Date/Time: 1- Exam: EKG, Routine 12 Lead PROCEDURE: EKG, 12 LEAD ROUTINE COMPARISON: None. Ventricular Rate: 98.00 BPM [place] Interval: 168.00 ms Q RS Duration: 90.00 ms PRT [place]: 57 -16 55 QT/QTC 370/472 CONCLUSION : NORMAL SINUS RHYTHM ANTERIOR INFARCT , AGE UNDETERMINED ABNORMAL ECG Dictated by: Kamryn Bennett MD on 08/26/2019 at 5:10 PM Approved by : Kamryn Bennett MD on 08/26/2019 at 5:10 PM APPENDIX: Signed: 08/26/19 1710 KAMRYN BENNETT MD TRN: TBY Name Value Range Interpretation Code Description Data Madalyn rce(s) Supporting Document(s ) ID Date Data Source [id number] 08/25/2019 06:20:00 AM [facility] PATIENT: ANNY HEBERT STATUS: REG ERACCOUNT #: [id number] SERVICE UNIT #: [id number] LOCAT ION: L.ERSEX: M PCP PHYS: [facility], IN C.: [birth year] AGE: 58 General Medical HPI Current HistoryMeds taken at homeActive ScriptsFOLIC ACID 1 MG PO DAILY FOLIC ACID 1 MG PO DAILY #3 0 TABLET Prov: 08/05/19THIAMINE MONONITRATE (VIT B1) (VITAMIN B-1) 100 M G PO DAILY THIAMINE MONONITRATE (VIT B1) (VITAMIN B-1) 100 MG PO DAILY #30 T ABLET Prov: 08/05/19MULTIVITAMIN (MULTI-VITAMIN DAILY) 1 TABLET PO DAILY MULTIVITAMIN (MULTI-VITAMIN DAILY) 1 TABLET PO DAILY #30 TABLET Prov: 08/05/19 Reported MedicationsLISINOPRIL (ZESTRIL) 2.5 MG PO DAILY EMPAGLIFLOZIN (JARDIANCE) 25 MG PO ONCE DAILY Metformin HCl (Glucophage) 2 TAB PO BID Insulin G largine,Hum.rec.anlog (Basaglar Kwikpen U-100) 28 UNITS SQ ONCE DAILY NICOTINE POLACRILEX (NICORETTE) 2 MG PO Q1-2H PRN SMOKING CESSATION GABAPENTIN 600 MG PO T ID Bupropion HCl (Wellbutrin Sr) 300 MG PO ONCE DAILY ATORVASTATIN CALCIUM (LIPITO R) 20 MG PO DAILY Insulin Lispro (Humalog Vial) AllergiesCoded Allergies:No Known Drug Allergies (08/04/19)aspirin (VOMITING 08/04/19) GeneralChief Compla int CHEST PAIN (ANY)Date seen 08/25/19Time seen 0421History from patient Past Medic al/Family HistoryPrior Medical History DIABETES DRUG ABUSET ETOHSurg Hist/Past HospitalizationHERNIA REPAIR 1981Social history lives with family, REPORTS SMOKI NG AND DRINKING. OCCASSIONAL CRACK COCAINE USE LAST USE 2X DAY AGO History of Prese nt IllnessInitial Ivenstbx49 y/o male presents to the ED w/ c/o cough and ches t pain onset about a month ago, seen in this ED and discharged, with associated pain from the shoulder down to the elbow which started 2x day ago after using crack perez sony. Pt states that he was seen here 3 weeks ago for the cough and CP and followed up with his primary doctor who referred him to a [facility] which he did not see due to his insurance. Pt reports smoking, drinking and drug use of crack cocaine l ast use was2x days ago. He denies SOB, Diff breathing, back pain, fever, or any othe r complaints.Timing/Duration weekTime Course intermittent episodesSeverity/Quality mi ldRecent Trauma none/deniesSimilar Symptoms Previously yesRecently Seen by Doctor Brian s Portions of this section were scribed by HAMLET EUGENE on 08/25/19 at 0421 Revi ew of SystemsConstitutional Constitutional denies chills, denies feverCardiovascul ar Cardiovascular reports chest pain, denies palpitationsRespiratory Respira tory reports cough, denies wheezingMusculoskeletal Musculoskeleta l reports joint pain, denies joint swellingAll Other Systems pertinent revw 'd neg Portions of this section were scribed by HAMLET EUGENE on 08/25/19 a t 0421 Physical ExamNursing assessment reviewed YesVital SignsVital Signs Ricardo e Time Temp Pulse Resp B/P B/P Pulse O2 O2 Flow FiO2 Mean Ox Delivery Rate 08/25 0140 98.0 94 18 114/67 97 Physical ExamConstitutional alert, awake, non-tox ic appearing, well nourishedEENT Head and Face skin intact, no gross deformity, NC /AT Throat/Mouth mucosa pink/moist, no active bleeding, oropharynx WNL, anatomy symmetric, dentition non-acute, no exudates, uvula midline, tongue flatCardiovascular regular rhythm, rate within normal limits, normal heart soundsRespiratory Mild expi ratory wheezing with coarse lung sounds. GI Abdomen soft, non-tender, bowel sounds W NL, no abdominal splintingMusculoskeletal Chest non-traumatic, symmetrical Back normal inspection, atraumatic, no CVA tenderness Extremities normal appearin g, ROM normal for age, no edema, non tender, pulses intact meseret., good cap refill Ne ck normal inspection, supple, no midline tendernessSkin/Integumentary color rafa l, dry, good turgor, no lesions, no rashes, warmNeuro no gross motor deficit, no leonides ss sensory deficit, speech normal, CN 2-12 grossly intact, no gross ataxia, gait no rmalPsych normal affect, normal mood, oriented X3, answers questions approp. P ortions of this section were scribed by HAMLET EUGENE on 08/25/19 at 0421 Last lab resultsOther Imaging [place], [place] [address]Tel: CLICK HERE TO VIEW [facility]AM [facility]: [facility] : 1960Patient Address: [address] [place] [address] MR #: [id number] [place] [address] Phone#: Patient Location: L.ERORDERED BY: DAFNE VAUGHN EXAM DATE/TIME: 08/25/2019 / 2:40 AMCopies to: MARV GENAO CHEST, 2 VIEW S PA/LAT ROUTINE NPCOMPARISON: [facility], XR, CXRP, 08/04/2019, 0:31 AM.INDICATIONS: chest painVIEWS: 2FINDINGS:LUNGS: Normal. No s ignificant pulmonary parenchymal abnormalities.VASCULATURE: Normal. Unrem arkable pulmonary vasculature.CARDIAC: Normal. No cardiac silhouette abnormalit y or cardiomegaly.MEDIASTINUM: Normal. No visible mass or adenopathy. Calcified pl aque is seen in thoracic aorta.PLEURA: Normal. No effusion or pleural thickenin g.OTHER: Attenuation in the lung bases is attributed to pectoralis muscle attenuat ion, similar to priorstudyCONCLUSION: No acute infiltrates are identified. Dictat ed by: Forrest Rosado MD on 08/25/2019 at 3:12 AMApproved by: Daniel Mayorga on 08/25/2019 at 3:13 AMLab Results These Lab results have been reviewed and inter preted by me.Laboratory Tests 08/25 Range/Un its 0300 Chemistry Sodium 142 135 - 145 mmol/L Potassium 3.8 3.5 - 5.1 mmol/L Chloride 108 H 98 - 107 mmol/L Carbon Dioxide 30 21 - 32 m mol/L Anion Gap 4.0 L 8 - 20 mmol/L BUN 11 7 - 18 mg/dL Creatinine 0.981 0.700 - 1.300 mg/dL Est Cr Clr Drug Dosing 80.08 >=60.00 mL/min Est GFR (MDRD) Af Amer 93.98 >=60.0 mL/min Est GFR (MDRD) Non-Af 77.67 >=60.0 mL/min BUN/Creatin ine Ratio 11.2 6.0 - 20.0 Glucose 116 H 74 - 106 mg/dL Calculated Osmolality 283 273 - 304 mos/kg Calcium 8.8 8.5 - 10.1 mg/dL Total Bilirubin 0.5 0.2 - 1.0 mg/dL AST 20 15 - 37 U/L ALT 20 16 - 61 U/L Alkaline Phosphatase 65 45 - 117 U/L Troponin I < 0.015 0.015 - 0.045 ng/mL Emc-Z-Vlqrjivvkhs Pept 39 5 - 125 pg/mL Total Pr otein 6.8 6.4 - 8.2 g/dL Albumin 3.4 3.4 - 5.0 g/dL Globulin 3.4 2. 6 - 3.8 g/dL Albumin/Globulin Ratio 1.0 1.0 - 5.0 Amylase 31 25.0 - 115.0 U/L Lipase 49 L 73.0 - 393.0 U/L Hematology W BC 5.90 4.00 - 10.00 K/uL RBC 4.57 L 4.63 - 6.08 M/uL Hgb 13.0 L 13.7 - 17.5 g/dL Hct 40.2 40.1 - 51.0 % MCV 88.0 80.0 - 96.0 fL MCH 28.4 27.0 - 33.2 pg MCHC 32.3 32.2 - 35.5 g/dL RDW 12.5 11.6 - 14.4 % Plt Count 244 150 - 450 K/uL MPV 9.3 8.5 - 11.8 fL Immature Gran % (Auto) 0.3 0.1 - 0.3 % Immature Gran # ( Auto) 0.02 0.01 - 0.03 K/uL Neutrophils % 58.1 38.9 - 69.8 % Lymphocytes % 30.8 21.7 - 51.7 % Monocytes % 8.8 4.7 - 12.2 % Eosinophils % 1.5 0.8 - 7.0 % Basophils % 0.5 0.1 - 1.2 % Neutrophils # 3.42 1.46 - 7.12 K/uL Lymphocytes # 1.82 0.92 - 4.30 K/uL Monocytes # 0.52 0.24 - 0.86 K/uL Eosinophils # 0.09 0.04 - 0.54 K/uL Basophils # 0.03 0.01 - 0.08 K/uL Nucleated RBCs 0.0 0.0 - 0.2 /100WBC Portions of this section were scribed by HAMLET EUGENE on 08/25/19 at 0429 Disposition ED DispositionDecision made to Hospitalize NoHosp or Disch Decision Dt 08/25/19Hosp or [place] Decision [place]m 0617Disposition HOMECl inical ImpressionPrimary Impression: BronchitisCondition StableProcedures x-r ays, labsPatient Instructions DI for Acute BronchitisPrescriptionsCurrent Visit Scr iptsPrednisone 40 MG PO DAILY 4 Days #8 TABLET AZITHROMYCIN (ZITHROMAX) 250 MG PO DAILY AZITHROMYCIN (ZITHROMAX) 250 MG PO DAILY #4 TABLET Albuterol Sulfat e (Proventil Hfa) 2 PUFF INH Q4H PRN SOB Albuterol Sulfate (Proventil Hfa) 2 PUFF INH Q4H PRN SOB #8 [facility] ([facility] Counseled Pt Regarding alcohol cessation, smoking cessation, discussed with pt for3m, diagnosis, follow up treatments, lab results, follow up with MD, medication use, radiology resultsAdditional Instructions Number of days off work/school: none Continue your present medications Prescriptions provid ed- Refer to Medication Reconciliation Patient Discharge Summary Procedures Per formed: none Follow up with [facility] cardiology for further evalua tion. Take medications as prescribed. Stop smoking and drug use. Return if any wors ening of symptoms or any concerns. Portions of this section were scribed by HAMLET EUGENE on 08/25/19 at 0421 a t 0620 DAFNE VAUGHN NP Electronically Signed 08/25/19 062 0 Providers:RULA VAUGHN NP, DO, SCOTTReport Entered Date/Time: 0421Current Report Status: Signed Report #: [id number] PCP ID: [facility] ATTENDING ID: [id number] AUTHOR ID: SANAM Name Value Range Interpretation Code Description Data Madalyn rce(s) Supporting Document(s ) ID Date Data Source [id number] 08/25/2019 04:25:00 AM EST [facility] MENT OF DIAGNOSTIC IMAGING Patient Name: ANNY HEBERT : 1960 Patient Addr.: [address] [facility], MR#: [id number] [place] [address] Patient Phone #: Dictate Date: 08/25/19312 Ordering M.D.: DAFNE VAUGHN NP, MD ID: SANAM Ewing Date: Copies to: DAFNE VAUGHN NP; CC ID: ; Patient Loc: L.ER Report #: [id number] Order Number(s): [id number] Site: [facility] Exam Date/Time: 08/25 Exam: CHEST, 2 VIEWS PA/LAT ROUT OCEAN EXPORT COORDINATOR PROCEDURE: CHEST, 2 VIEWS PA/L AT ROUTINE OCEAN EXPORT COORDINATOR COMPARISON: [facility], XR, CXRP, 08/04/2019, 0:31 AM. INDICATIONS: chest pain VIEWS: 2 FIND INGS: LUNGS: Normal. No significant pulmonary parenchymal abnormalities. VASCULATURE: Normal. Unremarkable pulmonary vasculature. CARDIAC: No rmal. No cardiac silhouette abnormality or cardiomegaly. MEDIASTINUM: Normal. No visible mass or adenopathy. Calcified plaque is seen in thoracic aorta. PLEU RA: Normal. No effusion or pleural thickening. OTHER: Attenuation in the lung bases is attributed to pectoralis muscle attenuation, similar to prior lenny dy CONCLUSION: No acute infiltrates are identified. Dictated b y: Forrest Rosado MD on 08/25/2019 at 3:12 AM Approved by: Forrest shepard MD on 08/25/2019 at 3:13 AM Signed: 08/25/19 0313 FORREST ROSADO MD TRN: TBY Name Value Range Interpretation Code Description Data Madalyn rce(s) Supporting Document(s ) ID Date Data Source [id number] 08/25/2019 03:31:00 AM EST [facility] Name Value Range Interpretation Code Description Data Madalyn rce(s) Supporting Document(s ) GLUCOSE 116 mg/dL 74-106 Above high normal [facility] BUN 11 mg/dL 7-18 [facility] 0.981 EST.GLOMERULAR FILTRATION RATE 77.67 mL/min >=60.0 [facility] EST.GFR 93.98 mL/min >=60.0 [facility] PHARMACY COCKCROFT-GAULT CRCLR 80.08 mL/min >=60.00 [facility] 0.981 BUN/CREAT RATIO 11.2 6.0-20.0 [facility] SODIUM 142 mmol/L 135-145 [facility] POTASSIUM 3.8 mmol/L 3.5-5.1 [facility] CHLORIDE 108 mmol/L 98-[address] [facility] CO2 30 mmol/L 21-32 [facility] ANION GAP 4.0 mmol/L 8-20 Below low normal [facility] AST 20 U/L 15-37 [facility] ALK PHOS 65 U/L 45-117 [facility] TOTAL BILIRUBIN 0.5 mg/dL 0.2-1.0 [facility] TOTAL PROTEIN 6.8 g/dL 6.4-8.2 [facility] ALBUMIN 3.4 g/dL 3.4-5.0 [facility] GLOBULIN 3.4 g/dL 2.6-3.8 [facility] A/G RATIO CALCULATION 1.0 1.0-5.0 [facility] CALCIUM 8.8 mg/dL 8.5-10.1 [facility] ALTI 20 U/L 16-61 [facility] OSMOLALITY CALCULATION 283 mos/kg 273-304 [facility] ID Date Data Source [id number] 08/25/2019 03:31:00 AM EST [facility] Name Value Range Interpretation Description Data Sup porting Code Source(s) Document(s ) TROPONIN I < 0.015 0.015-0.0 [facility] ng/mL [address] [place] [address] RESULT RANGE INTERPRETATION:0.046 - 0.1 NG/ML = INTERMEDIATE RISK OF OR NON-FATALAMI0.11 - 0.59 NG/ML = HIGH RI SK OF OR NON-FATAL AMI>0.6 NG/ML = SUGGESTS AMI. [facility]. CRITERIAAMENDED 06-15-10 ID Date Data Source [id number] 08/25/2019 03:31:00 AM EST [facility] Name Value Range Interpretation Description Data Sup porting Code Source(s) Document(s ) NT-PRO B 39 pg/mL 5-125 [facility] Recommended medical decision thresholds, by age group, are:Patients < 75 years: 125 pg/mLPatients >= 75 years: 450 pg/ mL ID Date Data Source [id number] 08/25/2019 03:31:00 AM EST [facility] Name Value Range Interpretation Code Description Data Madalyn rce(s) Supporting Document(s ) AMYLASE 31 U/L 25.0-115.0 [facility] ID Date Data Source [id number] 08/25/2019 03:31:00 AM EST [facility] Name Value Range Interpretation Code Description Data Madalyn rce(s) Supporting Document(s ) LIPASE 49 U/L 73.0-393.0 Below low normal [facility] ID Date Data Source [id number] 08/25/2019 03:13:00 AM EST [facility] Name Value Range Interpretation Description Data Sup porting Code Source(s) Document(s ) WBC 5.90 K/uL 4.00-10.[address] RBC 4.57 M/uL 4.63-6.08 Below low normal [facility] HGB 13.0 g/dL 13.7-17.5 Below low normal [facility] HCT 40.2 % 40.1-51.0 [facility] MCV 88.0 fL 80.0-96.0 [facility] MCH 28.4 pg 27.0-33.2 [facility] MCHC 32.3 g/dL 32.2-35.5 [facility] RDW 12.5 % 11.6-14.4 [facility] PLT 244 K/uL 150-450 [facility] MPV 9.3 fL 8.5-11.8 [facility] WOODROW% 58.1 % 38.9-69.8 [facility] LYM% 30.8 % 21.7-51.7 [facility] MONO% 8.8 % 4.7-12.2 [facility] EOS% 1.5 % 0.8-7.0 [facility] BASO% 0.5 % 0.1-1.2 [facility] IMMATURE 0.3 % 0.1-0.3 [facility] GRANULOCYTE% [facility] The immature granulocyte count is an enu meration ofmetamyelocytes, myelocyte, and promyelocytes present in the[facility] blood sa mple. It does not include band neutrophilforms. ABSOLUTE NEUTROPHIL COUNT 3.42 K/uL 1.46-7.12 [facility] LYM# 1.82 K/uL 0.92-4.30 [facility] MONO# 0.52 K/uL 0.24-0.86 [facility] EOSIN# 0.09 K/uL 0.04-0.54 [facility] BASO# 0.03 K/uL 0.01-0.08 [facility] IMMATURE GRANULOCYTES# 0.02 K/uL 0.01-0.03 [facility] NRBC 0.0 /100WBC 0.0-0.2 [facility] ID Date Data Source [id number] 08/05/2019 05:17:00 PM EST [facility] PAT[facility]: ANNY HEBERT STATUS: DIS INACCOUNT #: [id number] ADM UNIT #: [id number] ROOM/BED: [place] [address]SEX: M ATTEND: CORRIE NINA MDDOB: [birth year] AGE: 58 AUTHOR: CORRIE NINA MD PCP: ADELIA JIMÉNEZ MD Service Date/Time: 08/05/19 1337 Discha rge Summary.Date of Admission: 08/04/19Date of Discharge: 08/05/19Disposition: frankie meCourse of Hospitalization: 58 year old M [PMH alcohol abuse, cocaine abuse, DM, s moking, HTN, HLD] presented initially with chest pain in the setting of ongoing alc ohol and cocaine use, possible bingeing behavior. Patient reports that he suspe cts the cocaine, which he snorted and smoked, was laced with other substances as he louis d never felt this badly after cocaine abuse previously. Patient also reported dyspn ea, dizziness, malaise. Patient's workup was reassuring with negative troponins, ECG/ telemetry. Chest pain resolved with supportive care. Patient was not noted to demonstrate withdrawal signs. However, he did manifest tics at all extremities as well as tardive dyskinesia type movements of the tongue and lower jaw. He states he has had these involuntary movements for some time, but was unaware of his tongue move ments. Patient was advised to follow up with his primary and psychiatric doctors with in 1-2 weeks. Patient was counseled at length and all questions answered. Subs tance abuse cessation counseling performed. Medications on discharge as below. Foll ow up arranged. Please refer to separate documentation for further clinical detai ls as needed. Patient medically stable for discharge 08/05/19. Risk of readmission Discharge MedicationsDischarge MedicationsActive ScriptsContinue taking these medications: Medication Dose/Rte/Freq Days Qty Refills Max Daily Dose LISINOPRIL (ZESTRIL) 2.5 MG 2.5 MG ORAL EVERY DAY None TABLET EMPAGLIFLOZIN (JARDI ANCE) 25 MG ORAL None 25 MG TABLET ONCE EVERY DAY Metformin HCl (Glucophage) 2 TAB ORAL None 500 MG TABLET TWICE A DAY Insulin Glargine ,Hum.rec.anlog 28 UNITS SUB-Q None (Basaglar Kwikpen U-100) ONCE EVERY DAY 100 UNIT/1 ML INSULN.PEN NICOTINE POLACRILEX 2 MG ORAL None (NICORETTE) 2 MG GUM EVERY 1 TO 2 HOURS as needed for SMOKING CESSATION GABAPENTIN (GABAPENTIN) 600 MG ORAL None 600 MG TABLET 3 TIMES A DAY Bupropion HCl (Wellbutrin Sr) 300 MG ORAL None 100 MG TABLET.ER ONCE EVERY DAY ATORVASTATIN CALCIUM 20 MG ORAL EVERY DAY None (LIPITOR) 20 MG TABLET Insulin Lispro (Humalog Vial) UNIT SUBCUTANEOUS None 100 UNIT/1 ML VIAL WITH MEALS as needed for HYPERGLYCEMIA S tart taking the following new medications: Medication Dose/Rt e/Freq Days Qty Refills Max Daily Dose FOLIC ACID (FOLIC ACID) 1 MG ORAL EVERY DAY 30 None 1 MG TA BLET THIAMINE MONONITRATE (VIT B1) 100 MG ORAL EVERY DAY 30 None ( VITAMIN B-1) 100 MG TABLET MULTIVITAMIN 1 TABLET ORAL 30 None (MULTI-VITAMIN DAILY) EVERY DAY 1 EACH TABLET Pr oblem, Assessment PlanPROBLEM, ASSESSMENT PLAN: 1. Chest pain ICD Code R07.9 - C hest pain, unspecified Qualifiers Chest pain type: unspecified Qualified Code: R 07.9 - Chest pain, unspecified 2. Cocaine abuse ICD Code F14.10 - Cocaine abuse, uncomplicated 3. Insulin dependent diabetes mellitus ICD Code E11.9 - Type 2 diabe farooq mellitus without complications; Z79.4 - buttermaker continuous churn (current) use of insulin 4. A lcoholic ICD Code F10.20 - Alcohol dependence, uncomplicated Assess Plan: On Sat 6:43a Aug 04, 2019 BRICE ANDERSON wrote - equipment monitor phototypesetting.- trend t roponin/CPK- patient refused aspirin- Nitro PRN for pain.- obtain Cardiology consult for morning - monitor for alcohol withdrawal-placed on Valium protocol- mo nitor chemistry -insulin sliding scale with hypoglycemic protocol Total admission t carlos: About 70 minutes. More than 50% of time was spent on history, physical exam , medical decision making. Remainder of time spent on counseling and coordination of care. Patient endorsed to me by ER team. My involvement in care for patient was for initial H P. Care to be resumed by daytime attending. Labs/TestsLatest ResultsLabo ratory Tests Test Result Date Time Chemistry Sodium (135 - 145 mmol/L) 141 12/15 0 603 Potassium (3.5 - 5.1 mmol/L) 4.0 08/05 0603 Chloride (98 - 107 mmol/L) 110 12/ 0603 Carbon Dioxide (21 - 32 mmol/L) 28 08/05 0603 Anion Gap (8 - 20 mmol/L) 3.0 08/05 0603 BUN (7 - 18 mg/dL) 12 08/05 603 Creatinine (0.700 - 1.300 mg/dL) 1.010 08/05 603 Est Cr Clr Drug Dosing (>=60.00 mL/min) 75.25 08/05 603 Est GFR (MDRD) Af Amer (>=60.0 mL/min) 90.89 08/05 603 Est GFR (MDRD) Non-Af (>=60.0 mL/min) 75.12 08/05 603 BUN/Creatini ne Ratio (6.0 - 20.0) 11.8 08/05 603 Glucose (74 - 106 mg/dL) 210 08/05 603 Calculated Osmolality (273 - 304 mos/kg ) 287 08/05 603 Calcium (8.5 - 10.1 mg/dL) 8.6 602 Phosphorus (2.5 - 4.9 mg/dL) 2.5 08/04 708 Magnesium (1.8 - 2.4 mg/dL) 2.3 08/04 708 Tota l Bilirubin (0.2 - 1.0 mg/dL) 0.4 08/04 708 Direct Bilirubin ( 0.00 - 0.20 mg/dL) 0.12 08/04 708 Indirect Bilirubin (0.2 - 0.8 mg /dL) 0.3 08/04 708 AST (15 - 37 U/L) 18 08/04 07 ALT (16 - 61 U/L) 26 08/04 0 708 Alkaline Phosphatase (45 - 117 U/L) 71 08/04 708 Total Creatine Kinase (39 - 308 U/L) 366 08/04 708 CK-MB (CK-2) (1.0 - 3.6 ng/mL) 3.1 08/04 708 Troponin I (0.015 - 0.045 ng/mL) < 0.015 08/04 1319 Total Protein (6.4 - 8.2 g/dL) 6.6 08/04 708 Albumin (3.4 - 5.0 g/dL) 3.5 707 Globulin (2.6 - 3.8 g/dL) 3.1 08/04 708 Albumin/Globulin Ratio (1.0 - 5.0) 1.1 08/04 708 Coronary Risk Interp (0.0 - 2.1 %) 0.8 08/04 0708 Lipase (73.0 - 393. 0 U/L) 68 08/04 07 Test Result Date Time Hematology WBC (4.00 - 10.00 K/uL) 6.17 08/04 07 Hgb (13.7 - 17.5 g/dL) 13 .5 08/04 07 Hct (40.1 - 51.0 %) 41.1 08/04 07 Plt Count (150 - 450 K/uL) 243 08/04 07 Core Measures Stroke/T IANew Onset STK/TIA? No Hospitalist CCCCCC: [] Time spent on discharge: [] >40 minut es Billing Inpatient CodesDischarge [id number] at 1716 CORRIE NINA MD Electronically S igned 08/05/19 1716 Providers:CORRIE NINA MD Report Entered Date/Time: 08/05/19 1337Current Report Status: Signed Report #: [id number] PCP ID: BONY Cruz ATTENDING ID: [id number] AUTHOR ID: JASBIR Name Value Range Interpretation Code Description Data Madalyn rce(s) Supporting Document(s ) ID Date Data Source [id number] 08/05/2019 07:18:00 AM EST [facility] PATIENT: ANNY HEBERT STATUS: ADM INACCOUNT #: [id number] ADM UNIT #: [id number] ROOM/BE D: [facility]-02SEX: M ATTEND: CORRIE NINA MDDOB: AGE: 58 AUTHOR: CORRIE NINA MD PCP: ADELIA JIMÉNEZ MD Service Date/Time: 08/05/19 0718 Soci al/Family HistorySocial History Cocaine abuse, alcoholic Problem, Assessment P lanPROBLEM, ASSESSMENT PLAN: 1. Chest pain ICD Code R07.9 - Chest pain, unspecifie d Qualifiers Chest pain type: unspecified Qualified Code: R07.9 - Chest pain, unsp ecified 2. Cocaine abuse ICD Code F14.10 - Cocaine abuse, uncomplicated 3. Insulin dependent diabetes mellitus ICD Code E11.9 - Type 2 diabetes mellitus without compl ications; Z79.4 - buttermaker continuous churn (current) use of insulin 4. Alcoholic ICD Code F10.20 - Alcohol dependence, uncomplicated Assess Plan:On Sat 6:43a Aug 04, 2019 CHRISTELLE ANDERSON wrote - equipment monitor phototypesetting.- trend troponin/CPK- patient refused aspirin- N itro PRN for pain.- obtain Cardiology consult for morning - monitor for alcohol withdr awal-placed on Valium protocol- monitor chemistry -insulin sliding scale with hy poglycemic protocol Total admission time: About 70 minutes. More than 50% of time was spent on history, physical exam, medical decision making. Remainder of time spen t on counseling and coordination of care. Patient endorsed to me by ER team. My i nvolvement in care for patient was for initial H P. Care to be resumed by tye carlos attending. Providers:CORRIE NINA MD Report Entered Date/Time: 08/05/19 0718Current Report Status: Draft Report #: [id number] PCP ID: TIBJ Nancy ATTENDING ID: [id number] AUTHOR ID: CHMARIO Name Value Range Interpretation Code Description Data Madalyn rce(s) Supporting Document(s ) ID Date Data Source [id number] 08/05/2019 06:57:00 AM EST [facility] Name Value Range Interpretation Code Description Data Madalyn rce(s) Supporting Document(s ) GLUCOSE 210 mg/dL 74-106 Above high normal [facility] BUN 12 mg/dL 7-18 [facility] 1.010 EST.GLOMERULAR FILTRATION RATE 75.12 mL/min >=60.0 [facility] EST.GFR 90.89 mL/min >=60.0 [facility] PHARMACY COCKCROFT-GAULT CRCLR 75.25 mL/min >=60.00 [facility] 1.010 BUN/CREAT RATIO 11.8 6.0-20.0 [facility] SODIUM 141 mmol/L 135-145 [facility] POTASSIUM 4.0 mmol/L 3.5-5.1 [facility] CHLORIDE 110 mmol/L 98-107 Above high normal [facility] CO2 28 mmol/L 21-32 [facility] ANION GAP 3.0 mmol/L 8-20 Below low normal [facility] CALCIUM 8.6 mg/dL 8.5-10.1 [facility] OSMOLALITY CALCULATION 287 mos/kg 273-304 [facility] es [facility] ID Date Data Source [id number] 08/04/2019 09:36:00 PM EST [facility] PATIENT: ANNY HEBERT STATUS: ADM INACCOUNT #: [id number] ADM UNIT #: [id number] ROOM/BED: [place] [address]SEX: M ATTEND: KINZA NINA [facility] H[facility]ITALDOB: [birth year] AGE: 58 AUTHOR: BRICE ANDERSON MD PCP: ADELIA JIMÉNEZ MD Service Date/Time: 08/04/19 0603 HPI .ADMITTED DATE:08/04/19 Chief Complaint:. [Chest pain] History of Present Illness: [58-year-old alcoholic, cocaine abuser, diabetic presents with complaints of char[address] st pain. He stopped taking all his medications for the past 1 week. Has be en using cocaine alcohol for the past 2 weeks. Presents complaining of sharp ch est pain, shortness of breath, dizziness. Refused to take aspirin in the ER. No c ardiac history. Does not see a crown buffer. Initial cardiac workup in ER is negativ e.] Past Medical History: DIABETES Past Surgical History: DENIES Medications: AllergiesCoded Allergies:No Known Drug Allergies (08/04/19)aspirin (VOMITING ) Social/Family HistorySocial History Cocaine abuse, alcoholic Objective.Heigh t: ft: 5 in: 8 cm: 172.7 Weight: lbs: 170 k.111 BMI: 25.854BMI Classification: Overweigh t Date: 08/03/19 Time: 2322Vital Signs Result Date Time Pulse Ox 100 08/04 300 B/P 127/89 08/04 300 Temp 98.4 08/04 0 300 Pulse 72 08/04 300 Resp 16 08/04 300 ROS: As per HPIPhysical exam:Constitutional: alert, interactive, in no acute distress, well-nourished and well developed. Head and Face: the head and face were normal in appearance. Eyes: the sclera and conjunc tiva were normal, pupils were equal in size, round, eyelids normal. ENT: the ears and nose were normal in appearance, tongue moist. Neck: the appearance was normal, neck was supple. Pulmonary: no respiratory distress, normal respiratory rhythm and effort and clearbilateral breath sounds. Heart: normal S1 and S2, heart rate and rhythm were normal, no gallops, no pericardial rubs.Abdominal: non tender, non distended. No appreciable hepatosplenomegaly. Bowel sounds normal. Skin: Normal color and intact without appreciable rash or abnormal skin lesion . Extremities: no LE edemaNeuro: oriented to person, place, and time Physical Exam Se psis Focused ExamSepsis focused exam performed: N/A Results. 08/04 145 Chemistry Sodium (135 - 145 mmol/L) 141 Potassium (3.5 - 5.1 mmol/L) 3.7 Chloride (98 - 107 mmol/L) 110 H Carbon Dioxide (21 - 32 mmol/L) 29 Anion G ap (8 - 20 mmol/L) 2.0 L BUN (7 - 18 mg/dL) 15 Creatinine (0.700 - 1.300 mg/dL) 1.100 Est Cr Clr Drug Dosing (>=60.00 mL/min) 69.09 Est GFR (MDRD) Af Amer (>=60.0 mL/min) 82.37 Est G FR (MDRD) Non-Af (>=60.0 mL/min) 68.07 BUN/Creatinine Ratio (6.0 - 20.0) 13.6 Glucose (74 - 106 mg/dL) 209 H Calculated Osmolality (273 - 304 mos/kg) 288 Calcium (8.5 - 10.1 mg/dL) 8.8 Tropo bradley I (0.015 - 0.045 ng/mL) < 0.015 08/04 145 Hematology WBC (4.00 - 10.00 K/uL) 6.91 RBC (4.63 - 6.08 M/uL) 4.57 L Hgb (13.7 - 17.5 g/dL) 13.0 L Hct (40.1 - 51.0 %) 39.6 L MCV (80.0 - 96.0 fL) 86.7 MCH (27.0 - 33.2 pg) 28.4 MCHC (32.2 - 35.5 g/dL) 32.8 RDW (11.6 - 14.4 %) 12.6 Plt Count (150 - 450 K/uL) 233 MPV (8.5 - 11.8 fL) 8.7 Immature Gran % (Auto) (0.1 - 0.3 %) 0.1 Immature Gran # (Auto) (0.01 - 0.03 K/uL) 0.01 Neutrophils % (38.9 - 69.8 %) 50.3 Lymphocy farooq % (21.7 - 51.7 %) 38.4 Monocytes % (4.7 - 12.2 %) 8.8 Eosinophils % (0.8 - 7.0 %) 2.0 Basophils % (0.1 - 1.2 %) 0.4 Neutrophils # (1.46 - 7.12 K/uL) 3.47 Lymphocytes # (0.92 - 4.30 K/uL) 2.65 Monocytes # (0.24 - 0.86 K/uL) 0.61 Eosinophils # (0.04 - 0.54 K/uL) 0.14 Basophils # (0.01 - 0.08 K/uL) 0.03 Nucleated RBCs (0.0 - 0.2 /100WBC) 0.0 Core Measures Stroke/TIA New Onset STK/TIA? No Problem, Assessment PlanPROBLEM, ASSESSMENT PLAN: 1. Chest pain ICD Code R07.9 - Chest pain, unspecified Qualifiers Chest pain type : unspecified Qualified Code: R07.9 - Chest pain, unspecified 2. Cocaine abuse IC D Code F14.10 - Cocaine abuse, uncomplicated 3. Insulin dependent diabetes mellitus ICD Code E11.9 - Type 2 diabetes mellitus without complications; Z79.4 - prison (current) use of insulin 4. Alcoholic ICD Code F10.20 - Alcohol dependence, uncomp licated Assess Plan: - equipment monitor phototypesetting.- trend troponin/CPK- patient re fused aspirin- Nitro PRN for pain.- obtain Cardiology consult for morning - monitor for alcohol withdrawal-placed on Valium protocol- monitor chemistry -insulin sli ding scale with hypoglycemic protocol Total admission time: About 70 minutes. More than 50% of time was spent on history, physical exam, medical decision making. Remainder of time spent on counseling and coordination of care. Patient endorsed t o me by ER team. My involvement in care for patient was for initial H P. Care to be resumed by daytime attending. Billing Inpatient CodesInitial/Cons [id number] Electr onically Signed by BRICE ANDERSON MD on 08/04/19 at 2136 BRICE ANDERSON MD E lectronically Signed 08/04/192135 Providers:BRICE ANDERSON MD Report Entered D ate/Time: 08/04/19 0603Current Report Status: Signed Report #: [id number] PCP ID: BEVERLYJO ATTENDING ID: CHJON AUTHOR ID: DARRELLLCHRISTELLE Name Value Range Interpretation Code Description Data Madalyn rce(s) Supporting Document(s ) ID Date Data Source [id number] 08/04/2019 11:45:00 AM EST [facility] DEPART MENT OF DIAGNOSTIC IMAGING Patient Name: ANNY HEBERT : 1960 Patient Addr.: [address] [facility], MR#: [id number] [facility] [place] [address] Patient Phone #: Dictate Date: 08/04/19 1516 Ordering M.D.: BRANDY WILLIS MD ID: GEORGINA Ewing Date: Copies to: ; CC ID: ; Patient Loc: L.4N [id number] Report #: [id number] Order Number(s): [id number] Site: [facility] Exam Date/Time: 1- Exam: EKG, Routine 12 Lead PROCEDURE: EKG, 12 LEAD ROUTINE COMPARISON: None. Ventricular Rate: 72.00 BPM [place] Interval: 180.00 ms Q RS Duration: 100.00 ms PRT [place]: 27 -29 8 QT/QTC 392/429 CONCLUSION: NORMAL SINUS RHYTHM ANTERIOR INFARCT , AGE UNDETERMINED ABNORMAL ECG Dictated by: Paolo Carpenter MD on 08/04/2019 at 3:15 PM Approved by : Paolo Carpenter MD on 08/04/2019 at 3:16 PM APPENDIX: Signed: 08/04/19 1516 PAOLO CARPENTER MD TRN: TBY Name Value Range Interpretation Code Description Data Madalyn rce(s) Supporting Document(s ) ID Date Data Source [id number] 08/04/2019 01:54:00 PM EST [facility] Name Value Range Interpretation Description Data Sup porting Code Source(s) Document(s ) TROPONIN I < 0.015 0.015-0.0 [facility] ng/mL 45 [facility] RESULT RANGE INTERPRETATION:0.046 - 0.1 NG/ML = INTERMEDIATE RISK OF OR NON-FATALAMI0.11 - 0.59 NG/ML = HIGH RI SK OF OR NON-FATAL AMI>0.6 NG/ML = SUGGESTS AMI. CONSISTENT WITH [facility] ORG. CRITERIAAMENDED 06-15-10 ID Date Data Source [id number] 08/04/2019 07:56:00 AM EST [facility] Name Value Range Interpretation Code Description Data Madalyn rce(s) Supporting Document(s ) GLUCOSE 191 mg/dL 74-106 Above high normal [facility] BUN 15 mg/dL 7-18 [facility] 1.140 EST.GLOMERULAR FILTRATION RATE 65.32 mL/min >=60.0 [facility] EST.GFR 79.04 mL/min >=60.0 [facility] PHARMACY COCKCROFT-GAULT CRCLR 66.67 mL/min >=60.00 [facility] 1.140 BUN/CREAT RATIO 13.1 6.0-20.0 [facility] SODIUM 140 mmol/L 135-145 [facility] POTASSIUM 3.9 mmol/L 3.5-5.1 [facility] CHLORIDE 108 mmol/L 98-107 Above high normal [facility] CO2 30 mmol/L 21-32 [facility] ANION GAP 2.0 mmol/L 8-20 Below low normal [facility] CALCIUM 8.7 mg/dL 8.5-10.1 [facility] OSMOLALITY CALCULATION 285 mos/kg 273-304 [facility] ID Date Data Source [id number] 08/04/2019 09:46:00 AM EST [facility] Name Value Range Interpretation Description Data Sup porting Code Source(s) Document(s ) AST 18 U/L 15-37 [facility] ALK PHOS 71 U/L 45-117 [facility] TOTAL 0.4 0.2-1.0 [facility] BILIRUBIN mg/dL [facility] DIRECT 0.12 0.00-0.2 [facility] BILIRUBIN mg/dL 0 [facility] INDIRECT BILI 0.3 0.2-0.8 [facility] mg/dL [facility] TOTAL PROTEIN 6.6 g/dL 6.4-8.2 [facility] ALBUMIN 3.5 g/dL 3.4-5.0 [facility] GLOBULIN 3.1 g/dL 2.6-3.8 [facility] A/G RATIO 1.1 1.0-5.0 [facility] CALCULATION [facility] ALTI 26 U/L 16-61 [facility] ID Date Data Source [id number] 08/04/2019 07:56:00 AM EST [facility] Name Value Range Interpretation Code Description Data Madalyn rce(s) Supporting Document(s ) CPK 366 U/L 39-308 Above high normal [facility] ID Date Data Source [id number] 08/04/2019 09:00:00 AM EST [facility] Name Value Range Interpretation Code Description Data Madalyn rce(s) Supporting Document(s ) CKMB 3.1 ng/mL 1.0-3.6 [facility] NOTE: NEW AMENDED NORMAL RANGENon-AMI: <=5.0AMI: >5.0 ID Date Data Source [id number] 08/04/2019 09:00:00 AM EST [facility] Name Value Range Interpretation Code Description Data Madalyn rce(s) Supporting Document(s ) RI 0.8 % 0.0-2.1 [facility] ID Date Data Source [id number] 08/04/2019 07:56:00 AM EST [facility] Name Value Range Interpretation Description Data Sup porting Code Source(s) Document(s ) TROPONIN I < 0.015 0.015-0.0 [facility] ng/mL [address] [place] [address] RESULT RANGE INTERPRETATION:0.046 - 0.1 NG/ML = INTERMEDIATE RISK OF OR NON-FATALAMI0.11 - 0.59 NG/ML = HIGH RI SK OF OR NON-FATAL AMI>0.6 NG/ML = SUGGESTS AMI. CONSISTENT WITH [facility] ORG. CRITERIAAMENDED 06-15-10 ID Date Data Source [id number] 08/04/2019 07:56:00 AM EST [facility] Name Value Range Interpretation Description Data Sup porting Code Source(s) Document(s ) PHOSPHORUS 2.5 mg/dL 2.5-4.9 [facility] ID Date Data Source [id number] 08/04/2019 09:46:00 AM EST [facility] Name Value Range Interpretation Code Description Data Madalyn rce(s) Supporting Document(s ) LIPASE 68 U/L 73.0-393.0 Below low normal [facility] ID Date Data Source [id number] 08/04/2019 07:56:00 AM EST [facility] Name Value Range Interpretation Description Data Sup porting Code Source(s) Document(s ) MAGNESIUM 2.3 mg/dL 1.8-2.4 [facility] ID Date Data Source [id number] 08/04/2019 07:56:00 AM EST [facility] Name Value Range Interpretation Code Description Data Madalyn rce(s) Supporting Document(s ) ALCOHOL-E < 3 mg/dL 0-300 [facility] CLINICALLY TOXIC AT > 400 MG/DL. ID Date Data Source [id number] 08/04/2019 07:19:00 AM EST [facility] Name Value Range Interpretation Description Data Sup porting Code Source(s) Document(s ) WBC 6.17 K/uL 4.00-10.[address] RBC 4.69 M/uL 4.63-6.08 [facility] HGB 13.5 g/dL 13.7-17.5 Below low normal [facility] HCT 41.1 % 40.1-51.0 [facility] MCV 87.6 fL 80.0-96.0 [facility] MCH 28.8 pg 27.0-33.2 [facility] MCHC 32.8 g/dL 32.2-35.5 [facility] RDW 12.9 % 11.6-14.4 [facility] PLT 243 K/uL 150-450 [facility] MPV 8.7 fL 8.5-11.8 [facility] WOODROW% 53.3 % 38.9-69.8 [facility] LYM% 32.7 % 21.7-51.7 [facility] MONO% 10.7 % 4.7-12.2 [facility] EOS% 2.4 % 0.8-7.0 [facility] BASO% 0.6 % 0.1-1.2 [facility] IMMATURE 0.3 % 0.1-0.3 [facility] GRANULOCYTE% [facility] The immature granulocyte count is an enu meration ofmetamyelocytes, myelocyte, and promyelocytes present in [facility] blood sa mple. It does not include band neutrophilforms. ABSOLUTE NEUTROPHIL COUNT 3.28 K/uL 1.46-7.12 [facility] LYM# 2.02 K/uL 0.92-4.30 [facility] MONO# 0.66 K/uL 0.24-0.86 [facility] EOSIN# 0.15 K/uL 0.04-0.54 [facility] BASO# 0.04 K/uL 0.01-0.08 [facility] IMMATURE GRANULOCYTES# 0.02 K/uL 0.01-0.03 [facility] NRBC 0.0 /100WBC 0.0-0.2 [facility] ID Date Data Source [id number] 08/04/2019 04:30:00 AM EST [facility] PAT[facility]: ANNY HEBERT STATUS: REG ERACCOUNT #: [id number] SERVICE UNIT #: [id number] LOCAT ION: L.ERSEX: M PCP PHYS: TINO MONGE,NORMAEDOB: AGE: 58 General Medical HPI Current HistoryAllergiesCode d Allergies:aspirin (VOMITING 08/04/19) GeneralChief Complaint CHEST PAIN (ANY)G reet [id number] Date seen 08/04/19Time seen 002History from patient Past Medical/Fa helga HistoryPrior Medical History DIABETESSurg Hist/Past HospitalizationDE NIESSocial history lives alone, alcohol and coccaine abuse History of Present Illnes sInitial CommentsWith Hx of insulin-dependent diabetes, stopped using his meds approxi mately 4 daysago. Hx of alcohol and cocaine abuse, was in rehab until approximately 3 weeks ago when he decided to leave. Began using again about 2 weeks ago, both crac k cocaine and alcohol. Presenting to the ED tonight with 2 hr of sharp chest pain wh ich has been intermittent in nature. Reports some associated shortness of breath and lightheadedness. Refusing to take aspirin because he reports it will make him vomi t, did offer antiemetics but PT still refused aspirin. PT is pleasant and cooperative , requesting help for his addiction. Review of SystemsConstitutional Constitutiona l denies feverCardiovascular Cardiovascular reports chest painRespi ratory Respiratory reports shortness of breathGastrointestional Gastrointestin al denies abdominal painNeuro Neuro reports dizzyAll Other Systems pertinent revw'd neg Physical ExamNursing assessment reviewed YesVital SignsVital Signs Ricardo e Time Temp Pulse Resp B/P B/P Pulse O2 O2 Flow FiO2 Mean Ox Delivery Rate 08/03 2322 98.8 78 18 134/81 99 Physical ExamConstitutional alert, awake, no acut e distress, non-toxic appearing, well nourishedEENT Head and Face no hematom a, skin intact, no gross deformityCardiovascular regular rhythm, rate within normal limits, normal heart soundsRespiratory breath sounds equal bi lat, breath sounds clear bilat, no respiratory distressGI Abdomen soft, n on-tenderMusculoskeletal Chest non-traumatic, no tenderness to palp, sy mmetrical, no subcutaneous air Back normal inspection, atraumatic Extremities nor mal appearing, ROM normal for age Neck normal inspection, suppleSkin/Integument yvrose color normal, dry, good turgorNeuro appropriate for age, no gross motor defi cit, no gross sensory deficit, speech normalPsych age appropriate, normal affe ct, normal mood Last lab resultsPulse ox normalTime EKG performed 2315EKG Normal Sinus Rhythm, no acute Q/ST/T changesOther ImagingPATIENT NAME: ANNY HEBERT : 1960Patient Address: [address] [facility] MR #: [id number] [id number] Phone#: Patient Location: [place] Oshea Y: BRANDY BROWN EXAM DATE/TIME: 08/04/2019 / 0:31 AMCopies to: JONATHAN SOMMERS MD NO DOCTOR PATIENT- N. SPECIALIST/PCPAccession : [id number]: CHEST 1 VIEW, AP PORTABLE ROUTINECOMPARISON: None.INDICATIONS: CPV IEWS: 1FINDINGS:LUNGS: Normal. No significant pulmonary parenchymal abnormalities.VASC ULATURE: Normal. Unremarkable pulmonary vasculature.CARDIAC: Normal. No cardiac silhouette abnormality or cardiomegaly.MEDIASTINUM: Normal. No vis ible mass or adenopathy.PLEURA: Normal. No effusion or pleural thickening.OTHER: Ne gative.CONCLUSION: No acute disease. Dictated by: Forrest Rosado MD on 08/04/2019 at 1:00 AMApproved by: Forrest Rosado MD on 08/04/2019 at 1:01 AM Lab ResultsThes e Lab results have been reviewed and interpreted by me.Laboratory Tests 08/04 Range/Units 0145 Chemistry Sodium 1 41 135 - 145 mmol/L Potassium 3.7 3.5 - 5.1 mmol/L Chloride 110 H 98 - 107 mmol/L Carbon Dioxide 29 21 - 32 mmol/L Anion Ga p 2.0 L 8 - 20 mmol/L BUN 15 7 - 18 mg/dL Creatinine 1.100 0.700 - 1.300 mg/dL Est Cr Clr Drug Dosing 69.09 >=60.00 mL/min Est GFR (MDRD) Af Amer 82.37 >=60.0 mL/min Est GFR ( RD) Non-Af 68.07 >=60.0 mL/min BUN/Creatinine Ratio 13.6 6.0 - 20.0 Glucose 209 H 74 - 106 mg/dL Calculated Osmolality 288 273 - 304 mos/kg Calcium 8.8 8.5 - 10.1 mg/dL Troponin I < 0.015 0.015 - 0.045 ng/mL Hematology WBC 6.91 4.00 - 10.00 K/uL RBC 4. 57 L 4.63 - 6.08 M/uL Hgb 13.0 L 13.7 - 1 7.5 g/dL Hct 39.6 L 40.1 - 51.0 % MCV 86.7 80.0 - 96.0 fL MCH 28.4 27.0 - 33.2 pg MCHC 3 2.8 32.2 - 35.5 g/dL RDW 12.6 11.6 - 14.4 % Plt Count 233 150 - 450 K/uL MPV 8.7 8.5 - 11.8 fL Immature Gr an % (Auto) 0.1 0.1 - 0.3 % Immature Gran # (Auto) 0. 01 0.01 - 0.03 K/uL Neutrophils % 50.3 3 8.9 - 69.8 % Lymphocytes % 38.4 21.7 - 51.7 % Monocytes % 8.8 4.7 - 12.2 % Eosinoph ils % 2.0 0.8 - 7.0 % Basophils % 0.4 0.1 - 1.2 % Neutrophils # 3.47 1.46 - 7.12 K/uL Lymphocytes # 2.65 0.92 - 4.30 K/uL Monocytes # 0.61 0.24 - 0.86 K/uL Eosinoph ils # 0.14 0.04 - 0.54 K/uL Basophils # 0.03 0.01 - 0.08 K/uL Nucleated RBCs 0.0 0.0 - 0.2 /100WBC Disposition ED DispositionDecision made to Hospitalize YesHosp or Disch Decision Dt 08/04/19Hosp or Disch Decision [place]m 0424AdmittingJUSTIN MONGE,BA LIKADiscussion with attending case discussed fully, aware-ED workup/findings, agree w /management/plan, accept transfer of careDisposition [facility] EDClinical ImpressionPrimary Impression: Chest painQualifiers: Chest pain type: unspecified Qualified Code: R07.9 - Chest pain, unspecifiedSecondary Impressions: Alcoholic, Cocaine abuse, Insulin dependent diabetes mellitusCondition StableReferra ADELIA Morgan MD (PCP) at 0430 BRANDY WILLIS Electronically Signed 08/04/19 043 0 Providers:RUTH WILLIS MD,SYEDReport Entered Date/Time: 9 0308Current Report Status: Signed Report #: [id number] PCP ID: JHONATHAN ATTENDING ID: DON AUTHOR ID: GEORGINA Name Value Range Interpretation Code Description Data Madalyn rce(s) Supporting Document(s ) ID Date Data Source [id number] 08/04/2019 02:20:00 AM EST [facility] Name Value Range Interpretation Code Description Data Madalyn rce(s) Supporting Document(s ) GLUCOSE 209 mg/dL 74-106 Above high normal [facility] BUN 15 mg/dL 7-18 [facility] 1.100 EST.GLOMERULAR FILTRATION RATE 68.07 mL/min >=60.0 [facility] EST.GFR 82.37 mL/min >=60.0 [facility] PHARMACY COCKCROFT-GAULT CRCLR 69.09 mL/min >=60.00 [facility] 1.100 BUN/CREAT RATIO 13.6 6.0-20.0 [facility] SODIUM 141 mmol/L 135-145 [facility] POTASSIUM 3.7 mmol/L 3.5-5.1 [facility] CHLORIDE 110 mmol/L 98-[address] [facility] CO2 29 mmol/L 21-32 [facility] ANION GAP 2.0 mmol/L 8-20 Below low normal [facility] CALCIUM 8.8 mg/dL 8.5-10.1 [facility] OSMOLALITY CALCULATION 288 mos/kg 273-304 [facility] ID Date Data Source [id number] 08/04/2019 02:20:00 AM EST [facility] Name Value Range Interpretation Description Data Sup porting Code Source(s) Document(s ) TROPONIN I < 0.015 0.015-0.0 [facility] ng/mL 45 [facility] RESULT RANGE INTERPRETATION:0.046 - 0.1 NG/ML = INTERMEDIATE RISK OF OR NON-FATALAMI0.11 - 0.59 NG/ML = HIGH RI SK OF OR NON-FATAL AMI>0.6 NG/ML = SUGGESTS AMI. CONSISTENT WITH [facility] ORG. CRITERIAAMENDED 06-15-10 ID Date Data Source [id number] 08/04/2019 01:56:00 AM EST [facility] Name Value Range Interpretation Description Data Sup porting Code Source(s) Document(s ) WBC 6.91 K/uL 4.00-10.0 [facility] 0 [facility] RBC 4.57 M/uL 4.63-6.08 Below low normal [facility] HGB 13.0 g/dL 13.7-17.5 Below low normal [facility] HCT 39.6 % 40.1-51.0 Below low normal [facility] MCV 86.7 fL 80.0-96.0 [facility] MCH 28.4 pg 27.0-33.2 [facility] MCHC 32.8 g/dL 32.2-35.5 [facility] RDW 12.6 % 11.6-14.4 [facility] PLT 233 K/uL 150-450 [facility] MPV 8.7 fL 8.5-11.8 [facility] [facility] [place] WOODROW% 50.3 % 38.9-69.8 [facility] [place] LYM% 38.4 % 21.7-51.7 [facility] [place] MONO% 8.8 % 4.7-12.2 [facility] [place] EOS% 2.0 % 0.8-7.0 [facility] [place] BASO% 0.4 % 0.1-1.2 [facility] [place] IMMATURE 0.1 % 0.1-0.3 [facility] GRANULOCYTE% [facility] The immature granulocyte count is an enu meration ofmetamyelocytes, myelocyte, and promyelocytes present [facility] blood sa mple. It does not include band neutrophilforms. ABSOLUTE NEUTROPHIL COUNT 3.47 K/uL 1.46-7.12 [facility] LYM# 2.65 K/uL 0.92-4.30 [facility] MONO# 0.61 K/uL 0.24-0.86 [facility] EOSIN# 0.14 K/uL 0.04-0.54 [facility] BASO# 0.03 K/uL 0.01-0.08 [facility] IMMATURE GRANULOCYTES# 0.01 K/uL 0.01-0.03 [facility] NRBC 0.0 /100WBC 0.0-0.2 [facility] [place] ID Date Data Source [id number] 08/04/2019 01:21:00 AM EST [facility] DEPART MENT OF DIAGNOSTIC IMAGING Patient Name: ANNY HEBERT : 1960 Patient Addr.: [address] [facility], MR#: [id number] [place] [address] Patient Phone #: Dictate Date: 08/04/19100 Ordering Tod: BRANDY WILLIS MD ID: [id number] Trans Date: Copies to: BRICE ALVES; BRANDY WILLIS; CC ID: ; Patient Loc: L.4N [id number] Report #: [id number] Order Number(s): 1- 1 [id number] Site: [facility] Exam Date/Time: 08/04/19120 Exam: CHEST 1 VIEW AP PORTABLE ROUT PROCEDURE: CHEST 1 VIEW, AP PORTABLE ROUTINE COMPARISON: None. INDICATIONS: CP VIEW S: 1 FINDINGS: LUNGS: Normal. No significant pulmonary parenchymal abn ormalities. VASCULATURE: Normal. Unremarkable pulmonary vasculature. CARDIAC: Normal. No cardiac silhouette abnormality or cardiomegaly. MEDIAST INUM: Normal. No visible mass or adenopathy. PLEURA: Normal. No ef fusion or pleural thickening. OTHER: Negative. CONCLUSION: No acute disease. Dictated by: Forrest Rosado MD on 08/04/2019 at 1 :00 AM Approved by: Forrest Rosado MD on 08/04/2019 at 1:01 AM Signed: 08/04/19 0101 FORREST ROSADO MD TRN: [id number] Name Value Range Interpretation Code Description Data Madalyn rce(s) Supporting Document(s ) ID Date Data Source [id number] 06/24/2019 04:55:00 AM EST [facility] Name Value Range Interpretation Code Description Data Supporting Source(s) Document(s ) Troponin- <0.03 <=0.05 NO [place] I ng/mL [facility] ID Date Data Source [id number] 06/24/2019 04:51:00 AM EST [facility] Name Value Range Interpretation Description Data Sup porting Code Source(s) Document(s ) Amylase Lvl 45 IU/L 28-100 [facility] ID Date Data Source [id number] 06/24/2019 04:45:00 AM EST [facility] Added by Discern Rule GLB_ADD_GFR_BMP Name Value Range Interpretation Code Description Data Madalyn rce(s) Supporting Document(s ) eGFR-AA >60 >=60 NO [facility] mL/min/[address] [place] [address] eGFR-BUTCH >60 >=60 NO [facility] mL/min/1.[address] [place] [address] ID Date Data Source [id number] 06/24/2019 04:45:00 AM EST [facility] Name Value Range Interpretation Description Data Sup porting Code Source(s) Document(s ) Glucose Lvl 130 65-99 [place] mg/dL [facility] BUN 18.0 6.0-20.0 NO [place] mg/dL [facility] Creatinine 1.07 0.70-1.2 NO [place] mg/dL 0 [facility] BUN/Creat 16.8 7.0-29.0 NO [place] Ratio ratio [facility] Sodium Lvl 140 136-145 NO [place] mmol/L [facility] Potassium Lvl 3.6 3.5-5.1 NO [place] mmol/L [facility] Chloride 105 98-107 NO [place] mmol/L [facility] CO2 27 23-29 NO [place] mmol/L [facility] AGAP 8 5-15 NO [facility] Calcium Lvl 9.0 8.6-10.0 NO [place] mg/dL [facility] ID Date Data Source [id number] 06/24/2019 04:42:00 AM EST [facility] Name Value Range Interpretation Code Description Data Madalyn rce(s) Supporting Document(s ) BNP 14 pg/mL <=100 NO [facility] ID Date Data Source [id number] 06/24/2019 04:05:00 AM EST [facility] Name Value Range Interpretation Description Data Sup porting Code Source(s) Document(s ) Neut Auto 44.6 % 50.0-80.0 LO [facility] Lymph Auto 43.1 % 14.0-44.0 [facility] Auto 9.8 % 0.0-12.0 NO [facility] Eos Auto 1.8 % 0.0-7.0 NO [facility] Baso Auto 0.7 % 0.0-3.0 NO [facility] Neut 3.1 2.0-8.4 NO [facility] Absolute x10(3)/mc [facility] Lymph 3.0 0.6-4.8 NO [place] Absolute x10(3)/[facility] Toole 0.7 0.0-1.1 NO [place] Absolute x10(3)/[facility] Eos Absolute 0.1 0.0-0.5 NO [place] x10(3)/[facility] Baso 0.0 0.0-0.3 NO [place] Absolute x10(3)/[facility] ID Date Data Source [id number] 06/24/2019 04:05:00 AM EST [facility] Name Value Range Interpretation Description Data Sup porting Code Source(s) Document(s ) WBC 7.0 4.0-10.5 NO [place] x10(3)/[facility] RBC 4.83 4.70-6.00 NO [place] x10(6)/[facility] Hgb 14.2 13.5-17.0 NO [place] gm/dL [facility] Hct 41.5 % 38.0-51.0 NO [facility] MCV 86 fL 80-98 NO [facility] MCH 29.4 pg 26.0-34.0 NO [facility] MCHC 34.2 32.0-36.0 NO [place] gm/dL [facility] RDW 13.0 % 11.0-15.0 NO [facility] Platelet 247 150-400 NO [place] x10(3)/[facility] MPV 7.1 fL 8.5-13.0 LO [facility] ID Date Data Source [id number] 05/29/2019 10:25:00 PM EDT [facility] [id number] [facility] Name Value Range Interpretation Code Description Data Supporting Source(s) Document(s ) Ethanol 0 mg/dL [place] [Mass/volume Regional ] in [facility] Hospital of or Plasma [facility] ID Date Data Source [id number] 05/29/2019 10:25:00 PM EDT [facility] [id number] [facility] Name Value Range Interpretation Description Data Sup porting Code Source(s) Document(s ) Immature 0.02 [place] granulocytes K/uL Regional [#/volume] in Hospital of Blood [facility] ID Date Data Source [id number] 05/29/2019 10:25:00 PM EDT [facility] of [id number] [facility] Name Value Range Interpretation Description Data Sup porting Code Source(s) Document(s ) Basophils 0.03 K/uL [place] [#/volume] in Counts Include [address] [facility] Blood by [facility] Automated [facility] count ID Date Data Source [id number] 05/29/2019 10:25:00 PM EDT [facility] [id number] [facility] Name Value Range Interpretation Description Data Sup porting Code Source(s) Document(s ) Eosinophils 0.11 K/uL [place] [#/volume] in Counts Include [address] [facility] Blood by [facility] Automated count [facility] ID Date Data Source [id number] 05/29/2019 10:25:00 PM EDT [facility] of [id number] [facility] Name Value Range Interpretation Description Data Sup porting Code Source(s) Document(s ) Monocytes 0.51 K/uL [place] [#/volume] in Counts Include [address] [facility] Blood by Hospital Automated [facility] count ID Date Data Source [id number] 05/29/2019 10:25:00 PM EDT [facility] of [id number] [facility] Name Value Range Interpretation Description Data Sup porting Code Source(s) Document(s ) Lymphocytes 2.56 K/uL [place] [#/volume] in Regional Blood by [facility] of Automated count [facility] ID Date Data Source [id number] 05/29/2019 10:25:00 PM EDT [facility] [id number] [facility] Name Value Range Interpretation Description Data Sup porting Code Source(s) Document(s ) Neutrophils 2.98 K/uL [place] [#/volume] in Counts Include [address] [facility] Blood by Hospital of Automated count [facility] ID Date Data Source [id number] 05/29/2019 10:25:00 PM EDT [facility] of [id number] [facility] Name Value Range Interpretation Description Data Sup porting Code Source(s) Document(s ) Immature 0.3 % [place] granulocytes Regional [#/volume] in Hospital of Blood by [facility] Automated count ID Date Data Source [id number] 05/29/2019 10:25:00 PM EDT [facility] of [id number] [facility] Name Value Range Interpretation Description Data Sup porting Code Source(s) Document(s ) Basophils/100 0.5 % [place] leukocytes in Regional Blood by [facility] of Automated count [facility] ID Date Data Source [id number] 05/29/2019 10:25:00 PM EDT [facility] of [id number] [facility] Name Value Range Interpretation Description Data Sup porting Code Source(s) Document(s ) Eosinophils/100 1.8 % [place] leukocytes in Regional Blood by Hospital of Automated count [facility] ID Date Data Source [id number] 05/29/2019 10:25:00 PM EDT [facility] [id number] [facility] Name Value Range Interpretation Description Data Sup porting Code Source(s) Document(s ) Monocytes/100 8.2 % [place] leukocytes in Regional Blood by [facility] of Automated count [facility] ID Date Data Source [id number] 05/29/2019 10:25:00 PM EDT [facility] of [id number] [facility] Name Value Range Interpretation Description Data Sup porting Code Source(s) Document(s ) Lymphocytes/10 41.2 % [place] 0 leukocytes Regional in Blood by Hospital of Automated C count ID Date Data Source [id number] 05/29/2019 10:25:00 PM EDT [facility] of [id number] [facility] Name Value Range Interpretation Description Data Sup porting Code Source(s) Document(s ) Neutrophils/10 48.0 % [place] 0 leukocytes Regional in Blood by Hospital Automated [facility] count ID Date Data Source [id number] 05/29/2019 10:25:00 PM EDT [facility] of [id number] [facility] Name Value Range Interpretation Description Data Sup porting Code Source(s) Document(s ) Platelet mean 9.1 fL [place] volume Regional [[facility] Hospital of volume] in [facility] Blood by Automated count ID Date Data Source [id number] 05/29/2019 10:25:00 PM EDT [facility] [id number] [facility] Name Value Range Interpretation Description Data Sup porting Code Source(s) Document(s ) Platelets 199 K/uL [place] [#/volume] in Regional Blood by Hospital of Automated C count ID Date Data Source [id number] 05/29/2019 10:25:00 PM EDT [facility] of [id number] [facility] Name Value Range Interpretation Description Data Sup porting Code Source(s) Document(s ) Erythrocyte 12.4 % [place] distribution Regional width [Ratio] by Hospital of Automated count [facility] ID Date Data Source [id number] 05/29/2019 10:25:00 PM EDT [facility] [id number] [facility] Name Value Range Interpretation Description Data Sup porting Code Source(s) Document(s ) Erythrocyte mean 32.8 [place] corpuscular gm/dL Regional hemoglobin [facility] [Mass/volume] by Automated count ID Date Data Source [id number] 05/29/2019 10:25:00 PM EDT [facility] of [id number] C Name Value Range Interpretation Description Data Sup porting Code Source(s) Document(s ) Erythrocyte 28.7 pg [facility] of hemoglobin [facility] [Entitic mass] by Automated count ID Date Data Source [id number] 05/29/2019 10:25:00 PM EDT [facility] of [id number] [facility] Name Value Range Interpretation Description Data Sup porting Code Source(s) Document(s ) Erythrocyte 87.5 fL [facility] of volume [Entitic [facility] volume] by Automated count ID Date Data Source [id number] 05/29/2019 10:25:00 PM EDT [facility] of [id number] [facility] Name Value Range Interpretation Description Data Sup porting Code Source(s) Document(s ) Hematocrit 40.0 % [place] [Volume Regional Fraction] of Hospital of Blood by [facility] Automated count ID Date Data Source [id number] 05/29/2019 10:25:00 PM EDT [facility] of [id number] [facility] Name Value Range Interpretation Description Data Sup porting Code Source(s) Document(s ) Hemoglobin 13.1 [place] [Mass/volume] gm/dL Regional in Blood Hospital [facility] ID Date Data Source [id number] 05/29/2019 10:25:00 PM EDT [facility] of [id number] [facility] Name Value Range Interpretation Description Data Sup porting Code Source(s) Document(s ) Erythrocytes 4.57 [place] [#/volume] in M/uL Regional Blood by Hospital of Automated count [facility] ID Date Data Source [id number] 05/29/2019 10:25:00 PM EDT [facility] of [id number] [facility] Name Value Range Interpretation Description Data Sup porting Code Source(s) Document(s ) Nucleated 0.0 % [facility]10 [facility] 0 leukocytes Hospital of [Ratio] in [facility] Blood by Automated count ID Date Data Source [id number] 05/29/2019 10:25:00 PM EDT [facility] [id number] [facility] Name Value Range Interpretation Description Data Sup porting Code Source(s) Document(s ) Leukocytes 6.21 K/uL [facility] [#/volume] in Regional Blood by Hospital of Automated C count ID Date Data Source [id number] 05/29/2019 10:25:00 PM EDT [facility] [id number] [facility] Medications and supplements contain ing high levels of Biotin (Vitamin B7) may interfere with accuracy of result, pleas e interpret accordingly. Name Value Range Interpretation Description Data Sup porting Code Source(s) Document(s ) Troponin < 0.012 [place] I.cardiac ng/mL Regional [Mass/volume Hospital of ] in Serum [facility] or Plasma ID Date Data Source [id number] 05/29/2019 10:25:00 PM EDT [facility] [id number] [facility] Name Value Range Interpretation Description Data Sup porting Code Source(s) Document(s ) Bilirubin.t 0.7 mg/dL [facility] [Mass/volum Hospital of e] in Serum [facility] or Plasma ID Date Data Source [id number] 05/29/2019 10:25:00 PM EDT [facility] of [id number] [facility] Name Value Range Interpretation Description Data Sup porting Code Source(s) Document(s ) Alkaline 63 U/L [place] phosphatase Regional [Enzymatic Hospital of activity/volume [facility] ] in Serum or Plasma ID Date Data Source [id number] 05/29/2019 10:25:00 PM EDT [facility] [id number] [facility] Name Value Range Interpretation Description Data Sup porting Code Source(s) Document(s ) Alanine 32 U/L [place] aminotransferase Regional [Enzymatic Hospital of activity/volume] in [facility] Serum or Plasma ID Date Data Source [id number] 05/29/2019 10:25:00 PM EDT [facility] of [id number] [facility] Name Value Range Interpretation Description Data Sup porting Code Source(s) Document(s ) Aspartate 29 U/L [place] aminotransferase Regional [Enzymatic Hospital of activity/volume] in [facility] Serum or Plasma ID Date Data Source [id number] 05/29/2019 10:25:00 PM EDT [facility] [id number] [facility] Name Value Range Interpretation Description Data Sup porting Code Source(s) Document(s ) Albumin 3.8 g/dL [place] [Mass/volume Regional ] in [facility] Hospital of or Plasma [facility] ID Date Data Source [id number] 05/29/2019 10:25:00 PM EDT [facility] [id number] [facility] Name Value Range Interpretation Description Data Sup porting Code Source(s) Document(s ) Protein 6.1 g/dL [place] [Mass/volume Regional ] in [facility] Hospital of or Plasma [facility] ID Date Data Source [id number] 05/29/2019 10:25:00 PM EDT [facility] [id number] [facility] Name Value Range Interpretation Description Data Sup porting Code Source(s) Document(s ) Calcium 9.2 mg/dL [place] [Mass/volume Regional ] in Serum Hospital of or Plasma [facility] ID Date Data Source [id number] 05/29/2019 10:25:00 PM EDT [facility] of [id number] [facility] Name Value Range Interpretation Description Data Sup porting Code Source(s) Document(s ) Carbon 26 mmol/L [place] dioxide, Regional total Hospital of [Moles/volu [facility]] in Serum or Plasma ID Date Data Source [id number] 05/29/2019 10:25:00 PM EDT [facility] [id number] [facility] Name Value Range Interpretation Description Data Sup porting Code Source(s) Document(s ) Chloride 108 [place] [Moles/volum mmol/L Regional e] in Serum Hospital of or Plasma [facility] ID Date Data Source [id number] 05/29/2019 10:25:00 PM EDT [facility] of [id number] [facility] Name Value Range Interpretation Description Data Sup porting Code Source(s) Document(s ) Potassium 3.8 [place] [Moles/volume mmol/L Regional ] in Serum or [facility] ID Date Data Source [id number] 05/29/2019 10:25:00 PM EDT [facility] of [id number] [facility] Name Value Range Interpretation Description Data Sup porting Code Source(s) Document(s ) Sodium 139 mmol/L [place] [Moles/volu Regional me] in Hospital of [facility] or [facility] Plasma ID Date Data Source [id number] 05/29/2019 10:25:00 PM EDT [facility] of [id number] [facility] mL/min/1.73m2 Name Value Range Interpretation Code Description Data Supporting Source(s) Document(s ) Estimated GFR > 60 [place] (MDRD) [facility] ID Date Data Source [id number] 05/29/2019 10:25:00 PM EDT [facility] of [id number] [facility] Name Value Range Interpretation Description Data Sup porting Code Source(s) Document(s ) Creatinine 0.91 [place] [Mass/volume] mg/dL Regional in Serum or [facility] ID Date Data Source [id number] 05/29/2019 10:25:00 PM EDT [facility] [id number] [facility] Name Value Range Interpretation Description Data Sup porting Code Source(s) Document(s ) Urea 18 mg/dL [place] nitrogen Regional [Mass/volume Hospital of ] in Serum [facility] or Plasma ID Date Data Source [id number] 05/29/2019 10:25:00 PM EDT [facility] [id number] [facility] Name Value Range Interpretation Description Data Sup porting Code Source(s) Document(s ) Glucose 154 mg/dL [place] [Mass/volume Regional ] in [facility] Hospital of or Plasma [facility] ID Date Data Source [id number] 05/29/2019 10:25:00 PM EDT [facility] [id number] [facility] Name Value Range Interpretation Description Data Sup porting Code Source(s) Document(s ) Glucose 134 mg/dL [place] [Mass/volume Regional ] in Blood Hospital of by Test [facility] strip manual ID Date Data Source [id number] 05/28/2019 01:57:00 PM EDT [facility] [id number] [facility] Name Value Range Interpretation Code Description Data Supporting Source(s) Document(s ) Ethanol 0 mg/dL [place] [Mass/volume Regional ] in [facility] of or Plasma [facility] ID Date Data Source [id number] 05/28/2019 01:57:00 PM EDT [facility] [id number] [facility] Name Value Range Interpretation Description Data Sup porting Code Source(s) Document(s ) Immature 0.02 [place] granulocytes K/uL Regional [#/volume] in Hospital of Blood [facility] ID Date Data Source [id number] 05/28/2019 01:57:00 PM EDT [facility] [id number] [facility] Name Value Range Interpretation Description Data Sup porting Code Source(s) Document(s ) Basophils 0.03 K/uL [place] [#/volume] in Regional Blood by Hospital of Automated [facility] count ID Date Data Source [id number] 05/28/2019 01:57:00 PM EDT [facility] [id number] [facility] Name Value Range Interpretation Description Data Sup porting Code Source(s) Document(s ) Eosinophils 0.11 K/uL [place] [#/volume] in Counts Include [address] [facility] Blood by Hospital of Automated count [facility] ID Date Data Source [id number] 05/28/2019 01:57:00 PM EDT [facility] [id number] [facility] Name Value Range Interpretation Description Data Sup porting Code Source(s) Document(s ) Monocytes 0.51 K/uL [place] [#/volume] in Counts Include 234 [facility] Blood by [facility] Automated [facility] count ID Date Data Source [id number] 05/28/2019 01:57:00 PM EDT [facility] [id number] [facility] Name Value Range Interpretation Description Data Sup porting Code Source(s) Document(s ) Lymphocytes 2.56 K/uL [place] [#/volume] in Counts Include [address] [facility] Blood by Hospital of Automated count [facility] ID Date Data Source [id number] 05/28/2019 01:57:00 PM EDT [facility] [id number] [facility] Name Value Range Interpretation Description Data Sup porting Code Source(s) Document(s ) Neutrophils 2.98 K/uL [place] [#/volume] in Counts Include [address] [facility] Blood by Hospital of Automated count C ID Date Data Source [id number] 05/28/2019 01:57:00 PM EDT [facility] [id number] [facility] Name Value Range Interpretation Description Data Sup porting Code Source(s) Document(s ) Immature 0.3 % [place] granulocytes Regional [#/volume] in Hospital of Blood by [facility] Automated count ID Date Data Source [id number] 05/28/2019 01:57:00 PM EDT [facility] [id number] [facility] Name Value Range Interpretation Description Data Sup porting Code Source(s) Document(s ) Basophils/100 0.5 % [place] leukocytes in Regional Blood by Hospital of Automated count [facility] ID Date Data Source [id number] 05/28/2019 01:57:00 PM EDT [facility] of [id number] [facility] Name Value Range Interpretation Description Data Sup porting Code Source(s) Document(s ) Eosinophils/100 1.8 % [place] leukocytes in Regional Blood by Hospital Automated count [facility] ID Date Data Source [id number] 05/28/2019 01:57:00 PM EDT [facility] of [id number] [facility] Name Value Range Interpretation Description Data Sup porting Code Source(s) Document(s ) Monocytes/100 8.2 % [place] leukocytes in Regional Blood by [facility] Automated count [facility] ID Date Data Source [id number] 05/28/2019 01:57:00 PM EDT [facility] [id number] [facility] Name Value Range Interpretation Description Data Sup porting Code Source(s) Document(s ) Lymphocytes/10 41.2 % [place] 0 leukocytes Regional in Blood by Hospital Automated [facility] count ID Date Data Source [id number] 05/28/2019 01:57:00 PM EDT [facility] [id number] [facility] Name Value Range Interpretation Description Data Sup porting Code Source(s) Document(s ) Neutrophils/10 48.0 % [place] 0 leukocytes Regional in Blood by Hospital Automated [facility] count ID Date Data Source [id number] 05/28/2019 01:57:00 PM EDT [facility] of [id number] [facility] Name Value Range Interpretation Description Data Sup porting Code Source(s) Document(s ) Platelet mean 9.1 fL [place] volume Regional [[facility]] in [facility] Blood by Automated count ID Date Data Source [id number] 05/28/2019 01:57:00 PM EDT [facility] [id number] [facility] Name Value Range Interpretation Description Data Sup porting Code Source(s) Document(s ) Platelets 199 K/uL [place] [#/volume] in [facility] Blood by [facility]ated [facility] count ID Date Data Source [id number] 05/28/2019 01:57:00 PM EDT [facility] of [id number] [facility] Name Value Range Interpretation Description Data Sup porting Code Source(s) Document(s ) Erythrocyte 12.4 % [place] distribution Regional width [Ratio] by Hospital [facility] Automated count [facility] ID Date Data Source [id number] 05/28/2019 01:57:00 PM EDT [facility] of [id number] [facility] Name Value Range Interpretation Description Data Sup porting Code Source(s) Document(s ) Erythrocyte mean 32.8 [place] corpuscular gm/dL Regional hemoglobin [facility] concentration [facility] [Mass/volume] by Automated count ID Date Data Source [id number] 05/28/2019 01:57:00 PM EDT [facility] of [id number] [facility] Name Value Range Interpretation Description Data Sup porting Code Source(s) Document(s ) Erythrocyte 28.7 pg [place] [facility] corpuscular Hospital of hemoglobin [facility] [Entitic mass] by Automated count ID Date Data Source [id number] 05/28/2019 01:57:00 PM EDT [facility] of [id number] [facility] Name Value Range Interpretation Description Data Sup porting Code Source(s) Document(s ) Erythrocyte 87.5 fL [place] [facility] corpuscular Hospital of volume [Entitic [facility] volume] by Automated count ID Date Data Source [id number] 05/28/2019 01:57:00 PM EDT [facility] of [id number] [facility] Name Value Range Interpretation Description Data Sup porting Code Source(s) Document(s ) Hematocrit 40.0 % [place] [Volume Regional Fraction] of Hospital of Blood by [facility] Automated count ID Date Data Source [id number] 05/28/2019 01:57:00 PM EDT [facility] of [id number] [facility] Name Value Range Interpretation Description Data Sup porting Code Source(s) Document(s ) Hemoglobin 13.1 [place] [Mass/volume] gm/dL [facility] in Blood Hospital [facility] ID Date Data Source [id number] 05/28/2019 01:57:00 PM EDT [facility] of [id number] [facility] Name Value Range Interpretation Description Data Sup porting Code Source(s) Document(s ) Erythrocytes 4.57 [place] [#/volume] in M/uL [facility] Blood by Hospital of Automated count [facility] ID Date Data Source [id number] 05/28/2019 01:57:00 PM EDT [facility] of [id number] [facility] Name Value Range Interpretation Description Data Sup porting Code Source(s) Document(s ) Nucleated 0.0 % [place] erythrocytes/10 Regional 0 leukocytes Hospital of [Ratio] in [facility] Blood by Automated count ID Date Data Source [id number] 05/28/2019 01:57:00 PM EDT [facility] of [id number] [facility] Name Value Range Interpretation Description Data Sup porting Code Source(s) Document(s ) Leukocytes 6.21 K/uL [place] [#/volume] in Regional Blood by Hospital Automated [facility] count ID Date Data Source [id number] 05/28/2019 01:57:00 PM EDT [facility] of [id number] [facility] Medications and supplements contain ing high levels of Biotin (Vitamin B7) may interfere with accuracy of result, pleas e interpret accordingly. Name Value Range Interpretation Description Data Sup porting Code Source(s) Document(s ) Troponin < 0.012 [place] I.cardiac ng/mL Regional [Mass/volume Hospital of ] in Serum [facility] or Plasma ID Date Data Source [id number] 05/28/2019 01:57:00 PM EDT [facility] of [id number] [facility] Name Value Range Interpretation Description Data Sup porting Code Source(s) Document(s ) Bilirubin.t 0.7 mg/dL [place] otal Regional [Mass/volum Hospital of e] in Serum C or Plasma ID Date Data Source [id number] 05/28/2019 01:57:00 PM EDT [facility] of [id number] [facility] Name Value Range Interpretation Description Data Sup porting Code Source(s) Document(s ) Alkaline 63 U/L [place] phosphatase Regional [Enzymatic Hospital of activity/volume [facility] ] in Serum or Plasma ID Date Data Source [id number] 05/28/2019 01:57:00 PM EDT [facility] of [id number] [facility] Name Value Range Interpretation Description Data Sup porting Code Source(s) Document(s ) Alanine 32 U/L [place] aminotransferase Regional [Enzymatic Hospital of activity/volume] in [facility] Serum or Plasma ID Date Data Source [id number] 05/28/2019 01:57:00 PM EDT [facility] of [id number] [facility] Name Value Range Interpretation Description Data Sup porting Code Source(s) Document(s ) Aspartate 29 U/L [place] aminotransferase Regional [Enzymatic Hospital of activity/volume] in [facility] Serum or Plasma ID Date Data Source [id number] 05/28/2019 01:57:00 PM EDT [facility] of [id number] [facility] Name Value Range Interpretation Description Data Sup porting Code Source(s) Document(s ) Albumin 3.8 g/dL [place] [Mass/volume Regional ] in Serum Hospital of or Plasma [facility] ID Date Data Source [id number] 05/28/2019 01:57:00 PM EDT [facility] of [id number] [facility] Name Value Range Interpretation Description Data Sup porting Code Source(s) Document(s ) Protein 6.1 g/dL [place] [Mass/volume Regional ] in [facility] Hospital or [facility] ID Date Data Source [id number] 05/28/2019 01:57:00 PM EDT [facility] [id number] [facility] Name Value Range Interpretation Description Data Sup porting Code Source(s) Document(s ) Calcium 9.2 mg/dL [place] [Mass/volume Regional ] in [facility] Hospital [facility] ID Date Data Source [id number] 05/28/2019 01:57:00 PM EDT [facility] of [id number] [facility] Name Value Range Interpretation Description Data Sup porting Code Source(s) Document(s ) Carbon 26 mmol/L [place] dioxide, Regional total Hospital of [Moles/volu [facility]] in Serum or Plasma ID Date Data Source [id number] 05/28/2019 01:57:00 PM EDT [facility] of [id number] [facility] Name Value Range Interpretation Description Data Sup porting Code Source(s) Document(s ) Chloride 108 [place] [Moles/volum mmol/L Regional e] in [facility] Hospital or [facility] ID Date Data Source [id number] 05/28/2019 01:57:00 PM EDT [facility] [id number] [facility] Name Value Range Interpretation Description Data Sup porting Code Source(s) Document(s ) Potassium 3.8 [place] [Moles/volume mmol/L Regional ] in Serum or Hospital of Plasma [facility] ID Date Data Source [id number] 05/28/2019 01:57:00 PM EDT [facility] [id number] [facility] Name Value Range Interpretation Description Data Sup porting Code Source(s) Document(s ) Sodium 139 mmol/L [place] [Moles/volu Regional me] in Hospital of Serum or [facility] Plasma ID Date Data Source [id number] 05/28/2019 01:57:00 PM EDT [facility] of [id number] [facility] mL/min/1.73m2 Name Value Range Interpretation Code Description Data Supporting Source(s) Document(s ) Estimated GFR > 60 [place] (MDRD) [facility] ID Date Data Source [id number] 05/28/2019 01:57:00 PM EDT [facility] of [id number] [facility] Name Value Range Interpretation Description Data Sup porting Code Source(s) Document(s ) Creatinine 0.91 [place] [Mass/volume] mg/dL Regional in Serum or Hospital of Plasma [facility] ID Date Data Source [id number] 05/28/2019 01:57:00 PM EDT [facility] [id number] [facility] Name Value Range Interpretation Description Data Sup porting Code Source(s) Document(s ) Urea 18 mg/dL [place] nitrogen Regional [Mass/volume Hospital of ] in Serum [facility] or Plasma ID Date Data Source [id number] 05/28/2019 01:57:00 PM EDT [facility] of [id number] [facility] Name Value Range Interpretation Description Data Sup porting Code Source(s) Document(s ) Glucose 154 mg/dL [place] [Mass/volume Regional ] in Serum Hospital of or Plasma [facility] ID Date Data Source [id number] 05/28/2019 01:57:00 PM EDT [facility] of [id number] [facility] Name Value Range Interpretation Description Data Sup porting Code Source(s) Document(s ) Glucose 134 mg/dL [place] [Mass/volume Regional ] in Blood Hospital of by Test [facility] strip manual ID Date Data Source [id number] 05/28/2019 12:11:00 PM EDT [facility] [id number] [facility] Name Value Range Interpretation Code Description Data Supporting Source(s) Document(s ) Ethanol 0 mg/dL [place] [Mass/volume Regional ] in Serum Hospital of or Plasma [facility] ID Date Data Source [id number] 05/28/2019 12:11:00 PM EDT [facility] [id number] [facility] Name Value Range Interpretation Description Data Sup porting Code Source(s) Document(s ) Immature 0.02 [place] granulocytes K/uL [facility] [#/volume] in Hospital of Blood [facility] ID Date Data Source [id number] 05/28/2019 12:11:00 PM EDT [facility] of [id number] [facility] Name Value Range Interpretation Description Data Sup porting Code Source(s) Document(s ) Basophils 0.03 K/uL [place] [#/volume] in Counts Include [facility] Blood by [facility] Automated [facility] count ID Date Data Source [id number] 05/28/2019 12:11:00 PM EDT [facility] [id number] [facility] Name Value Range Interpretation Description Data Sup porting Code Source(s) Document(s ) Eosinophils 0.11 K/uL [place] [#/volume] in Counts Include 234 [facility] Blood by Hospital Automated count [facility] ID Date Data Source [id number] 05/28/2019 12:11:00 PM EDT [facility] of [id number] [facility] Name Value Range Interpretation Description Data Sup porting Code Source(s) Document(s ) Monocytes 0.51 K/uL [place] [#/volume] in Counts Include [facility] Blood by Hospital Automated [facility] count ID Date Data Source [id number] 05/28/2019 12:11:00 PM EDT [facility] of [id number] [facility] Name Value Range Interpretation Description Data Sup porting Code Source(s) Document(s ) Lymphocytes 2.56 K/uL [place] [#/volume] in Regional Blood by Hospital of Automated count [facility] ID Date Data Source [id number] 05/28/2019 12:11:00 PM EDT [facility] [id number] [facility] Name Value Range Interpretation Description Data Sup porting Code Source(s) Document(s ) Neutrophils 2.98 K/uL [place] [#/volume] in Regional Blood by [facility] Automated count [facility] ID Date Data Source [id number] 05/28/2019 12:11:00 PM EDT [facility] [id number] [facility] Name Value Range Interpretation Description Data Sup porting Code Source(s) Document(s ) Immature 0.3 % [place] granulocytes Regional [#/volume] in Hospital Blood by [facility] Automated count ID Date Data Source [id number] 05/28/2019 12:11:00 PM EDT [facility] [id number] [facility] Name Value Range Interpretation Description Data Sup porting Code Source(s) Document(s ) Basophils/100 0.5 % [place] leukocytes in Regional Blood by [facility] Automated count [facility] ID Date Data Source [id number] 05/28/2019 12:11:00 PM EDT [facility] of [id number] [facility] Name Value Range Interpretation Description Data Sup porting Code Source(s) Document(s ) Eosinophils/100 1.8 % [place] leukocytes in Regional Blood by [facility] of Automated count [facility] ID Date Data Source [id number] 05/28/2019 12:11:00 PM EDT [facility] of [id number] [facility] Name Value Range Interpretation Description Data Sup porting Code Source(s) Document(s ) Monocytes/100 8.2 % [place] leukocytes in Regional Blood by [facility] Automated count [facility] ID Date Data Source [id number] 05/28/2019 12:11:00 PM EDT [facility] [id number] [facility] Name Value Range Interpretation Description Data Sup porting Code Source(s) Document(s ) Lymphocytes/10 41.2 % [place] 0 leukocytes Regional in Blood by Hospital of Automated C count ID Date Data Source [id number] 05/28/2019 12:11:00 PM EDT [facility] [id number] [facility] Name Value Range Interpretation Description Data Sup porting Code Source(s) Document(s ) Neutrophils/10 48.0 % [place] 0 leukocytes Regional in Blood by [facility] Automated [facility] count ID Date Data Source [id number] 05/28/2019 12:11:00 PM EDT [facility] [id number] [facility] Name Value Range Interpretation Description Data Sup porting Code Source(s) Document(s ) Platelet mean 9.1 fL [place] volume Regional [Entitic Hospital of volume] in [facility] Blood by Automated count ID Date Data Source [id number] 05/28/2019 12:11:00 PM EDT [facility] [id number] [facility] Name Value Range Interpretation Description Data Sup porting Code Source(s) Document(s ) Platelets 199 K/uL [place] [#/volume] in Regional Blood by [facility] Automated [facility] count ID Date Data Source [id number] 05/28/2019 12:11:00 PM EDT [facility] of [id number] [facility] Name Value Range Interpretation Description Data Sup porting Code Source(s) Document(s ) Erythrocyte 12.4 % [place] distribution Regional width [Ratio] by Hospital of Automated count [facility] ID Date Data Source [id number] 05/28/2019 12:11:00 PM EDT [facility] of [id number] [facility] Name Value Range Interpretation Description Data Sup porting Code Source(s) Document(s ) Erythrocyte mean 32.8 [place] corpuscular gm/dL Regional hemoglobin Hospital of concentration [facility] [Mass/volume] by Automated count ID Date Data Source [id number] 05/28/2019 12:11:00 PM EDT [facility] of [id number] [facility] Name Value Range Interpretation Description Data Sup porting Code Source(s) Document(s ) Erythrocyte 28.7 pg [facility] corpuscular [facility] of hemoglobin [facility] [Entitic mass] by Automated count ID Date Data Source [id number] 05/28/2019 12:11:00 PM EDT [facility] of [id number] [facility] Name Value Range Interpretation Description Data Sup porting Code Source(s) Document(s ) Erythrocyte 87.5 fL [facility] corpuscular Hospital of volume [Entitic [facility] volume] by Automated count ID Date Data Source [id number] 05/28/2019 12:11:00 PM EDT [facility] of [id number] [facility] Name Value Range Interpretation Description Data Sup porting Code Source(s) Document(s ) Hematocrit 40.0 % [place] [Volume Regional Fraction] of Hospital of Blood by [facility] Automated count ID Date Data Source [id number] 05/28/2019 12:11:00 PM EDT [facility] of [id number] [facility] Name Value Range Interpretation Description Data Sup porting Code Source(s) Document(s ) Hemoglobin 13.1 [place] [Mass/volume] gm/dL [facility] in Blood [facility] ID Date Data Source [id number] 05/28/2019 12:11:00 PM EDT [facility] of [id number] [facility] Name Value Range Interpretation Description Data Sup porting Code Source(s) Document(s ) Erythrocytes 4.57 [place] [#/volume] in M/uL [facility] Blood by Hospital of Automated count [facility] ID Date Data Source [id number] 05/28/2019 12:11:00 PM EDT [facility] of [id number] [facility] Name Value Range Interpretation Description Data Sup porting Code Source(s) Document(s ) Nucleated 0.0 % [place] erythrocytes/10 Regional 0 leukocytes Hospital of [Ratio] in [facility] Blood by Automated count ID Date Data Source [id number] 05/28/2019 12:11:00 PM EDT [facility] of [id number] [facility] Name Value Range Interpretation Description Data Sup porting Code Source(s) Document(s ) Leukocytes 6.21 K/uL [facility] [#/volume] in [facility] Blood by Hospital of Automated [facility] count ID Date Data Source [id number] 05/28/2019 12:11:00 PM EDT [facility] of [id number] [facility] Medications and supplements contain ing high levels of Biotin (Vitamin B7) may interfere with accuracy of result, pleas e interpret accordingly. Name Value Range Interpretation Description Data Sup porting Code Source(s) Document(s ) Troponin < 0.012 [place] I.cardiac ng/mL Regional [Mass/volume Hospital of ] in Serum C or Plasma ID Date Data Source [id number] 05/28/2019 12:11:00 PM EDT [facility] of [id number] [facility] Name Value Range Interpretation Description Data Sup porting Code Source(s) Document(s ) Bilirubin.t 0.7 mg/dL [place] otal Regional [Mass/volum Hospital of e] in Serum [facility] or Plasma ID Date Data Source [id number] 05/28/2019 12:11:00 PM EDT [facility] of [id number] [facility] Name Value Range Interpretation Description Data Sup porting Code Source(s) Document(s ) Alkaline 63 U/L [place] phosphatase Regional [Enzymatic Hospital of activity/volume [facility] ] in Serum or Plasma ID Date Data Source [id number] 05/28/2019 12:11:00 PM EDT [facility] of [id number] [facility] Name Value Range Interpretation Description Data Sup porting Code Source(s) Document(s ) Alanine 32 U/L [place] aminotransferase Regional [Enzymatic Hospital of activity/volume] in [facility] Serum or Plasma ID Date Data Source [id number] 05/28/2019 12:11:00 PM EDT [facility] [id number] [facility] Name Value Range Interpretation Description Data Sup porting Code Source(s) Document(s ) Aspartate 29 U/L [place] aminotransferase Regional [Enzymatic Hospital of activity/volume] in [facility] Serum or Plasma ID Date Data Source [id number] 05/28/2019 12:11:00 PM EDT [facility] of [id number] [facility] Name Value Range Interpretation Description Data Sup porting Code Source(s) Document(s ) Albumin 3.8 g/dL [place] [Mass/volume Regional ] in [facility] Hospital of or [facility] ID Date Data Source [id number] 05/28/2019 12:11:00 PM EDT [facility] [id number] [facility] Name Value Range Interpretation Description Data Sup porting Code Source(s) Document(s ) Protein 6.1 g/dL [place] [Mass/volume Regional ] in [facility] Hospital of or [facility] ID Date Data Source [id number] 05/28/2019 12:11:00 PM EDT [facility] [id number] [facility] Name Value Range Interpretation Description Data Sup porting Code Source(s) Document(s ) Calcium 9.2 mg/dL [place] [Mass/volume Regional ] in [facility] Hospital or [facility] ID Date Data Source [id number] 05/28/2019 12:11:00 PM EDT [facility] of [id number] [facility] Name Value Range Interpretation Description Data Sup porting Code Source(s) Document(s ) Carbon 26 mmol/L [place] dioxide, Regional total Hospital of [Moles/volu [facility] me] in Serum or Plasma ID Date Data Source [id number] 05/28/2019 12:11:00 PM EDT [facility] of [id number] [facility] Name Value Range Interpretation Description Data Sup porting Code Source(s) Document(s ) Chloride 108 [place] [Moles/volum mmol/L Regional e] in Serum Hospital of or [facility] ID Date Data Source [id number] 05/28/2019 12:11:00 PM EDT [facility] [id number] [facility] Name Value Range Interpretation Description Data Sup porting Code Source(s) Document(s ) Potassium 3.8 [place] [Moles/volume mmol/L Regional ] in Serum or [facility] ID Date Data Source [id number] 05/28/2019 12:11:00 PM EDT [facility] [id number] [facility] Name Value Range Interpretation Description Data Sup porting Code Source(s) Document(s ) Sodium 139 mmol/L [place] [Moles/volu Regional me] in Hospital of [facility] or [facility] Plasma ID Date Data Source [id number] 05/28/2019 12:11:00 PM EDT [facility] of [id number] [facility] mL/min/1.73m2 Name Value Range Interpretation Code Description Data Supporting Source(s) Document(s ) Estimated GFR > 60 [place] (MDRD) [facility] ID Date Data Source [id number] 05/28/2019 12:11:00 PM EDT [facility] of [id number] [facility] Name Value Range Interpretation Description Data Sup porting Code Source(s) Document(s ) Creatinine 0.91 [place] [Mass/volume] mg/dL Regional in Serum or [facility] of [facility] ID Date Data Source [id number] 05/28/2019 12:11:00 PM EDT [facility] [id number] C Name Value Range Interpretation Description Data Sup porting Code Source(s) Document(s ) Urea 18 mg/dL [place] nitrogen Regional [Mass/volume Hospital of ] in Serum [facility] or Plasma ID Date Data Source [id number] 05/28/2019 12:11:00 PM EDT [facility] [id number] [facility] Name Value Range Interpretation Description Data Sup porting Code Source(s) Document(s ) Glucose 154 mg/dL [place] [Mass/volume Regional ] in Serum Hospital of or Plasma [facility] ID Date Data Source [id number] 05/28/2019 12:11:00 PM EDT [facility] [id number] C Name Value Range Interpretation Description Data Sup porting Code Source(s) Document(s ) Glucose 134 mg/dL [place] [Mass/volume Regional ] in Blood Hospital of by Test [facility] strip manual ID Date Data Source [id number] 05/28/2019 12:10:00 PM EDT [facility] [id number] [facility] Name Value Range Interpretation Code Description Data Supporting Source(s) Document(s ) Ethanol 0 mg/dL [place] [Mass/volume Regional ] in Serum Hospital of or Plasma [facility] ID Date Data Source [id number] 05/28/2019 12:10:00 PM EDT [facility] [id number] [facility] Name Value Range Interpretation Description Data Sup porting Code Source(s) Document(s ) Immature 0.02 [place] granulocytes K/uL Regional [#/volume] in Hospital of Blood [facility] ID Date Data Source [id number] 05/28/2019 12:10:00 PM EDT [facility] [id number] [facility] Name Value Range Interpretation Description Data Sup porting Code Source(s) Document(s ) Basophils 0.03 K/uL [place] [#/volume] in Regional Blood by Hospital Automated [facility] count ID Date Data Source [id number] 05/28/2019 12:10:00 PM EDT [facility] [id number] [facility] Name Value Range Interpretation Description Data Sup porting Code Source(s) Document(s ) Eosinophils 0.11 K/uL [place] [#/volume] in Counts Include 234 [facility] Blood by [facility] Automated count C ID Date Data Source [id number] 05/28/2019 12:10:00 PM EDT [facility] [id number] [facility] Name Value Range Interpretation Description Data Sup porting Code Source(s) Document(s ) Monocytes 0.51 K/uL [place] [#/volume] in Counts Include 234 [facility] Blood by Hospital Automated [facility] count ID Date Data Source [id number] 05/28/2019 12:10:00 PM EDT [facility] [id number] [facility] Name Value Range Interpretation Description Data Sup porting Code Source(s) Document(s ) Lymphocytes 2.56 K/uL [place] [#/volume] in Counts Include 234 [facility] Blood by [facility] Automated count [facility] ID Date Data Source [id number] 05/28/2019 12:10:00 PM EDT [facility] [id number] [facility] Name Value Range Interpretation Description Data Sup porting Code Source(s) Document(s ) Neutrophils 2.98 K/uL [place] [#/volume] in Counts Include [facility] Blood by Hospital of Automated count [facility] ID Date Data Source [id number] 05/28/2019 12:10:00 PM EDT [facility] of [id number] [facility] Name Value Range Interpretation Description Data Sup porting Code Source(s) Document(s ) Immature 0.3 % [place] granulocytes Regional [#/volume] in Hospital of Blood by [facility] Automated count ID Date Data Source [id number] 05/28/2019 12:10:00 PM EDT [facility] of [id number] [facility] Name Value Range Interpretation Description Data Sup porting Code Source(s) Document(s ) Basophils/100 0.5 % [place] leukocytes in Regional Blood by [facility] Automated count [facility] ID Date Data Source [id number] 05/28/2019 12:10:00 PM EDT [facility] of [id number] [facility] Name Value Range Interpretation Description Data Sup porting Code Source(s) Document(s ) Eosinophils/100 1.8 % [place] leukocytes in Regional Blood by Hospital Automated count C ID Date Data Source [id number] 05/28/2019 12:10:00 PM EDT [facility] of [id number] [facility] Name Value Range Interpretation Description Data Sup porting Code Source(s) Document(s ) Monocytes/100 8.2 % [place] leukocytes in Regional Blood by [facility] Automated count [facility] ID Date Data Source [id number] 05/28/2019 12:10:00 PM EDT [facility] of [id number] [facility] Name Value Range Interpretation Description Data Sup porting Code Source(s) Document(s ) Lymphocytes/10 41.2 % [place] 0 leukocytes Regional in Blood by Hospital Automated [facility] count ID Date Data Source [id number] 05/28/2019 12:10:00 PM EDT [facility] of [id number] [facility] Name Value Range Interpretation Description Data Sup porting Code Source(s) Document(s ) Neutrophils/10 48.0 % [place] 0 leukocytes Regional in Blood by Hospital of Automated [facility] count ID Date Data Source [id number] 05/28/2019 12:10:00 PM EDT [facility] [id number] [facility] Name Value Range Interpretation Description Data Sup porting Code Source(s) Document(s ) Platelet mean 9.1 fL [place] volume Regional [Entitic Hospital of volume] in [facility] Blood by Automated count ID Date Data Source [id number] 05/28/2019 12:10:00 PM EDT [facility] [id number] [facility] Name Value Range Interpretation Description Data Sup porting Code Source(s) Document(s ) Platelets 199 K/uL [place] [#/volume] in Regional Blood by Hospital of Automated [facility] count ID Date Data Source [id number] 05/28/2019 12:10:00 PM EDT [facility] of [id number] [facility] Name Value Range Interpretation Description Data Sup porting Code Source(s) Document(s ) Erythrocyte 12.4 % [place] distribution Regional width [Ratio] by [facility] count [facility] ID Date Data Source [id number] 05/28/2019 12:10:00 PM EDT [facility] [id number] [facility] Name Value Range Interpretation Description Data Sup porting Code Source(s) Document(s ) Erythrocyte mean 32.8 [place] corpuscular gm/dL Regional hemoglobin Hospital of concentration [facility] [Mass/volume] by Automated count ID Date Data Source [id number] 05/28/2019 12:10:00 PM EDT [facility] [id number] [facility] Name Value Range Interpretation Description Data Sup porting Code Source(s) Document(s ) [facility]7 [facility] corpus[facility] hemoglobin [facility] [Entitic mass] by Automated count ID Date Data Source [id number] 05/28/2019 12:10:00 PM EDT [facility] [id number] [facility] Name Value Range Interpretation Description Data Sup porting Code Source(s) Document(s ) Erythrocyte 87.5 fL [place] [facility] corpuscular Hospital of volume [Entitic [facility] volume] by Automated count ID Date Data Source [id number] 05/28/2019 12:10:00 PM EDT [facility] of [id number] [facility] Name Value Range Interpretation Description Data Sup porting Code Source(s) Document(s ) Hematocrit 40.0 % [place] [Volume Regional Fraction] of Hospital of Blood by [facility] Automated count ID Date Data Source [id number] 05/28/2019 12:10:00 PM EDT [facility] of [id number] [facility] Name Value Range Interpretation Description Data Sup porting Code Source(s) Document(s ) Hemoglobin 13.1 [place] [Mass/volume] gm/dL [facility] in Blood Hospital [facility] ID Date Data Source [id number] 05/28/2019 12:10:00 PM EDT [facility] [id number] [facility] Name Value Range Interpretation Description Data Sup porting Code Source(s) Document(s ) Erythrocytes 4.57 [place] [#/volume] in M/uL Regional Blood by Hospital of Automated count [facility] ID Date Data Source [id number] 05/28/2019 12:10:00 PM EDT [facility] of [id number] [facility] Name Value Range Interpretation Description Data Sup porting Code Source(s) Document(s ) Nucleated 0.0 % [place] erythrocytes/10 Regional 0 leukocytes Hospital of [Ratio] in [facility] Blood by Automated count ID Date Data Source [id number] 05/28/2019 12:10:00 PM EDT [facility] [id number] [facility] Name Value Range Interpretation Description Data Sup porting Code Source(s) Document(s ) Leukocytes 6.21 K/uL [place] [#/volume] in Regional Blood by Hospital Automated [facility] count ID Date Data Source [id number] 05/28/2019 12:10:00 PM EDT [facility] [id number] [facility] Medications and supplements contain ing high levels of Biotin (Vitamin B7) may interfere with accuracy of result, pleas e interpret accordingly. Name Value Range Interpretation Description Data Sup porting Code Source(s) Document(s ) Troponin < 0.012 [place] I.cardiac ng/mL Regional [Mass/volume Hospital of ] in Serum [facility] or Plasma ID Date Data Source [id number] 05/28/2019 12:10:00 PM EDT [facility] [id number] [facility] Name Value Range Interpretation Description Data Sup porting Code Source(s) Document(s ) Bilirubin.t 0.7 mg/dL [place] otal Regional [Mass/volum Hospital of e] in Serum [facility] or Plasma ID Date Data Source [id number] 05/28/2019 12:10:00 PM EDT [facility] [id number] [facility] Name Value Range Interpretation Description Data Sup porting Code Source(s) Document(s ) Alkaline 63 U/L [place] phosphatase Regional [Enzymatic Hospital of activity/volume [facility] ] in Serum or Plasma ID Date Data Source [id number] 05/28/2019 12:10:00 PM EDT [facility] [id number] [facility] Name Value Range Interpretation Description Data Sup porting Code Source(s) Document(s ) Alanine 32 U/L [place] aminotransferase Regional [Enzymatic Hospital of activity/volume] in [facility] Serum or Plasma ID Date Data Source [id number] 05/28/2019 12:10:00 PM EDT [facility] [id number] [facility] Name Value Range Interpretation Description Data Sup porting Code Source(s) Document(s ) Aspartate 29 U/L [place] aminotransferase Regional [Enzymatic Hospital of activity/volume] in [facility] Serum or Plasma ID Date Data Source [id number] 05/28/2019 12:10:00 PM EDT [facility] [id number] [facility] Name Value Range Interpretation Description Data Sup porting Code Source(s) Document(s ) Albumin 3.8 g/dL [place] [Mass/volume Regional ] in Serum Hospital [facility] ID Date Data Source [id number] 05/28/2019 12:10:00 PM EDT [facility] [id number] [facility] Name Value Range Interpretation Description Data Sup porting Code Source(s) Document(s ) Protein 6.1 g/dL [place] [Mass/volume Regional ] in [facility] Hospital [facility] ID Date Data Source [id number] 05/28/2019 12:10:00 PM EDT [facility] [id number] [facility] Name Value Range Interpretation Description Data Sup porting Code Source(s) Document(s ) Calcium 9.2 mg/dL [place] [Mass/volume Regional ] in [facility] ID Date Data Source [id number] 05/28/2019 12:10:00 PM EDT [facility] [id number] [facility] Name Value Range Interpretation Description Data Sup porting Code Source(s) Document(s ) Carbon 26 mmol/L [place] dioxide, Regional total Hospital of [Moles/volu [facility] me] in Serum or Plasma ID Date Data Source [id number] 05/28/2019 12:10:00 PM EDT [facility] [id number] [facility] Name Value Range Interpretation Description Data Sup porting Code Source(s) Document(s ) Chloride 108 [place] [Moles/volum mmol/L Regional e] in [facility] Hospital or [facility] ID Date Data Source [id number] 05/28/2019 12:10:00 PM EDT [facility] [id number] [facility] Name Value Range Interpretation Description Data Sup porting Code Source(s) Document(s ) Potassium 3.8 [place] [Moles/volume mmol/L Regional ] in Serum or Hospital of Plasma [facility] ID Date Data Source [id number] 05/28/2019 12:10:00 PM EDT [facility] of [id number] [facility] Name Value Range Interpretation Description Data Sup porting Code Source(s) Document(s ) Sodium 139 mmol/L [place] [Moles/volu Regional me] in Hospital of [facility] or [facility] Plasma ID Date Data Source [id number] 05/28/2019 12:10:00 PM EDT [facility] of [id number] [facility] mL/min/1.73m2 Name Value Range Interpretation Code Description Data Supporting Source(s) Document(s ) Estimated GFR > 60 [facility] ([facility] ID Date Data Source [id number] 05/28/2019 12:10:00 PM EDT [facility] [id number] [facility] Name Value Range Interpretation Description Data Sup porting Code Source(s) Document(s ) Creatinine 0.91 [place] [Mass/volume] mg/dL Regional in Serum or Hospital of Plasma [facility] ID Date Data Source [id number] 05/28/2019 12:10:00 PM EDT [facility] [id number] [facility] Name Value Range Interpretation Description Data Sup porting Code Source(s) Document(s ) Urea 18 mg/dL [place] nitrogen Regional [Mass/volume Hospital of ] in Serum [facility] or Plasma ID Date Data Source [id number] 05/28/2019 12:10:00 PM EDT [facility] [id number] [facility] Name Value Range Interpretation Description Data Sup porting Code Source(s) Document(s ) Glucose 154 mg/dL [place] [Mass/volume Regional ] in Serum Hospital of or Plasma [facility] ID Date Data Source [id number] 05/28/2019 12:10:00 PM EDT [facility] [id number] [facility] Name Value Range Interpretation Description Data Sup porting Code Source(s) Document(s ) Glucose 134 mg/dL [place] [Mass/volume Regional ] in Blood Hospital of by Test [facility] strip manual ID Date Data Source [id number] 05/25/2019 06:55:00 AM EDT [facility] [id number] [facility] Name Value Range Interpretation Code Description Data Supporting Source(s) Document(s ) Ethanol 0 mg/dL [place] [Mass/volume Regional ] in Serum Hospital of or Plasma [facility] ID Date Data Source [id number] 05/25/2019 06:55:00 AM EDT [facility] [id number] [facility] Name Value Range Interpretation Description Data Sup porting Code Source(s) Document(s ) Immature 0.02 [place] granulocytes K/uL Regional [#/volume] in Hospital of Blood [facility] ID Date Data Source [id number] 05/25/2019 06:55:00 AM EDT [facility] [id number] [facility] Name Value Range Interpretation Description Data Sup porting Code Source(s) Document(s ) Basophils 0.03 K/uL [place] [#/volume] in Regional Blood by Hospital of Automated [facility] count ID Date Data Source [id number] 05/25/2019 06:55:00 AM EDT [facility] [id number] [facility] Name Value Range Interpretation Description Data Sup porting Code Source(s) Document(s ) Eosinophils 0.11 K/uL [place] [#/volume] in Regional Blood by Hospital of Automated count [facility] ID Date Data Source [id number] 05/25/2019 06:55:00 AM EDT [facility] [id number] [facility] Name Value Range Interpretation Description Data Sup porting Code Source(s) Document(s ) Monocytes 0.51 K/uL [place] [#/volume] in Regional Blood by Hospital of Automated [facility] count ID Date Data Source [id number] 05/25/2019 06:55:00 AM EDT [facility] [id number] [facility] Name Value Range Interpretation Description Data Sup porting Code Source(s) Document(s ) Lymphocytes 2.56 K/uL [place] [#/volume] in Counts Include [facility] Blood by [facility] Automated count [facility] ID Date Data Source [id number] 05/25/2019 06:55:00 AM EDT [facility] [id number] [facility] Name Value Range Interpretation Description Data Sup porting Code Source(s) Document(s ) Neutrophils 2.98 K/uL [place] [#/volume] in Counts Include [facility] Blood by [facility] Automated count [facility] ID Date Data Source [id number] 05/25/2019 06:55:00 AM EDT [facility] [id number] [facility] Name Value Range Interpretation Description Data Sup porting Code Source(s) Document(s ) Immature 0.3 % [place] granulocytes Regional [#/volume] in Hospital Blood by [facility] Automated count ID Date Data Source [id number] 05/25/2019 06:55:00 AM EDT [facility] [id number] [facility] Name Value Range Interpretation Description Data Sup porting Code Source(s) Document(s ) Basophils/100 0.5 % [place] leukocytes in Counts Include [facility] Blood by [facility] Automated count [facility] ID Date Data Source [id number] 05/25/2019 06:55:00 AM EDT [facility] [id number] [facility] Name Value Range Interpretation Description Data Sup porting Code Source(s) Document(s ) Eosinophils/100 1.8 % [place] leukocytes in Counts Include [facility] Blood by [facility] Automated count [facility] ID Date Data Source [id number] 05/25/2019 06:55:00 AM EDT [facility] [id number] [facility] Name Value Range Interpretation Description Data Sup porting Code Source(s) Document(s ) Monocytes/100 8.2 % [place] leukocytes in Regional Blood by Hospital of Automated count [facility] ID Date Data Source [id number] 05/25/2019 06:55:00 AM EDT [facility] [id number] [facility] Name Value Range Interpretation Description Data Sup porting Code Source(s) Document(s ) Lymphocytes/10 41.2 % [place] 0 leukocytes Regional in Blood by Hospital of Automated C count ID Date Data Source [id number] 05/25/2019 06:55:00 AM EDT [facility] [id number] [facility] Name Value Range Interpretation Description Data Sup porting Code Source(s) Document(s ) Neutrophils/10 48.0 % [place] 0 leukocytes Regional in Blood by Hospital of Automated [facility] count ID Date Data Source [id number] 05/25/2019 06:55:00 AM EDT [facility] [id number] [facility] Name Value Range Interpretation Description Data Sup porting Code Source(s) Document(s ) Platelet mean 9.1 fL [place] volume Regional [Entitic Hospital of volume] in [facility] Blood by Automated count ID Date Data Source [id number] 05/25/2019 06:55:00 AM EDT [facility] [id number] [facility] Name Value Range Interpretation Description Data Sup porting Code Source(s) Document(s ) Platelets 199 K/uL [place] [#/volume] in Regional Blood by Hospital of Automated C count ID Date Data Source [id number] 05/25/2019 06:55:00 AM EDT [facility] [id number] [facility] Name Value Range Interpretation Description Data Sup porting Code Source(s) Document(s ) Erythrocyte 12.4 % [place] distribution Regional width [Ratio] by Hospital of Automated count [facility] ID Date Data Source [id number] 05/25/2019 06:55:00 AM EDT [facility] [id number] [facility] Name Value Range Interpretation Description Data Sup porting Code Source(s) Document(s ) Erythrocyte mean 32.8 [place] corpuscular gm/dL Regional hemoglobin Hospital of concentration [facility] [Mass/volume] by Automated count ID Date Data Source [id number] 05/25/2019 06:55:00 AM EDT [facility] [id number] [facility] Name Value Range Interpretation Description Data Sup porting Code Source(s) Document(s ) Erythrocyte 28.7 pg [place] mean Counts Include [address] [facility] corpuscular Hospital of hemoglobin [facility] [Entitic mass] by Automated count ID Date Data Source [id number] 05/25/2019 06:55:00 AM EDT [facility] of [id number] [facility] Name Value Range Interpretation Description Data Sup porting Code Source(s) Document(s ) E[facility] 87.5 [facility]L [facility] Include [facility] corpuscular Hospital of volume [Entitic [facility] volume] by Automated count ID Date Data Source [id number] 05/25/2019 06:55:00 AM EDT [facility] [id number] C Name Value Range Interpretation Description Data Sup porting Code Source(s) Document(s ) Hematocrit 40.0 % [place] [Volume Regional Fraction] of Hospital of Blood by [facility] Automated count ID Date Data Source [id number] 05/25/2019 06:55:00 AM EDT [facility] [id number] [facility] Name Value Range Interpretation Description Data Sup porting Code Source(s) Document(s ) Hemoglobin 13.1 [place] [Mass/volume] gm/dL Regional in Blood [facility] ID Date Data Source [id number] 05/25/2019 06:55:00 AM EDT [facility] of [id number] [facility] Name Value Range Interpretation Description Data Sup porting Code Source(s) Document(s ) Erythrocytes 4.57 [place] [#/volume] in M/uL Regional Blood by Hospital of Automated count [facility] ID Date Data Source [id number] 05/25/2019 06:55:00 AM EDT [facility] [id number] [facility] Name Value Range Interpretation Description Data Sup porting Code Source(s) Document(s ) Nucleated 0.0 % [place] erythrocytes/10 Regional 0 leukocytes Hospital of [Ratio] in [facility] Blood by Automated count ID Date Data Source [id number] 05/25/2019 06:55:00 AM EDT [facility] of [id number] [facility] Name Value Range Interpretation Description Data Sup porting Code Source(s) Document(s ) Leukocytes 6.21 K/uL [place] [#/volume] in Regional Blood by Hospital of Automated [facility] count ID Date Data Source [id number] 05/25/2019 06:55:00 AM EDT [facility] [id number] [facility] Medications and supplements contain ing high levels of Biotin (Vitamin B7) may interfere with accuracy of result, pleas e interpret accordingly. Name Value Range Interpretation Description Data Sup porting Code Source(s) Document(s ) Troponin < 0.012 [facility] I.cardiac ng/mL Counts Include [address] [facility] [Mass/volume Hospital of ] in Serum [facility] or Plasma ID Date Data Source [id number] 05/25/2019 06:55:00 AM EDT [facility] [id number] [facility] Name Value Range Interpretation Description Data Sup porting Code Source(s) Document(s ) Bilirubin.t 0.7 mg/dL [facility] otal Regional [Mass/volum Hospital of e] in Serum [facility] or Plasma ID Date Data Source [id number] 05/25/2019 06:55:00 AM EDT [facility] [id number] [facility] Name Value Range Interpretation Description Data Sup porting Code Source(s) Document(s ) Alkaline 63 U/L [place] phosphatase Regional [Enzymatic Hospital of activity/volume [facility] ] in Serum or Plasma ID Date Data Source [id number] 05/25/2019 06:55:00 AM EDT [facility] [id number] [facility] Name Value Range Interpretation Description Data Sup porting Code Source(s) Document(s ) Alanine 32 U/L [place] aminotransferase Regional [Enzymatic Hospital of activity/volume] in [facility] Serum or Plasma ID Date Data Source [id number] 05/25/2019 06:55:00 AM EDT [facility] [id number] [facility] Name Value Range Interpretation Description Data Sup porting Code Source(s) Document(s ) Aspartate 29 U/L [place] aminotransferase Regional [Enzymatic Hospital of activity/volume] in [facility] Serum or Plasma ID Date Data Source [id number] 05/25/2019 06:55:00 AM EDT [facility] [id number] [facility] Name Value Range Interpretation Description Data Sup porting Code Source(s) Document(s ) Albumin 3.8 g/dL [place] [Mass/volume Regional ] in Serum Hospital of or [facility] ID Date Data Source [id number] 05/25/2019 06:55:00 AM EDT [facility] [id number] [facility] Name Value Range Interpretation Description Data Sup porting Code Source(s) Document(s ) Protein 6.1 g/dL [place] [Mass/volume Regional ] in Serum Hospital of or Plasma [facility] ID Date Data Source [id number] 05/25/2019 06:55:00 AM EDT [facility] [id number] [facility] Name Value Range Interpretation Description Data Sup porting Code Source(s) Document(s ) Calcium 9.2 mg/dL [place] [Mass/volume Regional ] in Serum Hospital of or Plasma [facility] ID Date Data Source [id number] 05/25/2019 06:55:00 AM EDT [facility] [id number] [facility] Name Value Range Interpretation Description Data Sup porting Code Source(s) Document(s ) Carbon 26 mmol/L [place] dioxide, Regional total Hospital of [Moles/volu [facility] me] in Serum or Plasma ID Date Data Source [id number] 05/25/2019 06:55:00 AM EDT [facility] [id number] [facility] Name Value Range Interpretation Description Data Sup porting Code Source(s) Document(s ) Chloride 108 [place] [Moles/volum mmol/L Regional e] in Serum Hospital of or Plasma [facility] ID Date Data Source [id number] 05/25/2019 06:55:00 AM EDT [facility] [id number] [facility] Name Value Range Interpretation Description Data Sup porting Code Source(s) Document(s ) Potassium 3.8 [place] [Moles/volume mmol/L Regional ] in Serum or Hospital of Plasma [facility] ID Date Data Source [id number] 05/25/2019 06:55:00 AM EDT [facility] [id number] [facility] Name Value Range Interpretation Description Data Sup porting Code Source(s) Document(s ) Sodium 139 mmol/L [place] [Moles/volu Regional me] in Hospital of Serum or [facility] Plasma ID Date Data Source [id number] 05/25/2019 06:55:00 AM EDT [facility] [id number] [facility] mL/min/1.73m2 Name Value Range Interpretation Code Description Data Supporting Source(s) Document(s ) Estimated GFR > 60 [place] (MDRD) [facility] ID Date Data Source [id number] 05/25/2019 06:55:00 AM EDT [facility] [id number] [facility] Name Value Range Interpretation Description Data Sup porting Code Source(s) Document(s ) Creatinine 0.91 [place] [Mass/volume] mg/dL Regional in Serum or Hospital of Plasma [facility] ID Date Data Source [id number] 05/25/2019 06:55:00 AM EDT [facility] [id number] [facility] Name Value Range Interpretation Description Data Sup porting Code Source(s) Document(s ) Urea 18 mg/dL [place] nitrogen Regional [Mass/volume Hospital of ] in Serum [facility] or Plasma ID Date Data Source [id number] 05/25/2019 06:55:00 AM EDT [facility] [id number] WM Name Value Range Interpretation Description Data Sup porting Code Source(s) Document(s ) Glucose 154 mg/dL [facility] [Mass[facility]volume Regional ] in Serum [facility] or Plasma [facility] ID Date Data Source [id number] 05/25/2019 06:55:00 AM EDT [facility] [id number] [facility] Name Value Range Interpretation Description Data Sup porting Code Source(s) Document(s ) Glucose 134 mg/dL [facility] [Mass/volume Regional ] in Blood [facility] by Test [facility] strip manual ID Date Data Source [id number] 05/09/2019 02:11:00 PM EDT [facility] [id number] C Name Value Range Interpretation Description Data Sup porting Code Source(s) Document(s ) Glucose 134 mg/dL [facility] [Mass[facility]volume Regional ] in Blood [facility] by Test [facility] strip manual ID Date Data Source [id number] 05/09/2019 02:11:00 PM EDT [facility] [id number] [facility] Name Value Range Interpretation Description Data Sup porting Code Source(s) Document(s ) Glucose 134 mg/dL [facility] [Mass[facility]volume Regional ] in Blood [facility] by Test [facility] strip manual ID Date Data Source [id number] 05/09/2019 11:17:00 AM EDT [facility] [id number] [facility] Name Value Range Interpretation Description Data Sup porting Code Source(s) Document(s ) Glucose 134 mg/dL [facility] [[facility]volume [facility] ] in Blood [facility] by Test [facility] strip manual ID Date Data Source [id number] 05/09/2019 11:17:00 AM EDT [facility] [id number] [facility] Name Value Range Interpretation Description Data Sup porting Code Source(s) Document(s ) Glucose 134 mg/dL [facility] [[facility]volume [facility] ] in Blood [facility] by Test [facility] strip manual ID Date Data Source [id number] 05/09/2019 11:14:00 AM EDT [facility] [id number] [facility] Name Value Range Interpretation Description Data Sup porting Code Source(s) Document(s ) Glucose 134 mg/dL [facility] [[facility]volume [facility] ] in Blood [facility] by Test [facility] strip manual ID Date Data Source [id number] 05/09/2019 11:14:00 AM EDT [facility] [id number] [facility] Name Value Range Interpretation Description Data Sup porting Code Source(s) Document(s ) Glucose 134 mg/dL [place] [Mass[facility]volume Regional ] in Blood [facility] by Test [facility] strip manual Procedure Social History Code Duration Value Status Description Data Source(s ) Caffeine Use 02/21/2020 completed NEXTGEN (Carlo nt Details 12:00:00 AM [facility]) Smoking 02/21/2020 Unknown if ever completed Unknown if ever NEXT GEN ([facility] 12:00:00 AM smoked smoked [facility]) Smoking 12/16/2019 Occasional completed Occasional Smoker Pao norrishs 11:45:00 AM [facility] Smoking 12/15/2019 Daily Smoker completed Daily Smoker [facility] 10:11:00 AM [facility] Smoking 12/15/2019 Daily Smoker completed Daily Smoker [facility] 05:44:00 AM [facility] EDT Smoking 12/15/2019 Daily Smoker completed Daily Smoker [facility] 05:39:00 AM [facility] EDT 11/26/2019 Cigarette smoker completed Cigarette smoker NE XTGEN ([facility] 12:00:00 AM [facility]) Smoking 11/24/2019 Daily Smoker completed Daily Smoker [facility] 10:18:00 AM [facility] Cent[facility] EDT Smoking 11/24/2019 Daily Smoker completed Daily Smoker [facility] 09:41:00 AM [facility] EDT Smoking 11/09/2019 Daily Smoker completed Daily Smoker [facility] 09:00:00 AM [facility] EDT Smoking 11/09/2019 Daily Smoker completed Daily Smoker [facility] 08:54:00 AM [facility] Cent[facility] EDT Smoking 09/26/2019 Daily Smoker completed Daily Smoker [facility] 01:21:00 AM [facility] Cent[facility] EST Smoking 09/26/2019 Daily Smoker completed Daily Smoker [facility] 01:05:00 AM [facility] EST Smoking 09/26/2019 Daily Smoker completed Daily Smoker [facility] 12:50:00 AM [facility] EST Smoking 07/31/2019 Current Smoker completed Current Smoker eCW3 ( [place] 12:00:00 AM [facility]) Smoking 07/31/2019 Current Smoker completed Current Smoker eCW3 ( [facility] 12:00:00 AM [facility]) Smoking 07/31/2019 Current Smoker completed Current Smoker eCW3 ( [facility] 12:00:00 AM [facility]) Smoking 07/31/2019 Current Smoker completed Current Smoker eCW3 ( [facility] 12:00:00 AM [facility]) Smoking 07/31/2019 Current Smoker completed Current Smoker eCW3 ( [facility] 12:00:00 AM [facility]) Smoking 07/31/2019 Current Smoker completed Current Smoker eCW3 ( [facility] 12:00:00 AM [facility]) Smoking 07/31/2019 Current Smoker completed Current Smoker eCW3 ( [facility] 12:00:00 AM [facility]) Smoking 06/24/2019 Ex-smoker completed Ex-smoker [employer] 04:08:12 AM (finding) (finding) - [facility] Vital Signs ID Date Data Source UNK Name Value Range Interpretation Description Data Sour ce(s) Code Body weight 81.191956 kg 81.516644 kg [facility] Heart rate 83 /min 83 /min [facility] Diastolic blood 83 mm[Hg] 83 mm[Hg] [facility] pressure Medical Center Systolic blood 124 mm[Hg] 124 mm[Hg] [facility] pressure Medical Center Body 36.019604 Zoey 36.234665 Zoey [facility] temperature Medical Cente r Respiratory 20 /min 20 /min [facility] Oxygen 99 % 99 % [facility] saturation in [facility] Arterial blood by Pulse oximetry Heart rate 76 /min 76 /min [facility] Diastolic blood 82 mm[Hg] 82 mm[Hg] [facility] pressure Medical Center Systolic blood 134 mm[Hg] 134 mm[Hg] [facility] pressure Medical Center Heart rate 90 /min 90 /min [facility] Diastolic blood 77 mm[Hg] 77 mm[Hg] [facility] pressure Medical Center Systolic blood 126 mm[Hg] 126 mm[Hg] [facility] pressure Medical Center Body 36.400777 Zoey 36.625491 Zoey [facility] temperature Medical Cente r Respiratory 17 /min 17 /min [facility] Oxygen 98 % 98 % [facility] saturation in Medical [facility] Arterial blood by Pulse oximetry Heart rate 78 /min 78 /min [facility] Diastolic blood 78 mm[Hg] 78 mm[Hg] [facility] pressure Medical Center Systolic blood 120 mm[Hg] 120 mm[Hg] [facility] pressure Medical Center Heart rate 73 /min 73 /min [facility] Diastolic blood 84 mm[Hg] 84 mm[Hg] [facility] pressure Medical Center Systolic blood 137 mm[Hg] 137 mm[Hg] [facility] pressure Medical Center Body 36.700894 Zoey 36.683137 Zoey [facility] temperature Medical Cente r Respiratory 18 /min 18 /min [facility] rate Medical Center Body 36.746240 Zoey 36.139747 Zoey [facility] temperature Medical Cente r Respiratory 17 /min 17 /min [facility] Oxygen 98 % 98 % [facility] saturation in [facility] Arterial blood by Pulse oximetry Body 36.671719 Zoey 36.628568 Zoey [facility] temperature Medical Cente r Respiratory 19 /min 19 /min [facility] Oxygen 100 % 100 % [facility] saturation in [facility] Arterial blood by Pulse oximetry Oxygen 97 % 97 % [facility] saturation in [facility] Arterial blood by Pulse oximetry Body weight 77.009183 kg 77.214298 kg [facility] Body height 170.401296 cm 170.767022 cm [facility] Body mass index 26.90 kg/m2 26.90 kg/m2 [facility] (BMI) [Ratio] Medical [facility] ter Body weight 79.667548 kg 79.695301 kg [facility] Body height 170.063236 cm 170.359188 cm [facility] Body mass index 26.90 kg/m2 26.90 kg/m2 [facility] (BMI) [Ratio] Medical [facility] ter Body weight 77.281700 kg 77.878103 kg [facility] Measured [facility] Body 36.643786 Zoey 36.771059 Zoey [facility] Medical Cente r Respiratory 18 /min 18 /min [facility] Heart rate 80 /min 80 /min [facility] Diastolic blood 82 mm[Hg] 82 mm[Hg] [facility] Alex [facility] pressure Medical Center Systolic blood 120 mm[Hg] 120 mm[Hg] [facility] Medical Center Body 36.029658 Zoey 36.487639 Zoey [facility] Medical Cente r Respiratory 18 /min 18 /min [facility] Oxygen 99 % 99 % [facility] saturation in Medical [facility] ter Arterial blood by Pulse oximetry Heart rate 77 /min 77 /min [facility] Diastolic blood 75 mm[Hg] 75 mm[Hg] [facility] Alex [facility] pressure Medical Center Systolic blood 128 mm[Hg] 128 mm[Hg] [facility] Medical Center Body 36.388135 Zoey 36.910628 Zoey [facility] Medical Cente r Respiratory 18 /min 18 /min [facility] Oxygen 99 % 99 % [facility] saturation in Medical [facility] ter Arterial blood by Pulse oximetry Heart rate 80 /min 80 /min [facility] Diastolic blood 72 mm[Hg] 72 mm[Hg] [facility] pressure Medical Center Systolic blood 121 mm[Hg] 121 mm[Hg] [facility] Body 36.006421 Zoey 36.989908 Zoey [facility] Respiratory 17 /min 17 /min [facility] Oxygen 98 % 98 % [facility] saturation in [facility] ter Arterial blood by Pulse oximetry Heart rate 76 /min 76 /min [facility] Diastolic blood 64 mm[Hg] 64 mm[Hg] [facility] Systolic blood 112 mm[Hg] 112 mm[Hg] [facility] Oxygen 100 % 100 % NEXTGEN ([facility] saturation in [facility] Arterial blood Medical by Pulse Center) oximetry Body mass index 26.97 kg/m2 Overweight 26.97 kg/m2 NEXTGEN ([facility] (BMI) [Ratio] [facility]) Respiratory 20 /min 20 /min [facility]) Body 36.50 Zoey 36.50 Zoye [facility] ([facility]) Heart rate 62 /min 62 /min [facility] ([facility]) Diastolic blood 67 mm[Hg] 67 mm[Hg] [facility] ( [facility]) Systolic blood 121 mm[Hg] 121 mm[Hg] [facility] Body weight 80.467 kg 80.467 kg [facility] ([facility]) Body height 172.72 cm 172.72 cm [facility] ([facility]) Diastolic blood 74 mmHg 74 mmHg [facility] Systolic blood 152 mmHg 152 mmHg [facility] Respiratory 18 bpm 18 bpm [facility] Heart rate 71 bpm 71 bpm [facility] Body 96.5 96.5 [facility] Diastolic blood 72 mmHg 72 mmHg [facility] Systolic blood 146 mmHg 146 mmHg [facility] Respiratory 18 bpm 18 bpm [facility] Heart rate 74 bpm 74 bpm [facility] Body 98.1 98.1 [facility] Diastolic blood 67 mmHg 67 mmHg [facility] Systolic blood 136 mmHg 136 mmHg [facility] Respiratory 18 bpm 18 bpm [facility] Heart rate 70 bpm 70 bpm [facility] Diastolic blood 90 mmHg 90 mmHg [facility] Systolic blood 170 mmHg 170 mmHg [facility] Respiratory 20 bpm 20 bpm [facility] Heart rate 75 bpm 75 bpm [facility] Body 97.5 97.5 [facility] Diastolic blood 69 mmHg 69 mmHg [facility] Systolic blood 141 mmHg 141 mmHg [facility] Respiratory 18 bpm 18 bpm [facility] Heart rate 76 bpm 76 bpm [facility] Body 99.1 99.1 [facility] Body weight 180 lbs 180 lbs [facility] Diastolic blood 70 mmHg 70 mmHg [facility] Systolic blood 139 mmHg 139 mmHg [facility] Respiratory 18 bpm 18 bpm [facility] Heart rate 75 bpm 75 bpm [facility] Body 97.1 97.1 [facility] Diastolic blood 75 mmHg 75 mmHg [facility] Systolic blood 142 mmHg 142 mmHg [facility] Respiratory 18 bpm 18 bpm [facility] Heart rate 74 bpm 74 bpm [facility] Body 96.9 96.9 [facility] Diastolic blood 63 mmHg 63 mmHg [facility] Systolic blood 138 mmHg 138 mmHg [facility] Respiratory 18 bpm 18 bpm [facility] Heart rate 64 bpm 64 bpm [facility] Body 97.6 97.6 [facility] Oxygen 99 % 99 % [facility] ([facility] in [facility] blood [facility] by Pulse Center) oximetry Body mass index 26.58 kg/m2 Overweight 26.58 kg/m2 NEXTGEN ([facility] (BMI) [Ratio] [facility]) Respiratory 20 /min 20 /min [facility]) Body 36.28 Zoey 36.28 Zoey NEXTGEN ([facility]) Heart rate 71 /min 71 /min [facility] ([facility]) Diastolic blood 75 mm[Hg] 75 mm[Hg] [facility] ( [facility]) Systolic blood 118 mm[Hg] 118 mm[Hg] [facility] Body weight 79.288 kg 79.288 kg [facility] ([facility]) Body height 172.72 cm 172.72 cm [facility] ([facility]) Heart rate 67 /min 67 /min [facility] ([facility]) Diastolic blood 67 mm[Hg] 67 mm[Hg] [facility] ( [facility]) Systolic blood 116 mm[Hg] 116 mm[Hg] [facility] ([facility]) Oxygen 96 % 96 % NEXTGEN ([facility] saturation in [facility] Arterial blood Medical by Pulse Center) oximetry Body mass index 27.13 kg/m2 Overweight 27.13 kg/m2 NEXTGEN ([facility] (BMI) [Ratio] [facility]) Respiratory 20 /min 20 /min [facility] ([facility]) Body 36.67 Zoey 36.67 Zoey [facility] ([facility]) Heart rate 67 /min 67 /min [facility] ([facility]) Diastolic blood 60 mm[Hg] 60 mm[Hg] [facility] ( [facility]) Systolic blood 105 mm[Hg] 105 mm[Hg] [facility] ([facility]) Body weight 80.921 kg 80.921 kg [facility] ([facility]) Body height 172.72 cm 172.72 cm [facility] ([facility]) Body weight 75.877874 kg 75.786453 kg [facility] Body 36.647341 Zoey 36.222631 [facility] Res[facility] 19 /min 19 /min [facility] Oxygen 98 % 98 % [facility] saturation in Medical [facility] ter Arterial blood by Pulse oximetry Heart rate 78 /min 78 /min [facility] Body height 170.943198 cm 170.141232 cm [facility] Diastolic blood 72 mm[Hg] 72 mm[Hg] [facility] Systolic blood 136 mm[Hg] 136 mm[Hg] [facility] Body mass index 25.8 kg/m2 25.8 kg/m2 [facility] (BMI) [Ratio] [facility] Oxygen 100 % 100 % [facility] ([facility] saturation in [facility] Arterial blood Medical by Pulse [facility]) oximetry Body mass index 28.22 kg/m2 Overweight 28.22 kg/m2 NEXTGEN ([facility] (BMI) [Ratio] [facility]) Respiratory 19 /min 19 /min [facility] ([facility]) Heart rate 72 /min 72 /min [facility] ([facility]) Diastolic blood 68 mm[Hg] 68 mm[Hg] [facility] ( [facility]) Systolic blood 117 mm[Hg] 117 mm[Hg] [facility] ([facility] Body weight 84.187 kg 84.187 kg [facility] ([facility]) Body height 172.72 cm 172.72 cm [facility] ([facility]) Diastolic blood 58 mmHg 58 mmHg [facility] Systolic blood 125 mmHg 125 mmHg [facility] Respiratory 18 bpm 18 bpm [facility] Heart rate 91 bpm 91 bpm [facility] Body 98.7 98.7 [facility] Diastolic blood 67 mmHg 67 mmHg [facility] Systolic blood 129 mmHg 129 mmHg [facility] Respiratory 18 bpm 18 bpm [facility] Heart rate 82 bpm 82 bpm [facility] Diastolic blood 61 mmHg 61 mmHg [facility] Systolic blood 111 mmHg 111 mmHg [facility] Respiratory 18 bpm 18 bpm [facility] Heart rate 84 bpm 84 bpm [facility] Body 96.5 96.5 [facility] Body 36.601725 Zoey 36.913020 Zoey [facility] Cent r Respiratory 18 /min 18 /min [facility] Oxygen 98 % 98 % [facility] saturation in Medical [facility] ter Arterial blood by Pulse oximetry Heart rate 96 /min 96 /min [facility] Diastolic blood 87 mm[Hg] 87 mm[Hg] [facility] Systolic blood 148 mm[Hg] 148 mm[Hg] [facility] Body 36.947183 Zoey 36.679501 Zoey [facility] Cent[facility] r Respiratory 18 /min 18 /min [facility] Oxygen 98 % 98 % [facility] saturation in Medical [facility] ter Arterial blood by Pulse oximetry Heart rate 100 /min 100 /min [facility] Diastolic blood 99 mm[Hg] 99 mm[Hg] [facility] Systolic blood 151 mm[Hg] 151 mm[Hg] [facility] Oxygen 100 % 100 % NEXTGEN ([facility] saturation in [facility] Arterial [facility] Medical by Pulse Center) oximetry Body mass index 27.37 kg/m2 Overweight 27.37 kg/m2 [facility] ([facility] (BMI) [Ratio] [facility]) Respiratory 18 /min 18 /min [facility] ([facility]) Body 36.78 Zoey 36.78 Zoey [facility] ([facility]) Heart rate 77 /min 77 /min [facility] ([facility]) Diastolic blood 66 mm[Hg] 66 mm[Hg] [facility] ( [facility]) Systolic blood 122 mm[Hg] 122 mm[Hg] [facility] ([facility]) Body weight 81.647 kg 81.647 kg [facility] ([facility]) Body height 172.72 cm 172.72 cm [facility] ([facility]) Diastolic blood 53 mm[Hg] 53 mm[Hg] [facility] ( [facility]) Systolic blood 99 mm[Hg] 99 mm[Hg] [facility] ([facility]) Oxygen 97 % 97 % [facility] saturation in [facility] by Pulse Center) oximetry Body mass index 27.64 kg/m2 Overweight 27.64 kg/m2 [facility] ([facility] (BMI) [Ratio] [facility]) Respiratory 20 /min 20 /min [facility] ([facility]) Heart rate 80 /min 80 /min [facility] ([facility]) Diastolic blood 57 mm[Hg] 57 mm[Hg] [facility] ( [facility]) Systolic blood 99 mm[Hg] 99 mm[Hg] [facility] ([facility]) Body weight 82.463 kg 82.463 kg [facility] ([facility]) Body height 172.72 cm 172.72 cm [facility] ([facility]) Oxygen 98 % 98 % [facility] ([facility] saturation in [facility] Arterial [facility] Medical by Pulse Center) oximetry Body mass index 27.67 kg/m2 Overweight 27.67 kg/m2 [facility] ([facility] (BMI) [Ratio] [facility]) Respiratory 18 /min 18 /min [facility] ([facility]) Body 36.33 Zoey 36.33 Zoey [facility] ([facility]) Heart rate 68 /min 68 /min [facility] ([facility]) Diastolic blood 64 mm[Hg] 64 mm[Hg] [facility] ( [facility]) Systolic blood 112 mm[Hg] 112 mm[Hg] [facility] ([facility]) Body weight 82.554 kg 82.554 kg [facility] ([facility]) Body height 172.72 cm 172.72 cm [facility] ([facility]) Oxygen 97 % 97 % [facility] ([facility] in [facility] Arterial blood Medical by Pulse [facility]) oximetry Body mass index 27.61 kg/m2 Overweight 27.61 kg/m2 [facility] ([facility] (BMI) [Ratio] [facility]) Respiratory 20 /min 20 /min [facility] ([facility]) Body 36.72 Zoey 36.72 Zoey [facility] ([facility]) Heart rate 76 /min 76 /min [facility] ([facility]) Diastolic blood 59 mm[Hg] 59 mm[Hg] [facility] ( [facility]) Systolic blood 115 mm[Hg] 115 mm[Hg] [facility] ([facility]) Body weight 82.372 kg 82.372 kg [facility] ([facility]) Body height 172.72 cm 172.72 cm [facility] ([facility]) Body 36.404141 Zoey 36.272968 [facility] Respiratory 18 /min 18 /min [facility] Oxygen 96 % 96 % [facility] saturation in Medical [facility] ter Arterial blood by Pulse oximetry Heart rate 74 /min 74 /min [facility] Diastolic blood 76 mm[Hg] 76 mm[Hg] [facility] Systolic blood 140 mm[Hg] 140 mm[Hg] [facility] Heart rate 92 /min 92 /min [facility] Body 36.458437 Zoey 36.663404 Zoey [facility] Cent[facility] r Respiratory 18 /min 18 /min [facility] Oxygen 99 % 99 % [facility] saturation in [facility] Arterial blood by Pulse oximetry Heart rate 92 /min 92 /min [facility] Diastolic blood 57 mm[Hg] 57 mm[Hg] [facility] pressure Medical Center Systolic blood 107 mm[Hg] 107 mm[Hg] [facility] pressure Medical Center Body weight 83.442543 kg 83.861246 kg [facility] ([facility]) Body weight 184 [lb_av] 184 [lb_av] Centricity Measured ([facility]) Respiratory 16 /min 16 /min [facility] rate ([facility]) Body height 172.853516 cm 172.032037 cm Centric ity ([facility]) Body height 68 [in_us] 68 [in_us] [facility] ([facility]) Heart rate 87 /min 87 /min [facility] ([facility]) Systolic blood 122 mm[Hg] 122 mm[Hg] [facility] pressure ([facility]) Diastolic blood 63 mm[Hg] 63 mm[Hg] Centricit y pressure ([facility]) Body 36.449893 Zoey 36.303409 Zoey Centrici ty temperature ([facility]) Body 98 [degF] 98 [degF] Centricity temperature ([facility]) Body mass index 28.08 kg/m2 28.08 kg/m2 Centric ity (BMI) [Ratio] ([facility]) Diastolic blood 49 mm[Hg] 49 mm[Hg] eCW3 ([facility]) Systolic blood 113 mm[Hg] 113 mm[Hg] eCW3 ([facility]) Body 98.7 [degF] 98.7 [degF] eCW3 ([facility]) Heart rate 18 /min 18 /min eCW3 ([facility]) Body mass index 31.75 kg/m2 31.75 kg/m2 eCW3 ([facility] (BMI) [Ratio] [facility]) Body weight 185 [lb_av] 185 [lb_av] eCW3 ([facility]) Body height 64 [in_i] 64 [in_i] eCW3 ([facility]) Diastolic blood 85 mm[Hg] 60-90 Normal (applies to 85 mm[Hg] [facility] pressure mmHg non-numeric - [facility]elle results) [facility] Systolic blood 135 mm[Hg] 90-130 Above high normal 135 mm[Hg] [facility] pressure mmHg - [facility] Heart rate 73 bpm 60-100 Normal (applies to 73 bpm [facility] bpm non-numeric - Marcelle results) [facility] System Respiratory 18 br/min 14-20 Normal (applies to 18 br/min [facility] rate br/min non-numeric - Marcelle results) [facility] System Oral 98.2 [degF] 96.4-99.1 Normal (applies to 98.2 [degF] [facility] temperature DegF non-numeric - [facility] results) [facility] Mean blood 102 mm[Hg] 102 mm[Hg] [facility] pressure by - [facility] Oxygen 98 % 94-100 % Normal (applies to 98 % [facility] saturation in non-numeric - [place]elle Blood results) [place] Postductal by Medical [facility] ter Pulse oximetry Oxygen therapy [facility] [Minimum Data - [facility] Set] Health System Body height 173 cm 173 cm [facility] - [facility] Body weight 85 kg 85 kg [facility] Measured - [facility] Body mass index 28.4 kg/m2 28.4 kg/m2 [facility] [Ratio] - [facility] Diastolic blood 67 mm[Hg] 60-90 Normal (applies to 67 mm[Hg] [facility] pressure mmHg non-numeric - Marcelle results) [facility] System Systolic blood 124 mm[Hg] 90-130 Normal (applies to 124 mm[Hg] [facility] pressure mmHg non-numeric - [facility] results) [facility] System Body mass index 28.4 kg/m2 28.4 kg/m2 [facility] (BMI) [Ratio] - [facility] Oxygen 95 % 94-100 % Normal (applies to 95 % [facility] saturation in non-numeric - [facility] Blood results) [place] [facility] by Medical [facility] ter Pulse oximetry Respiratory 20 br/min 14-20 Normal (applies to 20 br/min [facility] rate br/min non-numeric - [place] results) [facility] Oral 97.9 [degF] 96.4-99.1 Normal (applies to 97.9 [degF] [facility] temperature DegF non-numeric - Marcelle results) [facility] Heart rate 72 bpm 60-100 Normal (applies to 72 bpm [facility] e Health bpm non-numeric - [place] results) Health System Diastolic blood 74 mm[Hg] 74 mm[Hg] eCW3 ([facility]) Systolic blood 142 mm[Hg] 142 mm[Hg] eCW3 ([facility]) Body 98.5 [degF] 98.5 [degF] eCW3 ([facility]) Heart rate 18 /min 18 /min eCW3 ([facility]) Body mass index 32.27 kg/m2 32.27 kg/m2 eCW3 ([facility] (BMI) [Ratio] [facility]) Body weight 188 [lb_av] 188 [lb_av] eCW3 ([facility]) Body height 64 [in_i] 64 [in_i] eCW3 ([facility]) Diastolic blood 53 mm[Hg] 53 mm[Hg] eCW3 ([facility]) Systolic blood 100 mm[Hg] 100 mm[Hg] eCW3 ([facility]) Body 97.4 [degF] 97.4 [degF] eCW3 ([facility]) Heart rate 18 /min 18 /min eCW3 ([facility]) Body mass index 32.58 kg/m2 32.58 kg/m2 eCW3 ([facility] (BMI) [Ratio] [facility]) Body weight 189.8 [lb_av] 189.8 [lb_av] eCW3 ([facility]) Body height 64 [in_i] 64 [in_i] eCW3 ([facility]) Diastolic blood 48 mm[Hg] 48 mm[Hg] [facility] pressure [facility] Systolic blood 114 mm[Hg] 114 mm[Hg] [facility] pressure [facility] Respiratory 16 /min 16 /min [facility] Heart rate 70 /min 70 /min [facility] Body 98.7 [degF] 98.7 [degF] [facility] Diastolic blood 48 mm[Hg] 48 mm[Hg] [facility] Systolic blood 114 mm[Hg] 114 mm[Hg] [facility] Respiratory 16 /min 16 /min [facility] Heart rate 70 /min 70 /min [facility] Body 98.7 [degF] 98.7 [degF] [facility] Diastolic blood 48 mm[Hg] 48 mm[Hg] [facility] Systolic blood 114 mm[Hg] 114 mm[Hg] [facility] Respiratory 16 /min 16 /min [facility] Heart rate 70 /min 70 /min [facility] Body 98.7 [degF] 98.7 [degF] [facility] Diastolic blood 48 mm[Hg] 48 mm[Hg] [facility] Systolic blood 114 mm[Hg] 114 mm[Hg] [facility] Respiratory 16 /min 16 /min [facility] Heart rate 70 /min 70 /min [facility] Body 98.7 [degF] 98.7 [degF] [facility] Diastolic blood 48 mm[Hg] 48 mm[Hg] [place] pressure [facility] Systolic blood 114 mm[Hg] 114 mm[Hg] [facility] Respiratory 16 /min 16 /min [facility] Heart rate 70 /min 70 /min [facility] Body 98.7 [degF] 98.7 [degF] [facility] Oxygen 100 % 100 % [place] saturation in [facility] o f by Pulse [facility] oximetry Oxygen 100 % 100 % [place] saturation in Counts Include 234 Beds [facility] Arterial blood Hospital o f by Pulse [facility] oximetry Oxygen 100 % 100 % [place] saturation in Counts Include 234 [facility] Arterial blood Hospital o f by Pulse [facility] oximetry Oxygen 100 % 100 % [place] saturation in Counts Include 234 [facility] Arterial blood Hospital o f by Pulse [facility] oximetry Oxygen 100 % 100 % [place] saturation in Counts Include 234 [facility] Arterial blood Hospital o f by Pulse [facility] oximetry Body weight 80.73 kg 80.73 kg [facility] Body height 68 [in_i] 68 [in_i] [facility] Body weight 80.73 kg 80.73 kg [facility] Body height 68 [in_i] 68 [in_i] [facility] Body weight 80.73 kg 80.73 kg [facility] Body height 68 [in_i] 68 [in_i] [facility] Body weight 80.73 kg 80.73 kg [facility] Body height 68 [in_i] 68 [in_i] [facility] Body weight 80.73 kg 80.73 kg [facility] Body height 68 [in_i] 68 [in_i] [facility] Diastolic blood 73 mm[Hg] 73 mm[Hg] [facility] pressure [facility] Systolic blood 114 mm[Hg] 114 mm[Hg] [facility] pressure [facility] Respiratory 18 /min 18 /min [facility] Heart rate 80 /min 80 /min [facility] Body 97.6 [degF] 97.6 [degF] [facility] temperature [facility] Diastolic blood 73 mm[Hg] 73 mm[Hg] [facility] pressure [facility] Systolic blood 114 mm[Hg] 114 mm[Hg] [facility] Respiratory 18 /min 18 /min [facility] Heart rate 80 /min 80 /min [facility] Body 97.6 [degF] 97.6 [degF] [place] temperature [facility] Heart rate 80 /min 80 /min [facility] Body 97.6 [degF] 97.6 [degF] [facility] Diastolic blood 73 mm[Hg] 73 mm[Hg] [facility] Systolic blood 114 mm[Hg] 114 mm[Hg] [facility] Respiratory 18 /min 18 /min [facility] Heart rate 80 /min 80 /min [facility] Body 97.6 [degF] 97.6 [degF] [facility] temperature [facility] Diastolic blood 73 mm[Hg] 73 mm[Hg] [facility] Systolic blood 114 mm[Hg] 114 mm[Hg] [facility] pressure [facility] Respiratory 18 /min 18 /min [facility] Heart rate 80 /min 80 /min [facility] Body 97.6 [degF] 97.6 [degF] [facility] temperature [facility] Diastolic blood 73 mm[Hg] 73 mm[Hg] [facility] Systolic blood 114 mm[Hg] 114 mm[Hg] [facility] pressure [facility] Respiratory 18 /min 18 /min [facility] Heart rate 80 /min 80 /min [facility] Body 97.6 [degF] 97.6 [degF] [facility] Diastolic blood 73 mm[Hg] 73 mm[Hg] [facility] pressure [facility] Systolic blood 114 mm[Hg] 114 mm[Hg] [facility] Respiratory 18 /min 18 /min [facility] Heart rate 80 /min 80 /min [facility] Body 97.6 [degF] 97.6 [degF] [facility] Diastolic blood 73 mm[Hg] 73 mm[Hg] [facility] Systolic blood 114 mm[Hg] 114 mm[Hg] [facility] pressure Counts Include 234 Beds At [facility] Respiratory 18 /min 18 /min [facility] Heart rate 80 /min 80 /min [facility] Body 97.6 [degF] 97.6 [degF] [facility] temperature [facility] Diastolic blood 73 mm[Hg] 73 mm[Hg] [facility] Systolic blood 114 mm[Hg] 114 mm[Hg] [facility] pressure [facility] Respiratory 18 /min 18 /min [facility] Heart rate 80 /min 80 /min [facility] Body 97.6 [degF] 97.6 [degF] [facility] temperature [facility] Diastolic blood 73 mm[Hg] 73 mm[Hg] [facility] Systolic blood 114 mm[Hg] 114 mm[Hg] [facility] Respiratory 18 /min 18 /min [facility] rate [facility] Heart rate 80 /min 80 /min [facility] Body 97.6 [degF] 97.6 [degF] [facility] temperature [facility] Diastolic blood 73 mm[Hg] 73 mm[Hg] [facility] Systolic blood 114 mm[Hg] 114 mm[Hg] [facility] pressure [facility] Respiratory 18 /min 18 /min [facility] Heart rate 80 /min 80 /min [facility] Body 97.6 [degF] 97.6 [degF] [facility] temperature [facility] Diastolic blood 73 mm[Hg] 73 mm[Hg] [facility] Systolic blood 114 mm[Hg] 114 mm[Hg] [facility] Respiratory 18 /min 18 /min [facility] Heart rate 80 /min 80 /min [facility] Body 97.6 [degF] 97.6 [degF] [facility] temperature [facility] Diastolic blood 73 mm[Hg] 73 mm[Hg] [facility] Systolic blood 114 mm[Hg] 114 mm[Hg] [facility] Respiratory 18 /min 18 /min [place] rate [facility] Oxygen 98 % 98 % [place] saturation in [facility] o f by Pulse C oximetry Body weight 85.72 kg 85.72 kg [facility] Body height 64 [in_i] 64 [in_i] [facility] Oxygen 98 % 98 % [place] saturation in [facility] o f by Pulse [facility] oximetry Body weight 85.72 kg 85.72 kg [facility] Body height 64 [in_i] 64 [in_i] [facility] Oxygen 98 % 98 % [place] saturation in [facility] o f by Pulse C oximetry Body weight 85.72 kg 85.72 kg [facility] Body height 64 [in_i] 64 [in_i] [facility] Oxygen 98 % 98 % [place] saturation in [facility] o f by Pulse C oximetry Body weight 85.72 kg 85.72 kg [facility] Body height 64 [in_i] 64 [in_i] [facility] Oxygen 98 % 98 % [place] saturation in [facility] o f by Pulse C oximetry Body weight 85.72 kg 85.72 kg [facility] Body height 64 [in_i] 64 [in_i] [facility] Oxygen 98 % 98 % [place] saturation in [facility] o f by Pulse [facility] oximetry Body weight 85.72 kg 85.72 kg [facility] Body height 64 [in_i] 64 [in_i] [facility] Oxygen 98 % 98 % [place] saturation in [facility] o f by Pulse C oximetry Body weight 85.72 kg 85.72 kg [facility] Body height 64 [in_i] 64 [in_i] [facility] Oxygen 98 % 98 % [place] saturation in [facility] o f by Pulse [facility] oximetry Body weight 85.72 kg 85.72 kg [facility] Body height 64 [in_i] 64 [in_i] [facility] Oxygen 98 % 98 % [place] saturation in [facility] o f by Pulse [facility] oximetry Body weight 85.72 kg 85.72 kg [facility] Body height 64 [in_i] 64 [in_i] [facility] Oxygen 98 % 98 % [place] saturation in [facility] o f by Pulse [facility] oximetry Body weight 85.72 kg 85.72 kg [facility] Body height 64 [in_i] 64 [in_i] [facility] Oxygen 98 % 98 % [place] saturation in [facility] o f by Pulse [facility] oximetry Body weight 85.72 kg 85.72 kg [facility] Body height 64 [in_i] 64 [in_i] [facility] Oxygen 98 % 98 % [place] saturation in [facility] o f by Pulse [facility] oximetry Body weight 85.72 kg 85.72 kg [facility] Body height 64 [in_i] 64 [in_i] [facility] Diastolic blood 63 mm[Hg] 63 mm[Hg] eCW3 ([facility]) Systolic blood 113 mm[Hg] 113 mm[Hg] eCW3 ([facility]) Body 97.6 [degF] 97.6 [degF] eCW3 ([facility]) Heart rate 18 /min 18 /min eCW3 ([facility]) Body mass index 32.44 kg/m2 32.44 kg/m2 eCW3 ([facility] (BMI) [Ratio] [facility]) Body weight 189 [lb_av] 189 [lb_av] eCW3 ([facility]) Body height 64 [in_i] 64 [in_i] eCW3 ([facility]) ID Date Data Source [id number] 12/07/2019 10:40:22 PM EDT [facility] Name Value Range Interpretation Code Description Data Source(s) Body weight Measured 180 lb 180 lb [facility] ID Date Data Source [id number] 08/28/2019 10:20:00 AM EST [facility] Name Value Range Interpretation Code Description Data Source(s) WEIGHT 81.647 kilos 81.647 kilos [facility] HEIGHT 175.3 centimeters 175.3 centimeters [facility] ID Date Data Source [id number] 08/25/2019 01:44:00 AM EST [facility] - [id number] Gary Name Value Range Interpretation Code Description Data Source(s) WEIGHT 81.647 kilos 81.647 kilos [facility] HEIGHT 175.3 centimeters 175.3 centimeters [facility] ID Date Data Source [id number] 08/25/2019 01:44:00 AM EST [facility] - [id number] Gary Name Value Range Interpretation Code Description Data Source(s) WEIGHT 81.647 kilos 81.647 kilos [facility] HEIGHT 175.3 centimeters 175.3 centimeters [facility] [place] [facility] ID Date Data Source [id number] 08/25/2019 01:43:00 AM EST [facility] - [id number] Gary Name Value Range Interpretation Code Description Data Source(s) WEIGHT 81.647 kilos 81.647 kilos [facility] HEIGHT 175.3 centimeters 175.3 centimeters [facility] ID Date Data Source [id number] 08/25/2019 01:28:00 AM EST [facility] Name Value Range Interpretation Code Description Data Source(s) WEIGHT 77.111 kilos 77.111 kilos [facility] HEIGHT 172.7 centimeters 172.7 centimeters [facility] ID Date Data Source [id number] 08/04/2019 04:54:00 AM EST [facility] Name Value Range Interpretation Code Description Data Source(s) WEIGHT 77.111 kilos 77.111 kilos [facility] HEIGHT 172.7 centimeters 172.7 centimeters [facility] ID Date Data Source [id number] 08/04/2019 12:24:00 AM EST [facility] - [id number] Gary Name Value Range Interpretation Code Description Data Source(s) WEIGHT 77.111 kilos 77.111 kilos [facility] HEIGHT 172.7 centimeters 172.7 centimeters [facility] ID Date Data Source [id number] 08/04/2019 12:24:00 AM EST [facility] - [id number] Gary Name Value Range Interpretation Code Description Data Source(s) WEIGHT 77.111 kilos 77.111 kilos [facility] HEIGHT 172.7 centimeters 172.7 centimeters [facility] ID Date Data Source [id number] 08/03/2019 11:27:00 PM EST [facility] - [id number] Gary Name Value Range Interpretation Code Description Data Source(s) WEIGHT 77.111 kilos 77.111 kilos [facility] HEIGHT 172.7 centimeters 172.7 centimeters [facility] ID Date Data Source [id number] 08/03/2019 11:27:00 PM EST [facility] - [id number] Gary Name Value Range Interpretation Code Description Data Source(s) WEIGHT 77.111 kilos 77.111 kilos [facility] [place] HEIGHT 172.7 centimeters 172.7 centimeters [facility] ID Date Data Source [id number] 08/03/2019 11:26:00 PM EST [facility] - [id number] Gary Name Value Range Interpretation Code Description Data Source(s) WEIGHT 77.111 kilos 77.111 kilos [facility] [place] HEIGHT 172.7 centimeters 172.7 centimeters [facility] [place] [facility] Patient Treatment Plan of Care Planned Activity Planned Date Details Description Data Source (s) Lancets,Ultra Thin 26 01/01/2020 12:00:00 NEXTGEN ([facility] gauge [facility]) 3 ML Insulin Lispro 200 01/01/2020 12:00:00 NEXTGEN ([facility] UNT/ML Pen Injector [facility] [Humalog] Center) Accu-Chek Birgit Plus test 01/01/2020 12:00:00 [facility] ([facility]) Basaglar KwikPen U-100 01/01/2020 12:00:00 NEXTGEN ([facility] Insulin 100 unit/mL (3 AM EDT [facility] mL) subcutaneous Center) gabapentin 300 mg capsule 01/01/2020 12:00[facility] gabapentin 300 MG Oral 01/01/2020 12:00:00 NEXTGEN ([facility]) Lancets,Ultra Thin 26 01/01/2020 12:00:00 [facility] ([facility]) Basaglar KwikPen U-100 01/01/2020 12:00:00 NEXTGEN ([facility] Insulin 100 unit/mL (3 AM EDT [facility] mL) subcutaneous Center) Accu-Chek Birgit Plus test 01/01/2020 12:00:00 NEXTGEN ([facility] strips [facility]) Basaglar KwikPen U-100 01/01/2020 12:00:00 NEXTGEN ([facility] Insulin 100 unit/mL (3 AM EDT [facility] mL) subcutaneous Center) 3 ML Insulin Lispro 200 12/31/2019 12:00:00 NEXTGEN ([facility] UNT/ML Pen Injector [facility] [Humalog] Center) Basaglar KwikPen U-100 12/31/2019 12:00:00 NEXTGEN ([facility] Insulin 100 unit/mL (3 AM EDT [facility] ) [facility] Center) blood-glucose meter kit 11/27/2019 12:00:00 NEXTGEN ([facility]) Etodolac 400 MG Oral 11/27/2019 12:00:00 [facility] ([facility] Tablet [facility]) Diazepam 10 MG Oral 11/27/2019 12:00:00 N EXTGEN ([facility] Tablet [facility]) Buprenorphine 8 MG / 11/27/2019 12:00:00 NEXTGEN ([facility] Naloxone 2 MG Sublingual [facility]) Accu-Chek Birgit Plus test 11/27/2019 [facility]:00[facility] strips [facility]) Etodolac 400 MG Oral 11/26/2019 12:00:00 [facility] ([facility] Tablet [facility]) Accu-Chek Birgit Plus test 11/26/2019 12:00:00 [facility] ([facility]) blood-glucose meter kit 11/26/2019 12:00:00 [facility] ([facility]) Acetaminophen 500 MG Oral 11/19/2019 12:00:00 [facility] ([facility] Tablet [facility]) meloxicam 7.5 MG Oral 11/19/2019 12:00:00 [facility] ([facility] Tablet [facility]) Lidocaine Hydrochloride 11/19/2019 12:00:00 [facility] 40 MG/ML Topical Cream [facility]) Nicotine 2 MG Chewing Gum 11/19/2019 12:00:00 [facility] ([facility]orette[facility]) gabapentin 300 MG Oral 11/19/2019 12:00[facility] Capsule [facility]) Acetaminophen 500 MG Oral 11/08/2019 12:00:00 [facility] ([facility] Capsule [facility]) Diclofenac Sodium 0.01 11/06/2019 12:00:00 [facility] ([facility] MG/MG Topical Gel [facility] gabapentin 300 MG Oral 11/06/2019 12:00:00 [facility] ([facility] Capsule [facility]) Diclofenac Sodium 0.01 11/06/2019 12:00:00 NEXTGEN ([facility] MG/MG Topical Gel [facility] dical [place]) gabapentin 300 MG Oral 11/06/2019 12:00:00 NEXTGEN ([facility] Capsule [facility]) Glucerna oral liquid 11/03/2019 12:00:00 NEXTGEN ([facility]) Lidocaine Hydrochloride 11/03/2019 12:00:00 NEXTGEN ([facility] 40 MG/ML Topical Cream [facility]) 3 ML Insulin Lispro 200 10/31/2019 12:00:00 NEXTGEN ([facility] UNT/ML Pen Injector [facility] [Humalog] [place]) Accu-Chek Birgit Plus test 10/31/2019 12:00[facility]00 [facility] gabapentin 300 MG Oral 10/31/2019 12:00:00 NEXTGEN ([facility] Capsule [facility]) Glucerna oral liquid 10/31/2019 12:00:00 [facility] ([facility]) 24 HR Bupropion 10/31/2019 12:00:00 NEXTG EN ([facility] Hydrochloride 300 MG [facility] Extended Release Oral Center ) Tablet [Wellbutrin] Prednisone 20 MG Oral 08/25/2019 12:00:00 [facility] Tablet [facility] 200 ACTUAT Albuterol 0.09 08/25/2019 12:00:00 [facility] MG/ACTUAT Metered Dose AM [facility] Inhaler [Proventil] Azithromycin 250 MG Oral 08/25/2019 12:00:00 [facility] Tablet [Zithromax] [facility] Prednisone 20 MG Oral 08/25/2019 12:00:00 [facility] Tablet [facility] 200 ACTUAT Albuterol 0.09 08/25/2019 12:00:00 [facility] MG/ACTUAT Metered Dose AM [facility] Inhaler [Proventil] Azithromycin 250 MG Oral 08/25/2019 12:00:00 [facility] Tablet [Zithromax] [facility] Thiamine 100 MG Oral 08/05/2019 12:00:00 [facility] Tablet AM [facility] MULTIVITAMIN 08/05/2019 12:00:00 [facility] (MULTI-VITAMIN DAILY) 1 AM [facility] EACH TABLET Folic Acid 1 MG Oral 08/05/2019 12:00:00 [facility] Tablet AM [facility] Thiamine 100 MG Oral 08/05/2019 12:00:00 [facility] Tablet [facility] MULTIVITAMIN 08/05/2019 12:00:00 [facility] (MULTI-VITAMIN DAILY) 1 AM [facility] EACH TABLET Folic Acid 1 MG Oral 08/05/2019 12:00:00 [facility] Tablet [facility] atorvastatin 20 MG Oral 06/13/2019 12:00:00 eCW3 ([place] Tablet [facility]) atorvastatin 20 MG Oral 06/13/2019 12:00:00 eCW3 ([place] Tablet [facility]) atorvastatin 20 MG Oral 06/13/2019 12:00:00 eCW3 ([place] Tablet [facility]) atorvastatin 20 MG Oral 06/13/2019 12:00:00 eCW3 ([place] Tablet [facility]) atorvastatin 20 MG Oral 06/13/2019 12:00:00 eCW3 ([place] Tablet [facility]) atorvastatin 20 MG Oral 06/13/2019 12:00:00 eCW3 ([place] Tablet [facility]) atorvastatin 20 MG Oral 06/13/2019 12:00:00 eCW3 ([place] Tablet [facility]) BASAGLNBA KWIKPEN 100 05/01/2019 12:00:00 eCW3 ([place] unit/ml [facility]) BASSEGUNDO KWIKPEN 100 05/01/2019 12:00:00 eCW3 ([place] unit/ml [facility]) BASSEGUNDO KWIKPEN 100 05/01/2019 12:00:00 eCW3 ([place] unit/ml [facility]) SHAUN KWIKPEN 100 05/01/2019 12:00:00 eCW3 ([place] unit/ml [facility]) BASAGLAR KWIKPEN 100 05/01/2019 12:00:00 eCW3 ([place] unit/ml [facility]) BASAGLAR KWIKPEN 100 05/01/2019 12:00:00 eCW3 ([place] unit/ml [facility]) BASAGLAR KWIKPEN 100 05/01/2019 12:00:00 eCW3 ([place] unit/ml [facility]) Beckyaglar KwikPen U-100 NEXTG EN ([facility] Insulin 100 unit/mL (3 [facility]) subcutaneous Center) Bisacodyl 5 MG Delayed NEXTG EN ([facility] Release Oral Tablet [facility]) Acetaminophen 500 MG Oral NE XTGEN ([facility]) Insulin [facility] (Basaglar Kwikpen U-100) 100 Unit/1 Ml Insuln.pen Insuln.pen, Cephalexin [address] [facility] Capsule [Keflex] [facility] Insulin [facility] (Basaglar Kwikpen U-100) 100 Unit/1 Ml Insuln.pen Insuln.pen, Cephalexin [address] [facility] Capsule [Keflex] [facility]
[2020-06-28 12:54] VITALS: BMI 27.3
--- NOTE | 2020-06-28 13:52 | HP ---
"COWS - Scale Resting Pulse: 1= [place] 81-100 Sweatin= Chills/Flushing Restless Observation: 0= Sits Still Pupil Size: 0= Normal to Room Light Bone or Joint Aches: 1= Mild Discomfort Runny Nose/ Eye Tearin= Nasal Congestion GI Upset > 30mins: 2= Nausea/Diarrhea Tremor Observation: 1= Tremor [place], Not Seen Yawning Observation: 0= None Anxiety or Irritability: 1=Feels Anxious/Irritable Goose Flesh Skin: 0=Smooth Skin COWS Score: 8 CIWA Score Nausea/Vomitin-Mild Nausea/No Vomiting Muscle Tremors: 3 Anxiety: 4-Mod. Anxious/Guarded Agitation: 1-Slight > Activity Paroxysmal Sweats: 1-Minimal Palms Moist Orientation: 0-Oriented Tacttile Disturbances: 1-Very Mild Itch/Numbness Auditory Disturbances: 1-Very Mild Visual Disturbances: 1-Very Mild Sensitivity Headache: 2-Mild CIWA-Ar Total Score: 15 - Admission Criteria OASAS Guidelines: Admission for Medically Managed Detox: Requires at least one of the followin. CIWA greater than 12 2. Seizures within the past 24 hours 3. Delirium tremens within the past 24 hours 4. Hallucinations within the past 24 hours 5. Acute intervention needed for co occurring medical disorder 6. Acute intervention needed for co occurring psychiatric disorder 7. Severe withdrawal that cannot be handled at a lower level of care (continued vomiting, continued diarrhea, abnormal vital signs) requiring intravenous medication and/or fluids 8. Patient presents the following: CIWA greater than 12 Admission Criteria Met: Admission criteria met Admitting History and Physical - Admission History Source: Patient Limitations to Obtaining History: No Limitations - Social History Usual Living Arrangement: Yes: Other (homeless) ADL: Independent History of Recent Travel: No Admission ROS S - HPI Chief Complaint: I'm just tired of living like this Allergies/Adverse Reactions: Allergies Allergy/AdvReac Type Severity Reaction Status Date / Time aspirin Allergy Swelling Verified 06/28/20 14:37 Pork/Porcine Containing Allergy Hives Verified 06/28/20 14:37 Products History of Present Illness: 59 yo gentleman here for detox from alcohol, also using crack. States he is on [facility] suboxone program but missed going due to housing issues - noted [facility] last obtained 06/18/20 - he is homeless - so he used some street methadone - he plans to go back suboxone program and thinks it helped him stay off crack and requests us to continue it here (does not want opiate detox). History of alcohol related seizure one week ago and black outs. Patient was seen at [place] [facility] today early am - patient showed me discharge papers from [place] [facility] where he was evaluated for syncope - noted CT head was done - patient referred for detox. Medications brought in by patient and reviewed by me. [facility] This report was requested by: Tatianna Mcgowan | Reference #: [id number] Others' Prescriptions Patient Name: Erick Landry Date: 1960 Address: [address] [place], [place] [address]Duq: Male Rx Written Rx Dispensed Drug Quantity Days Supply Prescriber Name Payment Method Dispenser 06/18/2020 06/18/2020 buprenorphine-naloxone 8-2 mg sl tablet 3 3 [facility] Patient Name: Erick Landry Date: 1960 Address: [address] [facility] [facility] [facility] [address] [place], [place] [address]Stx: Male Rx Written Rx Dispensed Drug Quantity Days Supply Prescriber Name Payment Method Dispenser 06/12/2020 06/12/2020 buprenorphine-naloxone 8-2 mg sl tablet 5 5 Monica Jacobs [facility] 06/10/2020 06/10/2020 buprenorphine-naloxone 8-2 mg sl tablet 2 2 Monica Jacobs A [facility] 05/29/2020 05/29/2020 buprenorphine-naloxone 8-2 mg sl tablet 7 7 Topher Barry [facility] 05/19/2020 05/19/2020 buprenorphine-naloxone 8-2 mg sl tablet 7 7 Monica Jacobs A [facility] 05/15/2020 05/15/2020 buprenorphine-naloxone 8-2 mg sl tablet 5 5 Monica Jacobs A [facility] Exam Limitations: No Limitations - Ebola screening Have you traveled outside of the country in the last 21 days: No - Review of Systems Constitutional: Loss of Appetite, Changes in sleep, Weakness EENT: reports: Nose Congestion Respiratory: reports: No Symptoms reported Cardiac: reports: No Symptoms Reported GI: reports: Poor Fluid Intake, Abdominal cramping : reports: Frequency Musculoskeletal: reports: Back Pain, Muscle Pain Integumentary: reports: Dryness Neuro: reports: Headache, Numbness, Tremors Endocrine: reports: No Symptoms Reported Hematology: reports: No Symptoms Reported Psychiatric: reports: Judgement Intact, Mood/Affect Appropiate, Anxious Other Systems: Reviewed and Negative Patient History - Patient Medical History Hx Anemia: No Hx Asthma: No Hx Chronic Obstructive Pulmonary Disease (COPD): No Hx Cancer: No Hx Cardiac Disorders: No (? murmur ) Hx Congestive Heart Failure: No Hx Hypertension: No Hx Hypercholesterolemia: No Hx Pacemaker: No HX Cerebrovascular Accident: No Hx Seizures: Yes (one week ago ) Hx Dementia: No Hx Diabetes: Yes (on insulin, with neuropathy, retinopathy) Hx Gastrointestinal Disorders: No Hx Liver Disease: No Hx Genitourinary Disorders: No Hx Sexually Transmitted Disorders: No Hx Renal Disease (ESRD): No Hx Thyroid Disease: No Hx Human Immunodeficiency Virus (HIV): No Hx Hepatitis C: No Hx Depression: Yes (on meds - sees [facility], never hospitalized) Hx Suicide Attempt: No Hx Bipolar Disorder: No Hx Schizophrenia: No - Patient Surgical History Past Surgical History: Yes Hx Neurologic Surgery: No Hx Cataract Extraction: No Hx Cardiac Surgery: No Hx Lung Surgery: No Hx Breast Surgery: No Hx Breast Biopsy: No Hx Abdominal Surgery: No Hx Appendectomy: No Hx Cholecystectomy: No Hx Genitourinary Surgery: No Hx Section: No Hx Orthopedic Surgery: No Other Surgical History: L inguinal hernia repair 1978 Anesthesia Reaction: No - PPD History Previous Implant?: Yes Documented Results: Negative w/proof Implanted On Prior [facility] Admission?: Yes Date: 05/27/19 Results: negative PPD to be Administered?: Yes - Reproductive History Patient is a Female of Child Bearing Age (11 -55 yrs old): No - Smoking Cessation Smoking history: Current every day smoker Have you smoked in the past 12 months: Yes Aproximately how many cigarettes per day: 20 Hx Chewing Tobacco Use: No Initiated information on smoking cessation: Yes 'Breaking Loose' booklet given: 06/28/20 - Substance & Tx. History Hx Alcohol Use: Yes Hx Substance Use: Yes Substance Use Type: Alcohol, Cocaine, Opiates Hx Substance Use Treatment: Yes (suboxone, detox, rehab) - Substances abused Alcohol Substance route: Oral Frequency: Daily Amount used: six cans 24 oz beer Age of first use: 8 Date of last use: 06/27/20 Cocaine Substance route: Smoking Frequency: Daily Amount used: 6gm Age of first use: 22 Date of last use: 06/27/20 Non-Rx Methadone Substance route: Oral Frequency: 1-2 times per week Amount used: 40mg Age of first use: 59 Date of last use: 06/25/20 (3 x/week) Admission Physical Exam S - Vital Signs Vital Signs: Vital Signs - 24 hr 06/28/20 12:52 Temperature 97.7 F Pulse Rate 87 Respiratory 16 Rate Blood Pressure 124/68 - Physical General Appearance: Yes: Nourished, Appropriately Dressed, Moderate Distress, Tremorous, Anxious HEENTM: Yes: Hearing grossly Normal, Normocephalic, Normal Voice, Rhinorrhea, Other (blind left eye; tongue coated) Respiratory: Yes: Normal Breath Sounds, No Respiratory Distress Neck: Yes: Within Normal Limits Breast: Yes: Breast Exam Deferred Cardiology: Yes: Regular Rhythm, Regular Rate Abdominal: Yes: Soft Genitourinary: Yes: Frequency Back: Yes: Normal Inspection Musculoskeletal: Yes: full range of Motion, Gait Steady, Back pain, Joint Stiffness, Other (knee OA) Extremities: Yes: Normal Inspection, Normal Range of Motion, Tremors Neurological: Yes: Fully Oriented, Alert, Normal Mood/Affect, Normal Response, Numbness Integumentary: Yes: Normal Color, Warm Lymphatic: Yes: Within Normal Limits - Diagnostic (1) Alcohol dependence with uncomplicated withdrawal Current Visit: Yes Status: Chronic (2) Opiate dependence, continuous Current Visit: Yes Status: Chronic (3) Diabetes mellitus with insulin therapy Current Visit: Yes Status: Acute (4) Cocaine dependence, uncomplicated Current Visit: Yes Status: Chronic (5) History of seizure Current Visit: Yes Status: Acute (6) Hx of peripheral neuropathy Current Visit: Yes Status: Chronic (7) Nicotine dependence Current Visit: Yes Status: Chronic Qualifiers: Nicotine product type: cigarettes Substance use status: uncomplicated Qualified Code(s): F17.210 - Nicotine dependence, cigarettes, uncomplicated (8) Blind left eye Current Visit: Yes Status: Acute Comment: sees shadows (9) Osteoarthritis Current Visit: Yes Status: Acute Qualifiers: Osteoarthritis location: multiple joints Osteoarthritis type: unspecified Qualified Code(s): M15.9 - Polyosteoarthritis, unspecified Cleared for Admission [facility] - Detox or Rehab [facility] Level of Care: Medically Managed Detox Regimen/Protocol: Librium Breathalyzer - Breathalyzer Breathalyzer: 0 Urine Drug Screen - Test Device Lot number: [id number] Expiration date: 11/27/21 - Control Is test valid?: Yes - Results Drug screen NEGATIVE: No Urine drug screen results: PEREZ-Cocaine, MTD-Methadone Inpatient Rehab Admission - Rehab Decision to Admit Inpatient rehab admission?: No"
--- NOTE | 2020-06-28 14:00 | BHS.RME ---
2019 N Coronavirus Screen - COVID-19 Screening Questions Dx of COVID-19 or had a positive test in the last 4 weeks?: Yes Contact with known/suspected COVID patient in last 14 days?: No Any of these symptoms or contact with someone who has?: Headache (symptoms related to withdrawal), Nausea or vomiting, Diarrhea Traveled domestically/internationally in the last 14 days?: No Screen score: 4 Screen result: Positive Substance Use & Tx History - Substance Use History Alcohol Substance amount: six 24 oz cans malt liquor Frequency of use: Daily Substance route: Oral Date of Last Use: 06/27/20 Cocaine-Crack Substance amount: 6 gm Frequency of use: Daily Substance route: Smoking Date of Last Use: 06/27/20 Methadone Substance amount: 40mg Frequency of use: Less than 3 times per week Substance route: Oral Date of Last Use: 06/25/20 (2-3x/week since off suboxone) - Last Treatment Date of last treatment: 06/28/20 (around 2am) Treatment type: Substance Use Disorder (YASMEEN) (black out due to drinking - evaluated at [facility]) Where was last treatment: ER (treated at [facility] for syncope due to alcohol use) Physical/Psych/Mental Status - Behavior Eye Contact: Normal - Cooperativeness Cooperativeness: Cooperative - Thinking Thought Processes: Logical Thought content: Future oriented - Physical Health Problems Is patient presently having any pain?: Yes (headaches, neuropathy (chronic)) Does patient presently have any injuries (include location): No Does patient currently have a fever: No Is patient : No COWS - Scale Resting Pulse: 1= [place] 81-100 Sweatin= Chills/Flushing Restless Observation: 0= Sits Still Pupil Size: 0= Normal to Room Light Bone or Joint Aches: 1= Mild Discomfort Runny Nose/ Eye Tearin= None GI Upset > 30mins: 2= Nausea/Diarrhea Tremor Observation: 2= Slight Tremor Visible Yawning Observation: 0= None Anxiety or Irritability: 1=Feels Anxious/Irritable Goose Flesh Skin: 0=Smooth Skin COWS Score: 8 CIWA Nausea/Vomitin-Mild Nausea/No Vomiting Muscle Tremors: 3 Anxiety: 4-Mod. Anxious/Guarded Agitation: 1-Slight > Activity Paroxysmal Sweats: 1-Minimal Palms Moist Orientation: 0-Oriented Tacttile Disturbances: 1-Very Mild Itch/Numbness Auditory Disturbances: 1-Very Mild Visual Disturbances: 1-Very Mild Sensitivity Headache: 2-Mild CIWA-Ar Total Score: 15
[2020-06-28] MEDS ORDERED: MENTHOL/PHENOL 1 EACH UD MM PRN (14:28)
[2020-06-28] MEDS ORDERED: NICOTINE POLACRILEX 2 MG GUM BUC PRN (14:28)
[2020-06-28] MEDS ORDERED: chlordiazePOXIDE HCL 25 MG CAPSULE PO ONE (14:28)
[2020-06-28] MEDS ORDERED: traZODone HCL 50 MG TABLET (FP) PO PRN (14:28)
[2020-06-28] MEDS ORDERED: BISMUTH SUBSALICYLATE 524 MG/30 ML UD PO PRN (14:28)
[2020-06-28] MEDS ORDERED: chlordiazePOXIDE HCL 25 MG CAPSULE PO PRN (14:28)
[2020-06-28] MEDS ORDERED: ONDANSETRON *ODT* 4 MG TABLET SL PRN (14:28)
[2020-06-28] MEDS ORDERED: MAGNESIUM HYDROX 2400MG/30ML ORAL SUSPENSION 30 ML CUP PO PRN (14:28)
[2020-06-28] MEDS ORDERED: MAGNESIUM CITRATE 300 ML BOTTLE PO PRN (14:28)
[2020-06-28] MEDS ORDERED: METHOCARBAMOL 500 MG TABLET PO PRN (14:28)
[2020-06-28] MEDS ORDERED: ACETAMINOPHEN 325 MG TABLET (FP) PO PRN ×2 (14:28)
[2020-06-28] MEDS ORDERED: MAG HYDROX/AL HYDROX/SIMETH 30 ML UNIT-DOSE CUP PO PRN (14:28)
[2020-06-28] MEDS ORDERED: hydrOXYzine PAMOATE 25 MG CAPSULE (FP) PO PRN (14:28)
--- OUTSIDE RECORDS SUMMARY | 2020-06-28 15:15 | XMS ---
:1960 Author Organization [facility] Support Name Relationship Address Phone JEREL MATHEWS OTHER RELATIONSHIP [id number] [place] [address] OF ELYRIA Unavailable NA """" [facility] Unavailable Unavailable Unavai [facility] AFFAIRS NA Unavailable Unavailable Unavailable [place]ST[place] [address] JONY NAYLOR SUPERVISOR FABRICATION OTHER RELATIONSHIP [address] [facility] [address] [place] [id number] DIS Unavailable Unavailable Unavailable ANSA OTH [address] [facility] [place] [address] ALESSANDRA OTH [address] [facility] [place] [address] REFUSED OTHER RELATIONSHIP [address] [facility] [place] [address] UE Unavailable Unavailable Unavailable ANYAR OTHER RELATIONSHIP [address] [facility] [place] [address] UNEM Unavailable Unavailable Unavailable UNKN UNKNOWN [address] [facility] [phone] [place] [address] CRYSTAL CH Unavailable Unavailable x Unavailable [address] [facility] [place] [address] CYNDY Other [address] [place] [address] Care Team Providers Name Role Phone Jose D Unavailable Unavailable Jose D Unavailable Unavailable FLOYD MONGE MD Unavailable Unavailable Martinez BOOTH CLEANER Unavailable Unavailable [facility] Unavailable Unavailable MD DENNIS Unavailable Unavailable Pao NINA Unavailable Unavailable Pao NINA Unavailable Unavailable Poa NINA Unavailable Unavailable NINA, J PA Unavailable Unavailable NINA, J PA Unavailable Unavailable NINA, J PA Unavailable Unavailable NINA, J PA Unavailable Unavailable NINA, J PA Unavailable Unavailable NINA, J PA Unavailable Unavailable NINA, J PA Unavailable Unavailable DOCTOR Unavailable Unavailable Lamont Unavailable [phone] Lamont Unavailable [phone] Ringstad Unavailable Unavailable Ringstad Unavailable Unavailable Ringstad Unavailable Unavailable Ringstad Unavailable Unavailable Ringstad Unavailable Unavailable Ringstad Unavailable Unavailable Ringstad Unavailable Unavailable Ringstad Unavailable Unavailable Ringstad Unavailable Unavailable Ringstad Unavailable Unavailable [place] Unavailable Unavailable ED STAFF PHYSICIAN Unavailable Unavailable Asif GRIFFITH MD, MD Unavailable Unavailable Specialist/PCP, no [...] Yodit Unavailable Unavailable Aszalos, Yodit Unavailable Unavailable Early Unavailable [phone] Early Unavailable [phone] Nlam Unavailable [phone] Nlam Unavailable [phone] ELEUTERIO MONGE MD Unavailable Unavailable ED STAFF PHYSICIAN Unavailable Unavailable Cathy Unavailable [phone] Prospect Unavailable [phone] Cathy Unavailable [phone] ONIEL MONGE MD Unavailable Unavailable MEMBOUP PA, PA Unavailable Unavailable Haroldo Unavailable [phone] Landers Unavailable Unavailable Landers Unavailable Unavailable Landers Unavailable Unavailable Landers Unavailable Unavailable Landers Unavailable Unavailable Landers Unavailable Unavailable Landers Unavailable Unavailable Landers Unavailable Unavailable Landers Unavailable Unavailable Landers Unavailable Unavailable Porfirio Unavailable [phone] ER Unavailable Unavailable ABUBAKER Unavailable Unavailable ABUBAKER Unavailable Unavailable ABUBAKER Unavailable Unavailable ABUBAKER Unavailable Unavailable ABUBAKER Unavailable Unavailable ABUBAKER Unavailable Unavailable ABUBAKER Unavailable Unavailable ABUBAKER Unavailable Unavailable ED STAFF PHYSICIAN Unavailable Unavailable Lyla MONGE, ORk Unavailable Unavailable MD Irasema, MPH Unavailable Unavailable [...] Kareem OLIVAREZ MD, MD Unavailable Unavailable BIRGIT, DO Unavailable Unavailable MD LAURA Unavailable Unavailable STEPHANIE JUNE Unavailable Unavailable Hill Unavailable [phone] Hill Unavailable [phone] Podziewski, A SALESPERSON [employer] Unavailable Unavailable Podziewski, A SALESPERSON [employer] Unavailable Unavailable Podziewski, A SALESPERSON [employer] Unavailable Unavailable Podziewski, A SALESPERSON [employer] Unavailable Unavailable Podziewski, A SALESPERSON [employer] Unavailable Unavailable Podziewski, A SALESPERSON [employer] Unavailable Unavailable Podziewski, A SALESPERSON [employer] Unavailable Unavailable Podziewski, A SALESPERSON [employer] Unavailable Unavailable Podziewski, A SALESPERSON [employer] Unavailable Unavailable Podziewski, A SALESPERSON [employer] Unavailable Unavailable Podziewski, A SALESPERSON [employer] Unavailable Unavailable Podziewski, A SALESPERSON [employer] Unavailable Unavailable Podziewski, A SALESPERSON [employer] Unavailable Unavailable [facility] Unavailable Unavailable GerardPao alvarez MD Unavailable Unavailable GerardPao alvarez MD Unavailable Unavailable GerardPao MD Unavailable Unavailable GerardPao alvarez MD Unavailable Unavailable GerardPao alvarez MD Unavailable Unavailable GerardPao alvarez MD Unavailable Unavailable GerardPao alvarez MD Unavailable Unavailable GerardPao alvarez MD Unavailable Unavailable GerardPao alvarez MD Unavailable Unavailable GerardPao MD Unavailable Unavailable GerardPao MD Unavailable Unavailable GerardPao MD Unavailable Unavailable GerardPao MD Unavailable Unavailable GerardPao alvarez MD Unavailable Unavailable GerardPao MD Unavailable Unavailable GerardPao MD Unavailable Unavailable GerardPao MD Unavailable Unavailable GerardPao alvarez MD Unavailable Unavailable GerardPao MD Unavailable Unavailable GerardPao MD Unavailable Unavailable GerardPao alvarez MD Unavailable Unavailable GerardPao MD Unavailable Unavailable [facility] Unavailable Unavailable [facility] Unavailable [phone] [facility] Unavailable [phone] ED STAFF PHYSICIAN Unavailable Unavailable MD KIMBERLY [...] is protected by Article 27-F of the [facility] Public Health law. If you continue you may haveaccess to information: Regarding HIV / AIDS; Provided by facilities licensed or operated by the [facility] Office of Mental Health; or Provided by the [facility] Office for People With Developmental Disabilities. If such information is present, then the following [facility] mandated warning applies: This information has been [...] law may result in a fine or shelter sentence or both. A general authorization for the release of medical or other information is NOT sufficient authorization for further disclosure. Allergies and Adverse Reactions Type Description Substance Reaction Status Data Source(s ) SYSTEMIC NO ALLERGIES ON NO ALLERGIES ON [facility] FILE FILE Health System Drug allergy aspirin Aspirin Active NEXTGEN ([facility]) Drug allergy Moderate ASA Vomiting Active Centricity Moderate ([facility]) Moderate Drug allergy aspirin aspirin VOMITING U [facility] Drug allergy No Known Drug No Known Drug [facility] Allergies Allergies [facility] Drug allergy No Known Allergies No Known Allergies [facility] Drug allergy aspirin aspirin Nuvance [facility] Drug allergy aspirin aspirin Hives U [facility] Encounters Encounter Providers Location Date Indications Data Source(s ) Attender: Lara [facility] 04/02/2020 NEXTGEN [facility] 09[facility]00 AM Melissa Medic al EDT - Center) 04/02/2020 09:51:00 AM EDT Attender: Nneka [facility] 02/21/2020 NEXTGE N ([facility] 10:59:00 AM Melissa Medic al EDT - Center) 02/21/2020 10:59:00 AM EDT Attender: Khadra [facility] 01/18/2020 NEXTG EN ([facility] 08:53:00 AM Melissa Medic al EDT - Center) 01/18/2020 08:53:00 AM EDT Outpatient Attender: [id number] 01/16/2020 Gilma PERAZA [facility] 02:[facility]01 [facility]: Nneka [facility] 01/07/2020 NEXTGE N ([facility] 04:22:00 PM Melissa Medic al EDT - Center) 01/07/2020 04:22:00 PM EDT [facility] 01/01/2020 NEX TGEN ([facility] 09:56:00 AM Melissa Medic al EDT - Center) 01/01/2020 09:56:00 AM EDT [facility]: [facility] 12/31/2019 NEX TGEN ([facility] 11:46:00 AM Melissa Medic al EDT - Center) 12/31/2019 11:46:00 AM EDT Attender: [facility] 12/28/2019 NEX TGEN ([facility] 08:56:00 AM Melissa Medic al EDT - Center) 12/28/2019 08:56:00 AM EDT Attender: [facility] 12/21/2019 NEXTGE N ([facility] 10:24:00 AM Melissa Medi francisco EDT - Center) 12/21/2019 10:24:00 AM EDT Inpatient Attender: H-HAL2 12/15/2019 Psychiatric NANCY STROUD 05:20:00 AM [facility] Center ESCOBAR-DIVINE EDT - RAttender: TUYET 12/26/2019 OSORIO 01:25:00 PM SAURABHAttender: EDT STAFF ED STAFF PHYSICIANAdmitter: NANCY CRUZ RReferrer: NANCY CRUZ R Patient discharged. Outpatient Attender: Nona Gaspar 12/10/2019 [facility] VelezAdmitter: Nona 10:51:00 AM EDT Medical Center VelezReferrer: Nona Landers OutpatientOFFICE/ [facility]: [facility] 12/10/[facility] NEXTGEN [facility] 10:51:00 AM EDT [facility] 12/10/2019 [facility]) 10:51:00 AM EDT Outpatient 12/10/2019 Psychiatric 10:47:00 AM EDT Medical C enter Outpatient 12/10/2019 Psychiatric 12:00:00 AM EDT Medical C enter Outpatient Attender: Nona Gaspar 12/07/2019 [facility] VelezAdmitter: Nona 10:22:00 AM EDT [facility] VelezReferrer: Nona Landers Attender: [facility] 12/07/2019 NEXTGE N ([facility] 10:22:00 AM EDT [facility] 12/07/2019 [facility]) 10:22:00 AM EDT Outpatient 12/07/2019 Psychiatric 10:19:00 AM EDT Medical C enter Outpatient 12/07/2019 Psychiatric 12:00:00 AM EDT Medical C [facility] NEX TGEN ([facility] 04:48:00 PM EDT [facility] 12/06/2019 [facility]) 04:48:00 PM EDT [facility] 12/[facility] NEXTG EN ([facility] 09:12:00 AM EDT [facility] 12/06/2019 [facility]) 09:12:00 AM EDT Attender: [facility] 12/05/2019 NEX TGEN ([facility] 11:06:00 AM EDT [facility] 12/05/2019 [facility]) 11:06:00 AM EDT Inpatient Attender: ALFREDO MOMIN-1D 11/29/2019 [facility] MARKANDRAdmitter: 04:48:00 PM EDT - [facility] 12/07/2019 10:40:00 PM EDT Patient discharged. Outpatient ST 11/29/2019 03:11:00 PM EDT - [address] [place] [address] 05:13:00 PM EDT Patient discharged. Outpatient Attender: Nneka Gaspar 11/28/2019 [facility] AszalosAdmitter: Nneka 11:25:00 AM EDT Medical AszalosReferrer: Nneka Babin OutpatientOFFICE/O [facility]: [facility] 11/28[facility]2019 NEXTGEN UTPATIENT VISIT, Center 11:25:00 AM EDT ( int EST - 11/28/2019 [facility] 11:25:00 AM EDT Medical Center) Outpatient Attender: Nneka Gaspar 11/27/2019 [facility] AszalosAdmitter: Nneka 03:41:00 PM EDT Medical AszalosReferrer: Nneka Babin OutpatientOFFICE/O [facility]: [facility] 11/27/2019 NEXTGEN UTPATIENT VISIT, Center 03:41:00 PM EDT ( int EST - 11/27/2019 [facility] 03:41:00 PM EDT Medical Center) Attender: [place] [facility] 11/27/2019 [facility] 02:45:00 PM EDT ([facility] 11/27/2019 [facility] 02:45:00 PM EDT Medical Center) Psychiatric Attender: [facility] 11/27/2019 [facility] Diagnostic [facility] 02:12:00 PM EDT ([facility] (45+ - 11/27/2019 [facility] Min) 02:12:00 PM EDT Medical Center) Outpatient Attender: Nona Gaspar 11/27/2019 [facility] VelezAdmitter: Nona 02:12:00 PM EDT Medical VelezReferrer: Nona Landers Attender: [facility] 11/27/2019 NEXT EN [facility] 02:04:00 PM EDT ([facility] 11/27/2019 [facility] 02:04:00 PM EDT Medical Center) Outpatient 11/27/2019 Psychiatric 01:54:00 PM EDT Medical Center Outpatient 11/27/2019 Psychiatric 12:00:00 AM EDT Medical Center Outpatient Attender: Nona Gaspar 11/26/2019 [facility] VelezAdmitter: Nona 03:17:00 PM EDT Medical VelezReferrer: Nona Landers OutpatientOFFICE/O Attender: Noe Villalpando [facility] 11/26/2019 [facility] UTPATIENT VISIT, , [facility] 03:17:00 PM EDT ([facility] EST - 11/26/2019 [facility] 03:17:00 PM EDT Medical Center) Outpatient 11/26/2019 Psychiatric 03:12:00 PM EDT Medical Center Outpatient 11/26/2019 Psychiatric 12:00:00 AM EDT Medical Center Emergency Attender: ED STAFF 11/24/2019 Psychiatric PHYSICIANAttender: ED 08:50:00 AM EDT Medical STAFF - 11/24/2019 [facility] PHYSICIANAttender: 11:45:00 AM EDT STAFF ED STAFF PHYSICIANAdmitter: ED STAFF PHYSICIANReferrer: STAFF ED STAFF PHYSICIAN Patient discharged. Outpatient Attender: Nona Gaspar 11/19/2019 [facility] VelezAdmitter: Nona 10:22:00 AM EDT Medical Center VelezReferrer: Nona Landers OutpatientOFFICE/ Attender: [facility] 11/19/2019 [facility] ([facility] 10:22:00 AM EDT - [facility] 11/19/2019 [facility]) 10:22:00 AM EDT Outpatient 11/19/2019 Psychiatric 10:17:00 AM EDT Medical C enter Outpatient 11/19/2019 Psychiatric 09:51:00 AM EDT Medical C enter Outpatient 11/19/2019 Psychiatric 12:00:00 AM EDT Medical C enter Inpatient Attender: ALFREDO MAKIV-1D 11/13/2019 [facility] PIPPABNSHANYANAdmitter: 07:40:00 PM EDT - [facility] 11/17/2019 10:58:00 PM EDT Patient discharged. Outpatient ST 11/13/2019 03:30:00 PM EDT - [address] [place] [address] 10:58:00 PM EDT Patient discharged. Attender: [facility] 11/12/2019 07:38:00 NEXTGEN ([facility] PM EDT - 11/12/2019 [facility] 07:38:00 PM EDT Center) Emergency Attender: MELITON ED H 11/09/2019 08:40:00 Psychiatric STAFF AM EDT - 11/09/2019 Medic al Center PHYSICIANAttender: 06:09:00 PM EDT STAFF ED STAFF PHYSICIANAdmitter: YONATHANE ED STAFF PHYSICIAN Patient discharged. Outpatient Attender: Nona Gaspar 11/08/2019 [facility] VelezAdmitter: Nona 05:12:00 PM EDT Medical Center VelezReferrer: Nona Landers OutpatientOFFICE/ Attender: [facility] 11/08/2019 [facility] ([facility] OUTPATIENT VISIT, [facility] 05:12:00 PM EDT [facility] Medical EST - 11/08/2019 Center) 05:12:00 PM EDT Outpatient 11/08/2019 Psychiatric 03:50:00 PM EDT Medical C enter Outpatient 11/08/2019 Psychiatric 03:25:00 PM EDT Medical C enter Attender: [facility] 11/08/2019 NEX TGEN ([facility] 03:21:00 PM EDT [facility] edical - 11/08/2019 Center) 03:21:00 PM EDT Outpatient 11/08/2019 Psychiatric 12:00:00 AM EDT Medical C enter Outpatient Attender: Nona Gaspar 11/06/2019 [facility] VelezAdmitter: Nona 05:42:00 PM EDT Medical Center VelezReferrer: Nona Landers OutpatientOFFICE/ Attender[facility] OUTPATIENT VISIT, [facility] 05:42:00 PM EDT [facility] Medical EST - 11/06/2019 Center) 05:42:00 PM EDT Outpatient 11/06/2019 Psychiatric 05:39:00 PM EDT Medical C enter Outpatient 11/06/2019 Psychiatric 12:00:00 AM EDT Medical C enter Outpatient Attender: ANASTACIA Gaspar 11/03/2019 [facility] MARY MINALAdmitter: 09:04:00 AM EDT Medical Center ANASTACIA HERNANDEZ MINALReferrer: ANASTACIA GALAVIZ OutpatientOFFICE/ Attender: [facility] 11/03/2019 [facility] ([facility] OUTPATIENT VISIT, [facility] 09:04:00 AM EDT Carley tiffanie Medical EST - 11/03/2019 Center) 09:04:00 AM EDT Outpatient 11/03/2019 Psychiatric 09:02:00 AM EDT Medical C enter Outpatient 11/03/2019 Psychiatric 12:00:00 AM EDT Medical C enter Outpatient Attender: KARMEN [id number] 11/02/2019 [facility] 08:01:59 PM EDT ([facility]) Outpatient Attender: Andi Gaspar 10/31/2019 Psychiatric Gerard MDAdmitter: 12:46:00 PM EDT Med ical Center Hirendra Gee MDReferrer: Andi Gee MD OutpatientOFFICE/ Attender: [facility] 10/31/2019 [facility] ([facility] OUTPATIENT VISIT, Center 12:46:00 PM EDT [facility] Medical NEW - 10/31/2019 Center) 12:46:00 PM EDT Outpatient 10/31/2019 Psychiatric 12:17:00 PM EDT Medical C enter Outpatient 10/31/2019 Psychiatric 12:00:00 AM EDT Medical C enter Outpatient Attender: ANASTACIA Gaspar 10/30/2019 [facility] herminio MARY MINTIBURCIOdmitter: 04:37:00 PM EDT Medical Center ANASTACIA GARCIAALReferrer: ANASTACIA GALAVIZ Attender: [facility] 10/30/2019 NEX TGEN ([facility] 04:37:00 PM EDT [facility] edical - 10/30/2019 Center) 04:37:00 PM EDT Outpatient 10/30/2019 Psychiatric 04:32:00 PM EDT Medical C enter Outpatient 10/30/2019 Psychiatric 04:07:00 PM EDT Medical C enter Outpatient 10/30/2019 Psychiatric 12:00:00 AM EDT Medical C enter Outpatient Attender: [email or web address] 10/09/2019 [facility] ([facility] 01:24:34 PM EST [facility]) Patient admitted. Outpatient Attender: KARMEN [id number] 09/28/2019 08:01:39 [facility] PM EST ([facility]) Emergency Attender: STAFF ED H 09/26/2019 12:43:00 Psychiatric Medical STAFF PHYSICIAN AM EST - 09/26/2019 Center 08:39:00 AM EST Patient discharged. Outpatient Attender: 09/21/2019 Gilma PERAZA CF 08:11:38 PM EST ([facility]) Outpatient 09/21/2019 NEXTGEN ([facility] 09:42:00 AM EST [facility]) Outpatient 09/20/2019 NEXTGEN ([facility] 09:50:00 AM EST [facility]) Outpatient Attender: 09/17/2019 Иванty KARMEN CF 10:47:01 AM EST [facility]) Outpatient Attender: 09/13/2019 Иванty KARMEN HC 03:17:00 PM EST ([facility]) Outpatient Attender: 09/11/2019 [facility] 03:02:00 PM EST ([facility]) Outpatient Attender: 09/11/2019 [facility]EN [facility] 03:01:05 PM EST ([facility]) Outpatient Attender: 09/07/2019 [facility]EN [facility] 10:57:01 AM EST ([facility]) Outpatient Attender: 2019 [employer] KARMEN [facility] 11:20:01 AM EST ([facility]) Outpatient Attender: 09/03/2019 [employer] K[facility]EN [facility] 05:41:00 PM EST ([facility]) Outpatient Attender: 09/03/2019 [facility] KARMEN [facility] 10:18:01 AM EST ([facility]) Outpatient Attender: 08/30/2019 [employer] K[facility]EN [facility] 09:32:01 AM EST ([facility]) Outpatient Attender: [id number]/29/2019 [facility] KARMEN [facility] 11:30:00 AM EST ([facility]) Outpatient Attender: 08/29/2019 [facility] KARMEN [facility] 11:09:01 AM EST ([facility]) Post Production Assistant: Reva 08/29/2019 [facility] clarissa Reid SALESPERSON [employer] 10:03:31 AM EST - ([facility] 08/29/2019 [facility]) 10:03:31 AM EST Outpatient Attender: 08/29/2019 [facility] KARMEN [facility] 09:41:02 AM EST ([facility]) Outpatient Attender: 08/29/2019 [facility] 09:39:00 AM EST ([facility]) Outpatient Attender: 08/29/2019 [facility] 12:05:01 AM EST ([facility]) Outpatient Attender: 08/27/2019 [facility] 09:01:52 PM EST ([facility]) Outpatient Attender: 08/27/2019 [facility] 05:34:00 PM EST ([facility]) Outpatient Attender: 08/27/2019 [facility] K[facility] 12:24:00 PM EST ([facility]) Outpatient 08/27/2019 [facility] 12:22:01 PM EST ([facility]) Outpatient 29008/27/2019 [facility] 12:21:02 PM EST ([facility]) Emergency Attender: MARV 08/25/2019 CHEST PAIN [facility] BIRGIT THOMASeferrer: 01:58:00 AM EST - [facility] Patient- 08/25/2019 Specialist/PCPConsu 07:55:00 AM EST ltant: [facility] CHEST PAIN Patient discharged. P 08/25/2019 01:44:00 AM EST [place]ST [place] [facility] CHEST PAIN P 08/25/2019 01:44:00 AM EST [place]ST [place] [facility] CHEST PAIN P 08/25/2019 01:43:00 AM EST [place]ST [place] [facility] CHEST PAIN P 08/25/2019 01:28:00 AM EST [place]ST [place] [facility] CHEST PAIN P 08/25/2019 01:27:00 AM EST [place]ST [place] [facility] CHEST PAIN Emergency Attender: MICHAEL MCCLELLAN 08/07/2019 03:31:00 AM DE [facility] MDConsultant: ELDENE EST - 08/07/2019 [facility] JOSHUA MONGE 09:00:00 AM EST DETOX Patient discharged. Inpatient Attender: CORRIE 08/04/2019 CHEST PAIN PEREZ SONY [facility] PAAttender: 04:31:00 AM EST ABUSE,ALCOHOL IC, IDDM [facility] MDAdmitter: - 08/05/2019 [facility] MDReferrer: 05:12:00 PM EST [place] NO DOCTORConsultant: Patient- Specialist/PCP CHEST PAIN COCAINE ABUSE,ALCOHOLIC, IDDM Patient discharged. Emergency Attender: JONATHAN 08/04/2019 CHEST [facility] GENEReferrer: NO 12:30:00 AM PAIN/LIGHTHEAD ED/DIABETIC [place] DOCTORConsultant: [facility]P CHEST PAIN/LIGHTHEADED/DIABETIC P 08/04/2019 12:24:00 AM CHEST PAIN/LI GHTHEADED/DIABETIC [facility] CHEST PAIN/LIGHTHEADED/DIABETIC P 08/04/2019 12:24:00 AM CHEST PAIN/LI GHTHEADED/DIABETIC [facility] CHEST PAIN/LIGHTHEADED/DIABETIC P 08/03/2019 11:27:00 PM CHEST PAIN/LI GHTHEADED/DIABETIC [facility] CHEST PAIN/LIGHTHEADED/DIABETIC P 08/03/2019 11:27:00 PM CHEST PAIN/LI GHTHEADED/DIABETIC [facility] CHEST PAIN/LIGHTHEADED/DIABETIC P 08/03/2019 11:26:00 PM CHEST PAIN/LI GHTHEADED/DIABETIC [facility] CHEST PAIN/LIGHTHEADED/DIABETIC P 08/03/2019 11:26:00 PM CHEST PAIN/LI GHTHEADED/DIABETIC [facility] CHEST PAIN/LIGHTHEADED/DIABETIC P 08/03/2019 11:07:00 PM CHEST PAIN/LI GHTHEADED/DIABETIC [facility] CHEST PAIN/LIGHTHEADED/DIABETIC P 08/03/2019 11:05:00 PM CHEST PAIN/LI GHTHEADED/DIABETIC [facility] CHEST PAIN/LIGHTHEADED/DIABETIC Outpatient [facility] 07/31/2019 eCW3 ([facility] A28 12:00:00 AM [facility] 07/31/2019 Care) 12:00:00 AM EST [facility] 07/17/2019 eCW 3 ([facility] A28 12:00:00 AM [facility] 07/17/2019 Care) 12:00:[address] [facility] 07/16/2019 eCW3 ([facility] A28 12:00:00 AM [facility] 07/16/2019 Care) 12:00:00 AM EST Emergency Attender: Priyank 06[facility]2019 [facility] 01:21:00 AM EST - - Denise bassett MDAttender: 06/24/2019 Brothers ERAdmitter: 07:07:00 AM [facility] Medical [facility] Priyank Arita MD Patient discharged. Inpatient Attender: NIC 06/21/2019 ALCOHOL DEPENDENCE, Damon LEWIS MDAdmitter: 12:55:00 PM EDT - UNCOMPLICAT ED Thalia LEWIS MD 06/21/2019 [facility] 04:00:00 PM EDT ALCOHOL DEPENDENCE, UNCOMPLICATED Patient discharged. Inpatient Attender: NIC 06/19/2019 ALCOHOL DEPENDENCEDamon MDAttender: 12:03:00 PM EDT - UNCOMPLICAT ED [facility] JOSE OLIAVREZ 06/21/2019 [facility] MDAttender: DELORES 12:30:00 PM EDT TEITZ MDAdmitter: NIC LEWIS MDConsultant: JULIANN NORRIS PAConsultant: JEFFERY BRWON ALCOHOL DEPENDENCE, UNCOMPLICATED Patient discharged. Outpatient [facility] 06/18/2019 12:00:00 e CW3 ([facility] A28 AM EDT - 06/18/2019 Health Care) 12:00:00 AM EDT S Attender: Adelia 06/13/2019 11:06:00 [facility] NPAdmitter: AM EDT Marcelle Obdulio [facility] BOOTH CLEANER Medical Ce nter Outpatient Attender: [id number] 06/13/2019 09:45:02 GSI ([facility] EDT [facility] ) Patient admitted. Outpatient [facility] 06/13/2019 eCW3 ([facility] A28 12:00:00 AM EDT - [facility] Health 06/13/2019 Care) 12:00:00 AM EDT Emergency Attender: 05/25/2019 DETOX [facility] NHI BARRIENTOS 12:37:00 AM EDT - [facility] 05/25/2019 of [facility] 05:50:00 AM EDT DETOX Patient discharged. Outpatient 05/09/2019 01:26:20 PM EDT GSI ([facility]) Patient admitted. Emergency Attender: LEXII 05/05/2019 12:41:00 NEEDS MEDS F OR [facility] Thalia ENGLE MD PM EDT - 05/05/2019 [facility] 02:05:00 PM EDT NEEDS MEDS FOR DIABETES Patient discharged. Outpatient [facility] 05/05/2019 12:00:00 AM eCW3 ([facility] A28 EDT - 05/05/2019 12:00:00 Health Care) [...] Ri jason polysaccharide PPV23 11:19:00 AM EDT [facility] Care) Medications Medication Brand Start Product Dose Route Administrative Pharmacy [facility] Indications Reaction Description Data Name Date Form Instructions Instructions Source(s) 3 ML Humalo 12/31/ SUBCUT active 3 ML insulin NEXTGEN Insulin g 2019 ANEOUS lispro 200 (Carlo nt Lispro 200 KwikPe 12:00: UNT/ML Pen Melissa UNT/ML Pen n 00 AM Injector Medi francisco Injector U-200 EDT [Humalog] Cente r) [Humalog] Insuli Humalog n 200 KwikPen unit/m U-200 L (3 Insulin 200 mL) unit/mL (3 subcut mL) aneous subcutaneou s Accu-Chek blood use as NEX TGEN Birgit Plus sugar 2020 directed (Carlo nt test strips diagno 12:00: [address] EDT Center) Lancets,Ult lancet active as dire cted NEXTGEN ra Thin 26 s 2020 BID ([facility] gauge 12:00: [address] EDT [place]) Accu-Chek blood use as NE XTGEN Birgit Plus sugar 2020 ed directed (Carlo nt test strips diagno 12:00: [address] EDT [place]) Medication administered onsite Lancets,Ultra lancets 01/01/2020 completed as directed NEXTGEN Thin 26 gauge 12:00:00 AM BID ([facility]) Medication administered onsite Basaglar 3 ML 01/01/2020 [...] mg 12:00:00 AM 00 t ablet by ([facility] etodolac 400 tablet EDT {t oral route 2 Melissa mg tablet ab times every Med ical le day with [place]) t} food Accu-Chek blood 11/27/2019 completed use as NEXTGEN Birgit Plus sugar 12:00:00 AM direct ed ([facility] test strips diagnostic T [facility]) blood-glucose blood-gluc 11/27/2019 active take blood NEXTGEN meter kit ose meter 12:00:00 AM glu cose ([facility] three times [facility]) Diazepam 10 MG diazepam 11/27/2019 1. ORAL active take 1 NEXTGEN Oral Tablet 10 mg 12:00:00 AM 00 table t by ([facility] diazepam 10 mg tablet EDT {t oral rou te 3 Melissa tablet ab times every Medica l le day Center) t} blood-glucose blood-gluc 11/26/2019 completed take blood NEXTGEN meter kit ose meter 12:00:00 AM glu cose ([facility] three times [facility]) Accu-Chek blood 11/26/2019 completed use as NEXTGEN Birgit Plus sugar 12:00:00 AM direct ed ([facility] test strips diagnostic [facility]) Etodolac 400 etodolac 11/26/2019 1. ORAL completed take 1 NEXTGEN MG Oral Tablet 400 mg 12:00:00 AM 00 t ablet by ([facility] etodolac 400 tablet EDT {t oral route 2 Melissa mg tablet bl times every Med ical } day with [place]) food gabapentin 300 gabapentin 11/19/2019 3 ORAL completed take 3 NEXTGEN MG Oral 300 mg 12:00:00 AM {c capsule by ([facility] Capsule capsule EDT ap oral route 3 J osephs gabapentin 300 [place] times ever y Medical mg capsule le day Center) } meloxicam 7.5 meloxicam 11/19/2019 1. ORAL active take 1 NEXTGEN MG Oral Tablet 7.5 mg 12:00:00 AM 00 t ablet by ([facility] meloxicam 7.5 tablet EDT {t oral rout [...] day Melissa Topical Cream topical Med ical [facility]) (lidocaine) 4 % topical Nicotine 2 MG Nicorette 11/19/2019 1. ORAL active nicotine 2 NEXTGEN Chewing Gum 2 mg gum 12:00:00 AM 00 MG Chewing ([facility] [Nicorette] EDT {p Gum Melissa Nicorette 2 mg ie [Nicorette ] Medical gum [facility]) 'o f' gu m} Acetaminophen Tylophen 11/08/2019 [...] Medical 1 % topical day to the nter) gel affected area(s) Diclofenac diclofenac 11/06/2019 2 TOPICAL completed apply (2G) NEXTGEN Sodium 0.01 1 % 12:00:00 AM G by top ical ([facility] MG/MG Topical topical EDT route 4 Melissa Gel diclofenac gel times ever y Medical 1 % topical day to the nter) gel affected area(s) Medication administered onsite gabapentin gabapentin 11/06/2019 3 {capsule} ORAL completed take 3 NEXTGEN 300 MG Oral 300 mg 12:00:00 AM caps ule ([facility] Capsule capsule EDT by oral Jose s gabapentin route 3 Medica l 300 mg times Center) capsule every day gabapentin gabapentin 11/06/2019 3 {capsule} ORAL completed take 3 NEXTGEN 300 MG Oral 300 mg 12:00:00 AM caps ule ([facility] Capsule capsule EDT by oral Jose s gabapentin route 3 Medica l 300 mg times [facility]) capsule every day Medication administered onsite Lidocaine Aspercreme 11/03/2019 completed apply twice NEXTGEN Hydrochloride 40 (lidocaine) 4 12:00:00 AM daily for ([facility] MG/ML Topical % topical EDT pain J osephs Cream Aspercreme Med ical (lidocaine) 4 % Cent er) topical Glucerna oral nut.tx.gluc.i 11/03/2019 active drink 1 NEXTGEN liquid ntoler,lac-fr 12:00:00 AM niels ttle/can ([facility] ,soy EDT (240 ml) Melissa twice a day Medical with [place]) breakfast and lunch ICD 10: E56.9 & E13.4 24 HR Wellbutrin 10/31/2019 1.00 ORAL active 24 HR NEXTGEN Bupropion XL 300 mg 24 12:00:00 AM {tablet} bupropion ([facility] Hydrochloride hr tablet, EDT hydro chloride Melissa 300 MG extended 300 MG Medical Extended release Extended Cent er) Release Oral Release Oral Tablet Tablet [Wellbutrin] [Wellbutrin] Wellbutrin XL 300 mg 24 hr tablet, extended release Accu-Chek blood sugar 10/31/2019 complet use as NEXTGEN Birgit Plus diagnostic 12:00:00 AM ed d irected ([facility] test strips EDT [facility]) 3 ML Insulin Humalog 10/31/2019 SUBCU complet 3 ML Insulin NEXTGEN Lispro 200 KwikPen 12:00:00 AM TANEO ed Lis pro 200 ([facility] UNT/ML Pen U-200 EDT UNT/ML Pen Carley sephs Injector Insulin 200 Injector Medical [Humalog] unit/mL (3 [Humalog] Center) Humalog mL) KwikPen U-200 subcutaneous Insulin 200 unit/mL (3 mL) subcutaneous gabapentin 300 gabapentin 10/31/2019 3 ORAL complet take 3 capsule NEXTGEN MG Oral 300 mg 12:00:00 AM {capsule} ed by oral route ([facility] Capsule capsule EDT 3 times every [facility] gabapentin 300 day Medic al mg capsule [place]) Glucerna oral nut.tx.gluc. 10/31/2019 complet drink 1 NEXTGEN liquid intoler,lac- 12:00:00 AM ed bot tle/can ([facility] fr,soy EDT (240 ml) Melissa twice a day Medical with breakfast Cente r) and lunch ICD 10: E56.9 & E13.4 Metformin METFORMIN 08/29/2019 Tablets 2 ORAL completed METFORMIN [facility] hydrochloride HCL 12:00:00 AM {Tablet} HCL 500 MG ([facility] 500 MG Oral EST TABS [facility]) METFORMIN HCL Lisinopril 2.5 LISINOPRIL 08/29/2019 Tablets 1 ORAL completed LISINOPRIL [facility] MG Oral Tablet 12:00:00 AM {Tablet} 2.5 MG ([facility] LISINOPRIL EST TABS [facility]) Insulin Lispro INSULIN 08/29/2019 Pre-fill SC completed HUMALOG [facility] INSULIN LISPRO LISPRO 12:00:00 AM ed Pen VINCENZO ([facility] EST Syringe KWIKPEN [address]) UNIT/ML SOPN gabapentin 600 GABAPENTIN 08/29/2019 Tablets 1 ORAL completed GABAPENTIN [facility] MG Oral Tablet 12:00:00 AM {Tablet} 600 MG ([facility] GABAPENTIN EST TABS [facility]) GLUCOSE BLOOD [id number] 08/29/2019 Strip INVIT completed BLOOD [facility] 6100 12:00:00 AM R GLUCOSE ([facility] EST TEST STRP [facility]) BLOOD GLUCOSE [id number] 08/29/2019 Kit completed BLOOD [facility] MONITORING 6410 12:00:00 AM GLUCOSE ([facility] SUPPL EST MONITOR [facility]) w/Device KIT ALCOHOL SWABS [id number] 08/29/2019 Pad completed ALCOHOL [facility] 4300 12:00:00 AM PREP 70 % ([facility] EST PADS [facility]) 24 HR BUPROPION 08/29/2019 Sustaine ORAL completed WELLBUTRIN [facility] Bupropion HCL 12:00:00 AM d 24 XL 150 M G ([facility] Hydrochloride EST Hour [id number] F amily 150 MG Release Healthcare ) [...] MG Oral Tablet 20 Mg 12:00:00 AM [place] Prednisone 20 Tablet EST Hosp ital - [...] Albuterol 0.09 Sulfate 12:00:00 AM as needed [place] MG/ACTUAT (Proventil EST for SOB H ospital - Metered Dose Hfa) 6.7 [place] Inhaler Gm [Proventil] Hfa.aer.ad Albuterol Hfa.aer.ad Sulfate , 2 Puff (Proventil Inhalation Hfa) 6.7 Gm Hfa.aer.ad Hfa.aer.ad, 2 Puff Inhalation 200 ACTUAT Albuterol 08/25/2019 2 completed EVERY [address] [facility] Albuterol 0.09 Sulfate 12:00:00 AM as needed [place] MG/ACTUAT (Proventil EST for SOB H ospital - Metered Dose Hfa) 6.7 [place] Inhaler GM [Proventil] HFA.AER.AD Albuterol Sulfate (Proventil Hfa) 6.7 GM HFA.AER.AD Prednisone 20 Prednisone 08/25/2019 TABLET [address] [facility] MG Oral Tablet 20 MG 12:00:00 AM [place] Prednisone 20 TABLET EST Hosp ital - MG TABLET [place] Folic Acid 1 FOLIC ACID 08/05/2019 TABLET [address] [facility] MG Oral Tablet 1 MG 12:00:00 AM Reji FOLIC ACID 1 TABLET EST [facility] - MG TABLET [place] Folic Acid 1 FOLIC ACID 08/05/2019 TABLET [address] [facility] MG Oral Tablet 1 MG 12:00:00 AM [place] FOLIC ACID 1 TABLET EST [facility] - MG TABLET [place] Thiamine 100 THIAMINE 08/05/2019 TABLET [address] [facility] MG Oral Tablet MONONITRAT 12:00:00 AM [place] THIAMINE E (VIT B1) EST [facility] - MONONITRATE (VITAMIN [place] [facility] (VIT B1) B-1) 100 (VITAMIN B-1) MG TABLET 100 MG TABLET MULTIVITAMIN 08/05/2019 TABLET [address] [facility] (MULTI-VITAMIN 12:00:00 AM [place] DAILY) 1 EACH EST Hospit al - TABLET [place] Thiamine 100 THIAMINE 08/05/2019 TABLET [address] [facility] MG Oral Tablet MONONITRAT 12:00:00 AM [place] THIAMINE E (VIT B1) EST [facility] - MONONITRATE (VITAMIN [facility] [facility] (VIT B1) B-1) 100 (VITAMIN B-1) MG TABLET 100 MG TABLET MULTIVITAMIN 08/05/2019 TABLET [address] [facility] (MULTI-VITAMIN 12:00:00 AM [place] DAILY) 1 EACH EST Hospit al - TABLET [place] Nicotine 2 MG Nicorette 07/31/2019 active Nicorette eCW3 (Antunez Chewing Gum Starter 12:00:00 AM [facility] [Nicorette] Kit 2 MG EST Kit 2 MG Care) Nicorette Starter Kit 2 MG Nicotine 2 MG Nicorette 07/31/2019 active Nicorette eCW3 (Antunez Chewing Gum Starter 12:00:00 AM [facility] [Nicorette] Kit 2 MG EST Kit 2 MG Care) [place] Starter Kit 2 MG Nicotine 2 MG Nicorette 07/31/2019 active [place] eCW3 (Antunez Chewing Gum Starter 12:00:00 AM [facility] [Nicorette] Kit 2 MG EST Kit 2 MG Care) [place] Starter Kit 2 MG Nicotine 2 MG Nicorette 07/31/2019 active [place] eCW3 (Antunez Chewing Gum Starter 12:00:00 AM [facility] [Nicorette] Kit 2 MG EST Kit 2 MG Care) [place] Starter Kit 2 MG Nicotine 2 MG Nicorette 07/31/2019 active [place] eCW3 (Antunez Chewing Gum Starter 12:00:00 AM [facility] [Nicorette] Kit 2 MG EST Kit 2 MG Care) [place] Starter Kit 2 MG Nicotine 2 MG Nicorette 07/31/2019 active [place] eCW3 (Antunez Chewing Gum Starter 12:00:00 AM [facility] [Nicorette] Kit 2 MG EST Kit 2 MG Care) [place] Starter Kit 2 MG Nicotine 2 MG Nicorette 07/31/2019 active [place] eCW3 (Antunez Chewing Gum Starter 12:00:00 AM [facility] [Nicorette] Kit 2 MG EST Kit 2 [...] [Nicoderm C-Q] Nicoderm CQ 21 MG/24HR Pen [place] Pen 06/18/2019 active Pen eCW3 (Antunez 5/16" 31G X 8 [place] 12:00:00 AM N [facility] Health MM 5/16" 31G EDT 5/16" 31G Care) X 8 MM X 8 MM Pen [place] Pen 06/18/2019 active Pen eCW3 (Antunez 5/16" 31G X 8 [place] 12:00:00 AM N [facility] MM 5/16" 31G EDT 5/16" 31G Care) X 8 MM X 8 MM Pen [place] Pen 06/18/2019 active Pen eCW3 (Antunez 5/16" 31G X 8 [place] 12:00:00 AM N [facility] MM 5/16" 31G EDT 5/16" 31G Care) X 8 MM X 8 MM Pen [place] Pen 06/18/2019 active Pen eCW3 (Antunez 5/16" 31G X 8 [place] 12:00:00 AM N [facility] Health MM 5/16" 31G EDT 5/16" 31G Care) X 8 MM X 8 MM Pen [place] Pen 06/18/2019 active Pen eCW3 (Antunez 5/16" 31G X 8 [place] 12:00:00 AM N [facility] Health MM 5/16" 31G EDT 5/16" 31G Care) X 8 MM X 8 MM Pen [place] Pen 06/18/2019 active Pen eCW3 (Antunez 5/16" 31G X 8 [place] 12:00:00 AM N [facility] Health MM 5/16" 31G EDT 5/16" 31G Care) X 8 MM X 8 MM Pen [place] Pen 06/18/2019 active Pen eCW3 (Antunez 16" 31G X 8 [place] 12:00:00 AM N [facility] MM 516" 31G EDT 16" 31G Care) X 8 MM X 8 MM atorvastatin Atorvastat 06/13/2019 1.0 active Atorvastat eCW3 (Antunez 20 MG Oral in Calcium 12:00:00 AM {tablet} in [facility] Tablet 20 MG EDT 20 MG Care) Atorvastatin Calcium 20 MG atorvastatin Atorvastat 06/13/2019 1.0 active Atorvastat eCW3 (Antunez 20 MG Oral in Calcium 12:00:00 AM {tablet} in [facility] Tablet 20 MG EDT 20 MG Care) Atorvastatin Calcium 20 MG atorvastatin Atorvastat 06/13/2019 1.0 active Atorvastat eCW3 (Antunez 20 MG Oral in Calcium 12:00:00 AM {tablet} in [facility] Tablet 20 MG EDT 20 MG Care) Atorvastatin Calcium 20 MG atorvastatin Atorvastat 06/13/2019 1.0 active Atorvastat eCW3 (Antunez 20 MG Oral in Calcium 12:00:00 AM {tablet} in [facility] Tablet 20 MG EDT 20 MG Care) Atorvastatin Calcium 20 MG atorvastatin Atorvastat 06/13/2019 1.0 active Atorvastat eCW3 (Antunez 20 MG Oral in Calcium 12:00:00 AM {tablet} in [facility] Tablet 20 MG EDT 20 MG Care) Atorvastatin Calcium 20 MG atorvastatin Atorvastat 06/13/2019 1.0 active Atorvastat eCW3 (Antunez 20 MG Oral in Calcium 12:00:00 AM {tablet} in [facility] Tablet 20 MG EDT 20 MG Care) Atorvastatin Calcium 20 MG atorvastatin Atorvastat 06/13/2019 1.0 active Atorvastat eCW3 (Antunez 20 MG Oral in Calcium 12:00:00 AM {tablet} in [facility] Tablet 20 MG EDT 20 MG Care) [...] EDT RELEASE Hos pital of 300 MG [facility] Extended Release Oral Tablet Bupropion Hcl 24 HR Bupropion 05/05/2019 TABLET, 300 MG BY active [place] Bupropion Hcl 01:20:00 PM EXTENDED MOUTH [facility] Hydrochloride EDT RELEASE Hos pital of 300 MG [facility] Extended Release Oral Tablet Bupropion Hcl Metformin Metformin 05/05/2019 TABLET 500 MG BY active [facility] hydrochloride Hcl 01:18:00 PM MOUTH Regional 500 MG Oral EDT Hospital of Tablet [facility] Metformin Hcl gabapentin 400 Gabapentin 05/05/2019 CAPSULE 400 MG BY active [facility] MG Oral 01:18:00 PM MOUTH Alanis onal Capsule EDT Hospital of Gabapentin [facility] gabapentin 400 Gabapentin 05/05/2019 CAPSULE 400 MG BY active [facility] MG Oral 01:18:00 PM MOUTH Alanis onal Capsule EDT Hospital of Gabapentin [facility] gabapentin 400 Gabapentin 05/05/2019 CAPSULE 400 MG BY active [facility] MG Oral 01:18:00 PM MOUTH Alanis onal Capsule EDT Hospital of Gabapentin [facility] Metformin Metformin 05/05/2019 TABLET 500 MG BY active [facility] hydrochloride Hcl 01:18:00 PM MOUTH Regional 500 MG Oral EDT Hospital of Tablet [facility] Metformin Hcl gabapentin 400 Gabapentin 05/05/2019 CAPSULE 400 MG BY active [facility] MG Oral 01:18:00 PM MOUTH Alanis onal Capsule EDT Hospital of Gabapentin [facility] Metformin Metformin 05/05/2019 TABLET 500 MG BY active [facility] hydrochloride Hcl 01:18:00 PM MOUTH [facility] 500 MG Oral EDT Hospital of Tablet [facility] Metformin Hcl gabapentin 400 Gabapentin 05/05/2019 CAPSULE 400 MG BY active [facility] MG Oral 01:18:00 PM MOUTH Alanis onal Capsule EDT Hospital of Gabapentin [facility] gabapentin 400 Gabapentin 05/05/2019 CAPSULE 400 MG BY active [facility] MG Oral 01:18:00 PM MOUTH Alanis onal Capsule EDT Hospital of Gabapentin [facility] Metformin Metformin 05/05/2019 TABLET 500 MG BY active [facility] hydrochloride Hcl 01:18:00 PM MOUTH [facility] 500 MG Oral EDT Hospital of Tablet [facility] Metformin Hcl Metformin Metformin 05/05/2019 TABLET 500 MG BY active [facility] hydrochloride Hcl 01:18:00 PM MOUTH [facility] 500 MG Oral EDT Hospital of Tablet [facility] Metformin Hcl Metformin Metformin 05/05/2019 TABLET 500 MG BY active [facility] hydrochloride Hcl 01:18:00 PM MOUTH [facility] 500 MG Oral EDT Hospital of Tablet [facility] Metformin Hcl Metformin Metformin 05/05/2019 TABLET 500 MG BY active [facility] hydrochloride Hcl 01:18:00 PM MOUTH [facility] 500 MG Oral EDT Hospital of Tablet [facility] Metformin Hcl gabapentin 400 Gabapentin 05/05/2019 CAPSULE 400 MG BY active [facility] MG Oral 01:18:00 PM MOUTH Alanis onal Capsule EDT Hospital of Gabapentin [facility] Metformin Metformin 05/05/2019 TABLET 500 MG BY active [facility] hydrochloride Hcl 01:18:00 PM MOUTH [facility] 500 MG Oral EDT Hospital of Tablet [facility] Metformin Hcl gabapentin 400 Gabapentin 05/05/2019 CAPSULE 400 MG BY active [place] MG Oral 01:18:00 PM MOUTH Alanis onal Capsule EDT Hospital of Gabapentin [facility] gabapentin 400 Gabapentin 05/05/2019 CAPSULE 400 MG BY active [facility] MG Oral 01:18:00 PM MOUTH Alanis onal Capsule EDT Hospital of Gabapentin [facility] Metformin Metformin 05/05/2019 TABLET 500 MG BY active [facility] hydrochloride Hcl 01:18:00 PM MOUTH [facility] 500 MG Oral EDT Hospital of Tablet [facility] Metformin Hcl gabapentin 400 Gabapentin 05/05/2019 CAPSULE 400 MG BY active [facility] MG Oral 01:18:00 PM MOUTH Alanis onal Capsule EDT Hospital of Gabapentin [facility] gabapentin 400 Gabapentin 05/05/2019 CAPSULE 400 MG BY active [facility] MG Oral 01:18:00 PM MOUTH Alanis onal Capsule EDT Hospital of Gabapentin [facility] Metformin Metformin 05/05/2019 TABLET 500 MG BY active [facility] hydrochloride Hcl 01:18:00 PM MOUTH [facility] 500 MG Oral EDT Hospital of Tablet [facility] Metformin Hcl Metformin Metformin 05/05/2019 TABLET 500 MG BY active [facility] hydrochloride Hcl 01:18:00 PM MOUTH [facility] 500 MG Oral EDT Hospital of Tablet [facility] Metformin Hcl gabapentin 400 Gabapentin 05/05/2019 CAPSULE 400 MG BY active [facility] MG Oral 01:18:00 PM MOUTH Alanis onal Capsule EDT Hospital of Gabapentin [facility] Metformin Metformin 05/05/2019 TABLET 500 MG BY active [facility] hydrochloride Hcl 01:18:00 PM MOUTH [facility] 500 MG Oral EDT Hospital of Tablet [facility] Metformin Hcl CLARAAGLNBA DUNN 05/01/2019 active BASA GLAR eCW3 ([facility] KWIKPEN 100 KWIKPEN 12:00:00 AM [facility] unit/ml 100 EDT 100 Care) unit/ml unit/ml SHAUN DUNN 05/01/2019 active BASA GLAR eCW3 ([facility] KWIKPEN 100 KWIKPEN 12:00:[facility] EDT [facility] Care) unit/ml unit/ml SHAUN DUNN 05/01/2019 active BASA GLAR eCW3 ([facility] KWIKPEN 100 KWIKPEN 12:00:00 AM [facility] unit/ml 100 EDT 100 Care) unit/ml unit/ml SHAUN DUNN 05/01/2019 active BASA GLAR eCW3 ([facility] KWIKPEN 100 KWIKPEN 12:00:00 AM [facility] unit/ml 100 EDT 100 Care) unit/ml unit/ml SHAUN DUNN 05/01/2019 active BASA GLAR eCW3 ([facility] KWIKPEN 100 KWIKPEN 12:00:00 AM [facility] unit/ml 100 EDT 100 Care) unit/ml unit/ml SHAUN DUNN 05/01/2019 active BASA GLAR eCW3 ([facility] KWIKPEN 100 KWIKPEN 12:00:00 AM [facility] unit/ml 100 EDT 100 Care) unit/ml unit/ml SHAUN DUNN 05/01/2019 active BASA GLAR eCW3 ([facility] KWIKPEN 100 KWIKPEN 12:00:00 AM [facility] unit/ml 100 EDT 100 Care) unit/ml [...] 500 Cephalexin CAPSULE 500 completed EVERY 8 MG Oral (Keflex) HOURS [place] [facility] Capsule 500 Mg Hospital - [Keflex] Capsule [place] Cephalexin Capsule, (Keflex) 500 500 Mg Mg Capsule Oral Capsule, 500 Mg [address] completed [facility],Hum.r Cornw all ec.[facility] - (Basaglks [place] Kwikpen U-100) 100 Unit/1 Ml Insuln.pen Insuln.pen, Insulin completed [facility],Hum.r Cornw all ec.[facility] - (Basaglar [place] Kwikpen U-100) 100 Unit/1 Ml Insuln.pen Insuln.pen, [...] Capsule 500 Mg Hospital - [Keflex] Capsule [place] Cephalexin Capsule, (Keflex) 500 500 Mg Mg Capsule Oral Capsule, 500 Mg Oral Insurance Providers Payer name Policy type Policy ID Covered Covered republican's Policy P donovan / Coverage republican ID relationship to Desir Inf ormation type desir MEDICAID [id number] SP [id number] MVP [place]ICA[place] [id number] SP [id number] [facility] [place] [id number] [place] [id number] [facility] MVP/P [id number] self [id number] MEDICAID [id number] SP [id number] W [id number] 01 [id number] [facility] PSYCH IP O [id number] O MVP/HHP O [id number] SELF PAY 000 Self 000 MEDICAID INP [id number] Self [id number] [facility] [id number] Self [id number] HEALTHPLAN SELF PAY 0000 Self 0000 MEDICAID INP [id number] Self [id number] [facility] [id number] Self [id number] HEALTHPLAN W [id number] 01 [id number] MEDICAID [id number] SP [id number] MEDICAID [id number] SP [id number] MEDICAID [id number] SP [id number] MEDICAID [id number] SP [id number] MEDICAID [id number] SP [id number] OLAF [id number] SP [id number] MEDICAID [id number] Patient [id number] SELF PAY UNAVAILABLE Patient UNAVAILA BLE MEDICAID HEA [id number] Problems, Conditions, and Diagnoses Code Display Name Description Problem Type Effective Data Dates Source(s) 473384086 Heroin dependence Heroin dependence Complaint 11/29/2019 [facility] (disorder) 12:00:00 PM [facility] [id number] Cocaine dependence Cocaine dependence Complaint 0 [facility] with current use with current use 12:00:00 PM [facility] [id number] Alcohol dependence Alcohol dependence Complaint 0 [facility] (disorder) 12:00:00 [facility] [id number] Heroin dependence Heroin dependence Complaint 11/29/2019 [facility] (disorder) 12:00:00 [facility] [id number] Cocaine dependence Cocaine dependence Complaint 0 [facility] with current use with current use 12:00:00 PM [facility] [id number] Alcohol dependence Alcohol dependence Complaint 0 [facility] (disorder) 12:00:00 [facility] [id number] Anxiety disorder Anxiety disorder Complaint 11/13/2019 Sa int (disorder) 12:00:00 [facility] [facility] [id number] Depressive disorder Depressive disorder Complaint 020 [facility] (disorder) 12:00:00 [facility] [phone] Tobacco user Tobacco user Complaint 11/13/2019 [facility] (finding) 12:00:00 [facility] [phone] Cannabis abuse Cannabis abuse Complaint 11/13/2019 [facility] (disorder) 12:00:00 PM [facility] [phone] Cocaine abuse Cocaine abuse Complaint 11/13/2019 [facility] (disorder) 12:00:00 [facility] [phone] Severe alcohol Severe alcohol Complaint 11/13/2019 [facility] dependence dependence 12:00:00 [facility] (disorder) [facility] [id number] Anxiety disorder Anxiety disorder Complaint 11/13/2019 [facility] (disorder) 12:00:00 [facility] [phone] Depressive disorder Depressive disorder Complaint 020 [facility] (disorder) 12:00:00 PM [facility] [phone] Tobacco user Tobacco user Complaint 11/13/2019 [facility] (finding) 12:00:00 PM [facility] [phone] Cannabis abuse Cannabis abuse Complaint 11/13/2019 [facility] (disorder) 12:00:00 PM [facility] [phone] Cocaine abuse Cocaine abuse Complaint 11/13/2019 [facility] (disorder) 12:00:00 PM [facility] [phone] Severe alcohol Severe alcohol Complaint 11/13/2019 [facility] dependence dependence 12:00:00 PM [facility] (disorder) [facility] [phone] Anxiety disorder Anxiety disorder Complaint 11/13/2019 [facility] (disorder) 12:00:00 PM [facility] [phone] Depressive disorder Depressive disorder Complaint 020 [facility] (disorder) 12:00:00 [facility] [phone] Tobacco user Tobacco user Complaint 11/13/2019 [facility] (finding) 12:00:00 PM [facility] [id number] Cannabis abuse Cannabis abuse Complaint 11/13/2019 [facility] (disorder) 12:00:00 [facility] [phone] Cocaine abuse Cocaine abuse Complaint 11/13/2019 [facility] (disorder) 12:00:00 [facility] [id number] Severe alcohol Severe alcohol Complaint 11/13/2019 [facility] dependence dependence 12:00:00 PM [facility] (disorder) [facility] [phone] Anxiety disorder Anxiety disorder Complaint 11/13/2019 [facility] (disorder) 12:00:00 [facility] [id number] Depressive disorder Depressive disorder Complaint 020 [facility] (disorder) 12:00:00 PM [facility] [phone] Tobacco user Tobacco user Complaint 11/13/2019 [facility] (finding) 12:00:00 PM [facility] [phone] Cannabis abuse Cannabis abuse Complaint 11/13/2019 [facility] (disorder) 12:00:00 PM [facility] [phone] Cocaine abuse Cocaine abuse Complaint 11/13/2019 [facility] (disorder) 12:00:00 PM [facility] [phone] Severe alcohol Severe alcohol Complaint 11/13/2019 [facility] dependence dependence 12:00:00 PM [facility] (disorder) [facility] [phone] Anxiety disorder Anxiety disorder Complaint 11/13/2019 [facility] (disorder) 12:00:00 PM [facility] [id number] Depressive disorder Depressive disorder Complaint 020 [facility] (disorder) 12:00:00 PM [facility] [phone] Tobacco user Tobacco user Complaint 11/13/2019 [facility] (finding) 12:00:00 PM [facility] [phone] Cannabis abuse Cannabis abuse Complaint 11/13/2019 [facility] (disorder) 12:00:00 PM [facility] [phone] Cocaine abuse Cocaine abuse Complaint 11/13/2019 [facility] (disorder) 12:00:00 PM [facility] [phone] Severe alcohol Severe alcohol Complaint 11/13/2019 [facility] dependence dependence 12:00:00 PM [facility] (disorder) [facility] Z68.28 Body mass index Body mass index Diagnosis 08/30/2019 [facility] (BMI) 28.0-28.9 (BMI) 28.0-28.9 12:00:00 AM ([facility] 08/31/2019 Healthcare) 12:00:00 AM EST F17.210 Nicotine Nicotine Diagnosis 08/30/2019 [facility] dependence, dependence, 12:00:00 AM ([facility] cigarettes, cigarettes, [facility] Family uncomplicated uncomplicated [facility]) Z71.6 Tobacco abuse Tobacco abuse Diagnosis 08/30/2019 [facility] counseling counseling 12:00:00 AM ([facility]) Z68.28 Body mass index Body mass index Diagnosis 08/29/2019 [facility] (BMI) 28.0-28.9 (BMI) 28.0-28.9 12:00:00 AM ([facility] 08[facility] Healthcare) 12:00:00 AM EST F34.1 Chronic depression Chronic depression Diagnosis 0 [facility] 12:00:00 AM ([facility]) E50.8 Xeroderma Xeroderma Diagnosis 08/29/2019 [facility] 12:00:00 AM ([facility]) B35.1 Onychomycosis Onychomycosis Diagnosis 08/29/2019 [facility] 12:00:00 AM ([facility]) L84 Hard corn Hard corn Diagnosis 08/29/2019 [facility] 12:00:00 AM ([facility]) E11.21 Type 2 diabetes Type 2 diabetes Diagnosis 08/29/2019 [facility] mellitus with mellitus with 12:00:00 AM ([facility] diabetic diabetic [facility] nephropathy nephropathy [facility]) E78.5 Hyperlipidemia, Hyperlipidemia, Diagnosis 08/29/2019 [facility] unspecified unspecified 12:00:00 AM ([facility]) F14.10 Cocaine abuse, Cocaine abuse, Diagnosis 08/29/2019 [facility] uncomplicated uncomplicated 12:00:00 AM ([facility]) Z87.891 Personal history of Personal history of Diagnosis 020 [facility] nicotine dependence nicotine dependence 12:00:0 0 AM ([facility]) Z11.1 Tuberculosis Tuberculosis Diagnosis 08/29/2019 [facility] screening screening 12:00:00 AM ([facility]) E55.9 Vitamin D Vitamin D [facility], 12:00:00 AM ([facility] unspecified unspecified [facility]) Z59.0 Homeless single Homeless single Diagnosis 08/29/2019 [facility] person person 12:00:00 AM ([facility]) 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 Diagnosis 08/29/2019 [facility] 12:00:00 AM ([facility]) F10.10 Alcohol abuse, Alcohol abuse, Diagnosis 08/29/2019 [facility] uncomplicated uncomplicated 12:00:00 AM ([facility]) H53.002 Amblyopia ex Amblyopia ex Problem 07/17/2019 eCW3 ([place] anopsia of left eye anopsia of left eye 12:00:0 0 AM [facility]) H52.13 Myopia, bilateral Myopia, bilateral Problem 07/17/2019 eCW3 ([place] 12:00:00 AM [facility]) H52.4 Presbyopia Presbyopia Problem 07/17/2019 eCW3 ([place] 12:00:00 AM [facility]) G56.02 Carpal tunnel Carpal tunnel Problem 07/16/2019 eCW3 (Hu dson syndrome, left syndrome, left 12:00:00 AM [facility]) F10.10 ETOH abuse ETOH abuse Problem 06/22/2019 eCW3 ([place] 12:00:00 AM [facility]) E11.69 Type 2 diabetes Type 2 diabetes Problem 06/19/2019 eCW3 ([place] mellitus with other mellitus with other 12:00:[address] 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 with hyperglycemia with hyperglycemia EDT Care) F14.10 Cocaine abuse Cocaine abuse Problem 05/31/2019 eCW3 (Hu dson 12:00:[address] [facility] EDT Care) F11.10 Opioid abuse, OPIOID ABUSE, Diagnosis 12/26/2019 [facility] connelly uncomplicated UNCOMPLICATED 01:25:00 PM Medical EDT Center F14.10 Cocaine abuse, COCAINE ABUSE, Diagnosis 12/26/2019 [facility] uncomplicated UNCOMPLICATED 01:25:00 PM Medical EDT Center E11.40 Type 2 diabetes TYPE 2 DIABETES Diagnosis 12/26/2019 Carlvanesa Torres mellitus with MELLITUS WITH 01:25:00 PM Medical diabetic DIABETIC EDT Center neuropathy, NEUROPATHY, UNSP unspecified F17.200 Nicotine NICOTINE Diagnosis 12/26/2019 [facility] dependence, DEPENDENCE, 01:25:00 PM Medical unspecified, UNSPECIFIED, EDT Center uncomplicated UNCOMPLICATED 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 12/26/2019 [facility] stress disorder, STRESS DISORDER, 01:25:00 PM M edical unspecified UNSPECIFIED EDT Center Z59.0 Homelessness HOMELESSNESS Diagnosis 12/26/2019 [facility] oMndragon phs 01:25:00 PM Medical EDT Center F32.9 Major depressive MAJOR DEPRESSIVE Diagnosis 12/15/2019 [facility] mueller Melissa disorder, single DISORDER, SINGLE 05:20:00 AM M edical episode, EPISODE, EDT Center unspecified UNSPECIFIED R76.11 Nonspecific NONSPECIFIC Diagnosis 12/10/2019 [facility] Jose serna reaction to REACTION TO SKIN 10:51:00 AM Medica l tuberculin skin TEST W/O ACTIVE EDT Cent er test without active TUBERCULOSIS tuberculosis Z71.41 Alcohol abuse ALCOHOL ABUSE Diagnosis 11/28/2019 [facility] connelly counseling and COUNSELING AND 11:25:00 AM Medic al surveillance of SURVEILLANCE OF EDT Cent er alcoholic ALCOHOLIC Z71.9 Counseling, COUNSELING, Diagnosis 11/28/2019 [facility] Jose serna unspecified UNSPECIFIED 11:25:00 AM Medical EDT Center Z71.6 Tobacco abuse TOBACCO ABUSE Diagnosis 11/28/2019 [facility] connelly counseling COUNSELING 11:25:00 AM Medical EDT Center E11.9 Type 2 diabetes TYPE 2 DIABETES Diagnosis 11/28/2019 Carl Torres mellitus without MELLITUS WITHOUT 11:25:00 AM M edical complications COMPLICATIONS EDT Center F10.20 Alcohol dependence, ALCOHOL DEPENDENCE, Diagnosis 020 [facility] Garcias uncomplicated UNCOMPLICATED 11:25:00 AM Medical EDT Center F11.20 Opioid dependence, OPIOID DEPENDENCE, Diagnosis 0 [facility]ias uncomplicated UNCOMPLICATED 11:25:00 AM Medical EDT Center F14.20 Cocaine dependence, COCAINE DEPENDENCE, Diagnosis 020 [facility] Garcias uncomplicated UNCOMPLICATED 11:25:00 AM Medical EDT Center Z71.51 Drug abuse DRUG ABUSE Diagnosis 11/27/2019 [facility] Garcias counseling and COUNSELING AND 03:41:00 PM Medic al surveillance of SURVEILLANCE OF EDT Cent er drug abuser DRUG ABUSER F10.230 Alcohol dependence ALCOHOL DEPENDENCE Diagnosis 0 [facility] with withdrawal, WITH WITHDRAWAL, 03:41:00 PM M edical uncomplicated UNCOMPLICATED EDT Center M25.562 Pain in left knee PAIN IN LEFT KNEE Diagnosis 11/26/2019 [facility] Garcias 03:17:00 PM Medical EDT Center F17.210 Nicotine NICOTINE Diagnosis 11/24/2019 [facility] dependence, DEPENDENCE, 08:50:00 AM Medical cigarettes, CIGARETTES, EDT Center uncomplicated UNCOMPLICATED I10 Essential (primary) ESSENTIAL (PRIMARY) Diagnosis 020 [facility] hypertension HYPERTENSION 08:50:00 AM Medical EDT Center Z76.5 Malingerer MALINGERER Diagnosis 11/24/2019 [facility] [conscious (CONSCIOUS 08:50:00 AM Medical simulation] SIMULATION) EDT Center M17.12 Unilateral primary UNILATERAL PRIMARY Diagnosis 0 [facility] Garcias osteoarthritis, OSTEOARTHRITIS, 08:50:00 AM Med ical left knee LEFT KNEE EDT Center Z71.89 Other specified OTHER SPECIFIED Diagnosis 11/19/2019 Carl Torres counseling COUNSELING 10:22:00 AM Medical EDT Center Z72.0 Tobacco use TOBACCO USE Diagnosis 11/19/2019 [place] [facility] 10:22:00 AM Medical EDT Center Z12.11 Encounter for ENCOUNTER FOR Diagnosis 11/19/2019 [facility] connelly screening for SCREENING FOR 10:22:00 AM Medical malignant neoplasm MALIGNANT NEOPLASM EDT Center of colon OF COLON M25.569 Pain in unspecified PAIN IN UNSPECIFIED Diagnosis [facility] knee KNEE 08:40:00 AM Medical EDT Center Z68.27 Body mass index BODY MASS INDEX Diagnosis 11/06/2019 Carl Torres (BMI) 27.0-27.9, (BMI) 27.0-27.9, 05:42:[address] [facility] adult ADULT EDT Center E11.42 Type 2 [...] STRESS DISORDER, 12:46:[address] 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) HALF-WAY (CURRENT) Diagnosis [facility] use of USE OF 01:58:00 AM [place] anticoagulants ANTICOAGULANTS EST Hospit [facility] Z79.84 intermediate (current) YARN SPOOLER (CURRENT) Diagnosis [facility] use of oral USE OF ORAL 01:58:00 AM [facility] hypoglycemic drugs HYPOGLYCEMIC DRUGS [facility] 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 mellitus without MELLITUS WITHOUT 01:58:00 AM [facility] [place] complications COMPLICATIONS [facility] R06.2 Wheezing WHEEZING Diagnosis 08/25/2019 [facility] 01:58:00 AM [facility] R07.9 Chest pain, CHEST PAIN, Diagnosis 08/25/2019 [facility] unspecified UNSPECIFIED 01:58:00 AM [facility] R05 Cough COUGH Diagnosis 08/25/2019 [facility] 01:58:00 AM [facility] J40 Bronchitis, not BRONCHITIS, NOT Diagnosis 08/25/2019 [facility] specified as acute SPECIFIED ACUTE 01:58:00 AM [place] or chronic OR CHRONIC [facility] Y90.2 Blood alcohol level BLOOD ALCOHOL LEVEL Diagnosis [place] of 40-59 mg/100 ml OF 40-59 MG/100 ML 03:31:00 AM [facility] [place] F10.10 Alcohol abuse, ALCOHOL ABUSE, Diagnosis 08/07/2019 [place] uncomplicated UNCOMPLICATED 03:31:00 AM [facility] Z79.4 salvage determiner (current) HALF-WAY (CURRENT) Diagnosis [facility] use of insulin USE OF INSULIN 04:31:00 AM [facility] Z87.891 Personal history of PERSONAL HISTORY OF Diagnosis [facility] nicotine dependence NICOTINE DEPENDENCE 04:31:0 0 AM [facility] F14.10 Cocaine abuse, COCAINE ABUSE, Diagnosis 08/04/2019 [facility] es uncomplicated UNCOMPLICATED 04:31:00 AM [facility] F10.20 Alcohol dependence, ALCOHOL DEPENDENCE, Diagnosis [address] [place] [address] uncomplicated UNCOMPLICATED 04:31:00 AM [facility] E78.5 Hyperlipidemia, HYPERLIPIDEMIA, Diagnosis 08/04/2019 [facility] unspecified UNSPECIFIED 04:31:00 AM [facility] I10 Essential (primary) ESSENTIAL (PRIMARY) Diagnosis [facility] hypertension HYPERTENSION 04:31:00 AM [facility] T40.5X1A Poisoning by POISONING BY Diagnosis 08/04/2019 [facility] cocaine, accidental COCAINE, ACCIDENTAL 04:31:0 0 AM [place] (unintentional), (UNINTENTIONAL), EST Ho spital - initial encounter Lenny gaspar Y90.9 Presence of alcohol PRESENCE OF ALCOHOL Diagnosis [place] in blood, level not IN BLOOD, LEVEL NOT 12:55:0 0 PM [facility] specified SPECIFIED EDT [facility] Z59.0 Homelessness HOMELESSNESS Diagnosis [facility]2019 [facility] F32.89 Other specified OTHER SPECIFIED Diagnosis 06/21/2019 [facility] depressive episodes DEPRESSIVE EPISODES 12:55:0 0 PM Regional EDT [facility] E11.9 Type 2 diabetes TYPE 2 DIABETES Diagnosis 06/21/2019 [facility] mellitus without MELLITUS WITHOUT 12:55:00 PM R egional complications COMPLICATIONS EDT Hospital [facility] G62.89 Other specified OTHER SPECIFIED Diagnosis 06/21/2019 [facility] polyneuropathies POLYNEUROPATHIES 12:55:00 PM R egional EDT Hospital [facility] K21.9 Gastro-esophageal GASTRO-ESOPHAGEAL Diagnosis 06/21/2019 [facility] reflux disease REFLUX DISEASE 12:55:00 PM Regio nal without esophagitis WITHOUT ESOPHAGITIS EDT [facility] E78.49 OTHER OTHER Diagnosis [facility] HYPERLIPIDEMIA 12:55:00 PM Regio nal EDT [facility] I10 Essential (primary) ESSENTIAL (PRIMARY) Diagnosis [facility] hypertension HYPERTENSION 12:55:00 [facility] EDT [facility] F10.288 Alcohol dependence ALCOHOL DEPENDENCE Diagnosis [place] with other WITH OTHER 12:55:00 PM [facility] alcohol-induced ALCOHOL-INDUCED EDT Hosp ital of disorder DISORDER [facility] F10.20 Alcohol dependence, ALCOHOL DEPENDENCE, Diagnosis [facility] un[facility]plicated UNCOMPLICATED 12:55:00 [facility] Z79.899 Other group home OTHER YARN SPOOLER Diagnosis 06/19/2019 [facility] (current) drug (CURRENT) DRUG 02:22:00 PM Regio nal therapy THERAPY EDT [facility] Z79.84 intermediate (current) HALF-WAY (CURRENT) Diagnosis 10/29/2 019 [place] use of oral USE OF ORAL 02:22:00 PM [facility] hypoglycemic drugs HYPOGLYCEMIC DRUGS EDT Hospital of [facility] Z88.6 Allergy status to ALLERGY STATUS TO Diagnosis 06/19/2019 [place] analgesic agent ANALGESIC AGENT 02:22:00 PM Reg ional status STATUS EDT Hospital of [facility] F13.10 Sedative, hypnotic SEDATIVE, HYPNOTIC Diagnosis 9 [place] or anxiolytic OR ANXIOLYTIC 02:22:00 PM [facility], EDT Hospital of uncomplicated UNCOMPLICATED [facility] F17.210 Nicotine NICOTINE Diagnosis 06/19/2019 [place] dependence, DEPENDENCE, 02:22:00 PM [facility] cigarettes, CIGARETTES, EDT Hospital of uncomplicated UNCOMPLICATED [facility] F14.288 Cocaine dependence COCAINE DEPENDENCE Diagnosis 9 [place] with other WITH OTHER 02:22:00 PM [facility] cocaine-induced COCAINE-INDUCED EDT Hosp ital of disorder DISORDER [facility] Y90.0 Blood alcohol level BLOOD ALCOHOL LEVEL Diagnosis [place] of less than 20 OF LESS THAN 20 02:22:00 PM Reg ional mg/100 ml MG/100 ML EDT Hospital of [facility] F10.239 Alcohol dependence ALCOHOL DEPENDENCE Diagnosis 9 [place] with withdrawal, WITH WITHDRAWAL, 02:22:00 PM R egional unspecified UNSPECIFIED EDT [facility] Z79.4 intermediate (current) HALF-WAY (CURRENT) Diagnosis [place] use of insulin USE OF INSULIN 12:37:00 AM Regio nal EDT Hospital of [facility] F17.200 Nicotine NICOTINE Diagnosis 05/25/2019 [place] dependence, DEPENDENCE, 12:37:00 AM [facility] unspecified, UNSPECIFIED, EDT Hospital o f uncomplicated UNCOMPLICATED [facility] R07.89 Other chest pain OTHER CHEST PAIN Diagnosis 05/25/2019 [place] 12:37:00 AM [facility] EDT [facility] F14.10 Cocaine abuse, COCAINE ABUSE, Diagnosis 05/25/2019 [place] uncomplicated UNCOMPLICATED 12:37:00 AM [facility] E78.5 Hyperlipidemia, HYPERLIPIDEMIA, Diagnosis 05/05/2019 [place] unspecified UNSPECIFIED 12:41:00 PM [facility] EDT [facility] of [facility] Z76.0 Encounter for issue ENCOUNTER FOR ISSUE Diagnosis 019 [place] of repeat OF REPEAT 12:41:00 PM Regional prescription PRESCRIPTION EDT Hospital o f [facility] Surgeries/Procedures Procedure Description Date Indications Data Source(s) OFFICE/OUTPATIENT VISIT, EST 12/10/2019 NEXTGEN ([facility] 12:00:00 AM [facility] EDT - [place]) 12/10/2019 12:00:00 AM EDT OFFICE/OUTPATIENT VISIT, EST 11/28/2019 NEXTGEN ([facility] [place] 11[facility]28[facility]2019 12:00:00 AM EDT Psychiatric Diagnostic 11/27/2019 NEXTG EN ([facility] Interview (45+ Min) [facility] 11/27/2019 12:00:00 AM EDT OFFICE/OUTPATIENT VISIT, EST 11/27/2019 NEXTGEN ([facility] [place] 11/27/2019 12:00:00 AM EDT OFFICE/OUTPATIENT VISIT, EST 11/26/2019 NEXTGEN ([facility] [place] 11/26/2019 12:00:00 AM EDT OFFICE/OUTPATIENT VISIT, EST 11/26/2019 NEXTGEN ([facility] [place] 11/26/2019 12:00:00 AM EDT OFFICE/OUTPATIENT VISIT, EST 11/19/2019 NEXTGEN ([facility] [place] 11/19/2019 12:00:00 AM EDT OFFICE/OUTPATIENT VISIT, EST 11/08/2019 NEXTGEN ([facility] 11/08/2019 12:00:00 AM EDT OFFICE/OUTPATIENT VISIT, EST 11/06/2019 NEXTGEN ([facility] 11/06/2019 12:00:00 AM EDT OFFICE/OUTPATIENT VISIT, EST 11/03/2019 NEXTGEN ([facility] [place] 11/03/2019 12:00:00 AM EDT OFFICE/OUTPATIENT VISIT, NEW 10/31/2019 NEXTGEN ([facility] 12:00:00 AM [facility] EDT - Center) 10/31/2019 12:00:00 AM EDT Oral medication 06/13/2019 eCW3 ([facility] administration, direct 12:00:00 AM [facility]) observation EDT Electrocardiographic procedure 05/25/2019 [facility] (procedure) 12:00:00 AM [facility] EDT Electrocardiographic procedure 05/25/2019 [facility] (procedure) 12:00:00 AM [facility] EDT Electrocardiographic procedure 05/25/2019 [facility] (procedure) 12:00:00 AM [facility] EDT Electrocardiographic procedure 05/25/2019 [facility] (procedure) 12:00:00 AM [facility] EDT Electrocardiographic procedure 05/25/2019 [facility] (procedure) 12:00:00 AM [facility] EDT Results ID Date Data Source [id number] 01/04/2020 05:45:00 PM EDT [facility] Name Value Range Interpretation Description Data Sup porting Code Source(s) Document(s ) SARS [facility] CORONAVIRUS 2 RNA This lab was ordered by [facility] Jessica Cano ct Bill Inter and reported by [facility]. ID Date Data Source [id number] 12/25/2019 07:35:00 AM EDT [facility] -0400 Name Value Range Interpretation Code Description Data Madalyn rce(s) Supporting Document(s ) UNK 4.2-5.8 Above high normal <content [facility] styleCode="Bold" Medical Cente r >Hemoglobin A1C </content>7.7 % H<content styleCode="Itali cs"> (4.2-5.8 %)</content> UNK 74-106 Above high normal <content [facility] styleCode="Bold" Medical Cente r >Glucose, Plasma </content>173 MG/DL H<content styleCode="Itali cs"> (74-106 MG/DL)</content> ID Date Data Source [id number] 12/17/2019 06:20:00 AM EDT [facility] Name Value Range Interpretation Description Data Sup porting Code Source(s) Document(s ) Thyrotropin 0.465-4. <content [facility] [Units/volume] 68 styleCode="Tosin Melissa in Serum or d">Thyroid Medical Plasma by Stimulating Center Detection Hormone limit <= 0.05 </content>0.97 mIU/L 2 MIU/L<content styleCode="Alyssa lics"> (0.465-4.68 MIU/L)</conten t> ID Date Data Source [id number] 12/17/2019 06:20:00 AM EDT [facility] -0400 Name Value Range Interpretation Code Description Data Madalyn rce(s) Supporting Document(s ) UNK 4.2-5.8 Above high normal <content [place] [facility] styleCode="Bold" Medical Cente r >Hemoglobin A1C </content>7.4 % H<content styleCode="Itali cs"> (4.2-5.8 %)</content> ID Date Data Source Urinalysis.[id number] 12/15/2019 05:46:00 AM EDT [facility] 0 Name Value Range Interpretation Description Data Sup porting Code Source(s) Document(s ) UNK CLEAR <content Saint styleCode="Tosin Melissa d">Urine Medical Clarity Center </content>FREDY R <content styleCode="Alyssa lics"> (CLEAR )</content> Glucose NEGATIVE <content Saint [Mass/volume] styleCode="Tosin Melissa in [...] Hemoglobin NEGATIVE <content Saint [Presence] in styleCode="Tosin Melissa Urine by Test d">Urine Blood Medical strip [...] by Test d">Urine Medical strip Specific Center [place] </content>>= 1.030 H<content styleCode="Alyssa lics"> (1.015-1.025 )</content> [...] Data Source Liver 12/15/2019 05:46:00 AM EDT [facility] Profile.[id number] Name Value Range Interpretation Description Data Sup [...] s"> (3.5-5.0 G/DL)</content> ID Date Data Source LIPID.[id number] 12/15/2019 05:46:00 AM EDT [facility] Name Value Range Interpretation Description Data Sup porting Code Source(s) Document(s ) UNK > 60 Below low normal <content Saint styleCode="Tosin Melissa d">HDL- Medical Cholesterol Center </content>60 MG/DL L<content styleCode="Alyssa lics"> (> 60 MG/DL)</conten t> UNK < 100 Above high normal <content Saint styleCode="Tosin Melissa d">LDL-Cholest Medical fab Center </content>141 MG/DL H<content styleCode="Alyssa lics"> (< 100 MG/DL)</conten t> Cholesterol -<200 Above high normal <content Saint [Mass/volume] in styleCode="[facility] Serum or Plasma d">Cholesterol Medical </content>215 Center MG/DL H<content styleCode="Alyssa lics"> (-<200 MG/DL)</conten t> Triglyceride < 150 <content Saint [Mass/volume] in styleCode="[facility] Serum or Plasma d">Triglycerid Medical es Center </content>68 MG/DL<content styleCode="Alyssa lics"> (< 150 MG/DL)</conten t> ID Date Data Source HematologyRou.[id number] 12/15/2019 05:46:00 AM EDT [facility] 0400 Name Value Range Interpretation Description Data [...] mean 8.0-11.0 <content Saint volume [Entitic styleCode="Bold [facility] volume] in Blood ">Mean Platelet Medical by Automated Volume Center count </content>9.0 FL<content styleCode="Ital ics"> (8.0-11.0 FL)</content> ID Date Data Source GFR(Creatinine).[id number] 12/15/2019 05:46:00 AM EDT [facility] 0-0400 Name Value Range Interpretation Code Description Data Madalyn rce(s) Supporting Document(s ) UNK > 60 <content Psychiatric styleCode="Bold"> Medical Cent er EGFR </content>98 GFR<content styleCode="Italic s"> (> 60 GFR)</content> ID Date Data Source CHMROUTINECCDA.[id number] 12/15/2019 05:46:00 AM EDT [facility] -0400 Name Value Range Interpretation Description Data Sup porting Code Source(s) Document(s ) Cannabinoids <content Saint [Presence] in styleCode="[facility] Urine by Screen d">Cannabinoid Medical method >50 ng/mL s Center </content>NEGA TIVE NG/ML (Reference Range: not available)<br/ > ID Date Data Source [facility].[id number] 12/15/2019 05:46:00 AM EDT [facility] Name Value Range Interpretation Description Data [...] MG/DL)</content> Alkaline 38-126 <content Saint phosphatase styleCode="Bold"> [facility] [Enzymatic Alkaline Medical activity/volume] Phosphatase (ALP) Cente r in Serum or Plasma </content>68 IU/L<content styleCode="Italic s"> (38-126 IU/L)</content> Alanine 7-50 <content Saint aminotransferase styleCode="Bold"> [facility] [Enzymatic Alanine Medical activity/volume] Aminotransferase Center in Serum or Plasma (ALT) </content>18 IU/L<content styleCode="Italic s"> (7-50 IU/L)</content> ID Date Data Source [id number] 12/15/2019 12:00:00 AM EDT [facility] Name Value Range Interpretation Code Description Data Madalyn rce(s) Supporting Document(s ) 2019-nCoV [facility] RNA XXX BUTCH+probe- Imp This lab was ordered by [facility] and reported by [employer]. ID Date Data Source CHMROUTINECCDA.[id number] 12/10/2019 12:45:00 PM EDT [facility] -0400 Name Value Range Interpretation Description Data Sup porting Code Source(s) Document(s ) Cannabinoids <content Saint [Presence] in styleCode="[facility] Urine by Screen d">Cannabinoid Medical method >50 ng/mL s Center </content>PRES UMPTIVE POSITIVE NG/ML (Reference Range: not available)<br/ > ID Date Data Source HematologyRou.[id number] 11/28/2019 12:22:00 PM EDT [facility] 0400 Name Value Range Interpretation Description Data [...] Hematocrit 41.0-53. <content Saint [Volume 0 styleCode="Bold [facility] Fraction] of ">Hematocrit Medical Blood [...] (< 1 %)</content> ID Date Data Source CHMROUTINECCDA.[id number] 11/28/2019 12:22:00 PM EDT [facility] -0400 Name Value Range Interpretation Description Data Sup porting Code Source(s) Document(s ) Cannabinoids <content Saint [Presence] in styleCode="Tosin [facility] Urine by Screen d">Cannabinoid Medical method >50 ng/mL s Center </content>NEGA TIVE NG/ML (Reference Range: not available)<br/ > ID Date Data Source Liver 11/27/2019 04:45:00 PM EDT [facility] Fibrosis.[id number] Name Value Range Interpretation Description Data Sup porting Code Source(s) Document(s ) Gamma glutamyl 15-73 <content Saint transferase styleCode="Tosin Melissa [Enzymatic d">GGT Medical activity/volume </content>29 Center ] in Serum or IU/L<content Plasma styleCode="Alyssa lics"> (15-73 IU/L)</content > ID Date Data Source Liver 11/27/2019 04:45:00 PM EDT [facility] Profile.[id number] Name Value Range Interpretation Description Data Sup [...] s"> (0.2-1.3 MG/DL)</content> ID Date Data Source GFR(Creatinine).[id number] 11/27/2019 04:45:00 PM EDT [facility] 0-0400 Name Value Range Interpretation Code Description Data Madalyn rce(s) Supporting Document(s ) UNK > 60 <content Melissa styleCode="Bold"> Medical Cent er EGFR </content>88 GFR<content styleCode="Italic s"> (> 60 GFR)</content> ID Date Data Source CHMROUTINECCDA.[id number] 11/27/2019 04:45:00 PM EDT [facility] -0400 Name Value Range Interpretation Description Data Sup porting Code Source(s) Document(s ) UNK >= 1.0 <content Saint styleCode="Tosin Torres d">AG Ratio Medical </content>1.6 Center <content styleCode="Alyssa lics"> (>= 1.0 )</content> Cannabinoids <content Saint [Presence] in styleCode="Tosin Torres Urine by Screen d">Cannabinoid Medical method >50 s Center ng/mL </content>NEGA TIVE NG/ML (Reference Range: not available)<br/ > UNK 2.3-3.5 <content Saint styleCode="Tosin Garcias d">Globulin Medical </content>2.9 Center G/DL<content styleCode="Alyssa lics"> (2.3-3.5 G/DL)</content > Protein 6.3-8.2 <content Saint [Mass/volume] styleCode="Tosin Torres in Serum or d">Total Medical Plasma Protein Center </content>7.5 G/DL<content styleCode="Alyssa lics"> (6.3-8.2 G/DL)</content > Gamma glutamyl 15-73 <content Saint transferase styleCode="Tosin Torres [Enzymatic d">GGT Medical activity/volume </content>29 Center ] in Serum or IU/L<content Plasma styleCode="Alyssa lics"> (15-73 IU/L)</content > ID Date Data Source [facility].[id number] 11/27/2019 04:45:00 PM EDT [facility] Name Value Range Interpretation Description Data Sup porting Code Source(s) Document(s ) Sodium 137-145 <content Saint [Moles/volume] in styleCode="Bold"> [facility] Serum or Plasma Sodium Medical </content>142 Center MEQ/L<content styleCode="Italic s"> (137-145 MEQ/L)</content> Potassium 3.5-5.3 <content Saint [Moles/volume] in styleCode="Bold"> [facility] Serum or Plasma Potassium Medical </content>4.2 Center [...] s"> (0.2-1.3 MG/DL)</content> ID Date Data Source CHMROUTINECCDA.[id number] 11/06/2019 07:21:00 PM EDT [facility] -0400 Name Value Range Interpretation Code Description Data Madalyn rce(s) Supporting Document(s ) UNK 4.2-5.8 Above high normal <content [place] s styleCode="Bold" Medical Cente r >Hemoglobin A1C </content>7.7 % H<content styleCode="Itali cs"> (4.2-5.8 %)</content> ID Date Data Source Urinalysis.[id number] 09/26/2019 01:44:00 AM EST [facility] 0 Name Value Range Interpretation Description Data Sup porting Code Source(s) Document(s ) UNK CLEAR <content Saint styleCode="Tosin Torres d">Urine Medical Clarity Center </content>Sl CLOUDY <content styleCode="Alyssa lics"> (CLEAR )</content> UNK NEGATIVE <content Saint styleCode="Tosin Garcias d">Urine Medical Bilirubin Center </content>NEGA TIVE <content [...] by Test d">Urine Medical strip Specific Center [place] </content>>= 1.030 H<content styleCode="Alyssa lics"> (1.015-1.025 )</content> Ketones NEGATIVE <content Saint [Mass/volume] styleCode="Tosin Garcias in Urine by d">Urine Medical Test strip Ketone Center </content>NEGA TIVE MG/DL<content styleCode="Alyssa lics"> (NEGATIVE MG/DL)</conten t> UNK 0-3 <content Saint styleCode="Tosin Melissa d">Urine Red Medical Blood Cell Center </content>0-3 HPF<content styleCode="Alyssa lics"> (0-3 HPF)</content> Protein NEGATIVE <content Saint [Mass/volume] styleCode="Tosin Garcias in Urine by d">Urine Medical Test strip Protein Center </content>NEGA TIVE MG/DL<content styleCode="Alyssa lics"> (NEGATIVE MG/DL)</conten t> Leukocyte NEGATIVE <content Saint esterase styleCode="Tosin Garcias [Presence] in d">Urine Medical Urine by Test [...] UNK NONE SEEN <content Saint styleCode="Tosin Melissa d">Urine Mucus Medical </content>MODE Center RATE HPF<content styleCode="Alyssa lics"> (NONE SEEN HPF)</content> UNK NONE SEEN <content Saint styleCode="Tosin Melissa d">Epithelial Medical Cell Center </content>0-2 HPF<content styleCode="Alyssa lics"> (NONE SEEN HPF)</content> ID Date Data Source HematologyRou.[id number] 09/26/2019 01:42:00 AM EST [facility] 0500 Name Value Range Interpretation Description Data Sup porting Code Source(s) Document(s ) Leukocytes 4.4-11.0 <content Saint [#/volume] in styleCode="[facility] Blood by ">White Blood Medical [...] (0.0 KCUMM)</content > ID Date Data Source GFR(Creatinine).[id number] 09/26/2019 01:42:00 AM [facility] 0-0500 Name Value Range Interpretation Code Description Data Madalyn rce(s) Supporting Document(s ) UNK > 60 <content Saint Melissa styleCode="Bold"> Medical Cent er EGFR </content>98 GFR<content styleCode="Italic s"> (> 60 GFR)</content> ID Date Data Source [employer]Markers.[id number] 09/26/2019 01:42:00 AM [facility] -0500 Name Value Range Interpretation Description Data Sup porting Code Source(s) Document(s ) Troponin < 0.034 <content Saint I.cardiac styleCode="Bold Melissa [Mass/volume ">Troponin I Medical ] in Serum </content>< Center or Plasma 0.012 NG/ML<content styleCode="Ital ics"> (< 0.034 NG/ML)</content > ID Date Data Source BMP.[id number] 09/26/2019 01:42:00 AM EST [facility] Name Value Range Interpretation Description [...] (0.5-1.3 MG/DL)</conten t> ID Date Data Source [id number] 08/29/2019 10:03:31 AM EST [facility]ric [facility] ([id number]) Name Value Range Interpretation Description Data [...] Family (procedure) Healthcare) ID Date Data Source [id number] 08/25/2019 12:25:00 PM EST [facility] DEPART MENT OF DIAGNOSTIC IMAGING Patient Name: ANNY HEBERT : 1960 Patient Addr.: [address] [facility], MR#: [id number] [place] [address] Patient Phone #: Dictate Date: 08/26/19 1710 Ordering M.D.: KELLE MONGE,CORRIE MONGE ID: CHJON Trans Date: Copies to: ; CC ID: ; Patient Loc: Rhonda Healy413-02 Report #: [id number] Order Number(s): [id number] Site: [facility] Exam Date/Time: 1- Exam: EKG, Routine 12 Lead PROCEDURE: EKG, 12 LEAD ROUTINE COMPARISON: None. Ventricular Rate: 98.00 BPM ME Interval: 168.00 ms Q RS Duration: 90.00 ms PRT [place]: 57 -16 55 QT/QTC 370/472 CONCLUSION : NORMAL SINUS RHYTHM ANTERIOR INFARCT , AGE UNDETERMINED ABNORMAL ECG Dictated by: Kamryn Bennett MD on 08/26/2019 at 5:10 PM Approved by : Kamryn Bennett MD on 08/26/2019 at 5:10 PM APPENDIX: Signed: 08/26/19 1710 KAMRYN BENNETT MD TRN: TBY Name Value Range Interpretation Code Description Data Madalyn rce(s) Supporting Document(s ) ID Date Data Source [id number] 08/25/2019 06:20:00 [facility]: ANNY HEBERT STATUS: REG ERACCOUNT #: [id number] SERVICE UNIT #: [id number] LOCAT ION: NirajERSEX: Daniel PCP PHYS: [facility] 56 AGE: 58 General Medical HPI Current [...] DAY AGO History of Prese nt IllnessInitial Nubhmbyw60 y/o male presents to the ED w/ [...] primary doctor who referred him to a assistant teacher primary which he did not see due to [...] 08/25/19 at 0421 Last lab resultsOther Imaging [place], [place] [address]Tel: CLICK HERE TO VIEW [facility]AM [facility] : 1960Patient Address: [address] [place] [address] MR #: [id number] [place] [address] Phone#: Patient Location: .ERORDERED BY: DAFNE VAUGHN EXAM DATE/TIME: 08/25/2019 / 2:40 AMCopies to: MARV GENAO CHEST, 2 VIEW S PA/LAT ROUTINE NPCOMPARISON: [facility], XR, CXRP, 08/04/2019, 0:31 AM.INDICATIONS: chest [...] I < 0.015 0.015 - 0.045 ng/mL Vwh-L-Fjmzcalsbti Pept 39 5 - 125 pg/mL Total [...] PUFF INH Q4H PRN SOB #8 [facility] ([facility]) Counseled Pt Regarding alcohol cessation, smoking cessation, discussed with pt for3m, diagnosis, follow up treatments, lab results, follow up with MD, medication use, radiology resultsAdditional Instructions Number of days off work/school: none Continue your present medications Prescriptions provid ed- Refer to Medication Reconciliation Patient Discharge Summary Procedures Per formed: none Follow up with [facility] cardiology for further evalua tion. Take medications as prescribed. Stop smoking and drug use. Return if any wors ening of symptoms or any concerns. Portions of this section were scribed by HAMLET EUGENE on 08/25/19 at 0421 a t 0620 DAFNE VAUGHN NP Electronically Signed 08/25/19 062 0 Providers:RULA VAUGHN NP, DO, SCOTTReport Entered Date/Time: 0421Current Report Status: Signed Report #: [id number] PCP ID: [facility] ATTENDING ID: [id number] AUTHOR ID: SANAM Navarrete Value Range Interpretation Code Description Data Madalyn rce(s) Supporting Document(s ) ID Date Data Source [id number] 08/25/2019 04:25:00 AM [facility] DEPART MENT OF DIAGNOSTIC IMAGING Patient Name: ANNY HEBERT : 1960 Patient Addr.: [address] [facility], MR#: [id number] [place] [address] Patient Phone #: Dictate Date: 08/25/19 031 Ordering MCristina: DAFNE VAUGHN NP, MD ID: SANAM Ewing Date: Copies to: DAFNE VAUGHN NP; CC ID: ; Patient Loc: L.ER Report #: [id number] Order Number(s): [id number] Site: [facility] Exam Date/Time: 08/25 Exam: CHEST, 2 VIEWS PA/LAT ROUT BOOTH CLEANER PROCEDURE: CHEST, 2 VIEWS PA/L AT ROUTINE BOOTH CLEANER COMPARISON: [facility], XR, CXRP, 08/04/2019, 0:31 AM. INDICATIONS: [...] Supporting Document(s ) ID Date Data Source [id number] 08/25/2019 03:31:00 AM EST [facility] Name Value Range Interpretation Code Description Data Madalyn rce(s) Supporting Document(s ) GLUCOSE 116 mg/dL 74-106 Above high normal [facility] BUN 11 mg/dL 7-18 [facility] 0.981 EST.GLOMERULAR FILTRATION RATE 77.67 mL/min >=60.0 [facility] EST.GFR 93.98 mL/min >=60.0 [facility] PHARMACY COCKCROFT-GAULT CRCLR 80.08 mL/min >=60.00 [facility] 0.981 BUN/CREAT RATIO 11.2 6.0-20.0 [facility] SODIUM 142 mmol/L 135-145 [facility] POTASSIUM 3.8 mmol/L 3.5-5.1 [facility] CHLORIDE 108 mmol/L 98-107 Above high normal [facility] CO2 30 mmol/L 21-32 [facility] ANION GAP 4.0 mmol/L 8-20 Below low normal [facility] AST 20 U/L 15-37 [facility] ALK PHOS 65 U/L 45-117 [facility] TOTAL BILIRUBIN 0.5 mg/dL 0.2-1.0 [facility] TOTAL PROTEIN 6.8 g/dL 6.4-8.2 [facility] ALBUMIN 3.4 g/dL 3.4-5.0 [facility] GLOBULIN 3.4 g/dL 2.6-3.8 [facility] A/G RATIO CALCULATION 1.0 1.0-5.0 [facility] CALCIUM 8.8 mg/dL 8.5-10.1 [facility] ALTI 20 U/L 16-61 [facility] OSMOLALITY CALCULATION 283 mos/kg 273-304 [facility] ID Date Data Source [id number] 08/25/2019 03:31:00 AM EST [facility] Name Value Range Interpretation Description Data Sup porting Code Source(s) Document(s ) TROPONIN I < 0.015 0.015-0.0 [facility] ng/mL [address] [place] [address] RESULT RANGE INTERPRETATION:0.046 - 0.1 NG/ML = INTERMEDIATE RISK OF OR NON-FATALAMI0.11 - 0.59 NG/ML = HIGH RI SK OF OR NON-FATAL AMI>0.6 NG/ML = SUGGESTS AMI. [facility]ENT WITH [facility]. CRITERIAAMENDED 06-15-10 ID Date Data Source [id number] 08/25/2019 03:31:00 AM EST [facility] Name Value Range Interpretation Description Data Sup porting Code Source(s) Document(s ) NT-PRO B 39 pg/mL 5-125 [facility] Recommended medical decision thresholds, by age group, are:Patients < 75 years: 125 pg/mLPatients >= 75 years: 450 pg/ mL ID Date Data Source [id number] 08/25/2019 03:31:00 AM EST [facility] Name Value Range Interpretation Code Description Data Madalyn rce(s) Supporting Document(s ) AMYLASE 31 U/L 25.0-115.0 [facility] ID Date Data Source [id number] 08/25/2019 03:31:00 AM EST [facility] Name Value Range Interpretation Code Description Data Madalyn rce(s) Supporting Document(s ) LIPASE 49 U/L 73.0-393.0 Below low normal [facility] ID Date Data Source [id number] 08/25/2019 03:13:00 AM EST [facility] Name Value Range Interpretation Description Data Sup porting Code Source(s) Document(s ) WBC 5.90 K/uL 4.00-10.[address] RBC 4.57 M/uL 4.63-6.08 Below low normal [facility] HGB 13.0 g/dL 13.7-17.5 Below low normal [facility] HCT 40.2 % 40.1-51.0 [facility] MCV 88.0 fL 80.0-96.0 [facility] MCH 28.4 pg 27.0-33.2 [facility] MCHC 32.3 g/dL 32.2-35.5 [facility] RDW 12.5 % 11.6-14.4 [facility] PLT 244 K/uL 150-450 [facility] MPV 9.3 fL 8.5-11.8 [facility] [place]% 58.1 % 38.9-69.8 [facility] LYM% 30.8 % 21.7-51.7 [facility] MONO% 8.8 % 4.7-12.2 [facility] EOS% 1.5 % 0.8-7.0 [facility] BASO% 0.5 % 0.1-1.2 [facility] IMMATURE 0.3 % 0.1-0.3 [facility] GRANULOCYTE% [facility] The immature granulocyte count is an enu meration ofmetamyelocytes, myelocyte, and promyelocytes present in [facility] blood sa mple. It does not include band neutrophilforms. ABSOLUTE NEUTROPHIL COUNT 3.42 K/uL 1.46-7.12 [facility] LYM# 1.82 K/uL 0.92-4.30 [facility] MONO# 0.52 K/uL 0.24-0.86 [facility] EOSIN# 0.09 K/uL 0.04-0.54 [facility] BASO# 0.03 K/uL 0.01-0.08 [facility] IMMATURE GRANULOCYTES# 0.02 K/uL 0.01-0.03 [facility] NRBC 0.0 /100WBC 0.0-0.2 [facility] ID Date Data Source [id number] 08/05/2019 05:17:[address]: ANNY HEBERT STATUS: DIS INACCOUNT #: [id number] ADM UNIT #: [id number] ROOM/BED: L.[id number]: M ATTEND: CORRIE NINA MDDOB: [birth year] AGE: 58 AUTHOR: CORRIE NINA MD PCP: ADELIA JIMÉNEZ MD Service Date/Time: 08/05/19 1337 Discha rge Summary.Date of Admission: 08/04/19Date of Discharge: 08/05/19Disposition: ho meCourse of Hospitalization: 58 year old M [...] diabe farooq mellitus without complications; Z79.4 - intermediate (current) use of insulin 4. A lcoholic ICD Code F10.20 - Alcohol dependence, uncomplicated Assess Plan: On Sat 6:43a Aug 04, 2019 BRICE ANDERSON wrote - panel monitor.- trend t roponin/CPK- patient refused aspirin- Nitro [...] 603 Potassium (3.5 - 5.1 mmol/L) 4.0 12/ 0603 Chloride (98 - 107 mmol/L) 110 12/ 0603 Carbon Dioxide (21 - 32 mmol/L) 28 12 0603 Anion Gap (8 - 20 mmol/L) 3.0 08/05 603 BUN (7 - 18 mg/dL) 12 08/05 [...] Phosphatase (45 - 117 U/L) 71 08/04 07 Total Creatine Kinase (39 - 308 U/L) 366 08/04 708 CK-MB (CK-2) (1.0 - 3.6 ng/mL) 3.1 08/04 708 Troponin I (0.015 - 0.045 ng/mL) < 0.015 08/04 1319 Total Protein (6.4 - 8.2 g/dL) 6.6 08/04 07 Albumin (3.4 - 5.0 g/dL) 3.5 07 Globulin (2.6 - 3.8 g/dL) 3.1 08/04 708 Albumin/Globulin Ratio (1.0 - 5.0) 1.1 08/04 708 Coronary Risk Interp (0.0 - 2.1 %) 0.8 08/04 708 Lipase (73.0 - 393. 0 U/L) 68 08/04 708 Test Result Date Time Hematology WBC (4.00 - 10.00 K/uL) 6.17 08/04 708 Hgb (13.7 - 17.5 g/dL) 13 .5 08/04 708 Hct (40.1 - 51.0 %) 41.1 08/04 708 Plt Count (150 - 450 K/uL) 243 08/04 708 Core Measures Stroke/T IANew Onset STK/TIA? No Hospitalist CCCCCC: [] Time spent on discharge: [] >40 minut es Billing Inpatient CodesDischarge [id number] at 1716 CORRIE NINA MD Electronically S igned 08/05/19 1716 Providers:CORRIE NINA MD Report Entered Date/Time: 08/05/19 1337Current Report Status: Signed Report #: [id number] PCP ID: BONY Cruz ATTENDING ID: JASBIR AUTHOR ID: JASBIR Name Value Range Interpretation Code Description Data Madalyn rce(s) Supporting Document(s ) ID Date Data Source [id number] 08/05/2019 07:18:[address] [address] PATIENT: ANNY HEBERT STATUS: ADM INACCOUNT #: [id number] ADM UNIT #: [id number] ROOM/BE D: 413-02SEX: M ATTEND: CORRIE NINA MDDOB: AGE: 58 [...] diabetes mellitus without compl ications; Z79.4 - intermediate (current) use of insulin 4. Alcoholic ICD Code F10.20 - Alcohol dependence, uncomplicated Assess Plan:On Sat 6:43a Aug 04, 2019 CHRISTELLE ANDERSON wrote - panel monitor.- trend troponin/CPK- patient refused aspirin- N itro [...] 08/05/19 0718Current Report Status: Draft Report #: [id number] PCP ID: TIBJ O ATTENDING ID: JASBIR AUTHOR ID: JASBIR Name Value Range Interpretation Code Description Data Madalyn rce(s) Supporting Document(s ) ID Date Data Source [id number] 08/05/2019 06:57:00 AM EST [facility] Name Value Range Interpretation Code Description Data Madalyn rce(s) Supporting Document(s ) GLUCOSE 210 mg/dL 74-106 Above high normal [facility] BUN 12 mg/dL 7-18 [facility] 1.010 EST.GLOMERULAR FILTRATION RATE 75.12 mL/min >=60.0 [facility] EST.GFR 90.89 mL/min >=60.0 [facility] PHARMACY COCKCROFT-GAULT CRCLR 75.25 mL/min >=60.00 [facility] 1.010 BUN/CREAT RATIO 11.8 6.0-20.0 [facility] SODIUM 141 mmol/L 135-145 [facility] POTASSIUM 4.0 mmol/L 3.5-5.1 [facility] CHLORIDE 110 mmol/L 98-107 Above high normal [facility] CO2 28 mmol/L 21-32 [facility] ANION GAP 3.0 mmol/L 8-20 Below low normal [facility] Cor [facility] CALCIUM 8.6 mg/dL 8.5-10.1 [facility] OSMOLALITY CALCULATION 287 mos/kg 273-304 [facility] ID Date Data Source [id number] 08/04/2019 09:36:[address] [facility] PATIENT: ANNY HEBERT STATUS: ADM INACCOUNT #: [id number] ADM UNIT #: [id number] ROOM/BED: [place] [address]SEX: M ATTEND: KINZA NINA MDDOB: [birth year] AGE: 58 AUTHOR: BRICE ANDESRON MD PCP: ADELIA JIMÉNEZ MD Service Date/Time: [...] c ardiac history. Does not see a assistant teacher primary. Initial cardiac workup in ER is negativ e.] Past Medical History: DIABETES Past Surgical History: DENIES Medications: AllergiesCoded Allergies:No Known Drug Allergies (08/04/19)aspirin (VOMITING ) Social/Family HistorySocial History Cocaine abuse, alcoholic Objective.Heigh t: ft: 5 in: 8 cm: 172.7 Weight: lbs: 170 k.111 BMI: 25.854BMI Classification: Overweigh t Date: 08/03/19 Time: 3Vital Signs Result Date Time Pulse Ox 100 [...] (0.015 - 0.045 ng/mL) < 0.015 08/04 0145 Hematology WBC (4.00 - 10.00 K/uL) 6.91 [...] 2 diabetes mellitus without complications; Z79.4 - salvage determiner (current) use of insulin 4. Alcoholic ICD Code F10.20 - Alcohol dependence, uncomp licated Assess Plan: - panel monitor.- trend troponin/CPK- patient re fused aspirin- Nitro [...] resumed by daytime attending. Billing Inpatient CodesInitial/Cons 01225 Electr onically Signed by BRICE ANDERSON MD on 08/04/19 at 2136 BRICE ANDERSON MD E lectronically Signed 08/04/192135 Providers:BRICE ANDERSON MD Report Entered D ate/Time: 08/04/19 0603Current Report Status: Signed Report #: [id number] PCP ID: JHONATHAN ATTENDING ID: [id number] AUTHOR ID: ALEC Name Value Range Interpretation Code Description Data Madalyn rce(s) Supporting Document(s ) ID Date Data Source [id number] 08/04/2019 11:45:00 AM EST [facility] DEPART MENT OF DIAGNOSTIC IMAGING Patient Name: ANNY HEBERT : 1960 Patient Addr.: [address] , MR#: [id number] [place] [address] Patient Phone #: Dictate Date: 08/04/19 1516 Ordering M.DRk: RBANDY WILLIS MD ID: GEORGINA Trans Date: Copies to: ; CC ID: ; Patient Loc: Niraj4N [id number] Report #: [id number] Order Number(s): 1- 1 [id number] Site: [facility] Exam Date/Time: 1- Exam: EKG, Routine 12 Lead PROCEDURE: EKG, 12 LEAD ROUTINE COMPARISON: None. Ventricular Rate: 72.00 BPM ME Interval: 180.00 ms Q RS Duration: 100.00 ms PRT [place]: 27 -29 8 QT/QTC 392/429 CONCLUSION: NORMAL SINUS RHYTHM ANTERIOR INFARCT , AGE UNDETERMINED ABNORMAL ECG Dictated by: Paolo Carpenter MD on 08/04/2019 at 3:15 PM Approved by : Paolo Carpenter MD on 08/04/2019 at 3:16 PM APPENDIX: Signed: 08/04/19 1516 PAOLO CARPENTER MD TRN: TBY Name Value Range Interpretation Code Description Data Madalyn rce(s) Supporting Document(s ) ID Date Data Source [id number] 08/04/2019 01:54:00 PM EST [facility] Name Value Range Interpretation Description Data Sup porting Code Source(s) Document(s ) TROPONIN I < 0.015 0.015-0.0 [facility] ng/mL 45 [facility] RESULT RANGE INTERPRETATION:0.046 - 0.1 NG/ML = INTERMEDIATE RISK OF OR NON-FATALAMI0.11 - 0.59 NG/ML = HIGH RI SK OF OR NON-FATAL AMI>0.6 NG/ML = SUGGESTS AMI. [facility]. CRITERIAAMENDED 06-15-10 ID Date Data Source [id number] 08/04/2019 07:56:00 AM EST [facility] Name Value Range Interpretation Code Description Data Madalyn rce(s) Supporting Document(s ) GLUCOSE 191 mg/dL 74-106 Above high normal [facility] BUN 15 mg/dL 7-18 [facility] 1.140 EST.GLOMERULAR FILTRATION RATE 65.32 mL/min >=60.0 [facility] EST.GFR 79.04 mL/min >=60.0 [facility] PHARMACY COCKCROFT-GAULT CRCLR 66.67 mL/min >=60.00 [facility] 1.140 BUN/CREAT RATIO 13.1 6.0-20.0 [facility] SODIUM 140 mmol/L 135-145 [facility] POTASSIUM 3.9 mmol/L 3.5-5.1 [facility] CHLORIDE 108 mmol/L 98-107 Above high normal [facility] CO2 30 mmol/L 21-32 [facility] ANION GAP 2.0 mmol/L 8-20 Below low normal [facility] Cor [facility] CALCIUM 8.7 mg/dL 8.5-10.1 [facility] OSMOLALITY CALCULATION 285 mos/kg 273-304 [facility] ID Date Data Source [id number] 08/04/2019 09:46:00 AM EST [facility] Name Value Range Interpretation Description Data Sup porting Code Source(s) Document(s ) AST 18 U/L 15-37 [facility] ALK PHOS 71 U/L 45-117 [facility] TOTAL 0.4 0.2-1.0 [facility] BILIRUBIN mg/dL [facility] DIRECT 0.12 0.00-0.2 [facility] BILIRUBIN mg/dL 0 [facility] INDIRECT BILI 0.3 0.2-0.8 [facility] mg/dL [facility] TOTAL PROTEIN 6.6 g/dL 6.4-8.2 [facility] ALBUMIN 3.5 g/dL 3.4-5.0 [facility] GLOBULIN 3.1 g/dL 2.6-3.8 [facility] A/G RATIO 1.1 1.0-5.0 [facility] CALCULATION [facility] ALTI 26 U/L 16-61 [facility] ID Date Data Source [id number] 08/04/2019 07:56:00 AM EST [facility] Name Value Range Interpretation Code Description Data Madalyn rce(s) Supporting Document(s ) CPK 366 U/L 39-308 Above high normal [facility] ID Date Data Source [id number] 08/04/2019 09:00:00 AM EST [facility] Name Value Range Interpretation Code Description Data Madalyn rce(s) Supporting Document(s ) CKMB 3.1 ng/mL 1.0-3.6 [facility] NOTE: NEW AMENDED NORMAL RANGENon-AMI: <=5.0AMI: >5.0 ID Date Data Source [id number] 08/04/2019 09:00:00 AM EST [facility] Name Value Range Interpretation Code Description Data Madalyn rce(s) Supporting Document(s ) RI 0.8 % 0.0-2.1 [facility] ID Date Data Source [id number] 08/04/2019 07:56:00 AM EST [facility] Name Value Range Interpretation Description Data Sup porting Code Source(s) Document(s ) TROPONIN I < 0.015 0.015-0.0 [facility] ng/mL 45 [facility] RESULT RANGE INTERPRETATION:0.046 - 0.1 NG/ML = INTERMEDIATE RISK OF OR NON-FATALAMI0.11 - 0.59 NG/ML = HIGH RI SK OF OR NON-FATAL AMI>0.6 NG/ML = SUGGESTS AMI. CONSISTENT WITH [facility] ORG. CRITERIAAMENDED 06-15-10 ID Date Data Source [id number] 08/04/2019 07:56:00 AM EST [facility] Name Value Range Interpretation Description Data Sup porting Code Source(s) Document(s ) PHOSPHORUS 2.5 mg/dL 2.5-4.9 [facility] ID Date Data Source [id number] 08/04/2019 09:46:00 AM EST [facility] Name Value Range Interpretation Code Description Data Madalyn rce(s) Supporting Document(s ) LIPASE 68 U/L 73.0-393.0 Below low normal [facility] ID Date Data Source [id number] 08/04/2019 07:56:00 AM EST [facility] Name Value Range Interpretation Description Data Sup porting Code Source(s) Document(s ) MAGNESIUM 2.3 mg/dL 1.8-2.4 [facility] ID Date Data Source [id number] 08/04/2019 07:56:00 AM EST [facility] Name Value Range Interpretation Code Description Data Madalyn rce(s) Supporting Document(s ) ALCOHOL-E < 3 mg/dL 0-300 [facility] CLINICALLY TOXIC AT > 400 MG/DL. ID Date Data Source [id number] 08/04/2019 07:19:00 AM EST [facility] Name Value Range Interpretation Description Data Sup porting Code Source(s) Document(s ) WBC 6.17 K/uL 4.00-10.[address] RBC 4.69 M/uL 4.63-6.08 [facility] HGB 13.5 g/dL 13.7-17.5 Below low normal [facility] HCT 41.1 % 40.1-51.0 [facility] MCV 87.6 fL 80.0-96.0 [facility] MCH 28.8 pg 27.0-33.2 [facility] MCHC 32.8 g/dL 32.2-35.5 [facility] RDW 12.9 % 11.6-14.4 [facility] PLT 243 K/uL 150-450 [facility] MPV 8.7 fL 8.5-11.8 [facility] WOODROW% 53.3 % 38.9-69.8 [facility] LYM% 32.7 % 21.7-51.7 [facility] MONO% 10.7 % 4.7-12.2 [facility] EOS% 2.4 % 0.8-7.0 [facility] BASO% 0.6 % 0.1-1.2 [facility] IMMATURE 0.3 % 0.1-0.3 [facility] GRANULOCYTE% [facility] The immature granulocyte count is an enu meration ofmetamyelocytes, myelocyte, and promyelocytes present in [facility] blood sa mple. It does not include band neutrophilforms. ABSOLUTE NEUTROPHIL COUNT 3.28 K/uL 1.46-7.12 [facility] LYM# 2.02 K/uL 0.92-4.30 [facility] MONO# 0.66 K/uL 0.24-0.86 [facility] EOSIN# 0.15 K/uL 0.04-0.54 [facility] BASO# 0.04 K/uL 0.01-0.08 [facility] IMMATURE GRANULOCYTES# 0.02 K/uL 0.01-0.03 [facility] NRBC 0.0 /100WBC 0.0-0.2 [facility] ID Date Data Source [id number] 08/04/2019 04:30:[address] [facility] PATIENT: ANNY HEBERT STATUS: REG ERACCOUNT #: [id number] SERVICE UNIT #: [id number] LOCAT ION: L.ERSEX: M PCP PHYS: TINO MONGE,NORMAEDOB: AGE: 58 General Medical HPI Current HistoryAllergiesCode d Allergies:aspirin (VOMITING 08/04/19) GeneralChief Complaint CHEST PAIN (ANY)G reet ifit0024 Date seen 08/04/19Time seen 0022History from patient Past Medical/Fa helga HistoryPrior Medical [...] ANNY HEBERT : 1960[address] Address[address] MR #: [id number] [place] [address] Phone#: [facility] Dayo Y: BRANDY HORN STEPHANIE EXAM DATE/TIME: 08/04/2019 / 0:31 AMCopies to: JONATHAN SOMMERS MD NO DOCTOR PATIENT- N. SPECIALIST/PCPAccession : [id number]: CHEST 1 VIEW, AP PORTABLE ROUTINECOMPARISON: [...] Decision Dt 08/04/19Hosp or Disch Decision Tm 0424AdmittingLAL ,BA LIKADiscussion with attending case discussed fully, aware-ED workup/findings, agree w /management/plan, accept transfer of careDisposition [facility] EDClinical ImpressionPrimary Impression: Chest painQualifiers: Chest pain type: unspecified Qualified Code: R07.9 - Chest pain, unspecifiedSecondary Impressions: Alcoholic, Cocaine abuse, Insulin dependent diabetes mellitusCondition StableReferra ADELIA Morgan MD (PCP) at 0430 BRANDY WILLIS Electronically Signed 08/04/19 043 0 Providers:RUTH WILLIS MD,SYEDReport Entered Date/Time: 9 0308Current Report Status: Signed Report #: [id number] PCP ID: [id number] ATTENDING ID: ABUSY AUTHOR ID: GEORGINA Name Value Range Interpretation Code Description Data Madalyn rce(s) Supporting Document(s ) ID Date Data Source [id number] 08/04/2019 02:20:00 AM EST [facility] Name Value Range Interpretation Code Description Data Madalyn rce(s) Supporting Document(s ) GLUCOSE 209 mg/dL 74-106 Above high normal [facility] BUN 15 mg/dL 7-18 [facility] 1.100 EST.GLOMERULAR FILTRATION RATE 68.07 mL/min >=60.0 [facility] EST.GFR 82.37 mL/min >=60.0 [facility] PHARMACY COCKCROFT-GAULT CRCLR 69.09 mL/min >=60.00 [facility] 1.100 BUN/CREAT RATIO 13.6 6.0-20.0 [facility] SODIUM 141 mmol/L 135-145 [facility] POTASSIUM 3.7 mmol/L 3.5-5.1 [facility] CHLORIDE 110 mmol/L 98-107 Above high normal [facility] CO2 29 mmol/L 21-32 [facility] ANION GAP 2.0 mmol/L 8-20 Below low normal [facility] CALCIUM 8.8 mg/dL 8.5-10.1 [facility] OSMOLALITY CALCULATION 288 mos/kg 273-304 [facility] ID Date Data Source [id number] 08/04/2019 02:20:00 AM EST [facility] Name Value Range Interpretation Description Data Sup porting Code Source(s) Document(s ) TROPONIN I < 0.015 0.015-0.0 [facility] ng/mL 45 [facility] RESULT RANGE INTERPRETATION:0.046 - 0.1 NG/ML = INTERMEDIATE RISK OF OR NON-FATALAMI0.11 - 0.59 NG/ML = HIGH RI SK OF OR NON-FATAL AMI>0.6 NG/ML = SUGGESTS AMI. [facility]STENT WITH [facility]. CRITERIAAMENDED 06-15-10 ID Date Data Source [id number] 08/04/2019 01:56:00 AM EST [facility] Name Value Range Interpretation Description Data Sup porting Code Source(s) Document(s ) WBC 6.91 K/uL 4.00-10.[address] RBC 4.57 M/uL 4.63-6.08 Below low normal [facility] HGB 13.0 g/dL 13.7-17.5 Below low normal [facility] HCT 39.6 % 40.1-51.0 Below low normal [facility] MCV 86.7 fL 80.0-96.0 [facility] MCH 28.4 pg 27.0-33.2 [facility] MCHC 32.8 g/dL 32.2-35.5 [facility] RDW 12.6 % 11.6-14.4 [facility] PLT 233 K/uL 150-450 [facility] MPV 8.7 fL 8.5-11.8 [facility] [place]% 50.3 % 38.9-69.8 [facility] LYM% 38.4 % 21.7-51.7 [facility] MONO% 8.8 % 4.7-12.2 [facility] EOS% 2.0 % 0.8-7.0 [facility] BASO% 0.4 % 0.1-1.2 [facility] IMMATURE 0.1 % 0.1-0.3 [facility] GRANULOCYTE% [facility] The immature granulocyte count is an enu meration ofmetamyelocytes, myelocyte, and promyelocytes present in [facility] blood sa mple. It does not include band neutrophilforms. ABSOLUTE NEUTROPHIL COUNT 3.47 K/uL 1.46-7.12 [facility] LYM# 2.65 K/uL 0.92-4.30 [facility] MONO# 0.61 K/uL 0.24-0.86 [facility] EOSIN# 0.14 K/uL 0.04-0.54 [facility] BASO# 0.03 K/uL 0.01-0.08 [facility] IMMATURE GRANULOCYTES# 0.01 K/uL 0.01-0.03 [facility] NRBC 0.0 /100WBC 0.0-0.2 [facility] ID Date Data Source [id number] 08/04/2019 01:21:00 AM EST [facility] DEPART MENT OF DIAGNOSTIC IMAGING Patient Name: ANNY HEBERT : 1960 Patient Addr.: [address], MR#: [id number] [place] [address] Patient Phone #: Dictate Date: 08/04/19100 Ordering Tdo: BRANDY WILLIS MD ID: [id number] Trans Date: Copies to: NNEKA ALVES REBECCA; CC ID: ; Patient Loc: L.4N [id number].[id number] Report #: [id number] Order Number(s): 1- 1 [id number] Site: [facility] Exam Date/Time: 08/04/19120 Exam: CHEST 1 VIEW [...] Supporting Document(s ) ID Date Data Source [id number] 06/24/2019 04:55:00 AM EST [facility] Name Value Range Interpretation Code Description Data Supporting Source(s) Document(s ) Troponin- <0.03 <=0.05 NO [facility] I ng/mL [facility] ID Date Data Source [id number] 06/24/2019 04:51:00 AM EST [facility] Name Value Range Interpretation Description Data Sup porting Code Source(s) Document(s ) Amylase Lvl 45 IU/L 28-[address] [facility] ID Date Data Source [id number] 06/24/2019 04:45:00 AM EST [facility] Added by Discern Rule GLB_ADD_GFR_BMP Name Value Range Interpretation Code Description Data Madalyn rce(s) Supporting Document(s ) eGFR-AA >60 >=60 NO [facility] Health mL/min/[address] eGFR-BUTCH >60 >=60 NO [facility] Health mL/min/[address] ID Date Data Source [id number] 06/24/2019 04:45:00 AM EST [facility] Name Value Range Interpretation Description Data Sup porting Code Source(s) Document(s ) Glucose Lvl 130 65-99 [place] mg/dL [facility] BUN 18.0 6.0-20.0 [place] mg/dL [facility] Creatinine 1.07 0.70-1.2 [place] mg/dL 0 [facility] BUN/Creat 16.8 7.0-29.0 [place] Ratio ratio [facility] Sodium Lvl 140 136-145 [place] mmol/L [facility] Potassium Lvl 3.6 3.5-5.1 [place] mmol/L [facility] Chloride 105 98-107 [place] mmol/L [facility] CO2 27 23-29 [place] mmol/L [facility] AGAP 8 5-[address] [facility] Calcium Lvl 9.0 8.6-10.0 [place] mg/dL [facility] ID Date Data Source [id number] 06/24/2019 04:42:00 AM EST [facility] Name Value Range Interpretation Code Description Data Madalyn rce(s) Supporting Document(s ) BNP 14 pg/mL <=[address] [facility] ID Date Data Source [id number] 06/24/2019 04:05:00 AM EST [facility] Name Value Range Interpretation Description Data Sup porting Code Source(s) Document(s ) Neut Auto 44.6 % 50.0-80.[address] [facility] Lymph Auto 43.1 % 14.0-44.[address] [facility] Page Auto 9.8 % 0.0-12.[address] [facility] Eos Auto 1.8 % 0.0-7.[address] [facility] Baso Auto 0.7 % 0.0-3.[address] [facility] Neut 3.1 2.0-8.4 [place] Absolute x10(3)/[facility] Lymph 3.0 0.6-4.8 [place] Absolute x10(3)/[facility] Page 0.7 0.0-1.1 [place] Absolute x10(3)/[facility] Eos Absolute 0.1 0.0-0.5 [place] x10(3)/[facility] Baso 0.0 0.0-0.3 [place] Absolute x10(3)/[facility] ID Date Data Source [id number] 06/24/2019 04:05:00 AM EST Ana Liliamelissaalycia Imani [facility] Name Value Range Interpretation Description Data Sup porting Code Source(s) Document(s ) WBC 7.0 4.0-10.5 [place] x10(3)/[facility] RBC 4.83 4.70-6.00 [place] x10(6)/[facility] Hgb 14.2 13.5-17.0 [place] gm/dL [facility] Hct 41.5 % 38.0-51.[address] [facility] MCV 86 fL 80-[address] [facility] MCH 29.4 pg 26.0-34.[address] [facility] MCHC 34.2 32.0-36.0 [place] gm/dL [facility] RDW 13.0 % 11.0-15.[address] [facility] Platelet 247 150-400 NO [place] x10(3)/[facility] MPV 7.1 fL 8.5-13.[address] [facility] ID Date Data Source [id number] 05/29/2019 10:25:[address] [facility] [id number] [facility] Name Value Range Interpretation Code Description Data Supporting Source(s) Document(s ) Ethanol 0 mg/dL [place] [Mass/volume Regional ] in Serum Hospital of or Plasma [facility] ID Date Data Source [id number] 05/29/2019 10:25:[address] [facility] [id number] [facility] Name Value Range Interpretation Description Data Sup porting Code Source(s) Document(s ) Immature 0.02 [place] granulocytes K/uL Regional [#/volume] in Hospital of Blood [facility] ID Date Data Source [id number] 05/29/2019 10:25:[address] [facility] [id number] [facility] Name Value Range Interpretation Description Data Sup porting Code Source(s) Document(s ) Basophils 0.03 K/uL [place] [#/volume] in [facility] Blood by Hospital of Automated [facility] count ID Date Data Source [id number] 05/29/2019 10:25:[address] [facility] [id number] [facility] Name Value Range Interpretation Description Data Sup porting Code Source(s) Document(s ) Eosinophils 0.11 K/uL [place] [#/volume] in [facility] Blood by Hospital Automated count [facility] ID Date Data Source [id number] 05/29/2019 10:25:[address] [facility] [id number] [facility] Name Value Range Interpretation Description Data Sup porting Code Source(s) Document(s ) Monocytes 0.51 K/uL [place] [#/volume] in [facility] Blood by Hospital of Automated [facility] count ID Date Data Source [id number] 05/29/2019 10:25:[address] [facility] of [id number] [facility] Name Value Range Interpretation Description Data Sup porting Code Source(s) Document(s ) Lymphocytes 2.56 K/uL [place] [#/volume] in Regional Blood by Hospital of Automated count [facility] ID Date Data Source [id number] 05/29/2019 10:25:[address] [facility] [id number] [facility] Name Value Range Interpretation Description Data Sup porting Code Source(s) Document(s ) Neutrophils 2.98 K/uL [place] [#/volume] in Regional Blood by Hospital Automated count [facility] ID Date Data Source [id number] 05/29/2019 10:25:[address] [facility] of [id number] [facility] Name Value Range Interpretation Description Data Sup porting Code Source(s) Document(s ) Immature 0.3 % [place] granulocytes Regional [#/volume] in Hospital Blood by [facility] Automated count ID Date Data Source [id number] 05/29/2019 10:25:[address] [facility] of [id number] [facility] Name Value Range Interpretation Description Data Sup porting Code Source(s) Document(s ) Basophils/100 0.5 % [place] leukocytes in Regional Blood by [facility] Automated count [facility] ID Date Data Source [id number] 05/29/2019 10:25:[address] [facility] of [id number] [facility] Name Value Range Interpretation Description Data Sup porting Code Source(s) Document(s ) Eosinophils/100 1.8 % [place] leukocytes in Regional Blood by Hospital of Automated count [facility] ID Date Data Source [id number] 05/29/2019 10:25:[address] [facility] [id number] [facility] Name Value Range Interpretation Description Data Sup porting Code Source(s) Document(s ) Monocytes/100 8.2 % [place] leukocytes in Regional Blood by [facility] Automated count [facility] ID Date Data Source [id number] 05/29/2019 10:25:[address] [facility] [id number] [facility] Name Value Range Interpretation Description Data Sup porting Code Source(s) Document(s ) Lymphocytes/10 41.2 % [place] 0 leukocytes Regional in Blood by Hospital of Automated [facility] count ID Date Data Source [id number] 05/29/2019 10:25:[address] [facility] of [id number] [facility] Name Value Range Interpretation Description Data Sup porting Code Source(s) Document(s ) Neutrophils/10 48.0 % [place] 0 leukocytes Regional in Blood by Hospital of Automated C count ID Date Data Source [id number] 05/29/2019 10:25:[address] [facility] of [id number] [facility] Name Value Range Interpretation Description Data Sup porting Code Source(s) Document(s ) Platelet mean 9.1 fL [place] volume [facility] [[facility] of volume] in [facility] Blood by Automated count ID Date Data Source [id number] 05/29/2019 10:25:[address] [facility] of [id number] [facility] Name Value Range Interpretation Description Data Sup porting Code Source(s) Document(s ) Platelets 199 K/uL [place] [#/volume] in [facility] Blood by Hospital of Automated C count ID Date Data Source [id number] 05/29/2019 10:25:[address] [facility] of [id number] [facility] Name Value Range Interpretation Description Data Sup porting Code Source(s) Document(s ) Erythrocyte 12.4 % [place] distribution Regional width [Ratio] by Hospital of Automated count C ID Date Data Source [id number] 05/29/2019 10:25:[address] [facility] of [id number] [facility] Name Value Range Interpretation Description Data Sup porting Code Source(s) Document(s ) Erythrocyte mean 32.8 [place] corpuscular gm/dL [facility] hemoglobin [facility] concentration [facility] [Mass/volume] by Automated count ID Date Data Source [id number] 05/29/2019 10:25:[address] [facility] of [id number] C Name Value Range Interpretation Description Data Sup porting Code Source(s) Document(s ) Erythrocyte 28.7 pg [place] [facility] corpuscular [facility] of hemoglobin [facility] [Entitic mass] by Automated count ID Date Data Source [id number] 05/29/2019 10:25:[address] [facility] of [id number] [facility] Name Value Range Interpretation Description Data Sup porting Code Source(s) Document(s ) Erythrocyte 87.5 fL [facility] corpuscular Hospital of volume [Entitic [facility] volume] by Automated count ID Date Data Source [id number] 05/29/2019 10:25:[address] [facility] of [id number] [facility] Name Value Range Interpretation Description Data Sup porting Code Source(s) Document(s ) Hematocrit 40.0 % [place] [Volume Regional Fraction] of Hospital of Blood by [facility] Automated count ID Date Data Source [id number] 05/29/2019 10:25:[address] [facility] of [id number] [facility] Name Value Range Interpretation Description Data Sup porting Code Source(s) Document(s ) Hemoglobin 13.1 [place] [Mass/volume] gm/dL [facility] in Blood [facility] ID Date Data Source [id number] 05/29/2019 10:25:[address] [facility] of [id number] [facility] Name Value Range Interpretation Description Data Sup porting Code Source(s) Document(s ) Erythrocytes 4.57 [place] [#/volume] in M/uL Regional Blood by Hospital of Automated count [facility] ID Date Data Source [id number] 05/29/2019 10:25:[address] [facility] of [id number] [facility] Name Value Range Interpretation Description Data Sup porting Code Source(s) Document(s ) Nucleated 0.0 % [facility]/10 [facility] 0 leukocytes Hospital of [Ratio] in [facility] Blood by Automated count ID Date Data Source [id number] 05/29/2019 10:25:[address] [facility] of [id number] [facility] Name Value Range Interpretation Description Data Sup porting Code Source(s) Document(s ) Leukocytes 6.21 K/uL [facility] [#/volume] in Regional Blood by Hospital of Automated C count ID Date Data Source [id number] 05/29/2019 10:25:[address] [facility] of [id number] [facility] Medications and supplements contain ing high levels of Biotin (Vitamin B7) may interfere with accuracy of result, pleas e interpret accordingly. Name Value Range Interpretation Description Data Sup porting Code Source(s) Document(s ) Troponin < 0.012 [place] I.cardiac ng/mL Regional [Mass/volume Hospital of ] in Serum [facility] or Plasma ID Date Data Source [id number] 05/29/2019 10:25:[address] [facility] of [id number] [facility] Name Value Range Interpretation Description Data Sup porting Code Source(s) Document(s ) Bilirubin.t 0.7 mg/dL [facility] [Mass/volum [facility] of e] in Serum [facility] or Plasma ID Date Data Source [id number] 05/29/2019 10:25:[address] [facility] of [id number] [facility] Name Value Range Interpretation Description Data Sup porting Code Source(s) Document(s ) Alkaline 63 U/L [facility] phosphatase [facility] [[facility] of activity/volume [facility] ] in Serum or Plasma ID Date Data Source [id number] 05/29/2019 10:25:[address] [facility] of [id number] [facility] Name Value Range Interpretation Description Data Sup porting Code Source(s) Document(s ) Alanine 32 U/L [place] aminotransferase [facility] [Enzymatic [facility] of activity/volume] in [facility] Serum or Plasma ID Date Data Source [id number] 05/29/2019 10:25:[address] [facility] of [id number] [facility] Name Value Range Interpretation Description Data Sup porting Code Source(s) Document(s ) Aspartate 29 U/L [place] aminotransferase [facility] [Enzymatic Hospital of activity/volume] in [facility] Serum or Plasma ID Date Data Source [id number] 05/29/2019 10:25:[address] [facility] of [id number] [facility] Name Value Range Interpretation Description Data Sup porting Code Source(s) Document(s ) Albumin 3.8 g/dL [place] [Mass/volume Regional ] in Serum Hospital of or [facility] ID Date Data Source [id number] 05/29/2019 10:25:[address] [facility] of [id number] [facility] Name Value Range Interpretation Description Data Sup porting Code Source(s) Document(s ) Protein 6.1 g/dL [place] [Mass/volume Regional ] in [facility] of or [facility] ID Date Data Source [id number] 05/29/2019 10:25:[address] [facility] of [id number] [facility] Name Value Range Interpretation Description Data Sup porting Code Source(s) Document(s ) Calcium 9.2 mg/dL [place] [Mass/volume Regional ] in [facility] of or Plasma [facility] ID Date Data Source [id number] 05/29/2019 10:25:[address] [facility] of [id number] [facility] Name Value Range Interpretation Description Data Sup porting Code Source(s) Document(s ) Carbon 26 mmol/L [place] dioxide, Regional total Hospital of [Moles/volu [facility] me] in Serum or Plasma ID Date Data Source [id number] 05/29/2019 10:25:[address] [facility] of [id number] [facility] Name Value Range Interpretation Description Data Sup porting Code Source(s) Document(s ) Chloride 108 [place] [Moles/volum mmol/L Regional e] in Serum Hospital of or Plasma [facility] ID Date Data Source [id number] 05/29/2019 10:25:[address] [facility] of [id number] [facility] Name Value Range Interpretation Description Data Sup porting Code Source(s) Document(s ) Potassium 3.8 [place] [Moles/volume mmol/L Regional ] in Serum or [facility] ID Date Data Source [id number] 05/29/2019 10:25:[address] [facility] of [id number] [facility] Name Value Range Interpretation Description Data Sup porting Code Source(s) Document(s ) Sodium 139 mmol/L [place] [Moles/volu Regional me] in Hospital of [facility] or [facility] Plasma ID Date Data Source [id number] 05/29/2019 10:25:[address] [facility] of [id number] [facility] mL/min/1.73m2 Name Value Range Interpretation Code Description Data Supporting Source(s) Document(s ) Estimated GFR > 60 [place] (MDRD) [facility] ID Date Data Source [id number] 05/29/2019 10:25:[address] [facility] of [id number] [facility] Name Value Range Interpretation Description Data Sup porting Code Source(s) Document(s ) Creatinine 0.91 [place] [Mass/volume] mg/dL Regional in Serum or Hospital of [facility] ID Date Data Source [id number] 05/29/2019 10:25:[address] [facility] of [id number] [facility] Name Value Range Interpretation Description Data Sup porting Code Source(s) Document(s ) Urea 18 mg/dL [place] nitrogen Regional [Mass/volume Hospital of ] in Serum [facility] or Plasma ID Date Data Source [id number] 05/29/2019 10:25:[address] [facility] of [id number] C Name Value Range Interpretation Description Data Sup porting Code Source(s) Document(s ) Glucose 154 mg/dL [place] [Mass/volume Regional ] in Serum Hospital of or Plasma [facility] ID Date Data Source [id number] 05/29/2019 10:25:[address] [facility] of [id number] [facility] Name Value Range Interpretation Description Data Sup porting Code Source(s) Document(s ) Glucose 134 mg/dL [place] [Mass/volume Regional ] in Blood Hospital of by Test [facility] strip manual ID Date Data Source [id number] 05/28/2019 01:57:[address] [facility] of [id number] [facility] Name Value Range Interpretation Code Description Data Supporting Source(s) Document(s ) Ethanol 0 mg/dL [place] [Mass/volume Regional ] in Serum Hospital of or Plasma [facility] ID Date Data Source [id number] 05/28/2019 01:57:[address] [facility] of [id number] [facility] Name Value Range Interpretation Description Data Sup porting Code Source(s) Document(s ) Immature 0.02 [place] granulocytes K/uL Regional [#/volume] in Hospital of Blood [facility] ID Date Data Source [id number] 05/28/2019 01:57:[address] [facility] of [id number] [facility] Name Value Range Interpretation Description Data Sup porting Code Source(s) Document(s ) Basophils 0.03 K/uL [place] [#/volume] in [facility] Blood by Hospital of Automated [facility] count ID Date Data Source [id number] 05/28/2019 01:57:[address] [facility] of [id number] [facility] Name Value Range Interpretation Description Data Sup porting Code Source(s) Document(s ) Eosinophils 0.11 K/uL [place] [#/volume] in [facility] Blood by Hospital Automated count [facility] ID Date Data Source [id number] 05/28/2019 01:57:[address] [facility] of [id number] [facility] Name Value Range Interpretation Description Data Sup porting Code Source(s) Document(s ) Monocytes 0.51 K/uL [place] [#/volume] in [facility] Blood by Hospital Automated [facility] count ID Date Data Source [id number] 05/28/2019 01:57:[address] [facility] of [id number] [facility] Name Value Range Interpretation Description Data Sup porting Code Source(s) Document(s ) Lymphocytes 2.56 K/uL [place] [#/volume] in [facility] Blood by [facility] Automated count C ID Date Data Source [id number] 05/28/2019 01:57:[address] [facility] of [id number] [facility] Name Value Range Interpretation Description Data Sup porting Code Source(s) Document(s ) Neutrophils 2.98 K/uL [place] [#/volume] in [facility] Blood by Hospital of Automated count [facility] ID Date Data Source [id number] 05/28/2019 01:57:[address] [facility] of [id number] [facility] Name Value Range Interpretation Description Data Sup porting Code Source(s) Document(s ) Immature 0.3 % [place] granulocytes Regional [#/volume] in Hospital of Blood by [facility] Automated count ID Date Data Source [id number] 05/28/2019 01:57:[address] [facility] of [id number] [facility] Name Value Range Interpretation Description Data Sup porting Code Source(s) Document(s ) Basophils/100 0.5 % [place] leukocytes in Regional Blood by [facility] Automated count [facility] ID Date Data Source [id number] 05/28/2019 01:57:[address] [facility] of [id number] [facility] Name Value Range Interpretation Description Data Sup porting Code Source(s) Document(s ) Eosinophils/100 1.8 % [place] leukocytes in Regional Blood by Hospital Automated count [facility] ID Date Data Source [id number] 05/28/2019 01:57:[address] [facility] of [id number] [facility] Name Value Range Interpretation Description Data Sup porting Code Source(s) Document(s ) Monocytes/100 8.2 % [place] leukocytes in Regional Blood by [facility] Automated count C ID Date Data Source [id number] 05/28/2019 01:57:[address] [facility] of [id number] [facility] Name Value Range Interpretation Description Data Sup porting Code Source(s) Document(s ) Lymphocytes/10 41.2 % [place] 0 leukocytes [facility] in Blood by Hospital Automated [facility] count ID Date Data Source [id number] 05/28/2019 01:57:[address] [facility] of [id number] [facility] Name Value Range Interpretation Description Data Sup porting Code Source(s) Document(s ) Neutrophils/10 48.0 % [place] 0 leukocytes [facility] in Blood by Hospital of Automated [facility] count ID Date Data Source [id number] 05/28/2019 01:57:[address] [facility] of [id number] [facility] Name Value Range Interpretation Description Data Sup porting Code Source(s) Document(s ) Platelet mean 9.1 fL [place] volume Regional [Entitic Hospital of volume] in [facility] Blood by Automated count ID Date Data Source [id number] 05/28/2019 01:57:[address] [facility] of [id number] [facility] Name Value Range Interpretation Description Data Sup porting Code Source(s) Document(s ) Platelets 199 K/uL [place] [#/volume] in [facility] Blood by Hospital [facility] Automated [facility] count ID Date Data Source [id number] 05/28/2019 01:57:[address] [facility] of [id number] [facility] Name Value Range Interpretation Description Data Sup porting Code Source(s) Document(s ) Erythrocyte 12.4 % [place] distribution [facility] width [Ratio] by Hospital of Automated count [facility] ID Date Data Source [id number] 05/28/2019 01:57:[address] [facility] of [id number] [facility] Name Value Range Interpretation Description Data Sup porting Code Source(s) Document(s ) Erythrocyte mean 32.8 [place] corpuscular gm/dL [facility] hemoglobin Hospital of concentration [facility] [Mass/volume] by Automated count ID Date Data Source [id number] 05/28/2019 01:57:[address] [facility] of [id number] [facility] Name Value Range Interpretation Description Data Sup porting Code Source(s) Document(s ) Erythrocyte 28.7 pg [place] mean [facility] corpuscular [facility] of hemoglobin [facility] [Entitic mass] by Automated count ID Date Data Source [id number] 05/28/2019 01:57:[address] [facility] of [id number] [facility] Name Value Range Interpretation Description Data Sup porting Code Source(s) Document(s ) Erythrocyte 87.5 fL [place] mean [facility] corpuscular Hospital of volume [Entitic [facility] volume] by Automated count ID Date Data Source [id number] 05/28/2019 01:57:[address] [facility] of [id number] [facility] Name Value Range Interpretation Description Data Sup porting Code Source(s) Document(s ) Hematocrit 40.0 % [place] [Volume [facility] Fraction] of Hospital of Blood by [facility] Automated count ID Date Data Source [id number] 05/28/2019 01:57:[address] [facility] of [id number] [facility] Name Value Range Interpretation Description Data Sup porting Code Source(s) Document(s ) Hemoglobin 13.1 [place] [Mass/volume] gm/dL [facility] in Blood [facility] ID Date Data Source [id number] 05/28/2019 01:57:[address] [facility] of [id number] [facility] Name Value Range Interpretation Description Data Sup porting Code Source(s) Document(s ) Erythrocytes 4.57 [place] [#/volume] in M/uL [facility] Blood by Hospital of Automated count C ID Date Data Source [id number] 05/28/2019 01:57:[address] [facility] of [id number] [facility] Name Value Range Interpretation Description Data Sup porting Code Source(s) Document(s ) Nucleated 0.0 % [place] erythrocytes/10 [facility] 0 leukocytes Hospital of [Ratio] in [facility] Blood by Automated count ID Date Data Source [id number] 05/28/2019 01:57:[address] [facility] of [id number] [facility] Name Value Range Interpretation Description Data Sup porting Code Source(s) Document(s ) Leukocytes 6.21 K/uL [place] [#/volume] in Regional Blood by Hospital Automated [facility] count ID Date Data Source [id number] 05/28/2019 01:57:[address] [facility] of [id number] [facility] Medications and supplements contain ing high levels of Biotin (Vitamin B7) may interfere with accuracy of result, pleas e interpret accordingly. Name Value Range Interpretation Description Data Sup porting Code Source(s) Document(s ) Troponin < 0.012 [place] I.cardiac ng/mL Regional [Mass/volume Hospital of ] in Serum [facility] or Plasma ID Date Data Source [id number] 05/28/2019 01:57:[address] [facility] of [id number] [facility] Name Value Range Interpretation Description Data Sup porting Code Source(s) Document(s ) Bilirubin.t 0.7 mg/dL [facility] [Mass/volum Hospital of e] in Serum [facility] or Plasma ID Date Data Source [id number] 05/28/2019 01:57:[address] [facility] of [id number] [facility] Name Value Range Interpretation Description Data Sup porting Code Source(s) Document(s ) Alkaline 63 U/L [place] phosphatase [facility] [Enzymatic Hospital of activity/volume [facility] ] in Serum or Plasma ID Date Data Source [id number] 05/28/2019 01:57:[address] [facility] of [id number] [facility] Name Value Range Interpretation Description Data Sup porting Code Source(s) Document(s ) Alanine 32 U/L [facility] [Enzymatic [facility] activity/volume] in [facility] Serum or Plasma ID Date Data Source [id number] 05/28/2019 01:57:[address] [facility] of [id number] [facility] Name Value Range Interpretation Description Data Sup porting Code Source(s) Document(s ) Aspartate 29 U/L [place] aminotransferase [facility] [Enzymatic Hospital of activity/volume] in [facility] Serum or Plasma ID Date Data Source [id number] 05/28/2019 01:57:[address] [facility] of [id number] [facility] Name Value Range Interpretation Description Data Sup porting Code Source(s) Document(s ) Albumin 3.8 g/dL [place] [Mass/volume Regional ] in [facility] ID Date Data Source [id number] 05/28/2019 01:57:[address] [facility] of [id number] [facility] Name Value Range Interpretation Description Data Sup porting Code Source(s) Document(s ) Protein 6.1 g/dL [place] [Mass/volume Regional ] in [facility] ID Date Data Source [id number] 05/28/2019 01:57:[address] [facility] of [id number] [facility] Name Value Range Interpretation Description Data Sup porting Code Source(s) Document(s ) Calcium 9.2 mg/dL [place] [Mass/volume Regional ] in [facility] ID Date Data Source [id number] 05/28/2019 01:57:[address] [facility] of [id number] [facility] Name Value Range Interpretation Description Data Sup porting Code Source(s) Document(s ) Carbon 26 mmol/L [place] dioxide, Regional total Hospital of [Moles/volu [facility]] in Serum or Plasma ID Date Data Source [id number] 05/28/2019 01:57:[address] [facility] of [id number] [facility] Name Value Range Interpretation Description Data Sup porting Code Source(s) Document(s ) Chloride 108 [place] [Moles/volum mmol/L Regional e] in [facility] ID Date Data Source [id number] 05/28/2019 01:57:[address] [facility] of [id number] [facility] Name Value Range Interpretation Description Data Sup porting Code Source(s) Document(s ) Potassium 3.8 [place] [Moles/volume mmol/L Regional ] in Serum or [facility] ID Date Data Source [id number] 05/28/2019 01:57:[address] [facility] of [id number] [facility] Name Value Range Interpretation Description Data Sup porting Code Source(s) Document(s ) Sodium 139 mmol/L [place] [Moles/volu Regional me] in Hospital [facility] or [facility] Plasma ID Date Data Source [id number] 05/28/2019 01:57:[address] [facility] of [id number] [facility] mL/min/1.73m2 Name Value Range Interpretation Code Description Data Supporting Source(s) Document(s ) Estimated GFR > 60 [facility] [facility] ID Date Data Source [id number] 05/28/2019 01:57:[address] [facility] of [id number] [facility] Name Value Range Interpretation Description Data Sup porting Code Source(s) Document(s ) Creatinine 0.91 [facility] [Mass/volume] mg/dL Regional in Serum or Hospital of Plasma [facility] ID Date Data Source [id number] 05/28/2019 01:57:[address] [facility] of [id number] [facility] Name Value Range Interpretation Description Data Sup porting Code Source(s) Document(s ) Urea 18 mg/dL [facility] nitrogen [facility] [Mass/volume Hospital of ] in Serum [facility] or Plasma ID Date Data Source [id number] 05/28/2019 01:57:[address] [facility] of [id number] [facility] Name Value Range Interpretation Description Data Sup porting Code Source(s) Document(s ) Glucose 154 mg/dL [facility] [Mass/volume Regional ] in Serum Hospital of or Plasma [facility] ID Date Data Source [id number] 05/28/2019 01:57:[address] [facility] of [id number] [facility] Name Value Range Interpretation Description Data Sup porting Code Source(s) Document(s ) Glucose 134 mg/dL [facility] [Mass/volume Regional ] in Blood Hospital of by Test [facility] strip manual ID Date Data Source [id number] 05/28/2019 12:11:[address] [facility] of [id number] [facility] Name Value Range Interpretation Code Description Data Supporting Source(s) Document(s ) Ethanol 0 mg/dL [facility] [Mass/volume Regional ] in Serum Hospital of or Plasma [facility] ID Date Data Source [id number] 05/28/2019 12:11:[address] [facility] of [id number] [facility] Name Value Range Interpretation Description Data Sup porting Code Source(s) Document(s ) Immature 0.02 [facility] granulocytes K/uL Regional [#/volume] in Hospital of Blood [facility] ID Date Data Source [id number] 05/28/2019 12:11:[address] [facility] of [id number] [facility] Name Value Range Interpretation Description Data Sup porting Code Source(s) Document(s ) Basophils 0.03 K/uL [facility] [#/volume] in Regional Blood by Hospital of Automated [facility] count ID Date Data Source [id number] 05/28/2019 12:11:[address] [facility] of [id number] [facility] Name Value Range Interpretation Description Data Sup porting Code Source(s) Document(s ) Eosinophils 0.11 K/uL [facility] [#/volume] in Regional Blood by Hospital of Automated count [facility] ID Date Data Source [id number] 05/28/2019 12:11:[address] [facility] of [id number] [facility] Name Value Range Interpretation Description Data Sup porting Code Source(s) Document(s ) Monocytes 0.51 K/uL [facility] [#/volume] in Regional Blood by Hospital of Automated [facility] count ID Date Data Source [id number] 05/28/2019 12:11:00 PM EDT [facility] [id number] [facility] Name Value Range Interpretation Description Data Sup porting Code Source(s) Document(s ) Lymphocytes 2.56 K/uL [facility] [#/volume] in [facility] Blood by Hospital Automated count [facility] ID Date Data Source [id number] 05/28/2019 12:11:[address] [facility] of [id number] [facility] Name Value Range Interpretation Description Data Sup porting Code Source(s) Document(s ) Neutrophils 2.98 K/uL [facility] [#/volume] in Regional Blood by Hospital Automated count [facility] ID Date Data Source [id number] 05/28/2019 12:11:[address] [facility] of [id number] [facility] Name Value Range Interpretation Description Data Sup porting Code Source(s) Document(s ) Immature 0.3 % [facility] granulocytes Regional [#/volume] in Hospital Blood by [facility] Automated count ID Date Data Source [id number] 05/28/2019 12:11:[address] [facility] of [id number] [facility] Name Value Range Interpretation Description Data Sup porting Code Source(s) Document(s ) Basophils/100 0.5 % [facility] leukocytes in [facility] Blood by [facility] Automated count [facility] ID Date Data Source [id number] 05/28/2019 12:11:[address] [facility] of [id number] [facility] Name Value Range Interpretation Description Data Sup porting Code Source(s) Document(s ) Eosinophils/100 1.8 % [facility] leukocytes in Regional Blood by Hospital of Automated count [facility] ID Date Data Source [id number] 05/28/2019 12:11:[address] [facility] of [id number] [facility] Name Value Range Interpretation Description Data Sup porting Code Source(s) Document(s ) Monocytes/100 8.2 % [facility] leukocytes in Regional Blood by [facility] of Automated count [facility] ID Date Data Source [id number] 05/28/2019 12:11:[address] [facility] of [id number] [facility] Name Value Range Interpretation Description Data Sup porting Code Source(s) Document(s ) Lymphocytes/10 41.2 % [facility] 0 leukocytes [facility] in Blood by Hospital Automated [facility] count ID Date Data Source [id number] 05/28/2019 12:11:[address] [facility] of [id number] [facility] Name Value Range Interpretation Description Data Sup porting Code Source(s) Document(s ) Neutrophils/10 48.0 % [facility] 0 leukocytes Regional in Blood by Hospital [facility] count ID Date Data Source [id number] 05/28/2019 12:11:[address] [facility] of [id number] [facility] Name Value Range Interpretation Description Data Sup porting Code Source(s) Document(s ) Platelet mean 9.1 fL [facility] volume [facility] [[facility] of volume] in [facility] Blood by Automated count ID Date Data Source [id number] 05/28/2019 12:11:[address] [facility] of [id number] [facility] Name Value Range Interpretation Description Data Sup porting Code Source(s) Document(s ) Platelets 199 K/uL [facility] [#/volume] in Regional Blood by Hospital Automated C count ID Date Data Source [id number] 05/28/2019 12:11:[address] [facility] of [id number] [facility] Name Value Range Interpretation Description Data Sup porting Code Source(s) Document(s ) Erythrocyte 12.4 % [facility] distribution Regional width [Ratio] by Hospital of Automated count C ID Date Data Source [id number] 05/28/2019 12:11:[address] [facility] of [id number] [facility] Name Value Range Interpretation Description Data Sup porting Code Source(s) Document(s ) Erythrocyte mean 32.8 [facility] corpuscular gm/dL Regional [facility] Hospital of concentration [facility] [Mass/volume] by Automated count ID Date Data Source [id number] 05/28/2019 12:11:[address] [facility] of [id number] C Name Value Range Interpretation Description Data Sup porting Code Source(s) Document(s ) [facility]7 [facility] hemoglobin [facility] [Entitic mass] by Automated count ID Date Data Source [id number] 05/28/2019 12:11:[address] [facility] of [id number] [facility] Name Value Range Interpretation Description Data Sup porting Code Source(s) Document(s ) Erythrocyte 87.5 fL [facility] of volume [Entitic [facility] volume] by Automated count ID Date Data Source [id number] 05/28/2019 12:11:[address] [facility] of [id number] [facility] Name Value Range Interpretation Description Data Sup porting Code Source(s) Document(s ) Hematocrit 40.0 % [facility] [Volume Regional Fraction] of [facility] Automated count ID Date Data Source [id number] 05/28/2019 12:11:[address] [facility] of [id number] [facility] Name Value Range Interpretation Description Data Sup porting Code Source(s) Document(s ) Hemoglobin 13.1 [facility] [Mass/volume] gm/dL [facility] in Blood [facility] ID Date Data Source [id number] 05/28/2019 12:11:[address] [facility] of [id number] [facility] Name Value Range Interpretation Description Data Sup porting Code Source(s) Document(s ) Erythrocytes 4.57 [facility] [#/volume] in M/uL Regional Blood by [facility] Automated count [facility] ID Date Data Source [id number] 05/28/2019 12:11:[address] [facility] of [id number] [facility] Name Value Range Interpretation Description Data Sup porting Code Source(s) Document(s ) Nucleated 0.0 % [facility] erythrocytes/10 Regional 0 leukocytes Hospital of [Ratio] in [facility] Blood by Automated count ID Date Data Source [id number] 05/28/2019 12:11:[address] [facility] of [id number] [facility] Name Value Range Interpretation Description Data Sup porting Code Source(s) Document(s ) Leukocytes 6.21 K/uL [facility] [#/volume] in [facility] Blood by Hospital Automated [facility] count ID Date Data Source [id number] 05/28/2019 12:11:[address] [facility] of [id number] [facility] Medications and supplements contain ing high levels of Biotin (Vitamin B7) may interfere with accuracy of result, pleas e interpret accordingly. Name Value Range Interpretation Description Data Sup porting Code Source(s) Document(s ) Troponin < 0.012 [facility] I.cardiac ng/mL Regional [Mass/volume Hospital of ] in Serum [facility] or Plasma ID Date Data Source [id number] 05/28/2019 12:11:[address] [facility] of [id number] [facility] Name Value Range Interpretation Description Data Sup porting Code Source(s) Document(s ) Bilirubin.t 0.7 mg/dL [facility] otal Regional [Mass/volum Hospital of e] in Serum [facility] or Plasma ID Date Data Source [id number] 05/28/2019 12:11:[address] [facility] of [id number] [facility] Name Value Range Interpretation Description Data Sup porting Code Source(s) Document(s ) Alkaline 63 U/L [facility] phosphatase [facility] [Enzymatic [facility] of activity/volume [facility] ] in Serum or Plasma ID Date Data Source [id number] 05/28/2019 12:11:[address] [facility] of [id number] [facility] Name Value Range Interpretation Description Data Sup porting Code Source(s) Document(s ) Alanine 32 U/L [facility] aminotransferase Regional [Enzymatic Hospital of activity/volume] in [facility] Serum or Plasma ID Date Data Source [id number] 05/28/2019 12:11:[address] [facility] of [id number] [facility] Name Value Range Interpretation Description Data Sup porting Code Source(s) Document(s ) Aspartate 29 U/L [facility] aminotransferase Regional [Enzymatic Hospital of activity/volume] in [facility] Serum or Plasma ID Date Data Source [id number] 05/28/2019 12:11:[address] [facility] of [id number] [facility] Name Value Range Interpretation Description Data Sup porting Code Source(s) Document(s ) Albumin 3.8 g/dL [facility] [Mass/volume Regional ] in [facility] Hospital of or [facility] ID Date Data Source [id number] 05/28/2019 12:11:[address] [facility] of [id number] [facility] Name Value Range Interpretation Description Data Sup porting Code Source(s) Document(s ) Protein 6.1 g/dL [facility] [Mass/volume Regional ] in Serum Hospital of or Plasma [facility] ID Date Data Source [id number] 05/28/2019 12:11:[address] [facility] of [id number] [facility] Name Value Range Interpretation Description Data Sup porting Code Source(s) Document(s ) Calcium 9.2 mg/dL [facility] [Mass/volume Regional ] in Serum Hospital of or Plasma [facility] ID Date Data Source [id number] 05/28/2019 12:11:[address] [facility] of [id number] [facility] Name Value Range Interpretation Description Data Sup porting Code Source(s) Document(s ) Carbon 26 mmol/L [facility] dioxide, Regional total Hospital of [Moles/volu [facility] me] in Serum or Plasma ID Date Data Source [id number] 05/28/2019 12:11:[address] [facility] of [id number] [facility] Name Value Range Interpretation Description Data Sup porting Code Source(s) Document(s ) Chloride 108 [facility] [Moles/volum mmol/L Regional e] in Serum Hospital of or Plasma [facility] ID Date Data Source [id number] 05/28/2019 12:11:[address] [facility] of [id number] [facility] Name Value Range Interpretation Description Data Sup porting Code Source(s) Document(s ) Potassium 3.8 [facility] [Moles/volume mmol/L Regional ] in Serum or Hospital of Plasma [facility] ID Date Data Source [id number] 05/28/2019 12:11:[address] [facility] of [id number] [facility] Name Value Range Interpretation Description Data Sup porting Code Source(s) Document(s ) Sodium 139 mmol/L [facility] [Moles/volu Regional me] in Hospital of [facility] or [facility] Plasma ID Date Data Source [id number] 05/28/2019 12:11:[address] [facility] of [id number] [facility] mL/min/1.73m2 Name Value Range Interpretation Code Description Data Supporting Source(s) Document(s ) Estimated GFR > 60 [facility] (MDRD) [facility] ID Date Data Source [id number] 05/28/2019 12:11:[address] [facility] of [id number] [facility] Name Value Range Interpretation Description Data Sup porting Code Source(s) Document(s ) Creatinine 0.91 [facility] [Mass/volume] mg/dL Regional in Serum or Hospital of [facility] ID Date Data Source [id number] 05/28/2019 12:11:[address] [facility] of [id number] [facility] Name Value Range Interpretation Description Data Sup porting Code Source(s) Document(s ) Urea 18 mg/dL [facility] nitrogen Regional [Mass/volume Hospital of ] in Serum [facility] or Plasma ID Date Data Source [id number] 05/28/2019 12:11:[address] [facility] of [id number] [facility] Name Value Range Interpretation Description Data Sup porting Code Source(s) Document(s ) Glucose 154 mg/dL [facility] [Mass/volume Regional ] in [facility] or [facility] ID Date Data Source [id number] 05/28/2019 12:11:[address] [facility] of [id number] [facility] Name Value Range Interpretation Description Data Sup porting Code Source(s) Document(s ) Glucose 134 mg/dL [facility] [Mass/volume Regional ] in Blood Hospital of by Test [facility] strip manual ID Date Data Source [id number] 05/28/2019 12:10:[address] [facility] of [id number] [facility] Name Value Range Interpretation Code Description Data Supporting Source(s) Document(s ) Ethanol 0 mg/dL [facility] [Mass/volume Regional ] in Serum Hospital of or [facility] ID Date Data Source [id number] 05/28/2019 12:10:[address] [facility] of [id number] [facility] Name Value Range Interpretation Description Data Sup porting Code Source(s) Document(s ) Immature 0.02 [facility] granulocytes K/uL Regional [#/volume] in Hospital of Blood [facility] ID Date Data Source [id number] 05/28/2019 12:10:[address] [facility] of [id number] [facility] Name Value Range Interpretation Description Data Sup porting Code Source(s) Document(s ) Basophils 0.03 K/uL [place] [#/volume] in [facility] Blood by Hospital of Automated [facility] count ID Date Data Source [id number] 05/28/2019 12:10:[address] [facility] of [id number] [facility] Name Value Range Interpretation Description Data Sup porting Code Source(s) Document(s ) Eosinophils 0.11 K/uL [place] [#/volume] in [facility] Blood by Hospital of Automated count [facility] ID Date Data Source [id number] 05/28/2019 12:10:[address] [facility] of [id number] [facility] Name Value Range Interpretation Description Data Sup porting Code Source(s) Document(s ) Monocytes 0.51 K/uL [place] [#/volume] in [facility] Blood by Hospital of Automated [facility] count ID Date Data Source [id number] 05/28/2019 12:10:[address] [facility] of [id number] [facility] Name Value Range Interpretation Description Data Sup porting Code Source(s) Document(s ) Lymphocytes 2.56 K/uL [place] [#/volume] in [facility] Blood by Hospital of Automated count [facility] ID Date Data Source [id number] 05/28/2019 12:10:[address] [facility] of [id number] [facility] Name Value Range Interpretation Description Data Sup porting Code Source(s) Document(s ) Neutrophils 2.98 K/uL [place] [#/volume] in [facility] Blood by Hospital of Automated count [facility] ID Date Data Source [id number] 05/28/2019 12:10:[address] [facility] of [id number] [facility] Name Value Range Interpretation Description Data Sup porting Code Source(s) Document(s ) Immature 0.3 % [facility] granulocytes Regional [#/volume] in Hospital of Blood by [facility] Automated count ID Date Data Source [id number] 05/28/2019 12:10:[address] [facility] of [id number] [facility] Name Value Range Interpretation Description Data Sup porting Code Source(s) Document(s ) Basophils/100 0.5 % [place] leukocytes in Regional Blood by [facility] Automated count [facility] ID Date Data Source [id number] 05/28/2019 12:10:[address] [facility] of [id number] [facility] Name Value Range Interpretation Description Data Sup porting Code Source(s) Document(s ) Eosinophils/100 1.8 % [place] leukocytes in Regional Blood by [facility] Automated count [facility] ID Date Data Source [id number] 05/28/2019 12:10:[address] [facility] of [id number] [facility] Name Value Range Interpretation Description Data Sup porting Code Source(s) Document(s ) Monocytes/100 8.2 % [place] leukocytes in Regional Blood by [facility] Automated count [facility] ID Date Data Source [id number] 05/28/2019 12:10:[address] [facility] of [id number] [facility] Name Value Range Interpretation Description Data Sup porting Code Source(s) Document(s ) Lymphocytes/10 41.2 % [place] 0 leukocytes [facility] in Blood by Hospital Automated C count ID Date Data Source [id number] 05/28/2019 12:10:[address] [facility] of [id number] [facility] Name Value Range Interpretation Description Data Sup porting Code Source(s) Document(s ) Neutrophils/10 48.0 % [place] 0 leukocytes [facility] in Blood by Hospital Automated [facility] count ID Date Data Source [id number] 05/28/2019 12:10:[address] [facility] of [id number] [facility] Name Value Range Interpretation Description Data Sup porting Code Source(s) Document(s ) Platelet mean 9.1 fL [place] volume Regional [Entitic Hospital of volume] in [facility] Blood by Automated count ID Date Data Source [id number] 05/28/2019 12:10:[address] [facility] of [id number] [facility] Name Value Range Interpretation Description Data Sup porting Code Source(s) Document(s ) Platelets 199 K/uL [place] [#/volume] in Regional Blood by Hospital Automated [facility] count ID Date Data Source [id number] 05/28/2019 12:10:[address] [facility] of [id number] [facility] Name Value Range Interpretation Description Data Sup porting Code Source(s) Document(s ) Erythrocyte 12.4 % [place] distribution Regional width [Ratio] by Hospital of Automated count [facility] ID Date Data Source [id number] 05/28/2019 12:10:[address] [facility] of [id number] [facility] Name Value Range Interpretation Description Data Sup porting Code Source(s) Document(s ) Erythrocyte mean 32.8 [place] corpuscular gm/dL Regional hemoglobin Hospital of concentration [facility] [Mass/volume] by Automated count ID Date Data Source [id number] 05/28/2019 12:10:[address] [facility] of [id number] [facility] Name Value Range Interpretation Description Data Sup porting Code Source(s) Document(s ) Erythrocyte 28.7 pg [facility] mean [facility] corpuscular [facility] of hemoglobin [facility] [Entitic mass] by Automated count ID Date Data Source [id number] 05/28/2019 12:10:[address] [facility] of [id number] [facility] Name Value Range Interpretation Description Data Sup porting Code Source(s) Document(s ) Erythrocyte 87.5 fL [place] mean [facility] corpuscular Hospital of volume [Entitic [facility] volume] by Automated count ID Date Data Source [id number] 05/28/2019 12:10:[address] [facility] of [id number] [facility] Name Value Range Interpretation Description Data Sup porting Code Source(s) Document(s ) Hematocrit 40.0 % [facility] [Volume Regional Fraction] of Hospital of Blood by [facility] Automated count ID Date Data Source [id number] 05/28/2019 12:10:[address] [facility] of [id number] [facility] Name Value Range Interpretation Description Data Sup porting Code Source(s) Document(s ) Hemoglobin 13.1 [place] [Mass/volume] gm/dL [facility] in Blood Hospital [facility] ID Date Data Source [id number] 05/28/2019 12:10:[address] [facility] [facility] [id number] [facility] Name Value Range Interpretation Description Data Sup porting Code Source(s) Document(s ) Erythrocytes 4.57 [place] [#/volume] in M/uL [facility] Blood by Hospital of Automated count [facility] ID Date Data Source [id number] 05/28/2019 12:10:[address] [facility] [id number] [facility] Name Value Range Interpretation Description Data Sup porting Code Source(s) Document(s ) Nucleated 0.0 % [place] erythrocytes/10 [facility] 0 leukocytes Hospital of [Ratio] in [facility] Blood by Automated count ID Date Data Source [id number] 05/28/2019 12:10:[address] [facility] [id number] [facility] Name Value Range Interpretation Description Data Sup porting Code Source(s) Document(s ) Leukocytes 6.21 K/uL [place] [#/volume] in [facility] Blood by Hospital of Automated [facility] count ID Date Data Source [id number] 05/28/2019 12:10:[address] [facility] [id number] [facility] Medications and supplements contain ing high levels of Biotin (Vitamin B7) may interfere with accuracy of result, pleas e interpret accordingly. Name Value Range Interpretation Description Data Sup porting Code Source(s) Document(s ) Troponin < 0.012 [place] I.cardiac ng/mL [facility] [Mass/volume Hospital of ] in Serum [facility] or Plasma ID Date Data Source [id number] 05/28/2019 12:10:[address] [facility] [id number] [facility] Name Value Range Interpretation Description Data Sup porting Code Source(s) Document(s ) Bilirubin.t 0.7 mg/dL [facility] otal Regional [Mass/volum Hospital of e] in Serum [facility] or Plasma ID Date Data Source [id number] 05/28/2019 12:10:[address] [facility] [id number] [facility] Name Value Range Interpretation Description Data Sup porting Code Source(s) Document(s ) [facility] 63 [facility] activity/volume [facility] ] in Serum or Plasma ID Date Data Source [id number] 05/28/2019 12:10:[address] [facility] [id number] [facility] Name Value Range Interpretation Description Data Sup porting Code Source(s) Document(s ) Alanine 32 U/L [place] aminotransferase [facility] [[facility]atic [facility] of activity/volume] in [facility] Serum or Plasma ID Date Data Source [id number] 05/28/2019 12:10:[address] [facility] [id number] [facility] Name Value Range Interpretation Description Data Sup porting Code Source(s) Document(s ) Aspartate 29 U/L [place] aminotransferase [facility] [[facility]atic [facility] of activity/volume] in [facility] Serum or Plasma ID Date Data Source [id number] 05/28/2019 12:10:[address] [facility] [id number] [facility] Name Value Range Interpretation Description Data Sup porting Code Source(s) Document(s ) Albumin 3.8 g/dL [place] [Mass/volume Regional ] in [facility] ID Date Data Source [id number] 05/28/2019 12:10:[address] [facility] [id number] [facility] Name Value Range Interpretation Description Data Sup porting Code Source(s) Document(s ) Protein 6.1 g/dL [place] [Mass/volume Regional ] in [facility] ID Date Data Source [id number] 05/28/2019 12:10:[address] [facility] [id number] [facility] Name Value Range Interpretation Description Data Sup porting Code Source(s) Document(s ) Calcium 9.2 mg/dL [place] [Mass/volume Regional ] in [facility] ID Date Data Source [id number] 05/28/2019 12:10:[address] [facility] [id number] [facility] Name Value Range Interpretation Description Data Sup porting Code Source(s) Document(s ) Carbon 26 mmol/L [place] dioxide, [facility] total Hospital of [Moles/volu [facility] me] in Serum or Plasma ID Date Data Source [id number] 05/28/2019 12:10:[address] [facility] [id number] [facility] Name Value Range Interpretation Description Data Sup porting Code Source(s) Document(s ) Chloride 108 [place] [Moles/volum mmol/L Regional e] in [facility] ID Date Data Source [id number] 05/28/2019 12:10:[address] [facility] [id number] [facility] Name Value Range Interpretation Description Data Sup porting Code Source(s) Document(s ) Potassium 3.8 [place] [Moles/volume mmol/L Regional ] in Serum or Hospital of Plasma [facility] ID Date Data Source [id number] 05/28/2019 12:10:[address] [facility] [id number] [facility] Name Value Range Interpretation Description Data Sup porting Code Source(s) Document(s ) Sodium 139 mmol/L [place] [Moles/volu Regional me] in Hospital [facility] or [facility] Plasma ID Date Data Source [id number] 05/28/2019 12:10:[address] [facility] [id number] [facility] mL/min/1.73m2 Name Value Range Interpretation Code Description Data Supporting Source(s) Document(s ) Estimated G[facility] > 60 [facility] ID Date Data Source [id number] 05/28/2019 12:10:[address] [facility] [id number] [facility] Name Value Range Interpretation Description Data Sup porting Code Source(s) Document(s ) Creatinine 0.91 [place] [Mass/volume] mg/dL Regional in Serum or Hospital of Plasma [facility] ID Date Data Source [id number] 05/28/2019 12:10:[address] [facility] of [id number] [facility] Name Value Range Interpretation Description Data Sup porting Code Source(s) Document(s ) Urea 18 mg/dL [place] nitrogen [facility] [Mass/volume Hospital of ] in Serum [facility] or Plasma ID Date Data Source [id number] 05/28/2019 12:10:[address] [facility] [id number] [facility] Name Value Range Interpretation Description Data Sup porting Code Source(s) Document(s ) Glucose 154 mg/dL [place] [Mass/volume Regional ] in Serum Hospital of or Plasma [facility] ID Date Data Source [id number] 05/28/2019 12:10:[address] [facility] [id number] [facility] Name Value Range Interpretation Description Data Sup porting Code Source(s) Document(s ) Glucose 134 mg/dL [place] [Mass/volume Regional ] in Blood Hospital of by Test [facility] strip manual ID Date Data Source [id number] 05/25/2019 06:55:[address] [facility] [id number] [facility] Name Value Range Interpretation Code Description Data Supporting Source(s) Document(s ) Ethanol 0 mg/dL [place] [Mass/volume Regional ] in Serum Hospital of or Plasma [facility] ID Date Data Source [id number] 05/25/2019 06:55:[address] [facility] [id number] [facility] Name Value Range Interpretation Description Data Sup porting Code Source(s) Document(s ) Immature 0.02 [place] granulocytes K/uL [facility] [#/volume] in Hospital of Blood [facility] ID Date Data Source [id number] 05/25/2019 06:55:[address] [facility] [id number] [facility] Name Value Range Interpretation Description Data Sup porting Code Source(s) Document(s ) Basophils 0.03 K/uL [place] [#/volume] in [facility] Blood by Hospital of Automated [facility] count ID Date Data Source [id number] 05/25/2019 06:55:[address] [facility] [id number] [facility] Name Value Range Interpretation Description Data Sup porting Code Source(s) Document(s ) Eosinophils 0.11 K/uL [place] [#/volume] in [facility] Blood by Hospital of Automated count [facility] ID Date Data Source [id number] 05/25/2019 06:55:[address] [facility] [id number] [facility] Name Value Range Interpretation Description Data Sup porting Code Source(s) Document(s ) Monocytes 0.51 K/uL [place] [#/volume] in [facility] Blood by Hospital Automated [facility] count ID Date Data Source [id number] 05/25/2019 06:55:[address] [facility] [id number] [facility] Name Value Range Interpretation Description Data Sup porting Code Source(s) Document(s ) Lymphocytes 2.56 K/uL [place] [#/volume] in [facility] Blood by Hospital Automated count [facility] ID Date Data Source [id number] 05/25/2019 06:55:[address] [facility] [id number] [facility] Name Value Range Interpretation Description Data Sup porting Code Source(s) Document(s ) Neutrophils 2.98 K/uL [place] [#/volume] in [facility] Blood by [facility] Automated count [facility] ID Date Data Source [id number] 05/25/2019 06:55:[address] [facility] [id number] [facility] Name Value Range Interpretation Description Data Sup porting Code Source(s) Document(s ) Immature 0.3 % [place] granulocytes [facility] [#/volume] in Hospital of Blood by [facility] Automated count ID Date Data Source [id number] 05/25/2019 06:55:[address] [facility] [id number] [facility] Name Value Range Interpretation Description Data Sup porting Code Source(s) Document(s ) Basophils/100 0.5 % [place] leukocytes in [facility] Blood by Hospital of Automated count [facility] ID Date Data Source [id number] 05/25/2019 06:55:[address] [facility] [id number] [facility] Name Value Range Interpretation Description Data Sup porting Code Source(s) Document(s ) Eosinophils/100 1.8 % [place] leukocytes in [facility] Blood by Hospital of Automated count [facility] ID Date Data Source [id number] 05/25/2019 06:55:[address] [facility] [id number] [facility] Name Value Range Interpretation Description Data Sup porting Code Source(s) Document(s ) Monocytes/100 8.2 % [place] leukocytes in [facility] Blood by Hospital of Automated count C ID Date Data Source [id number] 05/25/2019 06:55:[address] [facility] [id number] [facility] Name Value Range Interpretation Description Data Sup porting Code Source(s) Document(s ) Lymphocytes/10 41.2 % [place] 0 leukocytes [facility] in Blood by [facility] Automated [facility] count ID Date Data Source [id number] 05/25/2019 06:55:[address] [facility] [id number] [facility] Name Value Range Interpretation Description Data Sup porting Code Source(s) Document(s ) Neutrophils/10 48.0 % [place] 0 leukocytes [facility] in Blood by Hospital Automated [facility] count ID Date Data Source [id number] 05/25/2019 06:55:[address] [facility] [id number] [facility] Name Value Range Interpretation Description Data Sup porting Code Source(s) Document(s ) Platelet mean 9.1 fL [place] volume [facility] [[facility] of volume] in [facility] Blood by Automated count ID Date Data Source [id number] 05/25/2019 06:55:[address] [facility] [id number] [facility] Name Value Range Interpretation Description Data Sup porting Code Source(s) Document(s ) Platelets 199 K/uL [place] [#/volume] in [facility] Blood by [facility] Automated [facility] count ID Date Data Source [id number] 05/25/2019 06:55:[address] [facility] [id number] [facility] Name Value Range Interpretation Description Data Sup porting Code Source(s) Document(s ) Erythrocyte 12.4 % [place] distribution Regional width [Ratio] by Hospital of Automated count C ID Date Data Source [id number] 05/25/2019 06:55:[address] [facility] [id number] [facility] Name Value Range Interpretation Description Data Sup porting Code Source(s) Document(s ) Erythrocyte mean 32.8 [place] corpuscular gm/dL [facility] hemoglobin Hospital [facility] concentration [facility] [Mass/volume] by Automated count ID Date Data Source [id number] 05/25/2019 06:55:[address] [facility] [id number] [facility] Name Value Range Interpretation Description Data Sup porting Code Source(s) Document(s ) Erythrocyte 28.7 pg [place] mean [facility] corpuscular [facility] hemoglobin [facility] [Entitic mass] by Automated count ID Date Data Source [id number] 05/25/2019 06:55:[address] [facility] [id number] [facility] Name Value Range Interpretation Description Data Sup porting Code Source(s) Document(s ) Erythrocyte 87.5 fL [place] mean [facility] corpuscular Hospital of volume [Entitic [facility] volume] by Automated count ID Date Data Source [id number] 05/25/2019 06:55:[address] [facility] [id number] [facility] Name Value Range Interpretation Description Data Sup porting Code Source(s) Document(s ) Hematocrit 40.0 % [place] [Volume Regional Fraction] of Hospital of Blood by [facility] Automated count ID Date Data Source [id number] 05/25/2019 06:55:[address] [facility] [id number] [facility] Name Value Range Interpretation Description Data Sup porting Code Source(s) Document(s ) Hemoglobin 13.1 [place] [Mass/volume] gm/dL [facility] in Blood [facility] ID Date Data Source [id number] 05/25/2019 06:55:[address] [facility] [id number] [facility] Name Value Range Interpretation Description Data Sup porting Code Source(s) Document(s ) Erythrocytes 4.57 [place] [#/volume] in M/uL [facility] Blood by Hospital of Automated count [facility] ID Date Data Source [id number] 05/25/2019 06:55:[address] [facility] [id number] [facility] Name Value Range Interpretation Description Data Sup porting Code Source(s) Document(s ) Nucleated 0.0 % [place] erythrocytes/10 [facility] 0 leukocytes Hospital of [Ratio] in [facility] Blood by Automated count ID Date Data Source [id number] 05/25/2019 06:55:[address] [facility] of [id number] [facility] Name Value Range Interpretation Description Data Sup porting Code Source(s) Document(s ) Leukocytes 6.21 K/uL [place] [#/volume] in [facility] Blood by Hospital [facility] Automated [facility] count ID Date Data Source [id number] 05/25/2019 06:55:[address] [facility] [id number] [facility] Medications and supplements contain ing high levels of Biotin (Vitamin B7) may interfere with accuracy of result, pleas e interpret accordingly. Name Value Range Interpretation Description Data Sup porting Code Source(s) Document(s ) Troponin < 0.012 [place] I.cardiac ng/mL Regional [Mass/volume Hospital of ] in Serum [facility] or Plasma ID Date Data Source [id number] 05/25/2019 06:55:[address] [facility] [id number] [facility] Name Value Range Interpretation Description Data Sup porting Code Source(s) Document(s ) Bilirubin.t 0.7 mg/dL [place] otal [facility] [Mass/volum Hospital of e] in Serum [facility] or Plasma ID Date Data Source [id number] 05/25/2019 06:55:[address] [facility] [id number] [facility] Name Value Range Interpretation Description Data Sup porting Code Source(s) Document(s ) Alkaline 63 U/L [place] phosphatase [facility] [Enzymatic Hospital of activity/volume [facility] ] in Serum or Plasma ID Date Data Source [id number] 05/25/2019 06:55:[address] [facility] [id number] [facility] Name Value Range Interpretation Description Data Sup porting Code Source(s) Document(s ) Alanine 32 U/L [place] aminotransferase Regional [Enzymatic Hospital of activity/volume] in [facility] Serum or Plasma ID Date Data Source [id number] 05/25/2019 06:55:[address] [facility] [id number] [facility] Name Value Range Interpretation Description Data Sup porting Code Source(s) Document(s ) Aspartate 29 U/L [place] aminotransferase Regional [Enzymatic Hospital of activity/volume] in [facility] Serum or Plasma ID Date Data Source [id number] 05/25/2019 06:55:[address] [facility] of [id number] [facility] Name Value Range Interpretation Description Data Sup porting Code Source(s) Document(s ) Albumin 3.8 g/dL [place] [Mass/volume Regional ] in Serum Hospital of or Plasma [facility] ID Date Data Source [id number] 05/25/2019 06:55:[address] [facility] [id number] [facility] Name Value Range Interpretation Description Data Sup porting Code Source(s) Document(s ) Protein 6.1 g/dL [place] [Mass/volume Regional ] in Serum Hospital of or Plasma [facility] ID Date Data Source [id number] 05/25/2019 06:55:[address] [facility] [id number] [facility] Name Value Range Interpretation Description Data Sup porting Code Source(s) Document(s ) Calcium 9.2 mg/dL [place] [Mass/volume Regional ] in Serum Hospital [facility] ID Date Data Source [id number] 05/25/2019 06:55:[address] [facility] [id number] [facility] Name Value Range Interpretation Description Data Sup porting Code Source(s) Document(s ) Carbon 26 mmol/L [place] dioxide, Regional total Hospital of [Moles/volu [facility] me] in Serum or Plasma ID Date Data Source [id number] 05/25/2019 06:55:[address] [facility] [id number] [facility] Name Value Range Interpretation Description Data Sup porting Code Source(s) Document(s ) Chloride 108 [place] [Moles/volum mmol/L Regional e] in Serum [facility] ID Date Data Source [id number] 05/25/2019 06:55:[address] [facility] [id number] [facility] Name Value Range Interpretation Description Data Sup porting Code Source(s) Document(s ) Potassium 3.8 [place] [Moles/volume mmol/L Regional ] in Serum or Hospital of [facility] ID Date Data Source [id number] 05/25/2019 06:55:[address] [facility] [id number] [facility] Name Value Range Interpretation Description Data Sup porting Code Source(s) Document(s ) Sodium 139 mmol/L [place] [Moles/volu Regional me] in Hospital of Serum or [facility] Plasma ID Date Data Source [id number] 05/25/2019 06:55:[address] [facility] [id number] [facility] mL/min/1.73m2 Name Value Range Interpretation Code Description Data Supporting Source(s) Document(s ) Estimated GFR > 60 [place] (MDRD) [facility] ID Date Data Source [id number] 05/25/2019 06:55:[address] [facility] [id number] [facility] Name Value Range Interpretation Description Data Sup porting Code Source(s) Document(s ) Creatinine 0.91 [place] [Mass/volume] mg/dL Regional in Serum or Hospital of Plasma [facility] ID Date Data Source [id number] 05/25/2019 06:55:[address] [facility] [id number] [facility] Name Value Range Interpretation Description Data Sup porting Code Source(s) Document(s ) Urea 18 mg/dL [place] nitrogen Regional [Mass/volume Hospital of ] in Serum [facility] or Plasma ID Date Data Source [id number] 05/25/2019 06:55:[address] [facility] of [id number] [facility] Name Value Range Interpretation Description Data Sup porting Code Source(s) Document(s ) Glucose 154 mg/dL [place] [Mass/volume Regional ] in Serum Hospital of or Plasma [facility] ID Date Data Source [id number] 05/25/2019 06:55:[address] [facility] [id number] [facility] Name Value Range Interpretation Description Data Sup porting Code Source(s) Document(s ) Glucose 134 mg/dL [place] [Mass/volume Regional ] in Blood Hospital of by Test [facility] strip manual ID Date Data Source [id number] 05/09/2019 02:11:[address] [facility] [id number] [facility] Name Value Range Interpretation Description Data Sup porting Code Source(s) Document(s ) Glucose 134 mg/dL [place] [Mass/volume Regional ] in Blood Hospital of by Test [facility] strip manual ID Date Data Source [id number] 05/09/2019 02:11:[address] [facility] [id number] [facility] Name Value Range Interpretation Description Data Sup porting Code Source(s) Document(s ) Glucose 134 mg/dL [place] [Mass/volume Regional ] in Blood Hospital [facility] by Test [facility] strip manual ID Date Data Source [id number] 05/09/2019 11:17:[address] [facility] [id number] [facility] Name Value Range Interpretation Description Data Sup porting Code Source(s) Document(s ) Glucose 134 mg/dL [place] [Mass/volume Regional ] in Blood [facility] by Test [facility] strip manual ID Date Data Source [id number] 05/09/2019 11:17:[address] [facility] [id number] [facility] Name Value Range Interpretation Description Data Sup porting Code Source(s) Document(s ) Glucose 134 mg/dL [place] [Mass/volume Regional ] in Blood [facility] by Test [facility] strip manual ID Date Data Source [id number] 05/09/2019 11:14:[address] [facility] [id number] [facility] Name Value Range Interpretation Description Data Sup porting Code Source(s) Document(s ) Glucose 134 mg/dL [place] [Mass/volume Regional ] in Blood Hospital [facility] by Test [facility] strip manual ID Date Data Source [id number] 05/09/2019 11:14:[address] [facility] [id number] [facility] Name Value Range Interpretation Description Data Sup porting Code Source(s) Document(s ) Glucose 134 mg/dL [place] [[facility] ] in Blood [facility] of by Test [facility] strip manual Procedure Social History Code Duration Value Status Description Data Source(s ) Caffeine Use 02/21/2020 completed NEXTGEN (Carlo nt Details 12:00:00 AM [facility]) Smoking 02/21/2020 Unknown if ever completed Unknown if ever NEXT GEN ([facility] 12:00:00 AM smoked smoked [facility]) Smoking 12/16/2019 Occasional completed Occasional Smoker [facility] 11:45:00 AM Smoker [facility] Smoking 12/15/2019 Daily Smoker completed Daily Smoker [facility] 10:11:00 AM [facility]T Smoking 12/15/2019 Daily Smoker completed Daily Smoker [facility] 05:44:00 AM [facility] EDT Smoking 12/15/2019 Daily Smoker completed Daily Smoker [facility] 05:39:00 AM [facility] Cent[facility] EDT 11/26/2019 Cigarette smoker completed Cigarette smoker NE XTGEN ([facility] 12:00:00 AM [facility]) Smoking 11/24/2019 Daily Smoker completed Daily [...] 12:00:00 AM [facility]) Smoking 06/24/2019 Ex-smoker completed Ex-smoker [employer] [facility] 04:08:12 AM (finding) (finding) - Marcelle [facility] Vital Signs ID Date Data Source UNK Name Value Range Interpretation Description Data Sour ce(s) Code Body weight 81.326431 kg 81.824385 kg [facility] Heart rate 83 /min 83 /min [facility] Diastolic blood 83 mm[Hg] 83 mm[Hg] [facility] pressure Medical Center Systolic blood 124 mm[Hg] 124 mm[Hg] [facility] pressure Medical Center Body 36.425388 Zoey 36.063171 Zoey [facility] temperature Medical Cente r Respiratory 20 /min 20 /min [facility] Oxygen 99 % 99 % [facility] saturation in Medical [facility] Arterial blood by Pulse oximetry Heart rate 76 /min 76 /min [facility] Diastolic blood 82 mm[Hg] 82 mm[Hg] [facility] pressure Medical Center Systolic blood 134 mm[Hg] 134 mm[Hg] [facility] pressure Medical Center Heart rate 90 /min 90 /min [facility] Diastolic blood 77 mm[Hg] 77 mm[Hg] [facility] pressure Medical Center Systolic blood 126 mm[Hg] 126 mm[Hg] [facility] pressure Medical Center Body 36.680271 Zoey 36.416294 Zoey [facility] Medical Cente r Respiratory 17 /min 17 /min [facility] Oxygen 98 % 98 % [facility] saturation in Medical [facility] Arterial blood by Pulse oximetry Heart rate 78 /min 78 /min [facility] Diastolic blood 78 mm[Hg] 78 mm[Hg] [facility] pressure Medical Center Systolic blood 120 mm[Hg] 120 mm[Hg] [facility] pressure Medical Center Heart rate 73 /min 73 /min [facility] Diastolic blood 84 mm[Hg] 84 mm[Hg] [facility] pressure Medical Center Systolic blood 137 mm[Hg] 137 mm[Hg] [facility] pressure Medical Center Body 36.388957 Zoey 36.506619 Zoey [facility] temperature Medical Cente r Respiratory 18 /min 18 /min [facility] rate Medical Center Body 36.908522 Zoey 36.726211 Zoey [facility] temperature Medical Cente r Respiratory 17 /min 17 /min [facility] Medical Center Oxygen 98 % 98 % [facility] saturation in Medical [facility] Arterial blood by Pulse oximetry Body 36.577635 Zoey 36.634432 Zoey [facility] Medical Cente r Respiratory 19 /min 19 /min [facility] Oxygen 100 % 100 % [facility] saturation in [facility] Arterial blood by Pulse oximetry Oxygen 97 % 97 % [facility] saturation in Medical [facility] Arterial blood by Pulse oximetry Body weight 77.780310 kg 77.930769 kg [facility] Body height 170.732969 cm 170.056579 cm [facility] Body mass index 26.90 kg/m2 26.90 kg/m2 [facility] (BMI) [Ratio] Medical [facility] ter Body weight 79.489405 kg 79.905826 kg [facility] Body height 170.092400 cm 170.923054 cm [facility] Body mass index 26.90 kg/m2 26.90 kg/m2 [facility] (BMI) [Ratio] Medical [facility] ter Body weight 77.210674 kg 77.145176 kg [facility] Body 36.115647 Zoey 36.920259 Zoey [facility] Medical Cente r Respiratory 18 /min 18 /min [facility] Heart rate 80 /min 80 /min [facility] Diastolic blood 82 mm[Hg] 82 mm[Hg] [facility] pressure Medical Center Systolic blood 120 mm[Hg] 120 mm[Hg] [facility] Center Body 36.745228 Zoey 36.912863 Zoey [facility] Medical Cente r Respiratory 18 /min 18 /min [facility] Oxygen 99 % 99 % [facility] saturation in Medical [facility] ter Arterial blood by Pulse oximetry Heart rate 77 /min 77 /min [facility] Diastolic blood 75 mm[Hg] 75 mm[Hg] [facility] pressure Medical Center Systolic blood 128 mm[Hg] 128 mm[Hg] [facility] pressure Medical Center Body 36.844137 Zoey 36.254355 Zo[facility] temperature Medical Cente r Respiratory 18 /min 18 /min Psych[facility] rate Medical Center Oxygen 99 % 99 % [facility] saturation in Medical [facility] Arterial blood by Pulse oximetry Heart rate 80 /min 80 /min [facility] Diastolic blood 72 mm[Hg] 72 mm[Hg] [facility] Systolic blood 121 mm[Hg] 121 mm[Hg] [facility] Body 36.012889 Zoey 36.686581 Zoey [facility] Medical Cente r Respiratory 17 /min 17 /min [facility] Oxygen 98 % 98 % Psychiatric saturation in Medical [facility] ter Arterial blood by Pulse oximetry Heart rate 76 /min 76 /min [facility] Diastolic blood 64 mm[Hg] 64 mm[Hg] [facility] Systolic blood 112 mm[Hg] 112 mm[Hg] [facility] Oxygen 100 % 100 % NEXTGEN ([facility] saturation in [facility] Arterial blood Medical by Pulse Center) oximetry Body mass index 26.97 kg/m2 Overweight 26.97 kg/m2 [facility] (BMI) [Ratio] [facility]) Respiratory 20 /min 20 /min [facility] Body 36.50 Zoey 36.50 Zoey [facility] ([facility]) Heart rate 62 /min 62 /min [facility] ([facility]) Diastolic blood 67 mm[Hg] 67 mm[Hg] [facility] ( [facility]) Systolic blood 121 mm[Hg] 121 mm[Hg] [facility] ([facility]) Body weight 80.467 kg 80.467 kg [facility] ([facility]) Body height 172.72 cm 172.72 cm [facility] ([facility]) Diastolic blood 74 mmHg 74 mmHg [facility] Systolic blood 152 mmHg 152 mmHg [facility] Respiratory 18 bpm 18 bpm [facility] Heart rate 71 bpm 71 bpm [facility] Body 96.5 96.5 [facility] Diastolic blood 72 mmHg 72 mmHg [facility] Systolic blood 146 mmHg 146 mmHg [facility] Respiratory 18 bpm 18 bpm [facility] Heart rate 74 bpm 74 bpm [facility] Body 98.1 98.1 [facility] Diastolic blood 67 mmHg 67 mmHg [facility] Systolic blood 136 mmHg 136 mmHg [facility] Respiratory 18 bpm 18 bpm [facility] Heart rate 70 bpm 70 bpm [facility] Diastolic blood 90 mmHg 90 mmHg [facility] Systolic blood 170 mmHg 170 mmHg [facility] Respiratory 20 bpm 20 bpm [facility] Heart rate 75 bpm 75 bpm [facility] Body 97.5 97.5 [facility] Diastolic blood 69 mmHg 69 mmHg [facility] Systolic blood 141 mmHg 141 mmHg [facility] Respiratory 18 bpm 18 bpm [facility] Heart rate 76 bpm 76 bpm [facility] Body 99.1 99.1 [facility] Body weight 180 lbs 180 lbs [facility] Diastolic blood 70 mmHg 70 mmHg [facility] Systolic blood 139 mmHg 139 mmHg [facility] Respiratory 18 bpm 18 bpm [facility] Heart rate 75 bpm 75 bpm [facility] Body 97.1 97.1 [facility] Diastolic blood 75 mmHg 75 mmHg [facility] Systolic blood 142 mmHg 142 mmHg [facility] Respiratory 18 bpm 18 bpm [facility] Heart rate 74 bpm 74 bpm [facility] Body 96.9 96.9 [facility] Diastolic blood 63 mmHg 63 mmHg [facility] Systolic blood 138 mmHg 138 mmHg [facility] Respiratory 18 bpm 18 bpm [facility] Heart rate 64 bpm 64 bpm [facility] Body 97.6 97.6 [facility] Oxygen 99 % 99 % NEXTGEN ([facility] saturation in [facility] Arterial blood Medical by Pulse Center) oximetry Body mass index 26.58 kg/m2 Overweight 26.58 kg/m2 NEXTGEN ([facility] (BMI) [Ratio] [facility]) Respiratory 20 /min 20 /min NEXTGEN (Carl t rate [facility]) Body 36.28 Zoey 36.28 Zoey NEXTGEN ([facility]) Heart rate 71 /min 71 /min NEXTGEN ([facility]) Diastolic blood 75 mm[Hg] 75 mm[Hg] NEXTGEN ( [facility]) Systolic blood 118 mm[Hg] 118 mm[Hg] [facility] Body weight 79.288 kg 79.288 kg [facility] ([facility]) Body height 172.72 cm 172.72 cm [facility] ([facility]) Heart rate 67 /min 67 /min [facility] ([facility]) Diastolic blood 67 mm[Hg] 67 mm[Hg] [facility] ( [facility]) Systolic blood 116 mm[Hg] 116 mm[Hg] [facility] ([facility]) Oxygen 96 % 96 % [facility] ([facility] saturation in [facility] Arterial blood Medical by Pulse Center) oximetry Body mass index 27.13 kg/m2 Overweight 27.13 kg/m2 [facility] ([facility] (BMI) [Ratio] [facility]) Respiratory 20 /min 20 /min [facility] ([facility]) Body 36.67 Zoey 36.67 Zoey [facility] ([facility]) Heart rate 67 /min 67 /min [facility] ([facility]) Diastolic blood 60 mm[Hg] 60 mm[Hg] [facility] ( [facility]) Systolic blood 105 mm[Hg] 105 mm[Hg] [facility] ([facility]) Body weight 80.921 kg 80.921 kg [facility] ([facility]) Body height 172.72 cm 172.72 cm [facility] ([facility]) Body weight 75.325369 kg 75.167989 kg [facility] Body 36.867254 Zoey 36.495267 Zoey [facility] r Respiratory 19 /min 19 /min [facility] Oxygen 98 % 98 % Psychiatric saturation in Medical [facility] ter Arterial blood by Pulse oximetry Heart rate 78 /min 78 /min [facility] Body height 170.863201 cm 170.569398 cm [facility] Diastolic blood 72 mm[Hg] 72 mm[Hg] [facility] Systolic blood 136 mm[Hg] 136 mm[Hg] [facility] Body mass index 25.8 kg/m2 25.8 kg/m2 [facility] (BMI) [Ratio] Medical [facility] ter Oxygen 100 % 100 % [facility] saturation in [facility] Arterial blood Medical by Pulse Center) oximetry Body mass index 28.22 kg/m2 Overweight 28.22 kg/m2 [facility] (BMI) [Ratio] [facility]) Respiratory 19 /min 19 /min [facility]) Heart rate 72 /min 72 /min [facility] ([facility]) Diastolic blood 68 mm[Hg] 68 mm[Hg] [facility] ( [facility]) Systolic blood 117 mm[Hg] 117 mm[Hg] [facility] pressure [facility]) Body weight 84.187 kg 84.187 kg [facility] ([facility]) Body height 172.72 cm 172.72 cm [facility] ([facility]) Diastolic blood 58 mmHg 58 mmHg [facility] Systolic blood 125 mmHg 125 mmHg [facility] Respiratory 18 bpm 18 bpm [facility] Heart rate 91 bpm 91 bpm [facility] Body 98.7 98.7 [facility] Di[facility] blood 67 mmHg 67 mmHg [facility] Systolic blood 129 mmHg 129 mmHg [facility] Respiratory 18 bpm 18 bpm [facility] Heart rate 82 bpm 82 bpm [facility] Diastolic blood 61 mmHg 61 mmHg [facility] Systolic blood 111 mmHg 111 mmHg [facility] Respiratory 18 bpm 18 bpm [facility] Heart rate 84 bpm 84 bpm [facility] Body 96.5 96.5 [facility] Body 36.991048 Zoey 36.869578 Zoey [facility] Cente r Respiratory 18 /min 18 /min [facility] Oxygen 98 % 98 % [facility] saturation in Medical [facility] ter Arterial blood by Pulse oximetry Heart rate 96 /min 96 /min [facility] Diastolic blood 87 mm[Hg] 87 mm[Hg] [facility] Systolic blood 148 mm[Hg] 148 mm[Hg] [facility] Body 36.034536 Zoey 36.310014 Zoey [facility] Medical Cente r Respiratory 18 /min 18 /min [facility] Oxygen 98 % 98 % [facility] saturation in Medical [facility] Arterial blood by Pulse oximetry Heart rate 100 /min 100 /min [facility] Diastolic blood 99 mm[Hg] 99 mm[Hg] [facility] Systolic blood 151 mm[Hg] 151 mm[Hg] [facility] Oxygen 100 % 100 % NEXTGEN ([facility] saturation in [facility] Arterial blood Medical by Pulse Center) oximetry Body mass index 27.37 kg/m2 Overweight 27.37 kg/m2 NEXTGEN ([facility] (BMI) [Ratio] [facility]) Respiratory 18 /min 18 /min [facility] ([facility]) Body 36.78 Zoey 36.78 Zoey [facility] ([facility]) Heart rate 77 /min 77 /min [facility] ([facility]) Diastolic blood 66 mm[Hg] 66 mm[Hg] [facility] ( [facility]) Systolic blood 122 mm[Hg] 122 mm[Hg] [facility] ([facility]) Body weight 81.647 kg 81.647 kg [facility] ([facility]) Body height 172.72 cm 172.72 cm [facility] ([facility]) Diastolic blood 53 mm[Hg] 53 mm[Hg] [facility] ( [facility]) Systolic blood 99 mm[Hg] 99 mm[Hg] [facility] ([facility]) Oxygen 97 % 97 % [facility] saturation in [facility] Arterial [facility] by Pulse Center) oximetry Body mass index 27.64 kg/m2 Overweight 27.64 kg/m2 NEXTGEN ([facility] (BMI) [Ratio] [facility]) Respiratory 20 /min 20 /min [facility] ([facility]) Heart rate 80 /min 80 /min [facility] ([facility]) Diastolic blood 57 mm[Hg] 57 mm[Hg] [facility] ( [facility]) Systolic blood 99 mm[Hg] 99 mm[Hg] [facility] ([facility]) Body weight 82.463 kg 82.463 kg [facility] ([facility]) Body height 172.72 cm 172.72 cm [facility] ([facility]) Oxygen 98 % 98 % [facility] saturation in [facility] Arterial blood Medical by Pulse Center) oximetry Body mass index 27.67 kg/m2 Overweight 27.67 kg/m2 [facility] ([facility] (BMI) [Ratio] [facility]) Respiratory 18 /min 18 /min [facility] ([facility]) Body 36.33 Zoey 36.33 Zoey [facility] ([facility]) Heart rate 68 /min 68 /min [facility] ([facility]) Diastolic blood 64 mm[Hg] 64 mm[Hg] [facility] ( [facility]) Systolic blood 112 mm[Hg] 112 mm[Hg] [facility] ([facility]) Body weight 82.554 kg 82.554 kg [facility] ([facility]) Body height 172.72 cm 172.72 cm [facility] ([facility]) Oxygen 97 % 97 % [facility] ([facility] in [facility] Arterial blood Medical by Pulse Center) oximetry Body mass index 27.61 kg/m2 Overweight 27.61 kg/m2 [facility] ([facility] (BMI) [Ratio] [facility]) Respiratory 20 /min 20 /min [facility] ([facility]) Body 36.72 Zoey 36.72 Zoey [facility] ([facility]) Heart rate 76 /min 76 /min [facility] ([facility]) Diastolic blood 59 mm[Hg] 59 mm[Hg] [facility] ( [facility]) Systolic blood 115 mm[Hg] 115 mm[Hg] [facility] ([facility]) Body weight 82.372 kg 82.372 kg [facility] ([facility]) Body height 172.72 cm 172.72 cm [facility] ([facility]) Body 36.532008 Zoey 36.065072 [facility] Respiratory 18 /min 18 /min [facility] Oxygen 96 % 96 % Psychiatric saturation in Medical [facility] Arterial blood by Pulse oximetry Heart rate 74 /min 74 /min [facility] Diastolic blood 76 mm[Hg] 76 mm[Hg] [facility] Systolic blood 140 mm[Hg] 140 mm[Hg] [facility] Heart rate 92 /min 92 /min [facility] Body 36.795038 Zoey 36.799101 Zoey [facility] temperature Medical Cente r Respiratory 18 /min 18 /min Psychiatric rate Medical Center Oxygen 99 % 99 % Psychiatric saturation in Medical [facility] Arterial blood by Pulse oximetry Heart rate 92 /min 92 /min [facility] Diastolic blood 57 mm[Hg] 57 mm[Hg] [facility] Systolic blood 107 mm[Hg] 107 mm[Hg] [facility] pressure Medical Center Body weight 83.796824 kg 83.164141 kg [facility] ([facility]) Body weight 184 [lb_av] 184 [lb_av] [facility] Measured ([facility]) Respiratory 16 /min 16 /min Centric[facility] rate ([facility]) Body height 172.772801 cm 172.022799 cm Centric ity ([facility]) Body height 68 [in_us] 68 [in_us] Cent[facility]ity ([facility]) Heart rate 87 /min 87 /min [facility] ([facility]) Systolic blood 122 mm[Hg] 122 mm[Hg] [facility] pressure ([facility]) Diastolic blood 63 mm[Hg] 63 mm[Hg] Centricit y pressure ([facility]) Body 36.627925 Zoey 36.883506 Zoey Centrici ty temperature ([facility]) Body 98 [degF] 98 [degF] Centricity temperature ([facility]) Body mass index 28.08 kg/m2 28.08 kg/m2 Centric ity (BMI) [Ratio] ([facility]) Diastolic blood 49 mm[Hg] 49 mm[Hg] eCW3 ([facility] pressure [facility]) Systolic blood 113 mm[Hg] 113 mm[Hg] eCW3 ([facility] on pressure [facility]) Body 98.7 [degF] 98.7 [degF] eCW3 ([facility]) Heart rate 18 /min 18 /min eCW3 ([facility]) Body mass index 31.75 kg/m2 31.75 kg/m2 eCW3 ([facility] (BMI) [Ratio] [facility]) Body weight 185 [lb_av] 185 [lb_av] eCW3 ([facility]) Body height 64 [in_i] 64 [in_i] eCW3 ([facility]) Diastolic blood 85 mm[Hg] 60-90 Normal (applies to 85 mm[Hg] [facility] pressure mmHg non-numeric - Marcelle results) [facility] Systolic blood 135 mm[Hg] 90-130 Above high normal 135 mm[Hg] [facility] pressure mmHg - [facility] Heart rate 73 bpm 60-100 Normal (applies to 73 bpm [facility] bpm non-numeric - Marcelle results) [facility] Respiratory 18 br/min 14-20 Normal (applies to 18 br/min [facility] rate br/min non-numeric - Marcelle results) [facility] Oral 98.2 [degF] 96.4-99.1 Normal (applies to 98.2 [degF] [facility] temperature DegF non-numeric - [facility] results) [facility] Mean blood 102 mm[Hg] 102 mm[Hg] [facility] pressure by - Marcelle Noninvasive [facility] Oxygen 98 % 94-100 % Normal (applies to 98 % [facility] saturation in non-numeric - Marcelle Blood results) [place] [facility] by Medical [facility] ter Pulse oximetry Oxygen therapy Trevor alth [Minimum Data - Marcelle Set] [facility] Body height 173 cm 173 cm [facility] h - [facility] Body weight 85 kg 85 kg [facility] Measured - [facility] Body mass index 28.4 kg/m2 28.4 kg/m2 [facility] hernan (BMI) [Ratio] - [facility] Diastolic blood 67 mm[Hg] 60-90 Normal (applies to 67 mm[Hg] [facility] pressure mmHg non-numeric - Marcelle results) [facility] Systolic blood 124 mm[Hg] 90-130 Normal (applies to 124 mm[Hg] [facility] pressure mmHg non-numeric - Marcelle results) [facility] Body mass index 28.4 kg/m2 28.4 kg/m2 [facility] hernan (BMI) [Ratio] - [facility] Oxygen 95 % 94-100 % Normal (applies to 95 % [facility] saturation in non-numeric - [facility] Blood results) [place] [facility] by Medical [facility] Pulse oximetry Respiratory 20 br/min 14-20 Normal (applies to 20 br/min [facility] rate br/min non-numeric - [facility] results) [facility] Oral 97.9 [degF] 96.4-99.1 Normal (applies to 97.9 [degF] [facility] temperature DegF non-numeric - Marcelle results) [facility] Heart rate 72 bpm 60-100 Normal (applies to 72 bpm [facility] bpm non-numeric - Marcelle results) [facility] Diastolic blood 74 mm[Hg] 74 mm[Hg] eCW3 ([facility]) Systolic blood 142 mm[Hg] 142 mm[Hg] eCW3 ([facility]) Body 98.5 [degF] 98.5 [degF] eCW3 ([facility]) Heart rate 18 /min 18 /min eCW3 ([facility]) Body mass index 32.27 kg/m2 32.27 kg/m2 eCW3 ([facility] (BMI) [Ratio] [facility]) Body weight 188 [lb_av] 188 [lb_av] eCW3 ([facility]) Body height 64 [in_i] 64 [in_i] eCW3 ([facility]) Diastolic blood 53 mm[Hg] 53 mm[Hg] eCW3 ([facility]) Systolic blood 100 mm[Hg] 100 mm[Hg] eCW3 ([facility]) Body 97.4 [degF] 97.4 [degF] eCW3 ([facility]) Heart rate 18 /min 18 /min eCW3 ([facility]) Body mass index 32.58 kg/m2 32.58 kg/m2 eCW3 ([facility] (BMI) [Ratio] [facility]) Body weight 189.8 [lb_av] 189.8 [lb_av] eCW3 ([facility]) Body height 64 [in_i] 64 [in_i] eCW3 ([facility]) Diastolic blood 48 mm[Hg] 48 mm[Hg] [facility] [facility] Systolic blood 114 mm[Hg] 114 mm[Hg] [facility] Respiratory 16 /min 16 /min [facility] Heart rate 70 /min 70 /min [facility] Body 98.7 [degF] 98.7 [degF] [facility] temperature [facility] Diastolic blood 48 mm[Hg] 48 mm[Hg] [facility] Systolic blood 114 mm[Hg] 114 mm[Hg] [facility] Respiratory 16 /min 16 /min [facility] Heart rate 70 /min 70 /min [facility] Body 98.7 [degF] 98.7 [degF] [facility] temperature [facility] Diastolic blood 48 mm[Hg] 48 mm[Hg] [facility] Systolic blood 114 mm[Hg] 114 mm[Hg] [facility] Respiratory 16 /min 16 /min [facility] Heart rate 70 /min 70 /min [facility] Body 98.7 [degF] 98.7 [degF] [facility] temperature [facility] Diastolic blood 48 mm[Hg] 48 mm[Hg] [facility] Systolic blood 114 mm[Hg] 114 mm[Hg] [facility] Respiratory 16 /min 16 /min [facility] Heart rate 70 /min 70 /min [facility] Body 98.7 [degF] 98.7 [degF] [facility] Diastolic blood 48 mm[Hg] 48 mm[Hg] [facility] Systolic blood 114 mm[Hg] 114 mm[Hg] [facility] Respiratory 16 /min 16 /min [facility] Heart rate 70 /min 70 /min [facility] Body 98.7 [degF] 98.7 [degF] [facility] Oxygen 100 % 100 % [place] saturation in [facility] o f by Pulse [facility] oximetry Oxygen 100 % 100 % [place] saturation in [facility] o f by Pulse C oximetry Oxygen 100 % 100 % [place] saturation in [facility] o f by Pulse [facility] oximetry Oxygen 100 % 100 % [place] saturation in [facility] o f by Pulse C oximetry Oxygen 100 % 100 % [place] saturation in [facility] o f by Pulse [facility] oximetry Body weight 80.73 kg 80.73 kg [facility] Body height 68 [in_i] 68 [in_i] [facility] Body weight 80.73 kg 80.73 kg [facility] Body height 68 [in_i] 68 [in_i] [facility] Body weight 80.73 kg 80.73 kg [facility] Body height 68 [in_i] 68 [in_i] [facility] Body weight 80.73 kg 80.73 kg [facility] Body height 68 [in_i] 68 [in_i] [facility] Body weight 80.73 kg 80.73 kg [facility] Body height 68 [in_i] 68 [in_i] [facility] Diastolic blood 73 mm[Hg] 73 mm[Hg] [facility] Systolic blood 114 mm[Hg] 114 mm[Hg] [facility] Respiratory 18 /min 18 /min [facility] Heart rate 80 /min 80 /min [facility] Body 97.6 [degF] 97.6 [degF] [facility] Diastolic blood 73 mm[Hg] 73 mm[Hg] [facility] Systolic blood 114 mm[Hg] 114 mm[Hg] [facility] Respiratory 18 /min 18 /min [facility] rate [facility] Heart rate 80 /min 80 /min [facility] Body 97.6 [degF] 97.6 [degF] [facility] Heart rate 80 /min 80 /min [facility] Body 97.6 [degF] 97.6 [degF] [facility] temperature [facility] Diastolic blood 73 mm[Hg] 73 mm[Hg] [facility] Systolic blood 114 mm[Hg] 114 mm[Hg] [facility] Respiratory 18 /min 18 /min [facility] Heart rate 80 /min 80 /min [facility] Body 97.6 [degF] 97.6 [degF] [facility] Diastolic blood 73 mm[Hg] 73 mm[Hg] [facility] Systolic blood 114 mm[Hg] 114 mm[Hg] [facility] Respiratory 18 /min 18 /min [facility] Heart rate 80 /min 80 /min [facility] Body 97.6 [degF] 97.6 [degF] [facility] Diastolic blood 73 mm[Hg] 73 mm[Hg] [facility] Systolic blood 114 mm[Hg] 114 mm[Hg] [facility] Respiratory 18 /min 18 /min [facility] Heart rate 80 /min 80 /min [facility] Body 97.6 [degF] 97.6 [degF] [facility] temperature [facility] of [facility] Diastolic blood 73 mm[Hg] 73 mm[Hg] [place] [facility] Systolic blood 114 mm[Hg] 114 mm[Hg] [facility] Respiratory 18 /min 18 /min [facility] Heart rate 80 /min 80 /min [facility] Body 97.6 [degF] 97.6 [degF] [facility] of [facility] Diastolic blood 73 mm[Hg] 73 mm[Hg] [place] [facility] Systolic blood 114 mm[Hg] 114 mm[Hg] [facility] Respiratory 18 /min 18 /min [facility] Heart rate 80 /min 80 /min [facility] Body 97.6 [degF] 97.6 [degF] [facility] Diastolic blood 73 mm[Hg] 73 mm[Hg] [facility] Systolic blood 114 mm[Hg] 114 mm[Hg] [facility] Respiratory 18 /min 18 /min [facility] Heart rate 80 /min 80 /min [facility] Body 97.6 [degF] 97.6 [degF] [facility] temperature [facility] Diastolic blood 73 mm[Hg] 73 mm[Hg] [facility] Systolic blood 114 mm[Hg] 114 mm[Hg] [facility] Respiratory 18 /min 18 /min [facility] Heart rate 80 /min 80 /min [facility] Body 97.6 [degF] 97.6 [degF] [facility] temperature [facility] Diastolic blood 73 mm[Hg] 73 mm[Hg] [facility] Systolic blood 114 mm[Hg] 114 mm[Hg] [facility] Respiratory 18 /min 18 /min [facility] Heart rate 80 /min 80 /min [facility] Body 97.6 [degF] 97.6 [degF] [facility] temperature [facility] Diastolic blood 73 mm[Hg] 73 mm[Hg] [facility] of [facility] Systolic blood 114 mm[Hg] 114 mm[Hg] [facility] pressure [facility] Respiratory 18 /min 18 /min [facility] Heart rate 80 /min 80 /min [facility] Body 97.6 [degF] 97.6 [degF] [facility] temperature [facility] Diastolic blood 73 mm[Hg] 73 mm[Hg] [facility] pressure [facility] Systolic blood 114 mm[Hg] 114 mm[Hg] [facility] pressure [facility] Respiratory 18 /min 18 /min [facility] Oxygen 98 % 98 % [place] saturation in [facility] o f by Pulse [facility] oximetry Body weight 85.72 kg 85.72 kg [facility] Body height 64 [in_i] 64 [in_i] [facility] Oxygen 98 % 98 % [place] saturation in [facility] o f by Pulse [facility] oximetry Body weight 85.72 kg 85.72 kg [facility] Body height 64 [in_i] 64 [in_i] [facility] Oxygen 98 % 98 % [place] saturation in [facility] o f by Pulse [facility] oximetry Body weight 85.72 kg 85.72 kg [facility] Body height 64 [in_i] 64 [in_i] [facility] Oxygen 98 % 98 % [place] saturation in [facility] o f by Pulse [facility] oximetry Body weight 85.72 kg 85.72 kg [facility] Body height 64 [in_i] 64 [in_i] [facility] Oxygen 98 % 98 % [place] saturation in [facility] o f by Pulse [facility] oximetry Body weight 85.72 kg 85.72 kg [facility] Body height 64 [in_i] 64 [in_i] [facility] Oxygen 98 % 98 % [place] saturation in [facility] o f by Pulse [facility] oximetry Body weight 85.72 kg 85.72 kg [facility] Body height 64 [in_i] 64 [in_i] [facility] Oxygen 98 % 98 % [place] saturation in [facility] o f by Pulse [facility] oximetry Body weight 85.72 kg 85.72 kg [facility] Body height 64 [in_i] 64 [in_i] [facility] Oxygen 98 % 98 % [place] saturation in [facility] o f by Pulse [facility] oximetry Body weight 85.72 kg 85.72 kg [facility] Body height 64 [in_i] 64 [in_i] [facility] Oxygen 98 % 98 % [place] saturation in [facility] o f by Pulse [facility] oximetry Body weight 85.72 kg 85.72 kg [facility] Body height 64 [in_i] 64 [in_i] [facility] Oxygen 98 % 98 % [place] saturation in [facility] o f by Pulse [facility] oximetry Body weight 85.72 kg 85.72 kg [facility] Body height 64 [in_i] 64 [in_i] [facility] Oxygen 98 % 98 % [place] saturation in [facility] o f by Pulse [facility] oximetry Body weight 85.72 kg 85.72 kg [facility] Body height 64 [in_i] 64 [in_i] [facility] Oxygen 98 % 98 % [place] saturation in [facility] o f by Pulse [facility] oximetry Body weight 85.72 kg 85.72 kg [facility] Body height 64 [in_i] 64 [in_i] [facility] Diastolic blood 63 mm[Hg] 63 mm[Hg] eCW3 ([facility]) Systolic blood 113 mm[Hg] 113 mm[Hg] eCW3 ([facility]) Body 97.6 [degF] 97.6 [degF] eCW3 ([facility]) Heart rate 18 /min 18 /min eCW3 ([facility]) Body mass index 32.44 kg/m2 32.44 kg/m2 eCW3 ([facility] udson (BMI) [Ratio] [facility]) Body weight 189 [lb_av] 189 [lb_av] eCW3 ([facility]) Body height 64 [in_i] 64 [in_i] eCW3 ([facility]) ID Date Data Source [id number] 12/07/2019 10:40:22 PM EDT [facility] Name Value Range Interpretation Code Description Data Source(s) Body weight Measured 180 lb 180 lb [facility] ID Date Data Source [id number] 08/28/2019 10:20:00 AM EST [facility] Name Value Range Interpretation Code Description Data Source(s) WEIGHT 81.647 kilos 81.647 kilos [facility] HEIGHT 175.3 centimeters 175.3 centimeters [facility] ID Date Data Source [id number] 08/25/2019 01:44:00 AM EST [facility] - [id number] [place] Name Value Range Interpretation Code Description Data Source(s) WEIGHT 81.647 kilos 81.647 kilos [facility] HEIGHT 175.3 centimeters 175.3 centimeters [facility] ID Date Data Source [id number] 08/25/2019 01:44:00 AM EST [facility] - [id number] [place] Name Value Range Interpretation Code Description Data Source(s) WEIGHT 81.647 kilos 81.647 kilos [facility] HEIGHT 175.3 centimeters 175.3 centimeters [facility] ID Date Data Source [id number] 08/25/2019 01:43:00 AM EST [facility] - [id number] [place] Name Value Range Interpretation Code Description Data Source(s) WEIGHT 81.647 kilos 81.647 kilos [facility] HEIGHT 175.3 centimeters 175.3 centimeters [facility] ID Date Data Source [id number] 08/25/2019 01:28:00 AM EST [facility] Name Value Range Interpretation Code Description Data Source(s) WEIGHT 77.111 kilos 77.111 kilos [facility] HEIGHT 172.7 centimeters 172.7 centimeters [facility] ID Date Data Source [id number] 08/04/2019 04:54:00 AM EST [facility] Name Value Range Interpretation Code Description Data Source(s) WEIGHT 77.111 kilos 77.111 kilos [facility] HEIGHT 172.7 centimeters 172.7 centimeters [facility] ID Date Data Source [id number] 08/04/2019 12:24:00 AM EST [facility] - [id number] [place] Name Value Range Interpretation Code Description Data Source(s) WEIGHT 77.111 kilos 77.111 kilos [facility] HEIGHT 172.7 centimeters 172.7 centimeters [facility] ID Date Data Source [id number] 08/04/2019 12:24:00 AM EST [facility] - [id number] [place] Name Value Range Interpretation Code Description Data Source(s) WEIGHT 77.111 kilos 77.111 kilos [facility] HEIGHT 172.7 centimeters 172.7 centimeters [facility] ID Date Data Source [id number] 08/03/2019 11:27:00 PM EST [facility] - [id number] [place] Name Value Range Interpretation Code Description Data Source(s) WEIGHT 77.111 kilos 77.111 kilos [facility] HEIGHT 172.7 centimeters 172.7 centimeters [facility] ID Date Data Source [id number] 08/03/2019 11:27:00 PM EST [facility] - [id number] [place] Name Value Range Interpretation Code Description Data Source(s) WEIGHT 77.111 kilos 77.111 kilos [facility] HEIGHT 172.7 centimeters 172.7 centimeters [facility] ID Date Data Source [id number] 08/03/2019 11:26:00 PM EST [facility] - [id number] [place] Name Value Range Interpretation Code Description Data Source(s) WEIGHT 77.111 kilos 77.111 kilos [facility] HEIGHT 172.7 centimeters 172.7 centimeters [facility] Patient Treatment Plan of Care Planned Activity Planned Date Details Description Data Source (s) Lancets,Ultra Thin 26 01/01/2020 12:00:00 NEXTGEN ([facility] gauge [facility]) 3 ML Insulin Lispro 200 01/01/2020 12:00:00 [facility]EXTGEN ([facility] UNT/ML Pen Injector [facility] [Humalog] [facility]) Accu-Chek Birgit Plus test 01/01/2020 12:00:00 [facility] ([facility]) Basaglar KwikPen U-100 01/01/2020 12:00:00 NEXTGEN ([facility] Insulin 100 unit/mL (3 AM EDT [facility] mL) subcutaneous Center) gabapentin 300 mg capsule 01/01/2020 12:00:00 [facility] ([facility]) gabapentin 300 MG Oral 01/01/2020 [facility] Capsule [facility]) Lancets,Ultra Thin 26 01/01/2020 12:00:00 NEXTGEN ([facility] gauge [facility]) Basaglar KwikPen U-100 01/01/2020 12:00:00 NEXTGEN ([facility] Insulin 100 unit/mL (3 AM EDT [facility] mL) subcutaneous Center) Accu-Chek Birgit Plus test 01[facility]01[facility]2020 [facility]) Basaglar KwikPen U-100 01/01/2020 12:00:00 NEXTGEN ([facility] Insulin 100 unit/mL (3 AM EDT [facility] mL) subcutaneous Center) 3 ML Insulin Lispro 200 12/31/2019 12:00:00 NEXTGEN ([facility] UNT/ML Pen Injector [facility] [Humalog] Center) Basaglar KwikPen U-100 12/31/2019 12:00:00 NEXTGEN ([facility] Insulin 100 unit/mL (3 AM [facility] Medical ) subcutaneous Center) blood-glucose meter kit 11/27/2019 12:00:00 NEXTGEN ([facility]) Etodolac 400 MG Oral 11/27/2019 12:00:00 NEXTGEN ([facility] Tablet [facility]) Diazepam 10 MG Oral 11/27/2019 12:00:00 N EXTGEN ([facility] Tablet [facility]) Buprenorphine 8 MG / 11/27/2019 12:00:00 NEXTGEN ([facility] Naloxone 2 MG Sublingual [facility]) Accu-Chek Birgit Plus test 11/27/2019 12:00:00 [facility] ([facility] strips [facility]) Etodolac 400 MG Oral 11/26/2019 12:00:00 [facility] ([facility] Tablet [facility]) Accu-Chek Birgit Plus test 11/26/2019 12:00:00 [facility] ([facility] strips [facility]) blood-glucose meter kit 11/26/2019 12:00:00 [facility] ([facility]) Acetaminophen 500 MG Oral 11/19/2019 12:00:00 [facility] ([facility] Tablet [facility]) meloxicam 7.5 MG Oral 11/19/2019 12:00:00 [facility] ([facility] Tablet [facility]) Lidocaine Hydrochloride 11/19/2019 12:00:00 NEXTGEN ([facility] 40 MG/ML Topical Cream [facility]) Nicotine 2 MG Chewing Gum 11/19/2019 12:00:00 [facility] ([facility] [Nicorette] [facility]) gabapentin 300 MG Oral 11/19/2019 12:00:00 [facility] ([facility] Capsule [facility]) Acetaminophen 500 MG Oral 11/08/2019 12:00:00 [facility] ([facility] Capsule [facility]) Diclofenac Sodium 0.01 11/06/2019 12:00:00 NEXTGEN ([facility] MG/MG Topical Gel [facility] dical [facility]) gabapentin 300 MG Oral 11/06/2019 12:00:00 NEXTGEN ([facility] Capsule [facility]) Diclofenac Sodium 0.01 11/06/2019 12:00:00 NEXTGEN ([facility] MG/MG Topical Gel [facility] dical [facility]) gabapentin 300 MG Oral 11/06/2019 12:00:00 NEXTGEN ([facility] Capsule [facility]) Glucerna oral liquid 11/03/2019 12:00:00 NEXTGEN ([facility]) Lidocaine Hydrochloride 11/03/2019 12:00:00 NEXTGEN ([facility] 40 MG/ML Topical Cream [facility]) 3 ML Insulin Lispro 200 10/31/2019 [facility]ML Pen Injector [facility] [Humalog] [facility]) Accu-Chek Birgit Plus test 10/31/2019 12:00[facility] strips [facility]) gabapentin 300 MG Oral 10/31/2019 12:00[facility] Glucerna oral liquid 10/31/2019 12:00[facility]00 [facility]) 24 HR Bupropion 10/31/2019 12:00:00 NEXTG EN ([facility] Hydrochloride 300 MG [facility] Extended Release Oral [facility] ) Tablet [Wellbutrin] Prednisone 20 MG Oral 08/25/2019 12:00:00 [facility] Tablet [facility] 200 ACTUAT Albuterol 0.09 08/25/2019 12:00:00 [facility] MG/ACTUAT Metered Dose AM [facility] Inhaler [Proventil] Azithromycin 250 MG Oral 08/25/2019 12:00:[facility] Tablet [Zithromax] [facility] Prednisone 20 MG Oral 08/25/2019 12:00:00 [facility] Tablet [facility] 200 ACTUAT Albuterol 0.09 08/25/2019 12:00:00 [facility] MG/ACTUAT Metered Dose AM [facility] Inhaler [Proventil] Azithromycin 250 MG Oral 08/25/2019 12:00:00 [facility] Tablet [Zithromax] AM [facility] Thiamine 100 MG Oral 08/05/2019 12:00:00 [facility] Tablet [facility] MULTIVITAMIN 08/05/2019 12:00:00 [facility] (MULTI-VITAMIN DAILY) 1 AM [facility] EACH TABLET Folic Acid 1 MG Oral 08/05/2019 12:00:[facility] Tablet [facility] Thiamine 100 MG Oral 08/05/2019 12:00:[facility] Tablet [facility] MULTIVITAMIN 08/05/2019 12:00:00 [facility] (MULTI-VITAMIN DAILY) 1 AM [facility] EACH TABLET Folic Acid 1 MG Oral 08/05/2019 12:00:[facility] Tablet [facility] atorvastatin 20 MG Oral 06/13/2019 12:00:00 eCW3 ([place] Tablet [facility]) atorvastatin 20 MG Oral 06/13/2019 12:00:00 eCW3 ([place] Tablet [facility]) atorvastatin 20 MG Oral 06/13/2019 12:00:00 eCW3 ([place] Tablet [facility]) atorvastatin 20 MG Oral 06/13/2019 12:00:00 eCW3 ([place] Tablet [facility]) atorvastatin 20 MG Oral 06/13/2019 12:00:00 eCW3 ([place] Tablet [facility]) atorvastatin 20 MG Oral 06/13/2019 12:00:00 eCW3 ([place] Tablet [facility]) atorvastatin 20 MG Oral 06/13/2019 12:00:00 eCW3 ([place] Tablet [facility]) BASAGLAR KWIKPEN 100 05/01/2019 12:00:00 eCW3 ([place] unit/ml [facility]) BASAGLAR KWIKPEN 100 05/01/2019 12:00:00 eCW3 ([place] unit/ml [facility]) BASAGLAR KWIKPEN 100 05/01/2019 12:00:00 eCW3 ([place] unit/ml [facility]) BASAGLAR KWIKPEN 100 05/01/2019 12:00:00 eCW3 ([place] unit/ml [facility]) BASAGLNBA KWIKPEN 100 05/01/2019 12:00:00 eCW3 ([place] unit/ml [facility]) BASAGLAR KWIKPEN 100 05/01/2019 12:00:00 eCW3 ([place] unit/ml [facility]) BASAGLNBA KWIKPEN 100 05/01/2019 12:00:00 eCW3 ([place] unit/ml [facility]) Basaglar KwikPen U-100 NEXTG EN ([facility] 100 unit/mL ([facility]) subcutaneous Center) Bisacodyl 5 MG Delayed NEXTG EN ([facility] Release Oral [facility]) Acetaminophen 500 MG Oral NE XTGEN ([facility]) Insulin [facility] (Basaglar Kwikpen U-100) 100 Unit/1 Ml Insuln.pen Insuln.pen, Cephalexin [address] [facility] [Keflex] [facility] Insulin [facility] (Basaglar Kwikpen U-100) 100 Unit/1 Ml Insuln.pen Insuln.pen, Cephalexin [address] [facility] [place] Capsule [Keflex] [facility]
[2020-06-28] MEDS: BUPRENORPHINE/NALOXONE 8 MG/2 MG FILM PACKET SL SCH (15:55)
[2020-06-28] MEDS: NICOTINE 21 MG/24 HOURS TOPICAL PATCH TD SCH (15:55)
[2020-06-28] MEDS: INSULIN SLIDING SCALE (NOVOLOG) 1 VIAL SQ SCH ×2 (16:40→22:53)
[2020-06-28] MEDS ORDERED: buPROPion HCL 100 MG TABLET PO ONE (17:00)
[2020-06-28] MEDS: chlordiazePOXIDE HCL 25 MG CAPSULE PO SCH ×2 (17:39→23:33)
[2020-06-28] MEDS ORDERED: MELATONIN 5 MG TABLETS PO SCH (22:00)
[2020-06-28] MEDS ORDERED: INSULIN (LEVEMIR) 100 UNITS/ML UNITS SQ SCH (22:00)
[2020-06-28] MEDS ORDERED: THIAMINE HCL 100 MG TABLET (FP) PO SCH (22:00)
[2020-06-28] MEDS: metFORMIN HCL 500 MG TABLET (FP) PO SCH (22:52)
[2020-06-28] MEDS: GABAPENTIN 100 MG CAPSULE PO SCH (22:53)
[2020-06-29] MEDS: chlordiazePOXIDE HCL 25 MG CAPSULE PO SCH ×3 (06:19→17:55)
[2020-06-29] MEDS: INSULIN SLIDING SCALE (NOVOLOG) 1 VIAL SQ SCH ×3 (06:24→17:06)
[2020-06-29] MEDS ORDERED: PRENATAL VITAMINS W/ FOLIC ACID TABLET (FP) PO SCH (10:00)
[2020-06-29] MEDS ORDERED: LISINOPRIL 5 MG TABLET PO SCH (10:00)
[2020-06-29] MEDS: GABAPENTIN 100 MG CAPSULE PO SCH (10:19)
[2020-06-29] MEDS: BUPRENORPHINE/NALOXONE 8 MG/2 MG FILM PACKET SL SCH (10:20)
[2020-06-29] MEDS: metFORMIN HCL 500 MG TABLET (FP) PO SCH (10:20)
[2020-06-29] MEDS: NICOTINE 21 MG/24 HOURS TOPICAL PATCH TD SCH (10:20)
[2020-06-29 10:22] LABS: HEMATOCRIT 39.9 % (35.4-49); HEMOGLOBIN 13.3 GM/dL (11.7-16.9); MCH 29.4 pg (25.7-33.7); MCHC 33.3 g/dl (32.0-35.9); MEAN CELL VOLUME 88.4 fl (80-96); MEAN PLT VOLUME 7.6 fl (7.5-11.1); PLATELET COUNT 228 K/MM3 (134-434); RBC 4.51 M/mm3 (4.00-5.60); RDW 13.9 % (11.9-15.9); WHITE BLOOD COUNT 5.4 K/mm3 (4.0-10.0)
[2020-06-29 10:40] LABS: POTASSIUM 4.1 mmol/L (3.5-5.1)
[2020-06-29 10:44] LABS: CALCIUM 8.8 mg/dL (8.5-10.1)
[2020-06-29 10:45] LABS: ALBUMIN 3.6 g/dl (3.4-5.0); BLOOD UREA NITROGEN 13.9 mg/dL (7-18)
[2020-06-29 10:49] LABS: BILIRUBIN,TOTAL 0.5 mg/dL (0.2-1)
[2020-06-29 10:50] LABS: TOT PROT 6.5 g/dl (6.4-8.2)
--- NOTE | 2020-06-29 11:10 | EKG ---
Test Reason : Blood Pressure : / mmHG Vent. Rate : 079 BPM Atrial Rate : 079 BPM P-R Int : 196 ms QRS Dur : 092 ms QT Int : 372 ms P-R-T Axes : 064 003 045 degrees QTc Int : 426 ms NORMAL SINUS RHYTHM SEPTAL INFARCT (CITED ON OR BEFORE 04-JAN-2020) ABNORMAL ECG WHEN COMPARED WITH ECG OF 04-JAN-2020 17:03, T WAVE INVERSION NO LONGER EVIDENT IN INFERIOR LEADS Confirmed by Carl De La Cruz MD ([id number]) on 06/29/2020 11:09:51 AM Referred By: Confirmed By:Carl De La Cruz MD
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
--- NOTE | 2020-06-29 15:25 | PN ---
[facility] CIWA - CIWA Score Nausea/Vomitin-Mild Nausea/No Vomiting Muscle Tremors: 2 Anxiety: 3 Agitation: 1-Slight > Activity Paroxysmal Sweats: 1-Minimal Palms Moist Orientation: 0-Oriented Tacttile Disturbances: 1-Very Mild Itch/Numbness Auditory Disturbances: 0-None Visual Disturbances: 1-Very Mild Sensitivity Headache: 1-Very Mild CIWA-Ar Total Score: 11 S Progress Note (SOAP) Subjective: 59 years old male was admitted on 06/28/20 for alcohol withdrawal sx management treating with librium detox regiment tremor good hand and mouth coordination sitting on edge of bed eating breakfast and lunch no trouble chewing swallowing tolerated food well received suboxone 8-2mg sl today Objective: 06/29/20 15:24 Vital Signs - 24 hr 06/28/20 06/28/20 06/28/20 15:41 16:55 20:44 Temperature 97.1 F L 98.7 F 98.1 F Pulse Rate 83 85 88 Respiratory 18 19 17 Rate Blood Pressure 119/73 126/73 110/63 O2 Sat by Pulse 100 98 Oximetry (%) 06/29/20 06/29/20 06:31 08:20 Temperature 97.7 F 97.3 F L Pulse Rate 77 86 Respiratory 18 18 Rate Blood Pressure 113/72 100/62 O2 Sat by Pulse 100 Oximetry (%) Laboratory Tests 06/28/20 06/28/20 06/29/20 16:29 20:53 06:23 WBC RBC Hgb Hct MCV MCH MCHC RDW Plt Count MPV Sodium Potassium Chloride Carbon Dioxide Anion Gap BUN Creatinine Est GFR (CKD-EPI)AfAm Est GFR (CKD-EPI)NonAf POC Glucometer 228 237 265 Random Glucose Calcium Total Bilirubin AST ALT Alkaline Phosphatase Total Protein Albumin Syphilis Serology HIV Ag/Ab Combo Qual 06/29/20 06/29/20 06/29/20 07:20 07:20 07:20 WBC 5.4 RBC 4.51 Hgb 13.3 Hct 39.9 MCV 88.4 MCH 29.4 MCHC 33.3 RDW 13.9 Plt Count 228 MPV 7.6 Sodium Potassium Chloride Carbon Dioxide Anion Gap BUN Creatinine Est GFR (CKD-EPI)AfAm Est GFR (CKD-EPI)NonAf POC Glucometer Random Glucose Calcium Total Bilirubin AST ALT Alkaline Phosphatase Total Protein Albumin Syphilis Serology Non-reactive HIV Ag/Ab Combo Qual Negative 06/29/20 07:20 WBC RBC Hgb Hct MCV MCH MCHC RDW Plt Count MPV Sodium 141 Potassium 4.1 Chloride 109 H Carbon Dioxide 28 Anion Gap 3 L BUN 13.9 Creatinine 1.0 Est GFR (CKD-EPI)AfAm 93.73 Est GFR (CKD-EPI)NonAf 80.87 POC Glucometer Random Glucose 229 H Calcium 8.8 Total Bilirubin 0.5 AST 13 L ALT 22 Alkaline Phosphatase 100 Total Protein 6.5 Albumin 3.6 Syphilis Serology HIV Ag/Ab Combo Qual 06/29/20 15:24 covid pending 06/29/20 15:25 long history of insulin dependent diabetes taking metformin 500mg and insulin 26 units hs 06/29/20 15:26 06/29/20 15:27 Assessment: 06/29/20 15:25 alcohol withdrawal Plan: librium regiment
[2020-06-29] MEDS ORDERED: buPROPion HCL 100 MG TABLET PO SCH (16:00)
[2020-06-29 21:09] VITALS: BP 117/60; PULSE 112; TEMP 97.8
--- NOTE | 2020-06-29 22:45 | DS ---
[facility] Detox Discharge Summary Admission Date: 06/28/20 Discharge Date: 06/29/20 - History Additional Comments: Patient is leaving against medical advice. He states that he does not not have to give a reason why he wants to leave because he is not in [facility]. Risks and consequences of not completing detoxification reinforced. Patient verbalized understanding of instructions, signed the AMA form and was escorted to security by the [facility]. Pertinent Past History: Opioid dependence Alcohol dependence Diabetes Mellitus Seizure Left blind eye Osteoarthritis Depression Peripheral Neuropathy Nicotine dependence Cannabis dependence Cardiac Murmur - Physical Exam Results Vital Signs: Vital Signs Temperature 97.8 F 06/29/20 20:50 Pulse Rate 112 H 06/29/20 20:50 Respiratory Rate 17 06/29/20 20:50 Blood Pressure 117/60 06/29/20 20:50 O2 Sat by Pulse Oximetry (%) 100 06/29/20 20:50 Laboratory Last Values WBC 5.4 K/mm3 (4.0-10.0) 06/29/20 07:20 RBC 4.51 M/mm3 (4.00-5.60) 06/29/20 07:20 Hgb 13.3 GM/dL (11.7-16.9) 06/29/20 07:20 Hct 39.9 % (35.4-49) 06/29/20 07:20 MCV 88.4 fl (80-96) 06/29/20 07:20 MCH 29.4 pg (25.7-33.7) 06/29/20 07:20 MCHC 33.3 g/dl (32.0-35.9) 06/29/20 07:20 RDW 13.9 % (11.9-15.9) 06/29/20 07:20 Plt Count 228 K/MM3 (134-434) 06/29/20 07:20 MPV 7.6 fl (7.5-11.1) 06/29/20 07:20 Sodium 141 mmol/L (136-145) 06/29/20 07:20 Potassium 4.1 mmol/L (3.5-5.1) 06/29/20 07:20 Chloride 109 mmol/L (98-107) H 06/29/20 07:20 Carbon Dioxide 28 mmol/L (21-32) 06/29/20 07:20 Anion Gap 3 MMOL/L (8-16) L 06/29/20 07:20 BUN 13.9 mg/dL (7-18) 06/29/20 07:20 Creatinine 1.0 mg/dL (0.55-1.3) 06/29/20 07:20 Est GFR (CKD-EPI)AfAm 93.73 06/29/20 07:20 Est GFR (CKD-EPI)NonAf 80.87 06/29/20 07:20 POC Glucometer 299 UNITS (80-120) 06/29/20 16:20 Random Glucose 229 mg/dL (74-106) H 06/29/20 07:20 Calcium 8.8 mg/dL (8.5-10.1) 06/29/20 07:20 Total Bilirubin 0.5 mg/dL (0.2-1) 06/29/20 07:20 AST 13 U/L (15-37) L 06/29/20 07:20 ALT 22 U/L (13-61) 06/29/20 07:20 Alkaline Phosphatase 100 U/L (45-117) 06/29/20 07:20 Total Protein 6.5 g/dl (6.4-8.2) 06/29/20 07:20 Albumin 3.6 g/dl (3.4-5.0) 06/29/20 07:20 Syphilis Serology Non-reactive (NONREACTIVE) 06/29/20 07:20 COVID-19 (BUTCH) Not detected (Not Detected) 06/28/20 15:10 HIV Ag/Ab Combo Qual Negative (NEGATIVE) 06/29/20 07:20 Pertinent Admission Physical Exam Findings: Alcohol withdrawal symptoms - Medication Discharge Medications: Ambulatory Orders Lisinopril [Zestril] 2.5 mg PO DAILY 09/19/19 Bupropion HCl [Wellbutrin -] 100 mg PO BID 06/28/20 Gabapentin [Neurontin -] 200 mg PO BID 06/28/20 Insulin Glargine,Hum.rec.anlog [Lantus Solostar PEN (NF)] 26 units SQ HS 06/28/20 Metformin HCl [Glucophage] 500 mg PO BID 06/28/20 traZODone HCL [Trazodone HCl] 50 mg PO HS 06/28/20 - Diagnosis (1) Alcohol dependence with uncomplicated withdrawal Status: Chronic (2) Blind left eye Status: Chronic (3) Cocaine dependence, uncomplicated Status: Chronic (4) Diabetes mellitus with insulin therapy Status: Chronic (5) Encounter for monitoring Suboxone maintenance therapy Status: Chronic (6) History of seizure Status: Chronic (7) Opiate dependence Status: Chronic (8) Osteoarthritis Status: Chronic Qualifiers: Osteoarthritis location: multiple joints Osteoarthritis type: unspecified Qualified Code(s): M15.9 - Polyosteoarthritis, unspecified (9) History of depression Status: Chronic (10) Hx of peripheral neuropathy Status: Chronic (11) Nicotine dependence Status: Chronic Qualifiers: Nicotine product type: cigarettes Substance use status: uncomplicated Qualified Code(s): F17.210 - Nicotine dependence, cigarettes, uncomplicated (12) Antisocial personality disorder Status: Chronic (13) Cannabis dependence, uncomplicated Status: Chronic (14) Murmur, cardiac Status: Chronic (15) Type 2 diabetes mellitus Status: Chronic Qualifiers: Diabetes mellitus mcc insulin use: 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
[2020-06-30] MEDS ORDERED: chlordiazePOXIDE HCL 25 MG CAPSULE PO SCH (05:00)
[2020-07-01] MEDS ORDERED: chlordiazePOXIDE HCL 10 MG CAPSULE PO PRN
[2020-07-01] MEDS ORDERED: chlordiazePOXIDE HCL 10 MG CAPSULE PO SCH (05:00)
[2020-07-02] MEDS ORDERED: chlordiazePOXIDE HCL 10 MG CAPSULE PO SCH (05:00)
[2020-07-03] MEDS ORDERED: chlordiazePOXIDE HCL 10 MG CAPSULE PO ONE (05:00)
== END 2020-06-29 22:32 | disposition left against medical advice (07) | DRG 770 ==
LOC: YASAS 11:54 → Y3N 15:05
PROVIDERS: ADMIT Allergy & Immunology; ATTEND Allergy & Immunology
PROC: HZ2ZZZZ Detoxification Services for Substance Abuse Treatment (ICD-10-PCS; principal; 2020-06-28)
DX: F10.230 Alcohol dependence with withdrawal, uncomplicated (principal); F11.20 Opioid dependence, uncomplicated; F14.20 Cocaine dependence, uncomplicated; F12.20 Cannabis dependence, uncomplicated; F17.210 Nicotine dependence, cigarettes, uncomplicated; F60.2 Antisocial personality disorder; F32.9 Major depressive disorder, single episode, unspecified; G62.9 Polyneuropathy, unspecified; E11.9 Type 2 diabetes mellitus without complications; Z79.4 Long term (current) use of insulin; H54.62 Unqualified visual loss, left eye, normal vision right eye; M19.90 Unspecified osteoarthritis, unspecified site; R01.1 Cardiac murmur, unspecified; Z86.69 Personal history of other diseases of the nervous system and sense organs; Z88.6 Allergy status to analgesic agent; Z91.018 Allergy to other foods
CPT/HCPCS: 36415; 80053; 82962; 85027; 86780; 87389; 93005; 93010; C9803; U0003

== ENCOUNTER 2020-08-23 17:59 | Inpatient (IN) | payer OTHER ==
[2020-08-23 20:14] VITALS: BMI 28.5
[2020-08-23] MEDS ORDERED: MENTHOL/PHENOL 1 EACH UD MM PRN (20:16)
[2020-08-23] MEDS ORDERED: chlordiazePOXIDE HCL 25 MG CAPSULE PO PRN (20:16)
[2020-08-23] MEDS ORDERED: MAGNESIUM CITRATE 300 ML BOTTLE PO PRN (20:16)
[2020-08-23] MEDS ORDERED: NICOTINE POLACRILEX 2 MG GUM BUC PRN (20:16)
[2020-08-23] MEDS ORDERED: ACETAMINOPHEN 325 MG TABLET (FP) PO PRN ×2 (20:16)
[2020-08-23] MEDS ORDERED: BISMUTH SUBSALICYLATE 524 MG/30 ML UD PO PRN (20:16)
[2020-08-23] MEDS ORDERED: MAGNESIUM HYDROX 2400MG/30ML ORAL SUSPENSION 30 ML CUP PO PRN (20:16)
[2020-08-23] MEDS ORDERED: METHOCARBAMOL 500 MG TABLET PO PRN (20:16)
[2020-08-23] MEDS ORDERED: INSULIN (NOVOLOG) ASPART 100 UNITS/ML 10ML VIAL ONE (21:07)
[2020-08-23] MEDS: INSULIN SLIDING SCALE (NOVOLOG) 1 VIAL SQ SCH (21:08)
[2020-08-23] MEDS: chlordiazePOXIDE HCL 25 MG CAPSULE PO SCH (22:19)
[2020-08-23] MEDS: GABAPENTIN 100 MG CAPSULE PO SCH (22:20)
[2020-08-23] MEDS: THIAMINE HCL 100 MG TABLET (FP) PO SCH (22:20)
[2020-08-23] MEDS: hydrOXYzine PAMOATE 25 MG CAPSULE (FP) PO SCH (22:36)
[2020-08-23] MEDS: MELATONIN 5 MG TABLETS PO SCH (22:36)
[2020-08-24] MEDS: chlordiazePOXIDE HCL 25 MG CAPSULE PO SCH ×4 (05:56→22:57)
[2020-08-24] MEDS: hydrOXYzine PAMOATE 25 MG CAPSULE (FP) PO SCH ×5 (05:56→22:49)
[2020-08-24] MEDS: metFORMIN HCL 500 MG TABLET (FP) PO SCH ×2 (06:29→17:20)
[2020-08-24] MEDS: INSULIN SLIDING SCALE (NOVOLOG) 1 VIAL SQ SCH ×4 (07:08→22:48)
[2020-08-24] MEDS ORDERED: INSULIN (NOVOLOG) ASPART 100 UNITS/ML 10ML VIAL ONE ×4 (07:09→22:46)
[2020-08-24] MEDS: GABAPENTIN 100 MG CAPSULE PO SCH ×2 (10:12→22:57)
[2020-08-24] MEDS: LISINOPRIL 5 MG TABLET PO SCH (10:12)
[2020-08-24] MEDS: PRENATAL VITAMINS W/ FOLIC ACID TABLET (FP) PO SCH (10:13)
[2020-08-24 11:06] LABS: HEMOGLOBIN 13.5 GM/dL (11.7-16.9); MCH 29.1 pg (25.7-33.7); MEAN CELL VOLUME 88.3 fl (80-96); MEAN PLT VOLUME 7.5 fl (7.5-11.1); PLATELET COUNT 257 K/MM3 (134-434); RBC 4.64 M/mm3 (4.00-5.60); RDW 13.5 % (11.9-15.9); WHITE BLOOD COUNT 6.6 K/mm3 (4.0-10.0)
[2020-08-24 11:13] LABS: CALCIUM 8.6 mg/dL (8.5-10.1); POTASSIUM 3.8 mmol/L (3.5-5.1)
[2020-08-24 11:15] LABS: ALBUMIN 3.7 g/dl (3.4-5.0); BLOOD UREA NITROGEN 16.1 mg/dL (7-18)
[2020-08-24 11:16] LABS: CREATININE 1.1 mg/dL (0.55-1.3)
[2020-08-24 11:18] LABS: BILIRUBIN,TOTAL 0.2 mg/dL (0.2-1); TOT PROT 6.6 g/dl (6.4-8.2)
[2020-08-24 12:09] LABS: URINE APPEARANCE CLEAR; URINE BILIRUBIN NEGATIVE (NEGATIVE); URINE COLOR YELLOW; URINE GLUCOSE (UA) 2+ (NEGATIVE); URINE KETONE NEGATIVE (NEGATIVE); URINE LEUK ESTERASE NEGATIVE (NEGATIVE); URINE NITRITE NEGATIVE (NEGATIVE); URINE PROTEIN NEGATIVE (NEGATIVE); URINE UROBILINOGEN 0.2 mg/dL (0.2-1.0)
[2020-08-24] MEDS: INSULIN (LEVEMIR) 100 UNITS/ML UNITS SQ SCH (22:47)
[2020-08-24] MEDS: MELATONIN 5 MG TABLETS PO SCH (22:48)
[2020-08-24] MEDS: THIAMINE HCL 100 MG TABLET (FP) PO SCH (22:56)
[2020-08-25] MEDS: chlordiazePOXIDE HCL 25 MG CAPSULE PO SCH ×4 (05:13→23:29)
[2020-08-25] MEDS: hydrOXYzine PAMOATE 25 MG CAPSULE (FP) PO SCH ×5 (05:13→23:29)
[2020-08-25] MEDS ORDERED: INSULIN (NOVOLOG) ASPART 100 UNITS/ML 10ML VIAL ONE ×3 (05:17→23:17)
[2020-08-25] MEDS ORDERED: MASKS NR ONE (05:40)
[2020-08-25] MEDS: metFORMIN HCL 500 MG TABLET (FP) PO SCH ×2 (07:01→18:53)
[2020-08-25] MEDS: INSULIN SLIDING SCALE (NOVOLOG) 1 VIAL SQ SCH ×4 (07:01→23:22)
[2020-08-25] MEDS: GABAPENTIN 100 MG CAPSULE PO SCH ×2 (10:07→23:29)
[2020-08-25] MEDS: PRENATAL VITAMINS W/ FOLIC ACID TABLET (FP) PO SCH (10:08)
[2020-08-25] MEDS: LISINOPRIL 5 MG TABLET PO SCH (11:37)
[2020-08-25 17:43] LABS: HIV INTERPRETATION NEGATIVE (NEGATIVE)
[2020-08-25] MEDS: INSULIN (LEVEMIR) 100 UNITS/ML UNITS SQ SCH (23:21)
[2020-08-25] MEDS: MELATONIN 5 MG TABLETS PO SCH (23:29)
[2020-08-25] MEDS: THIAMINE HCL 100 MG TABLET (FP) PO SCH (23:29)
[2020-08-26] MEDS ORDERED: chlordiazePOXIDE HCL 10 MG CAPSULE PO PRN
[2020-08-26] MEDS: chlordiazePOXIDE HCL 10 MG CAPSULE PO SCH ×4 (06:43→22:34)
[2020-08-26] MEDS: INSULIN SLIDING SCALE (NOVOLOG) 1 VIAL SQ SCH ×4 (06:44→21:44)
[2020-08-26] MEDS: hydrOXYzine PAMOATE 25 MG CAPSULE (FP) PO SCH ×5 (06:44→21:47)
[2020-08-26] MEDS: metFORMIN HCL 500 MG TABLET (FP) PO SCH ×2 (06:44→17:00)
[2020-08-26] MEDS: LISINOPRIL 5 MG TABLET PO SCH (10:08)
[2020-08-26] MEDS: GABAPENTIN 100 MG CAPSULE PO SCH ×2 (10:08→21:45)
[2020-08-26] MEDS: PRENATAL VITAMINS W/ FOLIC ACID TABLET (FP) PO SCH (10:09)
[2020-08-26] MEDS ORDERED: INSULIN (NOVOLOG) ASPART 100 UNITS/ML 10ML VIAL ONE ×2 (11:32→17:07)
[2020-08-26] MEDS ORDERED: BUPRENORPHINE/NALOXONE 4 MG/1 MG FILM PACKET SL ONE (13:15)
[2020-08-26] MEDS: INSULIN (LEVEMIR) 100 UNITS/ML UNITS SQ SCH (21:43)
[2020-08-26] MEDS: MELATONIN 5 MG TABLETS PO SCH (21:44)
[2020-08-26] MEDS: THIAMINE HCL 100 MG TABLET (FP) PO SCH (21:46)
[2020-08-27] MEDS: MAG HYDROX/AL HYDROX/SIMETH 30 ML UNIT-DOSE CUP PO PRN ×2 (03:19→19:54)
[2020-08-27] MEDS: metFORMIN HCL 500 MG TABLET (FP) PO SCH ×2 (06:20→17:44)
[2020-08-27] MEDS: hydrOXYzine PAMOATE 25 MG CAPSULE (FP) PO SCH ×6 (06:20→22:28)
[2020-08-27] MEDS: chlordiazePOXIDE HCL 10 MG CAPSULE PO SCH ×2 (06:21→18:33)
[2020-08-27] MEDS ORDERED: INSULIN (NOVOLOG) ASPART 100 UNITS/ML 10ML VIAL ONE ×2 (07:15→21:30)
[2020-08-27] MEDS: INSULIN SLIDING SCALE (NOVOLOG) 1 VIAL SQ SCH ×4 (07:20→21:39)
[2020-08-27] MEDS: LISINOPRIL 5 MG TABLET PO SCH (10:48)
[2020-08-27] MEDS: BUPRENORPHINE/NALOXONE 4 MG/1 MG FILM PACKET SL SCH (10:48)
[2020-08-27] MEDS: PRENATAL VITAMINS W/ FOLIC ACID TABLET (FP) PO SCH (10:48)
[2020-08-27] MEDS: GABAPENTIN 100 MG CAPSULE PO SCH ×2 (10:48→22:28)
[2020-08-27] MEDS: ONDANSETRON *ODT* 4 MG TABLET SL PRN ×2 (13:49→19:54)
[2020-08-27] MEDS: MELATONIN 5 MG TABLETS PO SCH (22:28)
[2020-08-27] MEDS: THIAMINE HCL 100 MG TABLET (FP) PO SCH (22:28)
[2020-08-27] MEDS: INSULIN (LEVEMIR) 100 UNITS/ML UNITS SQ SCH (22:55)
[2020-08-28] MEDS ORDERED: chlordiazePOXIDE 5 MG CAPSULE PO ONE (05:00)
[2020-08-28] MEDS ORDERED: chlordiazePOXIDE HCL 10 MG CAPSULE PO ONE (05:00)
[2020-08-28] MEDS: INSULIN SLIDING SCALE (NOVOLOG) 1 VIAL SQ SCH ×2 (07:47→11:29)
[2020-08-28] MEDS: hydrOXYzine PAMOATE 25 MG CAPSULE (FP) PO SCH ×3 (07:47→13:42)
[2020-08-28] MEDS: metFORMIN HCL 500 MG TABLET (FP) PO SCH (07:47)
[2020-08-28] MEDS ORDERED: INSULIN (NOVOLOG) ASPART 100 UNITS/ML 10ML VIAL ONE ×2 (07:48→11:27)
[2020-08-28] MEDS: LISINOPRIL 5 MG TABLET PO SCH (10:29)
[2020-08-28] MEDS: GABAPENTIN 100 MG CAPSULE PO SCH (10:29)
[2020-08-28] MEDS: PRENATAL VITAMINS W/ FOLIC ACID TABLET (FP) PO SCH (10:37)
[2020-08-28] MEDS: BUPRENORPHINE/NALOXONE 4 MG/1 MG FILM PACKET SL SCH (10:37)
[2020-08-28 12:46] VITALS: BP 113/59; PULSE 96; TEMP 98.6
== END 2020-08-28 16:13 | disposition other institution (70) | DRG 774 ==
LOC: YASAS 17:59 → Y6N 20:10
PROVIDERS: ADMIT Allergy & Immunology; ATTEND Allergy & Immunology
PROC: HZ2ZZZZ Detoxification Services for Substance Abuse Treatment (ICD-10-PCS; principal; 2020-08-23)
DX: F10.230 Alcohol dependence with withdrawal, uncomplicated (principal); F14.20 Cocaine dependence, uncomplicated; F17.213 Nicotine dependence, cigarettes, with withdrawal; F41.9 Anxiety disorder, unspecified; F32.9 Major depressive disorder, single episode, unspecified; F43.10 Post-traumatic stress disorder, unspecified; I10 Essential (primary) hypertension; E78.5 Hyperlipidemia, unspecified; E11.42 Type 2 diabetes mellitus with diabetic polyneuropathy; Z79.4 Long term (current) use of insulin; L85.3 Xerosis cutis; H54.62 Unqualified visual loss, left eye, normal vision right eye; L60.2 Onychogryphosis; Z62.810 Personal history of physical and sexual abuse in childhood; Z51.81 Encounter for therapeutic drug level monitoring; Z79.899 Other long term (current) drug therapy; Z88.6 Allergy status to analgesic agent; Z91.018 Allergy to other foods; Z56.0 Unemployment, unspecified; Z59.0 Homelessness
CPT/HCPCS: 36415; 80053; 81003; 82962; 85027; 86780; 87389; C9803; Q0162; U0003

== ENCOUNTER 2020-08-28 16:26 | Inpatient (IN) | payer OTHER ==
[~2020-08-28 16:26] MED LIST changes: -MENTHOL/PHENOL 1 EACH UD MM PRN; -NICOTINE POLACRILEX 4 MG GUM BUC PRN; -hydrOXYzine PAMOATE 50 MG CAPSULE (FP) PO PRN
[2020-08-28] MEDS: metFORMIN HCL 500 MG TABLET (FP) PO SCH (16:59)
[2020-08-28] MEDS: MELATONIN 5 MG TABLETS PO SCH (23:08)
[2020-08-28] MEDS: THIAMINE HCL 100 MG TABLET (FP) PO SCH (23:08)
[2020-08-28] MEDS: GABAPENTIN 100 MG CAPSULE PO SCH (23:08)
[2020-08-28] MEDS: INSULIN (LEVEMIR) 100 UNITS/ML UNITS SQ SCH (23:08)
[2020-08-29] MEDS: metFORMIN HCL 500 MG TABLET (FP) PO SCH ×2 (06:10→16:56)
[2020-08-29 09:41] VITALS: TEMP 97.7
[2020-08-29] MEDS ORDERED: PRENATAL VITAMINS W/ FOLIC ACID TABLET (FP) PO SCH (10:00)
[2020-08-29] MEDS ORDERED: LISINOPRIL 5 MG TABLET PO SCH (10:00)
[2020-08-29] MEDS ORDERED: BUPRENORPHINE/NALOXONE 4 MG/1 MG FILM PACKET SL SCH (10:00)
[2020-08-29] MEDS: GABAPENTIN 100 MG CAPSULE PO SCH ×2 (10:11→21:51)
[2020-08-29 19:08] VITALS: BP 112/72; PULSE 84
[2020-08-29] MEDS: INSULIN (LEVEMIR) 100 UNITS/ML UNITS SQ SCH (21:50)
[2020-08-29] MEDS: MELATONIN 5 MG TABLETS PO SCH (21:51)
[2020-08-29] MEDS: THIAMINE HCL 100 MG TABLET (FP) PO SCH (21:51)
[2020-09-02] MEDS ORDERED: ERGOCALCIFEROL (VIT D2) 50,000 UNIT (1.25 MG) CAPSULE PO SCH (10:00)
== END 2020-08-29 20:00 | disposition home or self-care (01) | DRG 772 ==
LOC: YASAS 16:26 → Y5N 16:28
PROVIDERS: ADMIT Allergy & Immunology; ATTEND Allergy & Immunology
PROC: HZ42ZZZ Group Counseling for Substance Abuse Treatment, Cognitive-Behavioral (ICD-10-PCS; principal; 2020-08-28)
DX: F10.20 Alcohol dependence, uncomplicated (principal); F14.20 Cocaine dependence, uncomplicated; F11.20 Opioid dependence, uncomplicated; F17.210 Nicotine dependence, cigarettes, uncomplicated; F31.9 Bipolar disorder, unspecified; F43.10 Post-traumatic stress disorder, unspecified; F41.9 Anxiety disorder, unspecified; E11.9 Type 2 diabetes mellitus without complications; Z79.4 Long term (current) use of insulin
CPT/HCPCS: 82962

== ENCOUNTER 2022-09-23 23:37 | Inpatient (IN) | payer OTHER ==
[2022-09-24 01:19] VITALS: BMI 26.1
[2022-09-24] MEDS ORDERED: NICOTINE POLACRILEX 2 MG GUM BUC PRN (03:45)
[2022-09-24] MEDS ORDERED: ACETAMINOPHEN 325 MG TABLET (FP) PO PRN (03:45)
[2022-09-24] MEDS ORDERED: NALOXONE HCL (KLOXXADO) 8 MG SPRAY NS PRN (03:45)
[2022-09-24] MEDS ORDERED: POLYETHYLENE GLYCOL (HEALTHYLAX) 3350 17 GM PACKET PO PRN (03:45)
[2022-09-24] MEDS ORDERED: BENZOCAINE/MENTHOL (CHLORASEPTIC ) LOZENGE MM PRN (03:45)
[2022-09-24] MEDS ORDERED: METHOCARBAMOL 500 MG TABLET PO PRN (03:45)
[2022-09-24] MEDS ORDERED: MAG HYDROX/AL HYDROX/SIMETH 30 ML UNIT-DOSE CUP PO PRN (03:45)
[2022-09-24] MEDS ORDERED: IBUPROFEN 400 MG TABLET (FP) PO PRN (03:45)
[2022-09-24] MEDS ORDERED: MAGNESIUM HYDROX 2400MG/30ML ORAL SUSPENSION 30 ML CUP PO PRN (03:45)
[2022-09-24] MEDS ORDERED: DICYCLOMINE HCL 10 MG CAPSULE PO PRN (03:45)
[2022-09-24] MEDS ORDERED: BISMUTH SUBSALICYLATE 524 MG/30 ML PO PRN (03:45)
[2022-09-24] MEDS ORDERED: ONDANSETRON *ODT* 4 MG TABLET SL PRN (03:45)
[2022-09-24] MEDS ORDERED: LOPERAMIDE HCL 2 MG CAPSULE PO PRN (03:45)
[2022-09-24] MEDS ORDERED: IBUPROFEN 600 MG TABLET (FP) PO PRN (03:45)
[2022-09-24] MEDS: ACETAMINOPHEN 325 MG TABLET (FP) PO PRN (07:39)
[2022-09-24] MEDS ORDERED: diazePAM 5 MG TABLET PO PRN (09:44)
[2022-09-24] MEDS: NICOTINE 14 MG/24 HOURS TOPICAL PATCH TD SCH (10:19)
[2022-09-24] MEDS: diazePAM 5 MG TABLET PO SCH ×3 (10:20→22:07)
[2022-09-24] MEDS: PRENATAL VITAMINS W/ FOLIC ACID TABLET (FP) PO SCH (10:20)
[2022-09-24] MEDS: INSULIN SLIDING SCALE (NOVOLOG) 1 VIAL SQ SCH ×5 (10:50→22:06)
[2022-09-24] MEDS ORDERED: INSULIN (NOVOLOG) ASPART 100 UNITS/ML 10ML VIAL ONE ×2 (11:46→17:03)
[2022-09-24] MEDS: MELATONIN 5 MG TABLETS PO SCH (22:07)
[2022-09-24] MEDS: THIAMINE HCL 100 MG TABLET (FP) PO SCH (22:07)
[2022-09-25] MEDS: diazePAM 5 MG TABLET PO SCH ×4 (05:39→22:45)
[2022-09-25] MEDS: ACETAMINOPHEN 325 MG TABLET (FP) PO PRN (05:40)
[2022-09-25] MEDS: INSULIN SLIDING SCALE (NOVOLOG) 1 VIAL SQ SCH ×4 (06:55→22:46)
[2022-09-25] MEDS: PRENATAL VITAMINS W/ FOLIC ACID TABLET (FP) PO SCH (10:31)
[2022-09-25] MEDS: NICOTINE 14 MG/24 HOURS TOPICAL PATCH TD SCH (10:31)
[2022-09-25] MEDS ORDERED: INSULIN (NOVOLOG) ASPART 100 UNITS/ML 10ML VIAL ONE (17:01)
[2022-09-25] MEDS: MELATONIN 5 MG TABLETS PO SCH (22:45)
[2022-09-25] MEDS: THIAMINE HCL 100 MG TABLET (FP) PO SCH (22:46)
[2022-09-26] MEDS: diazePAM 5 MG TABLET PO SCH ×3 (06:28→22:44)
[2022-09-26] MEDS: INSULIN SLIDING SCALE (NOVOLOG) 1 VIAL SQ SCH ×4 (06:29→22:44)
[2022-09-26] MEDS: PRENATAL VITAMINS W/ FOLIC ACID TABLET (FP) PO SCH (10:19)
[2022-09-26] MEDS: NICOTINE 14 MG/24 HOURS TOPICAL PATCH TD SCH (10:20)
[2022-09-26] MEDS: ACETAMINOPHEN 325 MG TABLET (FP) PO PRN (10:21)
[2022-09-26] MEDS ORDERED: NICOTINE POLACRILEX 2 MG GUM BUC PRN (11:02)
[2022-09-26] MEDS: NICOTINE 10 MG CARTRIDGE (INHALER) IH PRN (18:54)
[2022-09-26] MEDS: INSULIN (LEVEMIR) 100 UNITS/ML UNITS SQ SCH (22:42)
[2022-09-26] MEDS: THIAMINE HCL 100 MG TABLET (FP) PO SCH (22:45)
[2022-09-26] MEDS: MELATONIN 5 MG TABLETS PO SCH (22:45)
[2022-09-27] MEDS: diazePAM 5 MG TABLET PO SCH ×2 (05:40→17:24)
[2022-09-27] MEDS: INSULIN SLIDING SCALE (NOVOLOG) 1 VIAL SQ SCH ×5 (06:56→23:06)
[2022-09-27] MEDS ORDERED: INSULIN (NOVOLOG) ASPART 100 UNITS/ML 10ML VIAL ONE ×3 (08:31→17:11)
[2022-09-27] MEDS: PRENATAL VITAMINS W/ FOLIC ACID TABLET (FP) PO SCH (10:11)
[2022-09-27] MEDS: NICOTINE 21 MG/24 HOURS TOPICAL PATCH TD SCH (10:12)
[2022-09-27] MEDS: NICOTINE 10 MG CARTRIDGE (INHALER) IH PRN (10:13)
[2022-09-27 14:56] LABS: HEMATOCRIT 37.7 % (35.4-49); HEMOGLOBIN 12.5 GM/dL (11.7-16.9); MCH 28.6 pg (25.7-33.7); MCHC 33.1 g/dl (32.0-35.9); MEAN CELL VOLUME 86.6 fl (80-96); MEAN PLT VOLUME 7.1 fl (7.5-11.1); PLATELET COUNT 336 10^3/uL (134-434); RBC 4.36 M/mm3 (4.00-5.60); RDW 13.6 % (11.9-15.9); WHITE BLOOD COUNT 6.2 K/mm3 (4.0-10.0)
[2022-09-27 15:13] LABS: ALBUMIN 3.7 g/dl (3.4-5.0)
[2022-09-27 15:14] LABS: BLOOD UREA NITROGEN 13.2 mg/dL (7-18)
[2022-09-27 15:18] LABS: BILIRUBIN,TOTAL 0.2 mg/dL (0.2-1)
[2022-09-27 15:21] LABS: TOT PROT 6.6 g/dl (6.4-8.2)
[2022-09-27 18:22] VITALS: RESP 18
[2022-09-27] MEDS: THIAMINE HCL 100 MG TABLET (FP) PO SCH (22:26)
[2022-09-27] MEDS: MELATONIN 5 MG TABLETS PO SCH ×2 (22:26→23:06)
[2022-09-27] MEDS: INSULIN (LEVEMIR) 100 UNITS/ML UNITS SQ SCH ×2 (22:26→23:03)
[2022-09-28] MEDS ORDERED: diazePAM 5 MG TABLET PO ONE (06:00)
[2022-09-28] MEDS: INSULIN SLIDING SCALE (NOVOLOG) 1 VIAL SQ SCH (07:02)
[2022-09-28 09:24] VITALS: BP 136/74; PULSE 81; TEMP 97.7
[2022-09-28] MEDS: PRENATAL VITAMINS W/ FOLIC ACID TABLET (FP) PO SCH (09:48)
[2022-09-28] MEDS: NICOTINE 21 MG/24 HOURS TOPICAL PATCH TD SCH (09:48)
== END 2022-09-28 11:10 | disposition other institution (70) | DRG 773 ==
LOC: YASAS 23:37 → Y6N 09-24 02:27
PROVIDERS: ADMIT Allergy & Immunology; ATTEND Family Medicine
PROC: HZ2ZZZZ Detoxification Services for Substance Abuse Treatment (ICD-10-PCS; principal; 2022-09-24)
DX: F10.230 Alcohol dependence with withdrawal, uncomplicated (principal); F11.20 Opioid dependence, uncomplicated; F14.20 Cocaine dependence, uncomplicated; F12.20 Cannabis dependence, uncomplicated; F17.210 Nicotine dependence, cigarettes, uncomplicated; F41.8 Other specified anxiety disorders; G47.00 Insomnia, unspecified; E11.42 Type 2 diabetes mellitus with diabetic polyneuropathy; Z79.4 Long term (current) use of insulin; H54.62 Unqualified visual loss, left eye, normal vision right eye; I10 Essential (primary) hypertension; M15.9 Polyosteoarthritis, unspecified; Z51.81 Encounter for therapeutic drug level monitoring; Z88.5 Allergy status to narcotic agent; Z91.014 Allergy to mammalian meats
CPT/HCPCS: 36415; 80053; 82962; 85027; 86780; C9803-CS; U0003; U0005

== ENCOUNTER 2022-09-28 11:16 | Inpatient (IN) | payer OTHER ==
[2022-09-28] MEDS ORDERED: NICOTINE 10 MG CARTRIDGE (INHALER) IH PRN (13:08)
[2022-09-28] MEDS ORDERED: guaiFENesin 200 MG/10 ML 10 ML UNIT-DOSE CUPS PO PRN (13:08)
[2022-09-28] MEDS ORDERED: IBUPROFEN 400 MG TABLET (FP) PO PRN (13:08)
[2022-09-28] MEDS ORDERED: POLYETHYLENE GLYCOL (HEALTHYLAX) 3350 17 GM PACKET PO PRN (13:08)
[2022-09-28] MEDS ORDERED: MAGNESIUM HYDROX 2400MG/30ML ORAL SUSPENSION 30 ML CUP PO PRN (13:08)
[2022-09-28] MEDS ORDERED: P-EPHED 60MG/TRIPROLIDI 2.5MG TABLET PO PRN (13:08)
[2022-09-28] MEDS ORDERED: LOPERAMIDE HCL 2 MG CAPSULE PO PRN (13:08)
[2022-09-28] MEDS ORDERED: ACETAMINOPHEN 325 MG TABLET (FP) PO PRN (13:08)
[2022-09-28] MEDS ORDERED: BENZOCAINE/MENTHOL (CHLORASEPTIC ) LOZENGE MM PRN (13:08)
[2022-09-28] MEDS ORDERED: MAG HYDROX/AL HYDROX/SIMETH 30 ML UNIT-DOSE CUP PO PRN (13:08)
[2022-09-28] MEDS ORDERED: hydrOXYzine PAMOATE 25 MG CAPSULE (FP) PO PRN (13:08)
[2022-09-28] MEDS ORDERED: NICOTINE 21 MG/24 HOURS TOPICAL PATCH TD PRN (13:08)
[2022-09-28] MEDS ORDERED: LISINOPRIL 5 MG TABLET PO SCH (13:15)
[2022-09-28] MEDS: INSULIN SLIDING SCALE (NOVOLOG) 1 VIAL SQ SCH (16:21)
[2022-09-28] MEDS: metFORMIN HCL 500 MG TABLET (FP) PO SCH (17:05)
[2022-09-28] MEDS: BUPRENORPHINE/NALOXONE 2 MG/0.5 MG FILM PACKET SL SCH (22:18)
[2022-09-28] MEDS: INSULIN (LEVEMIR) 100 UNITS/ML UNITS SQ SCH (22:18)
[2022-09-28] MEDS: THIAMINE HCL 100 MG TABLET (FP) PO SCH (22:18)
[2022-09-28] MEDS: buPROPion HCL 100 MG TABLET PO SCH (22:18)
[2022-09-28] MEDS: MELATONIN 5 MG TABLETS PO SCH (22:18)
[2022-09-29] MEDS: metFORMIN HCL 500 MG TABLET (FP) PO SCH ×3 (06:31→16:43)
[2022-09-29] MEDS: INSULIN SLIDING SCALE (NOVOLOG) 1 VIAL SQ SCH ×3 (06:31→16:43)
[2022-09-29] MEDS: BUPRENORPHINE/NALOXONE 2 MG/0.5 MG FILM PACKET SL SCH ×2 (09:56→21:42)
[2022-09-29] MEDS: LISINOPRIL 5 MG TABLET PO SCH (09:56)
[2022-09-29] MEDS: buPROPion HCL 100 MG TABLET PO SCH ×2 (09:56→23:44)
[2022-09-29] MEDS: PRENATAL VITAMINS W/ FOLIC ACID TABLET (FP) PO SCH (09:56)
[2022-09-29] MEDS ORDERED: INSULIN (NOVOLOG) ASPART 100 UNITS/ML 10ML VIAL ONE (16:29)
[2022-09-29] MEDS: INSULIN (LEVEMIR) 100 UNITS/ML UNITS SQ SCH (21:41)
[2022-09-29] MEDS: MELATONIN 5 MG TABLETS PO SCH (21:42)
[2022-09-29] MEDS: THIAMINE HCL 100 MG TABLET (FP) PO SCH (21:42)
[2022-09-30] MEDS: metFORMIN HCL 500 MG TABLET (FP) PO SCH ×2 (06:46→17:01)
[2022-09-30] MEDS: INSULIN SLIDING SCALE (NOVOLOG) 1 VIAL SQ SCH ×3 (07:43→17:01)
[2022-09-30] MEDS ORDERED: INSULIN (NOVOLOG) ASPART 100 UNITS/ML 10ML VIAL ONE (07:45)
[2022-09-30] MEDS: LISINOPRIL 5 MG TABLET PO SCH (09:57)
[2022-09-30] MEDS: PRENATAL VITAMINS W/ FOLIC ACID TABLET (FP) PO SCH (09:57)
[2022-09-30] MEDS: BUPRENORPHINE/NALOXONE 2 MG/0.5 MG FILM PACKET SL SCH ×2 (09:58→23:02)
[2022-09-30] MEDS: buPROPion HCL 100 MG TABLET PO SCH ×2 (09:59→23:02)
[2022-09-30] MEDS ORDERED: ONDANSETRON *ODT* 4 MG TABLET SL PRN (11:58)
[2022-09-30] MEDS: INSULIN (LEVEMIR) 100 UNITS/ML UNITS SQ SCH (23:01)
[2022-09-30] MEDS: THIAMINE HCL 100 MG TABLET (FP) PO SCH (23:02)
[2022-09-30] MEDS: MELATONIN 5 MG TABLETS PO SCH (23:02)
[2022-10-01] MEDS: metFORMIN HCL 500 MG TABLET (FP) PO SCH ×2 (07:11→16:37)
[2022-10-01] MEDS: INSULIN SLIDING SCALE (NOVOLOG) 1 VIAL SQ SCH ×3 (07:12→16:38)
[2022-10-01] MEDS: PRENATAL VITAMINS W/ FOLIC ACID TABLET (FP) PO SCH (12:14)
[2022-10-01] MEDS: LISINOPRIL 5 MG TABLET PO SCH (12:15)
[2022-10-01] MEDS: BUPRENORPHINE/NALOXONE 2 MG/0.5 MG FILM PACKET SL SCH ×2 (12:15→23:02)
[2022-10-01] MEDS: buPROPion HCL 100 MG TABLET PO SCH ×2 (12:15→23:02)
[2022-10-01] MEDS ORDERED: INSULIN (NOVOLOG) ASPART 100 UNITS/ML 10ML VIAL ONE (16:21)
[2022-10-01] MEDS: MELATONIN 5 MG TABLETS PO SCH (23:01)
[2022-10-01] MEDS: INSULIN (LEVEMIR) 100 UNITS/ML UNITS SQ SCH (23:01)
[2022-10-01] MEDS: THIAMINE HCL 100 MG TABLET (FP) PO SCH (23:02)
[2022-10-02] MEDS: INSULIN SLIDING SCALE (NOVOLOG) 1 VIAL SQ SCH ×3 (07:08→16:45)
[2022-10-02] MEDS: metFORMIN HCL 500 MG TABLET (FP) PO SCH ×3 (07:08→16:44)
[2022-10-02] MEDS: LISINOPRIL 5 MG TABLET PO SCH (09:46)
[2022-10-02] MEDS: PRENATAL VITAMINS W/ FOLIC ACID TABLET (FP) PO SCH (09:46)
[2022-10-02] MEDS: buPROPion HCL 100 MG TABLET PO SCH ×2 (09:47→23:03)
[2022-10-02] MEDS: BUPRENORPHINE/NALOXONE 2 MG/0.5 MG FILM PACKET SL SCH ×2 (09:47→23:03)
[2022-10-02] MEDS ORDERED: INSULIN (NOVOLOG) ASPART 100 UNITS/ML 10ML VIAL ONE ×2 (12:07→16:44)
[2022-10-02] MEDS: MELATONIN 5 MG TABLETS PO SCH (23:03)
[2022-10-02] MEDS: THIAMINE HCL 100 MG TABLET (FP) PO SCH (23:03)
[2022-10-02] MEDS: INSULIN (LEVEMIR) 100 UNITS/ML UNITS SQ SCH (23:04)
[2022-10-03] MEDS: metFORMIN HCL 500 MG TABLET (FP) PO SCH ×2 (07:05→17:27)
[2022-10-03] MEDS: INSULIN SLIDING SCALE (NOVOLOG) 1 VIAL SQ SCH ×3 (07:06→17:23)
[2022-10-03] MEDS: BUPRENORPHINE/NALOXONE 2 MG/0.5 MG FILM PACKET SL SCH ×2 (10:42→23:01)
[2022-10-03] MEDS: LISINOPRIL 5 MG TABLET PO SCH (10:42)
[2022-10-03] MEDS: PRENATAL VITAMINS W/ FOLIC ACID TABLET (FP) PO SCH (10:42)
[2022-10-03] MEDS: buPROPion HCL 100 MG TABLET PO SCH ×2 (10:42→23:01)
[2022-10-03] MEDS: MELATONIN 5 MG TABLETS PO SCH (23:00)
[2022-10-03] MEDS: THIAMINE HCL 100 MG TABLET (FP) PO SCH (23:01)
[2022-10-03] MEDS: INSULIN (LEVEMIR) 100 UNITS/ML UNITS SQ SCH (23:01)
[2022-10-04] MEDS ORDERED: INSULIN (NOVOLOG) ASPART 100 UNITS/ML 10ML VIAL ONE ×2 (04:07→16:56)
[2022-10-04] MEDS: metFORMIN HCL 500 MG TABLET (FP) PO SCH ×2 (06:43→16:56)
[2022-10-04] MEDS: INSULIN SLIDING SCALE (NOVOLOG) 1 VIAL SQ SCH ×3 (07:59→16:58)
[2022-10-04] MEDS: LISINOPRIL 5 MG TABLET PO SCH (09:44)
[2022-10-04] MEDS: buPROPion HCL 100 MG TABLET PO SCH ×2 (09:44→23:29)
[2022-10-04] MEDS: BUPRENORPHINE/NALOXONE 2 MG/0.5 MG FILM PACKET SL SCH ×2 (09:44→23:29)
[2022-10-04] MEDS: PRENATAL VITAMINS W/ FOLIC ACID TABLET (FP) PO SCH (09:44)
[2022-10-04] MEDS ORDERED: BUPRENORPHINE/NALOXONE 2 MG/0.5 MG FILM PACKET SL ONE (12:20)
[2022-10-04] MEDS: INSULIN (LEVEMIR) 100 UNITS/ML UNITS SQ SCH (23:29)
[2022-10-04] MEDS: MELATONIN 5 MG TABLETS PO SCH (23:29)
[2022-10-04] MEDS: THIAMINE HCL 100 MG TABLET (FP) PO SCH (23:29)
[2022-10-05] MEDS: metFORMIN HCL 500 MG TABLET (FP) PO SCH ×2 (06:27→17:00)
[2022-10-05] MEDS: INSULIN SLIDING SCALE (NOVOLOG) 1 VIAL SQ SCH ×3 (06:27→17:01)
[2022-10-05] MEDS: PRENATAL VITAMINS W/ FOLIC ACID TABLET (FP) PO SCH (09:35)
[2022-10-05] MEDS: buPROPion HCL 100 MG TABLET PO SCH ×2 (09:36→21:34)
[2022-10-05] MEDS: BUPRENORPHINE/NALOXONE 2 MG/0.5 MG FILM PACKET SL SCH (09:36)
[2022-10-05] MEDS: LISINOPRIL 5 MG TABLET PO SCH (09:36)
[2022-10-05] MEDS ORDERED: INSULIN (NOVOLOG) ASPART 100 UNITS/ML 10ML VIAL ONE (16:25)
[2022-10-05] MEDS: MELATONIN 5 MG TABLETS PO SCH (21:32)
[2022-10-05] MEDS: THIAMINE HCL 100 MG TABLET (FP) PO SCH (21:33)
[2022-10-05] MEDS: INSULIN (LEVEMIR) 100 UNITS/ML UNITS SQ SCH (21:38)
[2022-10-06] MEDS: metFORMIN HCL 500 MG TABLET (FP) PO SCH ×2 (06:03→17:01)
[2022-10-06] MEDS: INSULIN SLIDING SCALE (NOVOLOG) 1 VIAL SQ SCH ×3 (06:03→17:02)
[2022-10-06] MEDS: LISINOPRIL 5 MG TABLET PO SCH (09:43)
[2022-10-06] MEDS: PRENATAL VITAMINS W/ FOLIC ACID TABLET (FP) PO SCH (09:43)
[2022-10-06] MEDS: buPROPion HCL 100 MG TABLET PO SCH ×2 (09:43→22:37)
[2022-10-06] MEDS ORDERED: INSULIN (NOVOLOG) ASPART 100 UNITS/ML 10ML VIAL ONE (16:33)
[2022-10-06] MEDS: THIAMINE HCL 100 MG TABLET (FP) PO SCH (22:37)
[2022-10-06] MEDS: MELATONIN 5 MG TABLETS PO SCH (22:37)
[2022-10-06] MEDS: INSULIN (LEVEMIR) 100 UNITS/ML UNITS SQ SCH (22:38)
[2022-10-07] MEDS: metFORMIN HCL 500 MG TABLET (FP) PO SCH ×2 (07:20→17:48)
[2022-10-07] MEDS: INSULIN SLIDING SCALE (NOVOLOG) 1 VIAL SQ SCH ×3 (07:21→17:53)
[2022-10-07] MEDS: LISINOPRIL 5 MG TABLET PO SCH (10:01)
[2022-10-07] MEDS: buPROPion HCL 100 MG TABLET PO SCH ×2 (10:01→22:25)
[2022-10-07] MEDS: PRENATAL VITAMINS W/ FOLIC ACID TABLET (FP) PO SCH (10:02)
[2022-10-07] MEDS ORDERED: INSULIN (NOVOLOG) ASPART 100 UNITS/ML 10ML VIAL ONE (19:56)
[2022-10-07] MEDS: MELATONIN 5 MG TABLETS PO SCH (22:24)
[2022-10-07] MEDS: THIAMINE HCL 100 MG TABLET (FP) PO SCH (22:24)
[2022-10-07] MEDS: INSULIN (LEVEMIR) 100 UNITS/ML UNITS SQ SCH (22:27)
[2022-10-08] MEDS: metFORMIN HCL 500 MG TABLET (FP) PO SCH ×2 (07:59→17:48)
[2022-10-08] MEDS: INSULIN SLIDING SCALE (NOVOLOG) 1 VIAL SQ SCH ×3 (07:59→17:48)
[2022-10-08] MEDS: PRENATAL VITAMINS W/ FOLIC ACID TABLET (FP) PO SCH (10:16)
[2022-10-08] MEDS: buPROPion HCL 100 MG TABLET PO SCH ×2 (10:16→23:31)
[2022-10-08] MEDS: LISINOPRIL 5 MG TABLET PO SCH (10:16)
[2022-10-08] MEDS: INSULIN (LEVEMIR) 100 UNITS/ML UNITS SQ SCH (23:30)
[2022-10-08] MEDS: MELATONIN 5 MG TABLETS PO SCH (23:31)
[2022-10-08] MEDS: THIAMINE HCL 100 MG TABLET (FP) PO SCH (23:31)
[2022-10-09] MEDS: metFORMIN HCL 500 MG TABLET (FP) PO SCH ×2 (06:37→16:50)
[2022-10-09] MEDS ORDERED: INSULIN (NOVOLOG) ASPART 100 UNITS/ML 10ML VIAL ONE (08:03)
[2022-10-09] MEDS: INSULIN SLIDING SCALE (NOVOLOG) 1 VIAL SQ SCH ×3 (08:04→16:51)
[2022-10-09] MEDS: PRENATAL VITAMINS W/ FOLIC ACID TABLET (FP) PO SCH (09:31)
[2022-10-09] MEDS: buPROPion HCL 100 MG TABLET PO SCH ×2 (09:34→21:09)
[2022-10-09] MEDS: LISINOPRIL 5 MG TABLET PO SCH (09:36)
[2022-10-09] MEDS: MELATONIN 5 MG TABLETS PO SCH (21:09)
[2022-10-09] MEDS: THIAMINE HCL 100 MG TABLET (FP) PO SCH (21:09)
[2022-10-09] MEDS: INSULIN (LEVEMIR) 100 UNITS/ML UNITS SQ SCH (21:10)
[2022-10-10] MEDS: metFORMIN HCL 500 MG TABLET (FP) PO SCH ×2 (06:21→16:35)
[2022-10-10] MEDS ORDERED: INSULIN (NOVOLOG) ASPART 100 UNITS/ML 10ML VIAL ONE ×3 (07:29→16:31)
[2022-10-10] MEDS: INSULIN SLIDING SCALE (NOVOLOG) 1 VIAL SQ SCH ×3 (08:05→16:36)
[2022-10-10] MEDS: PRENATAL VITAMINS W/ FOLIC ACID TABLET (FP) PO SCH (09:37)
[2022-10-10] MEDS: buPROPion HCL 100 MG TABLET PO SCH ×2 (09:37→23:23)
[2022-10-10] MEDS: LISINOPRIL 5 MG TABLET PO SCH (09:37)
[2022-10-10] MEDS: INSULIN (LEVEMIR) 100 UNITS/ML UNITS SQ SCH (23:22)
[2022-10-10] MEDS: MELATONIN 5 MG TABLETS PO SCH (23:23)
[2022-10-10] MEDS: THIAMINE HCL 100 MG TABLET (FP) PO SCH (23:23)
[2022-10-11] MEDS: metFORMIN HCL 500 MG TABLET (FP) PO SCH ×2 (06:27→18:12)
[2022-10-11] MEDS: INSULIN SLIDING SCALE (NOVOLOG) 1 VIAL SQ SCH ×3 (07:50→18:12)
[2022-10-11] MEDS: LISINOPRIL 5 MG TABLET PO SCH (10:16)
[2022-10-11] MEDS: buPROPion HCL 100 MG TABLET PO SCH ×2 (10:16→23:06)
[2022-10-11] MEDS: PRENATAL VITAMINS W/ FOLIC ACID TABLET (FP) PO SCH (10:17)
[2022-10-11] MEDS: INSULIN (LEVEMIR) 100 UNITS/ML UNITS SQ SCH (23:05)
[2022-10-11] MEDS: THIAMINE HCL 100 MG TABLET (FP) PO SCH (23:06)
[2022-10-11] MEDS: MELATONIN 5 MG TABLETS PO SCH (23:06)
[2022-10-12] MEDS: metFORMIN HCL 500 MG TABLET (FP) PO SCH ×2 (07:20→17:10)
[2022-10-12] MEDS ORDERED: INSULIN (NOVOLOG) ASPART 100 UNITS/ML 10ML VIAL ONE (07:22)
[2022-10-12] MEDS: INSULIN SLIDING SCALE (NOVOLOG) 1 VIAL SQ SCH ×3 (07:24→17:00)
[2022-10-12] MEDS: PRENATAL VITAMINS W/ FOLIC ACID TABLET (FP) PO SCH (10:38)
[2022-10-12] MEDS: LISINOPRIL 5 MG TABLET PO SCH (10:39)
[2022-10-12] MEDS: buPROPion HCL 100 MG TABLET PO SCH ×2 (10:39→21:20)
[2022-10-12] MEDS ORDERED: BUPRENORPHINE/NALOXONE 2 MG/0.5 MG FILM PACKET SL ONE (14:51)
[2022-10-12] MEDS: THIAMINE HCL 100 MG TABLET (FP) PO SCH (21:17)
[2022-10-12] MEDS: MELATONIN 5 MG TABLETS PO SCH (21:17)
[2022-10-12] MEDS: INSULIN (LEVEMIR) 100 UNITS/ML UNITS SQ SCH (21:20)
[2022-10-13] MEDS: metFORMIN HCL 500 MG TABLET (FP) PO SCH ×2 (06:48→17:01)
[2022-10-13] MEDS ORDERED: INSULIN (NOVOLOG) ASPART 100 UNITS/ML 10ML VIAL ONE ×2 (06:49→16:35)
[2022-10-13] MEDS: INSULIN SLIDING SCALE (NOVOLOG) 1 VIAL SQ SCH ×3 (06:50→17:01)
[2022-10-13] MEDS: PRENATAL VITAMINS W/ FOLIC ACID TABLET (FP) PO SCH (10:02)
[2022-10-13] MEDS: buPROPion HCL 100 MG TABLET PO SCH ×2 (10:03→22:59)
[2022-10-13] MEDS: LISINOPRIL 5 MG TABLET PO SCH (10:03)
[2022-10-13] MEDS: BUPRENORPHINE/NALOXONE 2 MG/0.5 MG FILM PACKET SL SCH (10:03)
[2022-10-13] MEDS: THIAMINE HCL 100 MG TABLET (FP) PO SCH (22:59)
[2022-10-13] MEDS: MELATONIN 5 MG TABLETS PO SCH (22:59)
[2022-10-13] MEDS: INSULIN (LEVEMIR) 100 UNITS/ML UNITS SQ SCH (22:59)
[2022-10-14] MEDS: metFORMIN HCL 500 MG TABLET (FP) PO SCH ×2 (06:44→16:56)
[2022-10-14] MEDS: INSULIN SLIDING SCALE (NOVOLOG) 1 VIAL SQ SCH ×3 (07:41→16:56)
[2022-10-14] MEDS: PRENATAL VITAMINS W/ FOLIC ACID TABLET (FP) PO SCH (10:17)
[2022-10-14] MEDS: LISINOPRIL 5 MG TABLET PO SCH (10:18)
[2022-10-14] MEDS: BUPRENORPHINE/NALOXONE 2 MG/0.5 MG FILM PACKET SL SCH (10:18)
[2022-10-14] MEDS: buPROPion HCL 100 MG TABLET PO SCH ×2 (10:19→21:19)
[2022-10-14] MEDS: INSULIN (LEVEMIR) 100 UNITS/ML UNITS SQ SCH (21:18)
[2022-10-14] MEDS: MELATONIN 5 MG TABLETS PO SCH (21:19)
[2022-10-14] MEDS: THIAMINE HCL 100 MG TABLET (FP) PO SCH (21:19)
[2022-10-15 06:40] VITALS: RESP 18
[2022-10-15] MEDS: metFORMIN HCL 500 MG TABLET (FP) PO SCH ×2 (06:40→16:42)
[2022-10-15] MEDS: INSULIN SLIDING SCALE (NOVOLOG) 1 VIAL SQ SCH ×3 (06:41→16:21)
[2022-10-15] MEDS: LISINOPRIL 5 MG TABLET PO SCH (09:52)
[2022-10-15] MEDS: buPROPion HCL 100 MG TABLET PO SCH ×2 (09:52→21:49)
[2022-10-15] MEDS: PRENATAL VITAMINS W/ FOLIC ACID TABLET (FP) PO SCH (09:52)
[2022-10-15] MEDS: BUPRENORPHINE/NALOXONE 2 MG/0.5 MG FILM PACKET SL SCH (09:52)
[2022-10-15] MEDS: THIAMINE HCL 100 MG TABLET (FP) PO SCH (21:49)
[2022-10-15] MEDS: MELATONIN 5 MG TABLETS PO SCH (21:50)
[2022-10-15] MEDS: INSULIN (LEVEMIR) 100 UNITS/ML UNITS SQ SCH (21:51)
[2022-10-16] MEDS ORDERED: INSULIN (NOVOLOG) ASPART 100 UNITS/ML 10ML VIAL ONE (05:27)
[2022-10-16] MEDS: metFORMIN HCL 500 MG TABLET (FP) PO SCH ×2 (06:35→16:38)
[2022-10-16] MEDS: INSULIN SLIDING SCALE (NOVOLOG) 1 VIAL SQ SCH ×3 (06:36→16:39)
[2022-10-16] MEDS: PRENATAL VITAMINS W/ FOLIC ACID TABLET (FP) PO SCH (10:03)
[2022-10-16] MEDS: LISINOPRIL 5 MG TABLET PO SCH (10:03)
[2022-10-16] MEDS: buPROPion HCL 100 MG TABLET PO SCH ×2 (10:03→22:25)
[2022-10-16] MEDS: BUPRENORPHINE/NALOXONE 2 MG/0.5 MG FILM PACKET SL SCH (10:04)
[2022-10-16] MEDS: INSULIN (LEVEMIR) 100 UNITS/ML UNITS SQ SCH (22:22)
[2022-10-16] MEDS: THIAMINE HCL 100 MG TABLET (FP) PO SCH (22:22)
[2022-10-16] MEDS: MELATONIN 5 MG TABLETS PO SCH (22:22)
[2022-10-17] MEDS: INSULIN SLIDING SCALE (NOVOLOG) 1 VIAL SQ SCH ×3 (08:12→16:45)
[2022-10-17] MEDS: metFORMIN HCL 500 MG TABLET (FP) PO SCH ×2 (08:12→16:45)
[2022-10-17] MEDS: buPROPion HCL 100 MG TABLET PO SCH ×2 (09:42→21:15)
[2022-10-17] MEDS: BUPRENORPHINE/NALOXONE 2 MG/0.5 MG FILM PACKET SL SCH (09:43)
[2022-10-17] MEDS: PRENATAL VITAMINS W/ FOLIC ACID TABLET (FP) PO SCH (09:43)
[2022-10-17] MEDS: LISINOPRIL 5 MG TABLET PO SCH (12:02)
[2022-10-17] MEDS: INSULIN (LEVEMIR) 100 UNITS/ML UNITS SQ SCH (21:12)
[2022-10-17] MEDS: THIAMINE HCL 100 MG TABLET (FP) PO SCH (21:15)
[2022-10-17] MEDS: MELATONIN 5 MG TABLETS PO SCH (21:16)
[2022-10-18] MEDS: metFORMIN HCL 500 MG TABLET (FP) PO SCH ×2 (06:26→18:11)
[2022-10-18] MEDS: INSULIN SLIDING SCALE (NOVOLOG) 1 VIAL SQ SCH ×3 (07:43→18:11)
[2022-10-18] MEDS ORDERED: INSULIN (NOVOLOG) ASPART 100 UNITS/ML 10ML VIAL ONE (07:47)
[2022-10-18] MEDS: buPROPion HCL 100 MG TABLET PO SCH ×2 (10:41→23:16)
[2022-10-18] MEDS: LISINOPRIL 5 MG TABLET PO SCH (10:41)
[2022-10-18] MEDS: BUPRENORPHINE/NALOXONE 2 MG/0.5 MG FILM PACKET SL SCH (10:41)
[2022-10-18] MEDS: PRENATAL VITAMINS W/ FOLIC ACID TABLET (FP) PO SCH (10:44)
[2022-10-18] MEDS: MELATONIN 5 MG TABLETS PO SCH (23:15)
[2022-10-18] MEDS: INSULIN (LEVEMIR) 100 UNITS/ML UNITS SQ SCH (23:15)
[2022-10-18] MEDS: THIAMINE HCL 100 MG TABLET (FP) PO SCH (23:15)
[2022-10-19] MEDS: metFORMIN HCL 500 MG TABLET (FP) PO SCH ×2 (06:51→16:58)
[2022-10-19] MEDS ORDERED: INSULIN (NOVOLOG) ASPART 100 UNITS/ML 10ML VIAL ONE (06:51)
[2022-10-19] MEDS: INSULIN SLIDING SCALE (NOVOLOG) 1 VIAL SQ SCH ×3 (07:41→16:58)
[2022-10-19] MEDS: buPROPion HCL 100 MG TABLET PO SCH ×2 (09:36→23:36)
[2022-10-19] MEDS: LISINOPRIL 5 MG TABLET PO SCH (09:37)
[2022-10-19] MEDS: PRENATAL VITAMINS W/ FOLIC ACID TABLET (FP) PO SCH (09:38)
[2022-10-19] MEDS: BUPRENORPHINE/NALOXONE 2 MG/0.5 MG FILM PACKET SL SCH (09:38)
[2022-10-19] MEDS: THIAMINE HCL 100 MG TABLET (FP) PO SCH (23:36)
[2022-10-19] MEDS: INSULIN (LEVEMIR) 100 UNITS/ML UNITS SQ SCH (23:36)
[2022-10-19] MEDS: MELATONIN 5 MG TABLETS PO SCH (23:36)
[2022-10-20] MEDS: metFORMIN HCL 500 MG TABLET (FP) PO SCH ×2 (06:47→16:44)
[2022-10-20] MEDS: INSULIN SLIDING SCALE (NOVOLOG) 1 VIAL SQ SCH ×3 (06:48→16:46)
[2022-10-20] MEDS ORDERED: INSULIN (NOVOLOG) ASPART 100 UNITS/ML 10ML VIAL ONE ×3 (07:04→16:43)
[2022-10-20] MEDS: BUPRENORPHINE/NALOXONE 4 MG/1 MG FILM PACKET SL SCH (09:26)
[2022-10-20] MEDS: buPROPion HCL 100 MG TABLET PO SCH ×2 (09:26→21:09)
[2022-10-20] MEDS: PRENATAL VITAMINS W/ FOLIC ACID TABLET (FP) PO SCH (09:26)
[2022-10-20] MEDS: LISINOPRIL 5 MG TABLET PO SCH (09:27)
[2022-10-20] MEDS: INSULIN (LEVEMIR) 100 UNITS/ML UNITS SQ SCH (21:08)
[2022-10-20] MEDS: THIAMINE HCL 100 MG TABLET (FP) PO SCH (21:09)
[2022-10-20] MEDS: MELATONIN 5 MG TABLETS PO SCH (21:52)
[2022-10-21] MEDS: metFORMIN HCL 500 MG TABLET (FP) PO SCH ×2 (06:42→16:48)
[2022-10-21] MEDS: INSULIN SLIDING SCALE (NOVOLOG) 1 VIAL SQ SCH ×3 (06:42→16:49)
[2022-10-21] MEDS: PRENATAL VITAMINS W/ FOLIC ACID TABLET (FP) PO SCH (10:09)
[2022-10-21] MEDS: BUPRENORPHINE/NALOXONE 4 MG/1 MG FILM PACKET SL SCH (10:10)
[2022-10-21] MEDS: LISINOPRIL 5 MG TABLET PO SCH (10:10)
[2022-10-21] MEDS: buPROPion HCL 100 MG TABLET PO SCH ×2 (10:10→21:55)
[2022-10-21] MEDS: MELATONIN 5 MG TABLETS PO SCH (21:54)
[2022-10-21] MEDS: THIAMINE HCL 100 MG TABLET (FP) PO SCH (21:56)
[2022-10-21] MEDS: INSULIN (LEVEMIR) 100 UNITS/ML UNITS SQ SCH (21:57)
[2022-10-22] MEDS: metFORMIN HCL 500 MG TABLET (FP) PO SCH ×2 (06:48→16:35)
[2022-10-22] MEDS: INSULIN SLIDING SCALE (NOVOLOG) 1 VIAL SQ SCH ×3 (06:49→16:35)
[2022-10-22] MEDS: BUPRENORPHINE/NALOXONE 4 MG/1 MG FILM PACKET SL SCH (09:32)
[2022-10-22] MEDS: buPROPion HCL 100 MG TABLET PO SCH ×2 (09:32→21:48)
[2022-10-22] MEDS: PRENATAL VITAMINS W/ FOLIC ACID TABLET (FP) PO SCH (09:32)
[2022-10-22] MEDS: LISINOPRIL 5 MG TABLET PO SCH (09:32)
[2022-10-22] MEDS ORDERED: INSULIN (NOVOLOG) ASPART 100 UNITS/ML 10ML VIAL ONE ×2 (12:32→16:32)
[2022-10-22] MEDS: THIAMINE HCL 100 MG TABLET (FP) PO SCH (21:49)
[2022-10-22] MEDS: INSULIN (LEVEMIR) 100 UNITS/ML UNITS SQ SCH (21:50)
[2022-10-22] MEDS: MELATONIN 5 MG TABLETS PO SCH (21:51)
[2022-10-23] MEDS ORDERED: INSULIN (NOVOLOG) ASPART 100 UNITS/ML 10ML VIAL ONE ×2 (06:13→16:34)
[2022-10-23] MEDS: metFORMIN HCL 500 MG TABLET (FP) PO SCH ×2 (06:13→16:36)
[2022-10-23] MEDS: INSULIN SLIDING SCALE (NOVOLOG) 1 VIAL SQ SCH ×3 (07:31→16:37)
[2022-10-23] MEDS: BUPRENORPHINE/NALOXONE 4 MG/1 MG FILM PACKET SL SCH (10:14)
[2022-10-23] MEDS: PRENATAL VITAMINS W/ FOLIC ACID TABLET (FP) PO SCH (10:15)
[2022-10-23] MEDS: LISINOPRIL 5 MG TABLET PO SCH (10:15)
[2022-10-23] MEDS: buPROPion HCL 100 MG TABLET PO SCH ×2 (10:15→22:25)
[2022-10-23] MEDS: MELATONIN 5 MG TABLETS PO SCH (22:25)
[2022-10-23] MEDS: THIAMINE HCL 100 MG TABLET (FP) PO SCH (22:25)
[2022-10-23] MEDS: INSULIN (LEVEMIR) 100 UNITS/ML UNITS SQ SCH (22:26)
[2022-10-24 07:07] VITALS: TEMP 97.4
[2022-10-24] MEDS: metFORMIN HCL 500 MG TABLET (FP) PO SCH ×2 (07:12→17:04)
[2022-10-24] MEDS: INSULIN SLIDING SCALE (NOVOLOG) 1 VIAL SQ SCH ×3 (07:13→17:03)
[2022-10-24] MEDS ORDERED: INSULIN (NOVOLOG) ASPART 100 UNITS/ML 10ML VIAL ONE ×2 (07:16→12:13)
[2022-10-24] MEDS: buPROPion HCL 100 MG TABLET PO SCH ×2 (10:14→23:27)
[2022-10-24] MEDS: LISINOPRIL 5 MG TABLET PO SCH (10:14)
[2022-10-24] MEDS: BUPRENORPHINE/NALOXONE 4 MG/1 MG FILM PACKET SL SCH (10:15)
[2022-10-24] MEDS: PRENATAL VITAMINS W/ FOLIC ACID TABLET (FP) PO SCH (10:15)
[2022-10-24] MEDS: MELATONIN 5 MG TABLETS PO SCH (23:26)
[2022-10-24] MEDS: INSULIN (LEVEMIR) 100 UNITS/ML UNITS SQ SCH (23:26)
[2022-10-24] MEDS: THIAMINE HCL 100 MG TABLET (FP) PO SCH (23:27)
[2022-10-25] MEDS: metFORMIN HCL 500 MG TABLET (FP) PO SCH (06:42)
[2022-10-25] MEDS: INSULIN SLIDING SCALE (NOVOLOG) 1 VIAL SQ SCH (07:17)
[2022-10-25 09:14] VITALS: BP 140/64; PULSE 87
[2022-10-25] MEDS: LISINOPRIL 5 MG TABLET PO SCH (09:47)
[2022-10-25] MEDS: BUPRENORPHINE/NALOXONE 4 MG/1 MG FILM PACKET SL SCH (09:47)
[2022-10-25] MEDS: PRENATAL VITAMINS W/ FOLIC ACID TABLET (FP) PO SCH (09:47)
[2022-10-25] MEDS: buPROPion HCL 100 MG TABLET PO SCH (09:47)
== END 2022-10-25 10:10 | disposition home or self-care (01) | DRG 772 ==
LOC: YASAS 11:16 → Y3W 11:18 → Y5N 09-29 11:46
PROVIDERS: ADMIT Allergy & Immunology; ATTEND Allergy & Immunology
PROC: HZ42ZZZ Group Counseling for Substance Abuse Treatment, Cognitive-Behavioral (ICD-10-PCS; principal; 2022-09-28)
DX: F10.20 Alcohol dependence, uncomplicated (principal); F14.20 Cocaine dependence, uncomplicated; F11.20 Opioid dependence, uncomplicated; F17.210 Nicotine dependence, cigarettes, uncomplicated; F41.9 Anxiety disorder, unspecified; F43.10 Post-traumatic stress disorder, unspecified; H54.62 Unqualified visual loss, left eye, normal vision right eye; E11.42 Type 2 diabetes mellitus with diabetic polyneuropathy; Z79.84 Long term (current) use of oral hypoglycemic drugs; M15.9 Polyosteoarthritis, unspecified; M54.50 Low back pain, unspecified; G89.29 Other chronic pain; Z86.69 Personal history of other diseases of the nervous system and sense organs; Z87.19 Personal history of other diseases of the digestive system
CPT/HCPCS: 36415; 82140; 82962; 86803; Q0162